=== PATIENT | female | born 1945 | race Caucasian/White ===

== ENCOUNTER 2022-12-27 17:30 | Inpatient (IN) ==
--- NOTE | 2022-12-27 17:48 | ED Triage Note ---
Date of Service December 27, 2022 History of Present Illness This patient was briefly evaluated while in triage. An abbreviated physical exam was performed. This patient is a 77-year-old Female who presents to the ED for evaluation of possible atrial fibrillation. She was at her PCP's office for a routine visit and the EKG showed an undetermined rhythm, possibly atrial fibrillation. She has not been feeling well generally and has had some unexplained weight loss. She denies chest pain or shortness of breath. Physical Exam VITALS: Vitals are noted on the nurse's note and reviewed by myself. GENERAL: This is a 77-year-old female, in no acute distress, nondiaphoretic, well-developed well-nourished. SKIN: The skin was without rashes. EYES: Pupils equal round and reactive to light and accommodation. HEART: Irregularly irregular rhythm. No murmurs gallops or rubs. LUNGS: Clear to auscultation bilaterally without wheezes, rales or rhonchi. NEURO: Patient was alert and oriented to person place and time. Initial orders for labs and / or imaging were placed and patient was placed in the waiting area until a bed is available. Please see further documentation for the full ED course.
[2022-12-27 18:22] LABS: Basophils % (auto) 0.7 %; Eosinophils # (auto) 0.07 K/uL (0-0.50); Eosinophils % (auto) 0.5 %; Hematocrit (blood only) 41.2 % (37.0-47.0); Hemoglobin 13.1 g/dl (12.0-16.0); Immature Granulocytes # (auto) 0.06 K/uL (0.01-0.20); Immature Granulocytes % (auto) 0.4 %; Lymphocytes # (auto) 1.07 K/uL (1.2-3.4); Lymphocytes % (auto) 7.9 %; Mean Corpuscular Hemoglobin 29.6 pg (25.0-34.0); Mean Corpuscular Hgb Conc 31.8 g/dL (32.0-36.0); Mean Corpuscular Volume 93.2 fL (80.0-100.0); Mean Platelet Volume 9.6 fL (9.4-12.4); Monocytes # (auto) 1.33 K/uL (0.11-0.59); Monocytes % (auto) 9.9 %; Neutrophils # (auto) 10.85 K/uL (1.40-6.50); Neutrophils % (auto) 80.6 %; Platelet Count 391 K/uL (130-400); RDW Coefficient of Variation 13.5 % (11.5-14.5); RDW Standard Deviation 46.4 fL (36.4-46.3); Red Blood Count 4.42 M/uL (4.20-5.40); White Blood Count 13.48 K/ul (4.8-10.8)
--- NOTE | 2022-12-27 18:27 | Emergency Department Note ---
History of Present Illness General Chief Complaint: Arrhythmia/Palpitations Stated Complaint: REF BY Harshad KEITA, Time Seen by Provider: 12/27/22 18:05 History of Present Illness Provider Complaint: + palpitations Onset (ago): week(s) (2) Duration: + Intermittent Severity: moderate Context: + occurred during rest Arrhythmia history: no on anti-coagulants Associated symptoms: no chest pain, no shortness of breath, no syncope, no near- syncope, no nausea, no vomiting, no cough or no paresthesias Home Medications Medication Instructions Recorded Confirmed Type aspirin 81 mg tablet,delayed 81 mg PO 3XWK 09/19/18 12/27/22 History release carvedilol phosphate 40 mg 40 mg PO QAM 09/19/18 12/27/22 History capsule,[id number] multiphase cyanocobalamin (vitamin B-12) 1,000 mcg PO QAM 09/19/18 12/27/22 History 1,000 mcg tablet (Vitamin B-12) docusate sodium 50 mg capsule 50 - 100 mg PO QAM PRN constipation 09/19/18 12/27/22 History furosemide 40 mg tablet 40 mg PO QAM 09/19/18 12/27/22 History spironolactone 25 mg tablet 25 mg PO QAM 09/19/18 12/27/22 History cholecalciferol (vitamin D3) 25 25 mcg PO QAM 09/07/21 12/27/22 History mcg (1,000 unit) capsule (Vitamin D3) Allergies Allergy/AdvReac Type Severity Reaction Status Date / Time Tetracyclines Allergy Severe ANAPHYLAXIS Verified 12/27/22 18:44 ciprofloxacin Allergy Intermediate "my heart Verified 12/27/22 18:44 palpates" Penicillins Allergy Mild HIVES Verified 12/27/22 18:44 Sulfa (Sulfonamide Allergy Mild ITCHING Verified 12/27/22 18:44 Antibiotics) Past Med/Surg History Medical History Brain tumor Cardiomyopathy follows with Dr. Torres Chronic kidney disease, stage 3 Deep vein thrombosis left leg after flying--was on warfarin, stopped 2016 Heart palpitations History of colon polyps Hypertension Morbid obesity with BMI of 45.0-49.9, adult Osteoarthritis Skipped heart beats Surgical History History of appendectomy History of cardiac cath 1996, no stents History of colonoscopy last 09/15/21 @ [facility] History of [place]aniotomy 12/26/17 [place] [facility] [place]benign [place] History of dilatation and curettage History of esophagogastroduodenoscopy (EGD) History of tonsillectomy and adenoidectomy History of tooth extraction History of total abdominal hysterectomy and bilateral salpingo-oophorectomy Family History Other No family history of adverse response to anesthesia Social History Smoking Status: Former smoker Second Hand Exposure: No; Hx Alcohol Use: No Hx Substance Use: No Preferred Language: Khmer Communication Ability: Effective 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 Beliefs That Will Affect Care: None Current Living Situation: Spouse and Family Current Living Situation Comment: Lives with /daughter and 2 grandkids Feels Safe at Home: Yes Assistive Devices: None Physical Exam Vital Signs: Vital Signs - 24 hr 12/27/22 17:44 12/27/22 18:20 12/27/22 18:29 Temperature 36.8 C Temperature Source Temporal Artery Sc an Pulse Rate 118 H 111 H Pulse Rate [Left A pical] 106 H Respiratory Rate 20 24 Respiratory Depth Normal Blood Pressure 130/74 Blood Pressure [Le ft Radial Artery] 108/91 Blood Pressure Kaykay n 92 Blood Pressure Kaykay n [Left Radial Art carmen] 96 Blood Pressure Pos ition Sitting Pulse Oximetry 99 95 Oxygen Delivery Me thod Room Air Room Air Sepsis Recent Feve r Within 48 Hours No Sepsis New/Unexpla ined Change in Men venancio Status No Sepsis Action Take n by Nursing No Action Required 12/27/22 18:35 Temperature Temperature Source Pulse Rate 106 H Pulse Rate [Left A pical] Respiratory Rate 17 Respiratory Depth Blood Pressure 125/78 Blood Pressure [Le ft Radial Artery] Blood Pressure Kaykay n 93 Blood Pressure Kaykay n [Left Radial Art carmen] Blood Pressure Pos ition Pulse Oximetry 98 Oxygen Delivery Me thod Room Air Sepsis Recent Feve r Within 48 Hours Sepsis New/Unexpla ined Change in Men venancio Status Sepsis Action Take n by Nursing Physical Exam: Physical Exam GENERAL: oriented to person, place, and time. appears well-developed and well- nourished. HENT: Exam performed. - Head: Normocephalic and atraumatic. EYES: Conjunctivae and EOM are normal. Right eye exhibits no discharge. Left eye exhibits no discharge. No scleral icterus. NECK: Normal range of motion. Neck supple. No JVD present. CV: Tachycardic rate, irregular rhythm, normal heart sounds and intact distal pulses. There is no peripheral edema. Palpable radial pulses bue. PULM/CHEST: Effort normal and breath sounds normal. No respiratory distress. No stridor. no wheezes. no rales. ABD: The abdomen is soft. There is no tenderness. NEURO: Motor and sensation grossly intact. SKIN: Skin is warm and dry. He is not diaphoretic. PSYCH: normal mood and affect. Behavior is normal. Judgment and thought content normal. Course Course 1804: The patient was evaluated in room A4. A complete history and physical exam was performed Cardiac monitoring: An order was placed for continuous cardiac monitoring. The monitor shows a rate of 100 with atrial fibrilation rhythm interpreted by az 2124: Patient lolis in atrial fibrillation with a range heart rate of 100-120. Patient reports no chest pain or difficulty breathing. Patient's labs show mildly elevated troponin of 16.5. TSH 1.204. COVID-negative. Mild leukocytosis of 13.48. D-dimer elevated 2670. CTA of the chest showed a few scattered small linear defects in the right upper and lower lobe pulmonary art eries consistent with pulmonary emboli but the majority of these defects have a weblike appearance and therefore favor chronic pulmonary emboli and there are no definite acute pulmonary emboli per the radiology read. There is moderate cardiomegaly with right-sided heart dysfunction and no evidence of pulmonary edema. Patient has an elevated [id number] score and therefore will be anticoagulated for her new onset atrial fibrillation. Patient started on heparin bolus and drip. [facility]. Administered Medications Discontinued Medications Ioversol (Optiray 320 500ml) 109 ml IV ONCE ONE Stop: 12/27/22 20:15 Last Admin: 12/27/22 20:14 Dose: 109 ml Documented By: DWAYNE Medical Decision Making Laboratory Data Attestation: I reviewed the patient's lab results. 12/27/22 18:07 12/27/22 18:07 Lab Results 12/27/22 12/27/22 12/27/22 Range/Units 18:07 18:07 18:07 WBC 13.48 H (4.8-10.8) K/ul RBC 4.42 (4.20-5.40) M/uL Hgb 13.1 (12.0-16.0) g/dl Hct 41.2 (37.0-47.0) % MCV 93.2 (80.0-100.0) fL MCH 29.6 (25.0-34.0) pg MCHC 31.8 L (32.0-36.0) g/dL RDW Std Deviation 46.4 H (36.4-46.3) fL RDW Coeff of Sg 13.5 (11.5-14.5) % Plt Count 391 (130-400) K/uL MPV 9.6 (9.4-12.4) fL Immature Gran % (Auto) 0.4 % Neut % (Auto) 80.6 % Lymph % (Auto) 7.9 % Harmon % (Auto) 9.9 % Eos % (Auto) 0.5 % Baso % (Auto) 0.7 % Neut # (Auto) 10.85 H (1.40-6.50) K/uL Lymph # (Auto) 1.07 L (1.2-3.4) K/uL Harmon # (Auto) 1.33 H (0.11-0.59) K/uL Eos # (Auto) 0.07 (0-0.50) K/uL Baso # (Auto) 0.10 (0-0.2) K/uL Immature Gran # (Auto) 0.06 (0.01-0.20) K/uL PT 11.8 (9.0-12.0) Seconds INR 1.1 (0.9-1.1) APTT 23.9 (21.0-31.0) Seconds PTT Ratio 0.8 D-Dimer (0-500) ug/L FEU Sodium 141 (136-145) mmol/L Potassium 3.4 L (3.5-5.1) mmol/L Chloride 102 (98-107) mmol/L Carbon Dioxide 31 (21-32) mmol/L Anion Gap 8 (3-11) BUN 21 (6-23) mg/dl Creatinine 1.23 H (0.6-1.2) mg/dl Est Cr Clr Drug Dosing Not Reportable Est GFR ( Amer) 49.7 ml/min Est GFR (Non-Af Amer) 42.9 ml/min BUN/Creatinine Ratio 17.1 (10-20) Glucose 98 (70-99(Fasting)) mg/dl Calcium 9.3 (8.6-10.3) mg/dl Magnesium 1.9 (1.7-2.4) mg/dl Total Bilirubin 0.6 (0.2-1.0) mg/dl AST 10 L (13-39) U/L ALT 5 L (7-52) U/L Alkaline Phosphatase 69 (34-104) U/L Troponin I High Sens 16.5 H (0-14) pg/ml Total Protein 7.4 (6.0-8.3) gm/dl Albumin 3.5 (3.4-5.0) gm/dl Globulin 3.9 (2.5-4.0) gm/dl Albumin/Globulin Ratio 0.9 (0.9-2) TSH (0.300-4.500) uIu/ml SARS-CoV-2, RNA, NAAT (NEGATIVE) 12/27/22 12/27/22 12/27/22 Range/Units 18:07 18:07 18:19 WBC (4.8-10.8) K/ul RBC (4.20-5.40) M/uL Hgb (12.0-16.0) g/dl Hct (37.0-47.0) % MCV (80.0-100.0) fL MCH (25.0-34.0) pg MCHC (32.0-36.0) g/dL RDW Std Deviation (36.4-46.3) fL RDW Coeff of Sg (11.5-14.5) % Plt Count (130-400) K/uL MPV (9.4-12.4) fL Immature Gran % (Auto) % Neut % (Auto) % Lymph % (Auto) % Harmon % (Auto) % Eos % (Auto) % Baso % (Auto) % Neut # (Auto) (1.40-6.50) K/uL Lymph # (Auto) (1.2-3.4) K/uL Harmon # (Auto) (0.11-0.59) K/uL Eos # (Auto) (0-0.50) K/uL Baso # (Auto) (0-0.2) K/uL Immature Gran # (Auto) (0.01-0.20) K/uL PT (9.0-12.0) Seconds INR (0.9-1.1) APTT (21.0-31.0) Seconds PTT Ratio D-Dimer 2670 H* (0-500) ug/L FEU Sodium (136-145) mmol/L Potassium (3.5-5.1) mmol/L Chloride (98-107) mmol/L Carbon Dioxide (21-32) mmol/L Anion Gap (3-11) BUN (6-23) mg/dl Creatinine (0.6-1.2) mg/dl Est Cr Clr Drug Dosing Est GFR ( Amer) ml/min Est GFR (Non-Af Amer) ml/min BUN/Creatinine Ratio (10-20) Glucose (70-99(Fasting)) mg/dl Calcium (8.6-10.3) mg/dl Magnesium (1.7-2.4) mg/dl Total Bilirubin (0.2-1.0) mg/dl AST (13-39) U/L ALT (7-52) U/L Alkaline Phosphatase (34-104) U/L Troponin I High Sens (0-14) pg/ml Total Protein (6.0-8.3) gm/dl Albumin (3.4-5.0) gm/dl Globulin (2.5-4.0) gm/dl Albumin/Globulin Ratio (0.9-2) TSH 1.204 (0.300-4.500) uIu/ml SARS-CoV-2, RNA, NAAT NEGATIVE (NEGATIVE) Imaging Data Attestation: I personally reviewed and interpreted this imaging study as follows: My Impression: Chest x-ray: Mild cardiomegaly no pulmonary edema. Radiologist's Impression: Chest X-Ray 12/27/22 17:52 XR chest 1V portable HISTORY: Dysrhythmia COMPARISON: Chest 04/25/2016. FINDINGS: No pneumothorax. No pleural effusions. The cardiac silhouette is mildly enlarged. This has slightly progressed. No new focal lung consolidations to suggest a pneumonia. No evidence for pulmonary edema. No acute fractures identified. IMPRESSION: Cardiomegaly which has slightly progressed. Otherwise, no acute process within the chest ACT 112: Negative or not required by law. Electronically signed by: Dawood Singh M.D. 12/27/2022 8:12 PM Chest CTA 12/27/22 19:31 CHEST CTA for PULMONARY ARTERIES CT DOSE: 505.28 mGy.cm HISTORY: New onset atrial fibrillation. Assess for a pulmonary embolus. TECHNIQUE: Multiaxial CT images of the chest were performed following the intravenous administration of contrast to evaluate the pulmonary arteries. Maximal intensity projection images were also obtained. A dose lowering technique was utilized adhering to the principles of ALARA. COMPARISON STUDY: None. FINDINGS: Limited views of the upper abdomen demonstrate a normal liver, spleen, and adrenal glands. Retrograde opacification of the hepatic veins consistent with right-sided heart dysfunction. Multinodular thyroid goiter. Dominant nodule measures approximately 3.3 cm. No pleural or pericardial effusions. No mediastinal or hilar lymphadenopathy. Normal esophagus. The heart is moderately enlarged. There is a normal caliber thoracic aorta with no evidence for a dissection. There are few scattered small linear filling defects seen within the right upper and right lower lobe pulmonary arteries consistent with pulmonary emboli. The majority of these filling defects have a weblike appearance and therefore favor chronic pulmonary emboli. No definite acute pulmonary emboli identified. No acute fractures identified within the chest. No pneumothorax. The central airways are patent. A few scattered micronodules noted within the lung apices with the largest within the right upper lobe on image 229 measuring 3 mm. This favors mild chronic inflammatory/infectious change. No focal lung consol idations to suggest a pneumonia. No evidence for pulmonary edema. There is mild central bronchial wall thickening. IMPRESSION: 1. There are few scattered small linear filling defects seen within the right upper and right lower lobe pulmonary arteries consistent with pulmonary emboli. The majority of these filling defects have a weblike appearance and therefore favor chronic pulmonary emboli. No definite acute pulmonary emboli identified. 2. Moderate cardiomegaly with evidence for right-sided heart dysfunction. 3. No evidence for pulmonary edema. 4. A few scattered micronodules within the lung apices measuring up to 3 mm. This favors mild chronic inflammatory/infectious change. Otherwise, no focal lung consolidations to suggest a pneumonia. 5. Multinodular left thyroid gland with the dominant nodule measuring 3.3 cm. Follow-up nonemergent thyroid ultrasound recommended for further evaluation ACT 112: Positive. There are findings on this exam that require communication between the performing entity and the patient following Patient Test Result Information Act ([place] Act 112) guidelines. Electronically signed by: Dawood Singh M.D. 12/27/2022 9:15 PM ECG Data Attestation: I personally reviewed and interpreted this ECG as follows: Indication: palpitations Rate (beats per minute): 116 Rhythm: atrial fibrillation Findings: + LBBB and + PVC; no ST depression, no ST elevation or no prolonged QT MDM Narrative 1805: The patient was evaluated in room A4. A complete history and physical exam was performed Cardiac monitoring: An order was placed for continuous cardiac monitoring. The monitor shows a rate of 100 with atrial fibrilation rhythm interpreted by me 2125: Patient lolis in atrial fibrillation with a range heart rate of 100-120. Patient reports no chest pain or difficulty breathing. Patient's labs show mildly elevated troponin of 16.5. TSH 1.204. COVID-negative. Mild leukocytosis of 13.48. D-dimer elevated 2670. CTA of the chest showed a few scattered small linear defects in the right upper and lower lobe pulmonary arteries consistent with pulmonary emboli but the majority of these defects have a weblike appearance and therefore favor chronic pulmonary emboli and there are no definite acute pulmonary emboli per the radiology read. There is moderate cardiomegaly with right-sided heart dysfunction and no evidence of pulmonary edema. Patient has an elevated [id number] score and therefore will be anticoagulated for her new onset atrial fibrillation. Patient started on heparin bolus and drip. [facility]. Impression & Plan Atrial fibrillation, Pulmonary emboli Critical Care Time Critical Care Time: Yes Total Critical Care Time: 38 I have personally spent greater than 38 minutes of critical care time in the direct management of this patient. This includes bedside care, interpretation of diagnostic studies, and testing, discussion with consultants, patient, and family members, and other required patient management activities. This 38 minutes is in excess of all separately billable procedures. Discharge Plan Visit Data Chief Complaint: Arrhythmia/Palpitations Stated Complaint: REF BY Harshad KEITA, ED Provider: Sebastien Ely Discharge Problem: Atrial fibrillation, Pulmonary emboli Patient Disposition: Admitted As Inpatient Forms Stand Alone Forms: [facility] Prescriptions Prescriptions: No Action furosemide 40 mg Tablet 40 mg PO QAM cyanocobalamin (vitamin B-12) [Vitamin B-12] 1,000 mcg Tablet 1,000 mcg PO QAM docusate sodium 50 mg Capsule 50 - 100 mg PO QAM PRN (Reason: constipation) aspirin 81 mg Tablet,Delayed Release (Dr/Ec) 81 mg PO 3XWK Patient Comments: takes mon/mon/mon in am Rx Instructions: Taken on Monday, Monday and Monday spironolactone 25 mg Tablet 25 mg PO QAM carvedilol phosphate 40 mg Capsule, Er Multiphase 24 Hr 40 mg PO QAM cholecalciferol (vitamin D3) [Vitamin D3] 25 mcg (1,000 unit) Capsule 25 mcg PO QAM Referrals Referrals: Michelle Jimenez DO [Primary Care Provider] -
[2022-12-27 18:44] LABS: Alanine Aminotransferase 5 U/L (7-52); Albumin Globulin Ratio 0.9 (0.9-2); Albumin Level 3.5 gm/dl (3.4-5.0); Alkaline Phosphatase 69 U/L (34-104); Anion Gap 8 (3-11); Aspartate Aminotransferase 10 U/L (13-39); BUN Creatinine Ratio 17.1 (10-20); Bilirubin,Total 0.6 mg/dl (0.2-1.0); Blood Urea Nitrogen 21 mg/dl (6-23); Calcium 9.3 mg/dl (8.6-10.3); Carbon Dioxide 31 mmol/L (21-32); Chloride 102 mmol/L (98-107); Est GFR (African American) 49.7 ml/min; Est GFR (Non-African American) 42.9 ml/min; Globulin 3.9 gm/dl (2.5-4.0); Glucose 98 mg/dl (70-99(Fasting)); Magnesium 1.9 mg/dl (1.7-2.4); Potassium 3.4 mmol/L (3.5-5.1); Sodium 141 mmol/L (136-145); Total Protein 7.4 gm/dl (6.0-8.3)
[2022-12-27 18:48] LABS: Troponin I High Sensitivity 16.5 pg/ml (0-14)
[2022-12-27 18:49] LABS: INR 1.1 (0.9-1.1); Partial Thromboplastin Ratio 0.8; Partial Thromboplastin Time 23.9 Seconds (21.0-31.0); Prothrombin Time 11.8 Seconds (9.0-12.0)
[2022-12-27 19:32] LABS: D Dimer 2670 ug/L FEU (0-500)
--- NOTE | 2022-12-27 20:13 | XRay Report ---
XR chest 1V portable HISTORY: Dysrhythmia COMPARISON: Chest 04/25/2016. FINDINGS: No pneumothorax. No pleural effusions. The cardiac silhouette is mildly enlarged. This has slightly progressed. No new focal lung consolidations to suggest a pneumonia. No evidence for pulmona ry edema. No acute fractures identified. IMPRESSION: Cardiomegaly which has slightly progressed. Otherwise, no acute process within the chest ACT 112: Negative or not required by law. Electronically signed by: Dawood Singh M.D. 12/27/2022 8:12 PM
[2022-12-27] MEDS ORDERED: OPTIRAY 320 500ml IV ONE (20:14)
--- NOTE | 2022-12-27 21:17 | CT Scan Report ---
CHEST CTA for PULMONARY ARTERIES CT DOSE: 505.28 mGy.cm HISTORY: New onset atrial fibrillation. Assess for a pulmonary embolus. TECHNIQUE: Multiaxial CT images of the chest were performed following the intravenous administration of contrast to evaluate the pulmonary arteries. Maximal intensity projection images were also obtaine d. A dose lowering technique was utilized adhering to the principles of ALARA. COMPARISON STUDY: None. FINDINGS: Limited views of the upper abdomen demonstrate a normal liver, spleen, and adrenal glands. Retrograde opacification of the hepatic veins consistent with right-sided heart dysfunction. Multinod ular thyroid goiter. Dominant nodule measures approximately 3.3 cm. No pleural or pericardial effusio ns. No mediastinal or hilar lymphadenopathy. Normal esophagus. The heart is moderately enlarged. Ther e is a normal caliber thoracic aorta with no evidence for a dissection. There are few scattered small linear filling defects seen within the right upper and right lower lobe pulmonary arteries consisten t with pulmonary emboli. The majority of these filling defects have a weblike appearance and therefor e favor chronic pulmonary emboli. No definite acute pulmonary emboli identified. No acute fractures i dentified within the chest. No pneumothorax. The central airways are patent. A few scattered micronod ules noted within the lung apices with the largest within the right upper lobe on image 229 measuring 3 mm. This favors mild chronic inflammatory/infectious change. No focal lung consolidations to sugge st a pneumonia. No evidence for pulmonary edema. There is mild central bronchial wall thickening. IMPRESSION: 1. There are few scattered small linear filling defects seen within the right upper and right lower l obe pulmonary arteries consistent with pulmonary emboli. The majority of these filling defects have a weblike appearance and therefore favor chronic pulmonary emboli. No definite acute pulmonary emboli identified. 2. Moderate cardiomegaly with evidence for right-sided heart dysfunction. 3. No evidence for pulmonary edema. 4. A few scattered micronodules within the lung apices measuring up to 3 mm. This favors mild chronic inflammatory/infectious change. Otherwise, no focal lung consolidations to suggest a pneumonia. 5. Multinodular left thyroid gland with the dominant nodule measuring 3.3 cm. Follow-up nonemergent t hyroid ultrasound recommended for further evaluation ACT 112: Positive. There are findings on this exam that require communication between the performing entity and the patient following Patient Test Result Information Act ([place] Act 112) guidelines. Electronically signed by: Dawood Singh M.D. 12/27/2022 9:15 PM
[2022-12-27] MEDS ORDERED: Heparin IV Adult Wt-Based Standard WITH Bolus Protocol IV STA (21:23)
[2022-12-27] MEDS ORDERED: HEPARIN SOD (PORCINE) 1000 UNIT/ML IV ONE (21:40)
[2022-12-27] MEDS ORDERED: POTASSIUM CHLORIDE PWD 20 MEQ PACK PO STA (22:10)
[2022-12-27] MEDS ORDERED: MAGNESIUM SULFATE / D5W 1 GM/100 ML BAG IV ONE (22:11)
[2022-12-27] MEDS ORDERED: METOPROLOL TARTRATE 25 MG TAB PO STA (22:12)
[2022-12-27] MEDS ORDERED: NSS + 20MEQ KCL 20 MEQ/1,000 ML BAG IV ONE (22:13)
[2022-12-27] MEDS ORDERED: LACTATED RINGER'S 1,000 ML IV ONE (22:14)
[2022-12-27] MEDS: HEPARIN SODIUM/DEXTROSE 25,000 UNITS/500 ML BAG IV SCH (22:53)
--- NOTE | 2022-12-27 23:54 | History & Physical Report ---
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 but patient hesitant due to concerns for potential voice loss complications IBD, stable, intermittent painless LGIB attributed to large hemorrhoids PCU low-dose metoprolol for rate control (in place of patient's Coreg) given border line BP (Patient initially hesitant to try medication but agreeable for now.) Continue IV heparin for thromboembolic prophylaxis LE venous Dopplers LE clot as source of PE Baseline UA, hold home diuretics until creatinine back to baseline UA, monitor creatinine response to IVF TTE, Cardiology consult Re: New onset A-fib Anxiolytic as needed Replace electrolytes DVT prophylaxis. IV heparin Full code Patient requesting updates from providers. Mr. Fidencio Turcios, contact #[phone]. Text document was generated using [employer] voice recognition software. It may contain grammatical or spelling errors. Kindly contact undersigned for clarification of any documentation item in question. History of Present Illness Chief Complaint: Atrial fibrillation Primary Care Provider: Michelle Jimenez DO History obtained from patient, family, and records. Medical history significant for chronic CHF secondary to dilated cardiomyopathy (EF 50-54%, TTE 2022), mild TR, chronic LBBB, pulmonary hypertension, hypertension, anxiety/mood disorder, meningioma status post surgery, subclinical hyperthyroidism, secondary hyperparathyroidism, multiple thyroid nodules, IBD, past history DVT status post Coumadin, Last confinement 2007 for E. coli UTI. Patient has not been well since gabe COVID-19 illness months ago. Transient diarrheal illness 2 weeks ago. Appetite not too good. Trying to be active. Increased fatigue over the last few weeks. Denies unusual depression. Patient denies chest pain or SOB. Denies cough symptoms. Patient compliant with home medications. Patient seen at PCPs office on follow-up visit today. Irregular heartbeat appreciated by PCP. A-fib noted on EKG. Patient directed to ER for evaluation. IV heparin administered at the ER with note of pulm embolism on CT chest. 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 Allergies Allergy/AdvReac Type Severity Reaction Status Date / Time Tetracyclines Allergy Severe ANAPHYLAXIS Verified 12/27/22 18:44 ciprofloxacin Allergy Intermediate "my heart Verified 12/27/22 18:44 palpates" Penicillins Allergy Mild HIVES Verified 12/27/22 18:44 Sulfa (Sulfonamide Allergy Mild ITCHING Verified 12/27/22 18:44 Antibiotics) Home Medications Medication Instructions Recorded Confirmed Type aspirin 81 mg tablet,delayed 81 mg PO 3XWK 09/19/18 12/27/22 History release carvedilol phosphate 40 mg 40 mg PO QAM 09/19/18 12/27/22 History capsule,[id number] multiphase cyanocobalamin (vitamin B-12) 1,000 mcg PO QAM 09/19/18 12/27/22 History 1,000 mcg tablet (Vitamin B-12) docusate sodium 50 mg capsule 50 - 100 mg PO QAM PRN constipation 09/19/18 12/27/22 History furosemide 40 mg tablet 40 mg PO QAM 09/19/18 12/27/22 History spironolactone 25 mg tablet 25 mg PO QAM 09/19/18 12/27/22 History cholecalciferol (vitamin D3) 25 25 mcg PO QAM 09/07/21 12/27/22 History mcg (1,000 unit) capsule (Vitamin D3) Past Med/Surg History Medical History Brain tumor Cardiomyopathy follows with Dr. Torres Chronic kidney disease, stage 3 Deep vein thrombosis left leg after flying--was on warfarin, stopped 2015 Heart palpitations History of colon polyps Hypertension Morbid obesity with BMI of 45.0-49.9, adult Osteoarthritis Skipped heart beats Surgical History History of appendectomy History of cardiac cath 1996, no stents History of colonoscopy last 09/15/21 @ [facility] [place] [facility] [place] History of dilatation and curettage History of esophagogastroduodenoscopy (EGD) History of tonsillectomy and adenoidectomy History of tooth extraction History of total abdominal hysterectomy and bilateral salpingo-oophorectomy Family History Other No family history of adverse response to anesthesia Social History Smoking Status: Never smoker Second Hand Exposure: No; Do You Dip or Chew Tobacco: No; Tobacco Cessation Education Requested by Patient: No Hx Alcohol Use: No Hx Substance Use: No Preferred Language: Pashto Communication Ability: Effective 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 Beliefs That Will Affect Care: None Current Living Situation: Spouse and Family Current Living Situation Comment: Lives with /daughter and 2 grandkids Other Information That Helps Us Care for You: No Feels Safe at Home: Yes Safety Concerns: Feels Safe At This Time Assistive Devices: Cane Assistive Devices Comment: uses a cane when walking long distance Review of Systems Review of Systems: As per HPI, all other systems reviewed and negative Physical Exam Physical Exam: GENERAL: Comfortable, slightly anxious, morbidly obese, no respiratory distress SKIN: Normal color, warm HEENT: [place] palpebral conjunctivae, no ptosis, dry buccal mucosa NECK : Supple, short neck, no tenderness CHEST : CTA, no tenderness HEART : irregular, no obvious murmurs ABDOMEN: Some distention, nontender EXTREMITIES : LE swelling, no LE tenderness, no other conspicuous deformities noted NEUROLOGIC : Coherent, no facial asymmetry, no other gross focality Results & Data Results & Data Vital Signs (Past 12 Hours) Vital Signs Temp Pulse Pulse Resp BP BP Pulse Ox 12/27/22 23:30 110 H 26 H 113/69 93 12/27/22 23:00 108 H 24 128/84 99 12/27/22 22:24 111 H 12/27/22 18:35 106 H 17 125/78 98 12/27/22 18:29 111 H 12/27/22 18:20 106 H 24 108/91 95 12/27/22 17:44 36.8 C 118 H 20 130/74 99 O2 Del Method 12/27/22 23:30 Room Air 12/27/22 23:00 Room Air 12/27/22 22:24 12/27/22 18:35 Room Air 12/27/22 18:29 12/27/22 18:20 Room Air 12/27/22 17:44 Room Air Laboratory Results Laboratory Results WBC 13.48 K/ul (4.8-10.8) H 12/27/22 18:07 RBC 4.42 M/uL (4.20-5.40) 12/27/22 18:07 Hgb 13.1 g/dl (12.0-16.0) 12/27/22 18:07 Hct 41.2 % (37.0-47.0) 12/27/22 18:07 MCV 93.2 fL (80.0-100.0) 12/27/22 18:07 MCH 29.6 pg (25.0-34.0) 12/27/22 18:07 MCHC 31.8 g/dL (32.0-36.0) L 12/27/22 18:07 RDW Std Deviation 46.4 fL (36.4-46.3) H 12/27/22 18:07 RDW Coeff of Sg 13.5 % (11.5-14.5) 12/27/22 18:07 Plt Count 391 K/uL (130-400) 12/27/22 18:07 MPV 9.6 fL (9.4-12.4) 12/27/22 18:07 Immature Gran % (Auto) 0.4 % 12/27/22 18:07 Neut % (Auto) 80.6 % 12/27/22 18:07 Lymph % (Auto) 7.9 % 12/27/22 18:07 [place] % (Auto) 9.9 % 12/27/22 18:07 Eos % (Auto) 0.5 % 12/27/22 18:07 Baso % (Auto) 0.7 % 12/27/22 18:07 Neut # (Auto) 10.85 K/uL (1.40-6.50) H 12/27/22 18:07 Lymph # (Auto) 1.07 K/uL (1.2-3.4) L 12/27/22 18:07 [place] # (Auto) 1.33 K/uL (0.11-0.59) H 12/27/22 18:07 Eos # (Auto) 0.07 K/uL (0-0.50) 12/27/22 18:07 Baso # (Auto) 0.10 K/uL (0-0.2) 12/27/22 18:07 Immature Gran # (Auto) 0.06 K/uL (0.01-0.20) 12/27/22 18:07 PT 11.8 Seconds (9.0-12.0) 12/27/22 18:07 INR 1.1 (0.9-1.1) 12/27/22 18:07 APTT 23.9 Seconds (21.0-31.0) 12/27/22 18:07 PTT Ratio 0.8 12/27/22 18:07 D-Dimer 2670 ug/L FEU (0-500) H* 12/27/22 18:07 Sodium 141 mmol/L (136-145) 12/27/22 18:07 Potassium 3.4 mmol/L (3.5-5.1) L 12/27/22 18:07 Chloride 102 mmol/L (98-107) 12/27/22 18:07 Carbon Dioxide 31 mmol/L (21-32) 12/27/22 18:07 Anion Gap 8 (3-11) 12/27/22 18:07 BUN 21 mg/dl (6-23) 12/27/22 18:07 Creatinine 1.23 mg/dl (0.6-1.2) H 12/27/22 18:07 Est Cr Clr Drug Dosing Not Reportable 12/27/22 18:07 Est GFR ( Amer) 49.7 ml/min 12/27/22 18:07 Est GFR (Non-Af Amer) 42.9 ml/min 12/27/22 18:07 BUN/Creatinine Ratio 17.1 (10-20) 12/27/22 18:07 Glucose 98 mg/dl (70-99(Fasting)) 12/27/22 18:07 Calcium 9.3 mg/dl (8.6-10.3) 12/27/22 18:07 Magnesium 1.9 mg/dl (1.7-2.4) 12/27/22 18:07 Total Bilirubin 0.6 mg/dl (0.2-1.0) 12/27/22 18:07 AST 10 U/L (13-39) L 12/27/22 18:07 ALT 5 U/L (7-52) L 12/27/22 18:07 Alkaline Phosphatase 69 U/L (34-104) 12/27/22 18:07 Troponin I High Sens 16.5 pg/ml (0-14) H 12/27/22 18:07 Total Protein 7.4 gm/dl (6.0-8.3) 12/27/22 18:07 Albumin 3.5 gm/dl (3.4-5.0) 12/27/22 18:07 Globulin 3.9 gm/dl (2.5-4.0) 12/27/22 18:07 Albumin/Globulin Ratio 0.9 (0.9-2) 12/27/22 18:07 Procalcitonin < 0.05 ng/ml (0-0.5) 12/27/22 18:07 TSH 1.204 uIu/ml (0.300-4.500) 12/27/22 18:07 SARS-CoV-2, RNA, NAAT NEGATIVE (NEGATIVE) 12/27/22 18:19 Impressions Chest X-Ray 12/27/22 17:52 XR chest 1V portable HISTORY: Dysrhythmia COMPARISON: Chest 04/25/2016. FINDINGS: No pneumothorax. No pleural effusions. The cardiac silhouette is mildly enlarged. This has slightly progressed. No new focal lung consolidations to suggest a pneumonia. No evidence for pulmonary edema. No acute fractures identified. IMPRESSION: Cardiomegaly which has slightly progressed. Otherwise, no acute process within the chest ACT 112: Negative or not required by law. Electronically signed by: Dawood Singh M.D. 12/27/2022 8:12 PM Chest CTA 12/27/22 19:31 CHEST CTA for PULMONARY ARTERIES CT DOSE: 505.28 mGy.cm HISTORY: New onset atrial fibrillation. Assess for a pulmonary embolus. TECHNIQUE: Multiaxial CT images of the chest were performed following the intravenous administration of contrast to evaluate the pulmonary arteries. Maximal intensity projection images were also obtained. A dose lowering technique was utilized adhering to the principles of ALARA. COMPARISON STUDY: None. FINDINGS: Limited views of the upper abdomen demonstrate a normal liver, spleen, and adrenal glands. Retrograde opacification of the hepatic veins consistent with right-sided heart dysfunction. Multinodular thyroid goiter. Dominant nodule measures approximately 3.3 cm. No pleural or pericardial effusions. No mediastinal or hilar lymphadenopathy. Normal esophagus. The heart is moderately enlarged. There is a normal caliber thoracic aorta with no evidence for a dissection. There are few scattered small linear filling defects seen within the right upper and right lower lobe pulmonary arteries consistent with pulmonary emboli. The majority of these filling defects have a weblike appearance and therefore favor chronic pulmonary emboli. No definite acute pulmonary emboli identified. No acute fractures identified within the chest. No pneumothorax. The central airways are patent. A few scattered micronodules noted within the lung apices with the largest within the right upper lobe on image 229 measuring 3 mm. This favors mild chronic inflammatory/infectious change. No focal lung consolidations to suggest a pneumonia. No evidence for pulmonary edema. There is mild central bronchial wall thickening. IMPRESSION: 1. There are few scattered small linear filling defects seen within the right upper and right lower lobe pulmonary arteries consistent with pulmonary emboli. The majority of these filling defects have a weblike appearance and therefore favor chronic pulmonary emboli. No definite acute pulmonary emboli identified. 2. Moderate cardiomegaly with evidence for right-sided heart dysfunction. 3. No evidence for pulmonary edema. 4. A few scattered micronodules within the lung apices measuring up to 3 mm. This favors mild chronic inflammatory/infectious change. Otherwise, no focal lung consolidations to suggest a pneumonia. 5. Multinodular left thyroid gland with the dominant nodule measuring 3.3 cm. Follow-up nonemergent thyroid ultrasound recommended for further evaluation ACT 112: Positive. There are findings on this exam that require communication between the performing entity and the patient following Patient Test Result Information Act ([place] Act 112) guidelines. Electronically signed by: Dawood Singh M.D. 12/27/2022 9:15 PM Diagnostic Findings EKG as per my interpretation :Rate 115, A-fib, LAD, LAFB, LBBB, PVCs (1) Atrial fibrillation Atrial fibrillation type: unspecified Qualified Code(s): I48.91 - Unspecified atrial fibrillation
[2022-12-28] MEDS ORDERED: PROMETHAZINE HCL 12.5 MG in SODIUM CHLORIDE 0.9% 50 ML IV PRN (00:03)
[2022-12-28] MEDS ORDERED: traMADol HCL 50 MG TABLET PO PRN (00:03)
[2022-12-28] MEDS ORDERED: LORazepam 0.5 MG TAB PO PRN (00:03)
[2022-12-28 00:50] LABS: Lyme Ab IgG w/WB Rflx Negative (Negative); Lyme Ab IgM w/WB Rflx Negative (Negative)
[2022-12-28] MEDS ORDERED: ACETAMINOPHEN 325 MG TAB PO PRN (01:16)
[2022-12-28] MEDS: METOPROLOL TARTRATE 25 MG TAB PO STA ×2 (01:18→03:03)
--- NOTE | 2022-12-28 01:30 | Ultrasound Report ---
Exam(s): US VENOUS BILATERAL LOWER EXTREMITIES EXAM: US Duplex Bilateral Lower Extremities Veins CLINICAL HISTORY: Reason for exam: pe work up. TECHNIQUE: Real-time duplex ultrasound scan of the bilateral lower extremity veins integrating B-mode two-dimensional vascular structure, Doppler spectral analysis, color flow Doppler imaging and compression. COMPARISON: 03/09/2016. FINDINGS: Right deep veins: There is incomplete compressibility of the middle and distal right popliteal vein consistent with deep venous thrombosis. Right superficial veins: Unremarkable. No thrombus in the visualized right great saphenous vein. Left deep veins: Unremarkable. No DVT in the left common femoral, femoral, proximal deep femoral or popliteal veins. The veins demonstrate normal color flow, are normally compressible, with normal phasic flow and/or augmentation response. Left superficial veins: Unremarkable. No thrombus in the visualized left great saphenous vein. Soft tissues: There is an elongated cystic structure adjacent to the midportion of the right popliteal vein measuring 4.9 x 1.2 x 1.5 cm which may be associated with resolving hematoma, seroma or nonspecific fluid collection/cyst. IMPRESSION: 1. Deep venous thrombosis involving the middle and distal right popliteal vein. 2. Nonspecific cystic structure in the right calf measuring 4.9 x 1.2 x 0.5 cm which could indicate hematoma, seroma or nonspecific fluid collection/infectious process or cyst. Clinical correlation recommended. Communications: Call Doctor Other Electronically signed by: Jeanne Holley MD 12/28/22 01:29 AM
[2022-12-28 05:26] LABS: Basophils % (auto) 0.9 %; Eosinophils % (auto) 0.9 %; Hematocrit (blood only) 33.9 % (37.0-47.0); Hemoglobin 10.6 g/dl (12.0-16.0); Immature Granulocytes # (auto) 0.05 K/uL (0.01-0.20); Immature Granulocytes % (auto) 0.5 %; Lymphocytes # (auto) 1.45 K/uL (1.2-3.4); Lymphocytes % (auto) 13.3 %; Mean Corpuscular Hemoglobin 29.3 pg (25.0-34.0); Mean Corpuscular Hgb Conc 31.3 g/dL (32.0-36.0); Mean Corpuscular Volume 93.6 fL (80.0-100.0); Mean Platelet Volume 9.5 fL (9.4-12.4); Monocytes # (auto) 1.13 K/uL (0.11-0.59); Monocytes % (auto) 10.3 %; Neutrophils # (auto) 8.11 K/uL (1.40-6.50); Neutrophils % (auto) 74.1 %; Platelet Count 320 K/uL (130-400); RDW Coefficient of Variation 13.7 % (11.5-14.5); RDW Standard Deviation 46.5 fL (36.4-46.3); Red Blood Count 3.62 M/uL (4.20-5.40); White Blood Count 10.94 K/ul (4.8-10.8)
[2022-12-28 05:28] LABS: BUN Creatinine Ratio 16.7 (10-20); Calcium 8.6 mg/dl (8.6-10.3); Creatinine Clr Calc Pharmacy 49.7 ml/min; Est GFR (African American) 58.2 ml/min; Est GFR (Non-African American) 50.2 ml/min; Potassium 3.2 mmol/L (3.5-5.1)
[2022-12-28 05:35] LABS: Troponin I High Sensitivity 15.9 pg/ml (0-14)
[2022-12-28 05:54] LABS: Partial Thromboplastin Ratio 2.7
[2022-12-28 06:00] LABS: Partial Thromboplastin Time 75.9 Seconds (21.0-31.0)
[2022-12-28] MEDS ORDERED: POTASSIUM CHLORIDE CRTAB 20 MEQ TABCR PO STA (06:08)
[2022-12-28] MEDS ORDERED: NSS + 20MEQ KCL 20 MEQ/1,000 ML BAG IV ONE (06:30)
[2022-12-28] MEDS ORDERED: POTASSIUM CHLORIDE PWD 20 MEQ PACK PO STA (06:46)
[2022-12-28 08:05] LABS: Appearance Urine Cloudy (Clear); Bacteria Urine Automated 4+ (Negative); Bilirubin Urine Negative (Negative); Blood Urine 1+ (Negative); Color Urine Yellow; Epithelial Cell Urine Auto 20-30 /lpf (0-5); Glucose Urine UA Negative (Negative); Ketones Urine Negative (Negative); Leukocyte Esterase Urine 2+ (Negative); Nitrite Urine Positive (Negative); Protein Urine Trace (Negative); Specific Gravity Urine > 1.045 (1.000-1.030); Urobilinogen Urine Negative (Negative); WBC Urine Automated >30 /hpf (0-5)
[2022-12-28] MEDS ORDERED: POTASSIUM CHLORIDE CRTAB 20 MEQ TABCR PO ONE (08:30)
--- NOTE | 2022-12-28 08:56 | Hospitalist Progress Note ---
Date of Service December 28, 2022 Assessment & Plan (1) Atrial fibrillation: (2) Pulmonary emboli: Plan: (1) Atrial fibrillation: Plan: New onset Multifactorial : DVT/PE, history COVID-19 illness, past history DVT attributed to air travel TTE, Cardiology consult Re: New onset A-fib Started Metoprolol instead of coreg, given borderline BP Spironolactone IV heparin Replace electrolytes ARF, mild clinical dehydration Baseline UA, hold home diuretics until creatinine back to baseline UA, monitor creatinine response to IVF Repeat UA Spironolactone started Hypokalemia secondary to diuretic Rx replace and monitor Morbid obesity BMI 41 - reports unintentional weight loss - needs counseling regarding weight loss, also cont. 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 IV heparin Full code Patient -m Mr. Fidencio Turcios, contact #[phone]. Admission and Anticipated Discharge Date Admission Date: December 27, 2022 Subjective Pt seen in follow up of new onset Afib, DVT/PE, currently on IV heparin Pt is laying in bed in NAD Reports some palpitations but no chest pain or shortness of breath Denies any LE edema No fever, chills Reports nausea, vomit., diarrhea. Also reports having similar symptoms in the past and was seen by GI as outpt. Reports weight loss unintentional. Review of Systems Review of Systems: All systems reviewed & are unremarkable except as noted in Subjective Physical Exam Physical Exam: GENERAL: morbidly obese F , in NAD HEENT: NC/AT. EOMI. [place] palpebral conjunctivae NECK : Supple CHEST : CTAB, no tenderness HEART : irregular, no obvious murmurs ABDOMEN: Some distention,soft, nontender, + bowel sounds EXTREMITIES : + minimal LE edema, no LE tenderness, moves extremities SKIN: Normal color, warm NEUROLOGIC : awake, alert, answers appropriately, no facial asymmetry, moves extremities Results & Data Results & Data Vital Signs (Past 12 Hours) Vital Signs Temp Pulse Pulse Resp BP BP Pulse Ox 12/28/22 07:15 106 H 12/28/22 01:28 36.4 C L 110 H 18 107/70 98 12/28/22 00:00 108 H 17 107/62 96 12/28/22 00:00 107/62 12/27/22 23:30 110 H 26 H 113/69 93 12/27/22 23:00 108 H 24 128/84 99 12/27/22 22:24 111 H O2 Del Method 12/28/22 07:15 12/28/22 01:28 Room Air 12/28/22 00:00 Room Air 12/28/22 00:00 12/27/22 23:30 Room Air 12/27/22 23:00 Room Air 12/27/22 22:24 Laboratory Results 12/28/22 12/28/22 12/28/22 Range/Units Unknown 04:57 04:52 WBC (4.8-10.8) K/ul RBC (4.20-5.40) M/uL Hgb (12.0-16.0) g/dl Hct (37.0-47.0) % MCV (80.0-100.0) fL MCH (25.0-34.0) pg MCHC (32.0-36.0) g/dL RDW Std Deviation (36.4-46.3) fL RDW Coeff of Sg (11.5-14.5) % Plt Count (130-400) K/uL MPV (9.4-12.4) fL Immature Gran % (Auto) % Neut % (Auto) % Lymph % (Auto) % [place] % (Auto) % Eos % (Auto) % Baso % (Auto) % Neut # (Auto) (1.40-6.50) K/uL Lymph # (Auto) (1.2-3.4) K/uL D[place]on # (Auto) (0.11-0.59) K/uL Eos # (Auto) (0-0.50) K/uL Baso # (Auto) (0-0.2) K/uL Immature Gran # (Auto) (0.01-0.20) K/uL PT (9.0-12.0) Seconds INR (0.9-1.1) APTT 75.9 H* (21.0-31.0) Seconds PTT Ratio 2.7 D-Dimer (0-500) ug/L FEU Sodium 139 (136-145) mmol/L Potassium 3.2 L (3.5-5.1) mmol/L Chloride 106 (98-107) mmol/L Carbon Dioxide 31 (21-32) mmol/L Anion Gap 2 L (3-11) BUN 18 (6-23) mg/dl Creatinine 1.08 (0.6-1.2) mg/dl Est Cr Clr Drug Dosing 49.7 Est GFR ( Amer) 58.2 ml/min Est GFR (Non-Af Amer) 50.2 ml/min BUN/Creatinine Ratio 16.7 (10-20) Glucose 129 H (70-99(Fasting)) mg/dl Calcium 8.6 (8.6-10.3) mg/dl Magnesium (1.7-2.4) mg/dl Total Bilirubin (0.2-1.0) mg/dl AST (13-39) U/L ALT (7-52) U/L Alkaline Phosphatase (34-104) U/L Troponin I High Sens 15.9 H (0-14) pg/ml Total Protein (6.0-8.3) gm/dl Albumin (3.4-5.0) gm/dl Globulin (2.5-4.0) gm/dl Albumin/Globulin Ratio (0.9-2) Procalcitonin (0-0.5) ng/ml TSH (0.300-4.500) uIu/ml Urine Color Yellow Urine Appearance Cloudy A (Clear) Urine pH 5.0 (4.5-7.5) Ur Specific [place] > 1.045 H (1.000-1.030) Urine Protein Trace H (Negative) Urine Glucose (UA) Negative (Negative) Urine Ketones Negative (Negative) Urine Blood 1+ H (Negative) Urine Nitrite Positive A (Negative) Urine Bilirubin Negative (Negative) Urine Urobilinogen Negative (Negative) Ur Leukocyte Esterase 2+ H (Negative) Urine WBC (Auto) >30 H (0-5) /hpf Urine RBC (Auto) 10-30 H (0-4) /hpf U Hyaline Cast (Auto) 1-5 (0-5) /lpf U Epithel Cells (Auto) 20-30 H (0-5) /lpf Urine Bacteria (Auto) 4+ H (Negative) Lyme Disease IgG Ab (Negative) Lyme Disease IgM Ab (Negative) SARS-CoV-2, RNA, NAAT (NEGATIVE) 12/28/22 12/27/22 12/27/22 Range/Units 04:52 18:19 18:07 WBC 10.94 H (4.8-10.8) K/ul RBC 3.62 L (4.20-5.40) M/uL Hgb 10.6 L (12.0-16.0) g/dl Hct 33.9 L (37.0-47.0) % MCV 93.6 (80.0-100.0) fL MCH 29.3 (25.0-34.0) pg MCHC 31.3 L (32.0-36.0) g/dL RDW Std Deviation 46.5 H (36.4-46.3) fL RDW Coeff of Sg 13.7 (11.5-14.5) % Plt Count 320 (130-400) K/uL MPV 9.5 (9.4-12.4) fL Immature Gran % (Auto) 0.5 % Neut % (Auto) 74.1 % Lymph % (Auto) 13.3 % Dickson % (Auto) 10.3 % Eos % (Auto) 0.9 % Baso % (Auto) 0.9 % Neut # (Auto) 8.11 H (1.40-6.50) K/uL Lymph # (Auto) 1.45 (1.2-3.4) K/uL [place] # (Auto) 1.13 H (0.11-0.59) K/uL Eos # (Auto) 0.10 (0-0.50) K/uL Baso # (Auto) 0.10 (0-0.2) K/uL Immature Gran # (Auto) 0.05 (0.01-0.20) K/uL PT (9.0-12.0) Seconds INR (0.9-1.1) APTT (21.0-31.0) Seconds PTT Ratio D-Dimer (0-500) ug/L FEU Sodium (136-145) mmol/L Potassium (3.5-5.1) mmol/L Chloride (98-107) mmol/L Carbon Dioxide (21-32) mmol/L Anion Gap (3-11) BUN (6-23) mg/dl Creatinine (0.6-1.2) mg/dl Est Cr Clr Drug Dosing Est GFR ( Amer) ml/min Est GFR (Non-Af Amer) ml/min BUN/Creatinine Ratio (10-20) Glucose (70-99(Fasting)) mg/dl Calcium (8.6-10.3) mg/dl Magnesium (1.7-2.4) mg/dl Total Bilirubin (0.2-1.0) mg/dl AST (13-39) U/L ALT (7-52) U/L Alkaline Phosphatase (34-104) U/L Troponin I High Sens (0-14) pg/ml Total Protein (6.0-8.3) gm/dl Albumin (3.4-5.0) gm/dl Globulin (2.5-4.0) gm/dl Albumin/Globulin Ratio (0.9-2) Procalcitonin (0-0.5) ng/ml TSH (0.300-4.500) uIu/ml Urine Color Urine Appearance (Clear) Urine pH (4.5-7.5) Ur Specific [place] (1.000-1.030) Urine Protein (Negative) Urine Glucose (UA) (Negative) Urine Ketones (Negative) Urine Blood (Negative) Urine Nitrite (Negative) Urine Bilirubin (Negative) Urine Urobilinogen (Negative) Ur Leukocyte Esterase (Negative) Urine WBC (Auto) (0-5) /hpf Urine RBC (Auto) (0-4) /hpf U Hyaline Cast (Auto) (0-5) /lpf U Epithel Cells (Auto) (0-5) /lpf Urine Bacteria (Auto) (Negative) Lyme Disease IgG Ab Negative (Negative) Lyme Disease IgM Ab Negative (Negative) SARS-CoV-2, RNA, NAAT NEGATIVE (NEGATIVE) 12/27/22 12/27/22 12/27/22 Range/Units 18:07 18:07 18:07 WBC (4.8-10.8) K/ul RBC (4.20-5.40) M/uL Hgb (12.0-16.0) g/dl Hct (37.0-47.0) % MCV (80.0-100.0) fL MCH (25.0-34.0) pg MCHC (32.0-36.0) g/dL RDW Std Deviation (36.4-46.3) fL RDW Coeff of Sg (11.5-14.5) % Plt Count (130-400) K/uL MPV (9.4-12.4) fL Immature Gran % (Auto) % Neut % (Auto) % Lymph % (Auto) % [place] % (Auto) % Eos % (Auto) % Baso % (Auto) % Neut # (Auto) (1.40-6.50) K/uL Lymph # (Auto) (1.2-3.4) K/uL [place] # (Auto) (0.11-0.59) K/uL Eos # (Auto) (0-0.50) K/uL Baso # (Auto) (0-0.2) K/uL Immature Gran # (Auto) (0.01-0.20) K/uL PT (9.0-12.0) Seconds INR (0.9-1.1) APTT (21.0-31.0) Seconds PTT Ratio D-Dimer 2670 H* (0-500) ug/L FEU Sodium (136-145) mmol/L Potassium (3.5-5.1) mmol/L Chloride (98-107) mmol/L Carbon Dioxide (21-32) mmol/L Anion Gap (3-11) BUN (6-23) mg/dl Creatinine (0.6-1.2) mg/dl Est Cr Clr Drug Dosing Est GFR ( Amer) ml/min Est GFR (Non-Af Amer) ml/min BUN/Creatinine Ratio (10-20) Glucose (70-99(Fasting)) mg/dl Calcium (8.6-10.3) mg/dl Magnesium (1.7-2.4) mg/dl Total Bilirubin (0.2-1.0) mg/dl AST (13-39) U/L ALT (7-52) U/L Alkaline Phosphatase (34-104) U/L Troponin I High Sens (0-14) pg/ml Total Protein (6.0-8.3) gm/dl Albumin (3.4-5.0) gm/dl Globulin (2.5-4.0) gm/dl Albumin/Globulin Ratio (0.9-2) Procalcitonin < 0.05 (0-0.5) ng/ml TSH 1.204 (0.300-4.500) uIu/ml Urine Color Urine Appearance (Clear) Urine pH (4.5-7.5) Ur Specific [place] (1.000-1.030) Urine Protein (Negative) Urine Glucose (UA) (Negative) Urine Ketones (Negative) Urine Blood (Negative) Urine Nitrite (Negative) Urine Bilirubin (Negative) Urine Urobilinogen (Negative) Ur Leukocyte Esterase (Negative) Urine WBC (Auto) (0-5) /hpf Urine RBC (Auto) (0-4) /hpf U Hyaline Cast (Auto) (0-5) /lpf U Epithel Cells (Auto) (0-5) /lpf Urine Bacteria (Auto) (Negative) Lyme Disease IgG Ab (Negative) Lyme Disease IgM Ab (Negative) SARS-CoV-2, RNA, NAAT (NEGATIVE) 12/27/22 12/27/22 12/27/22 Range/Units 18:07 18:07 18:07 WBC 13.48 H (4.8-10.8) K/ul RBC 4.42 (4.20-5.40) M/uL Hgb 13.1 (12.0-16.0) g/dl Hct 41.2 (37.0-47.0) % MCV 93.2 (80.0-100.0) fL MCH 29.6 (25.0-34.0) pg MCHC 31.8 L (32.0-36.0) g/dL RDW Std Deviation 46.4 H (36.4-46.3) fL RDW Coeff of Sg 13.5 (11.5-14.5) % Plt Count 391 (130-400) K/uL MPV 9.6 (9.4-12.4) fL Immature Gran % (Auto) 0.4 % Neut % (Auto) 80.6 % Lymph % (Auto) 7.9 % Dickson % (Auto) 9.9 % Eos % (Auto) 0.5 % Baso % (Auto) 0.7 % Neut # (Auto) 10.85 H (1.40-6.50) K/uL Lymph # (Auto) 1.07 L (1.2-3.4) K/uL [place] # (Auto) 1.33 H (0.11-0.59) K/uL Eos # (Auto) 0.07 (0-0.50) K/uL Baso # (Auto) 0.10 (0-0.2) K/uL Immature Gran # (Auto) 0.06 (0.01-0.20) K/uL PT 11.8 (9.0-12.0) Seconds INR 1.1 (0.9-1.1) APTT 23.9 (21.0-31.0) Seconds PTT Ratio 0.8 D-Dimer (0-500) ug/L FEU Sodium 141 (136-145) mmol/L Potassium 3.4 L (3.5-5.1) mmol/L Chloride 102 (98-107) mmol/L Carbon Dioxide 31 (21-32) mmol/L Anion Gap 8 (3-11) BUN 21 (6-23) mg/dl Creatinine 1.23 H (0.6-1.2) mg/dl Est Cr Clr Drug Dosing Not Reportable Est GFR ( Amer) 49.7 ml/min Est GFR (Non-Af Amer) 42.9 ml/min BUN/Creatinine Ratio 17.1 (10-20) Glucose 98 (70-99(Fasting)) mg/dl Calcium 9.3 (8.6-10.3) mg/dl Magnesium 1.9 (1.7-2.4) mg/dl Total Bilirubin 0.6 (0.2-1.0) mg/dl AST 10 L (13-39) U/L ALT 5 L (7-52) U/L Alkaline Phosphatase 69 (34-104) U/L Troponin I High Sens 16.5 H (0-14) pg/ml Total Protein 7.4 (6.0-8.3) gm/dl Albumin 3.5 (3.4-5.0) gm/dl Globulin 3.9 (2.5-4.0) gm/dl Albumin/Globulin Ratio 0.9 (0.9-2) Procalcitonin (0-0.5) ng/ml TSH (0.300-4.500) uIu/ml Urine Color Urine Appearance (Clear) Urine pH (4.5-7.5) Ur Specific [place] (1.000-1.030) Urine Protein (Negative) Urine Glucose (UA) (Negative) Urine Ketones (Negative) Urine Blood (Negative) Urine Nitrite (Negative) Urine Bilirubin (Negative) Urine Urobilinogen (Negative) Ur Leukocyte Esterase (Negative) Urine WBC (Auto) (0-5) /hpf Urine RBC (Auto) (0-4) /hpf U Hyaline Cast (Auto) (0-5) /lpf U Epithel Cells (Auto) (0-5) /lpf Urine Bacteria (Auto) (Negative) Lyme Disease IgG Ab (Negative) Lyme Disease IgM Ab (Negative) SARS-CoV-2, RNA, NAAT (NEGATIVE) Medications Administered Current Inpatient Medications Acetaminophen (Acetaminophen 325 Mg Tab) 650 mg PO Q4H PRN PRN Reason: Pain or Fever Stop: 01/27/23 01:15 Heparin Sodium/Dextrose (Heparin Sodium/Dextrose) 25,000 units in 500 mls @ 25 mls/hr IV .Q20H SHAKEEL; Protocol Stop: 01/26/23 21:44 Last Titration: 12/28/22 06:01 Dose: 1,250 units/hr, 25 mls/hr Promethazine HCl 12.5 mg/ (Sodium Chloride) 50.5 mls @ 202 mls/hr IV Q6H PRN PRN Reason: Nausea And Vomiting Stop: 01/27/23 00:02 Potassium Chloride/Sodium Chloride (Normal Saline W/20 Meq Kcl) 20 meq in 1,000 mls @ 80 mls/hr IV .[id number] ONE; Protocol Stop: 12/28/22 18:59 Last Admin: 12/28/22 06:28 Dose: 80 mls/hr Lorazepam (Lorazepam 0.5 Mg Tab) 0.25 mg PO TID PRN PRN Reason: Anxiety Stop: 01/27/23 00:02 Metoprolol Tartrate (Metoprolol Tartrate 25 Mg Tab) 12.5 mg PO BID SHAKEEL Stop: 01/27/23 08:59 Potassium Chloride (Potassium Chloride Pwd 20 Meq Pack) 40 meq PO 0900 ONE Stop: 12/28/22 09:01 Tramadol HCl (Tramadol Hcl 50 Mg Tablet) 25 - 50 mg PO Q4H PRN PRN Reason: Pain Stop: 01/27/23 00:02 (1) Atrial fibrillation Atrial fibrillation type: unspecified Qualified Code(s): I48.91 - Unspecified atrial fibrillation (2) Pulmonary emboli Acute cor pulmonale presence: unspecified Chronicity: unspecified Pulmonary embolism type: unspecified Qualified Code(s): I26.99 - Other pulmonary embolism without acute cor pulmonale
[2022-12-28] MEDS ORDERED: METOPROLOL TARTRATE 25 MG TAB PO SCH (09:00)
[2022-12-28] MEDS ORDERED: POTASSIUM CHLORIDE PWD 20 MEQ PACK PO ONE ×2 (09:00)
[2022-12-28 13:21] LABS: Partial Thromboplastin Ratio 1.7
[2022-12-28 13:27] LABS: Partial Thromboplastin Time 49.3 Seconds (21.0-31.0)
--- NOTE | 2022-12-28 14:11 | Cardiology Consultation ---
Date of Consultation December 28, 2022 Assessment & Plan (1) Atrial fibrillation with rapid ventricular response: (2) Pulmonary emboli: (3) Dilated idiopathic cardiomyopathy: (4) LBBB (left bundle branch block): (5) CKD (chronic kidney disease), stage III: Plan Patient is a 77-year-old female with longstanding history of idiopathic cardiomyopathy with improvement overall systolic function and compensated class II 3 congestive heart failure. She presents now having been found to be in atrial fibrillation on routine clinical examination. Has been feeling weak and less vigorous over the past 2 months following acute COVID infection. Imaging studies also reflect possible chronic pulmonary emboli and DVT Current exam reflects atrial fibrillation with elevated ventricular response rate but no acute congestive heart failure. Echo does demonstrate decline in overall function in comparison to prior study of September 2022 Recommendations 1. Atrial fibrillation with elevated ventricular sponsor rate: Patient on Coreg at home we will discontinue given relatively low blood pressures and begin metoprolol succinate 25 mg twice per day for rate control. Anticoagulation already initiated with IV heparin for atrial fibrillation as well as thrombotic concerns. Given pulmonary emboli, DVT as well as uncertain duration of atrial fibrillation will not aggressively attempt to return to sinus rhythm at this time ultimate goal rate control and anticoagulation possible reconsider with cardioversion in 3 to 4 weeks. Suspect will switch to Eliquis on discharge.Patient previously anticoagulated with warfarin due to DVT with difficulties with intermittent rectal bleeding 2. Cardiomyopathy with reduced LV systolic function. No signs or symptoms of congestive heart failure suspect elevated ventricular sponsor rates aggravating primary chronic condition. Given recent carpal tunnel surgeries serum protein electrophoresis ordered. Plans as above We will resume spironolactone 25 mg daily today restart furosemide depending on clinical course. Consider DEMI ARB or Entresto depending on blood pressure 3. DVT/PE: Second event unprovoked in addition to atrial fibrillation warrants long-term anticoagulation History of Present Illness Reason for Consultation: Atrial fibrillation with rapid response, cardiomyopathy Requesting Physician: Dr. Orta Attending Physician: Jose Armando Orta MD History of Present Illness Patient is a 77-year-old female whose underlying issues include 1.Idiopathic dilated cardiomyopathy diagnosed in 1996 with near complete return to normal LV systolic function, EF 50%. 2.Chronic left bundle branch block. 3.Hypertension. 4.Chronic renal insufficiency. 5.History of past left DVT in March 2016. 6.Obesity. 7.Status post meningioma resection December 2017 8. Ulcerative colitis with intermittent rectal bleeding Patient presents now noting having felt poorly for 1 to 2 months following COVID infection in September. She presented for routine outpatient evaluation at primary care physician yesterday found to have atrial fibrillation with elevated ventricular response She has not noted signs or symptoms of edema with weight actually trending downward. No chest pains, tachypalpitations she was aware of. No syncope or near syncope. No neurologic complaints. As noted COVID infection early winter no recent fevers chills or infections. Has had bleeding issues in the past currently quiescent Imaging studies in the ER did demonstrate pulmonary emboli chronic versus acute as well as deep venous thrombosis with history of past DVT Patient appropriately anticoagulated this morning without acute complaints though elevated heart rate still present oxygenating well currently on room air Allergies Allergy/AdvReac Type Severity Reaction Status Date / Time Tetracyclines Allergy Severe ANAPHYLAXIS Verified 12/27/22 18:44 ciprofloxacin Allergy Intermediate "my heart Verified 12/27/22 18:44 palpates" Penicillins Allergy Mild HIVES Verified 12/27/22 18:44 Sulfa (Sulfonamide Allergy Mild ITCHING Verified 12/27/22 18:44 Antibiotics) Home Medications Medication Instructions Recorded Confirmed Type aspirin 81 mg tablet,delayed 81 mg PO 3XWK 09/19/18 12/27/22 History release carvedilol phosphate 40 mg 40 mg PO QAM 09/19/18 12/27/22 History capsule,[id number] multiphase cyanocobalamin (vitamin B-12) 1,000 mcg PO QAM 09/19/18 12/27/22 History 1,000 mcg tablet (Vitamin B-12) docusate sodium 50 mg capsule 50 - 100 mg PO QAM PRN constipation 09/19/18 12/27/22 History furosemide 40 mg tablet 40 mg PO QAM 09/19/18 12/27/22 History spironolactone 25 mg tablet 25 mg PO QAM 09/19/18 12/27/22 History cholecalciferol (vitamin D3) 25 25 mcg PO QAM 09/07/21 12/27/22 History mcg (1,000 unit) capsule (Vitamin D3) Patient History Medical History Brain tumor Cardiomyopathy follows with Dr. Torres Chronic kidney disease, stage 3 Deep vein thrombosis left leg after flying--was on warfarin, stopped 2016 Heart palpitations History of colon polyps Hypertension Morbid obesity with BMI of 45.0-49.9, adult Osteoarthritis Skipped heart beats Surgical History History of appendectomy History of cardiac cath 1996, no stents History of colonoscopy last 09/15/21 @ [facility] History of [place] [facility] [place]ign [place] History of dilatation and curettage History of esophagogastroduodenoscopy (EGD) History of tonsillectomy and adenoidectomy History of tooth extraction History of total abdominal hysterectomy and bilateral salpingo-oophorectomy Family History Other No family history of adverse response to anesthesia Social History Smoking Status: Never smoker Second Hand Exposure: No; Do You Dip or Chew Tobacco: No; Tobacco Cessation Education Requested by Patient: No Hx Alcohol Use: No Hx Substance Use: No Preferred Language: Pakistani Communication Ability: Effective Cq Developer Required: No Beliefs That Will Affect Care: None Current Living Situation: Spouse and Family Current Living Situation Comment: Lives with /daughter and 2 grandkids Other Information That Helps Us Care for You: No Feels Safe at Home: Yes Safety Concerns: Feels Safe At This Time Assistive Devices: Cane and Walker Assistive Devices Comment: uses a cane when walking long distance Physical Exam Constitutional: + obese; no acute distress Eyes: PERRL, conjunctivae normal, anicteric sclerae ENMT: external ear and nose normal, oropharynx normal Neck: trachea midline, no thyromegaly Respiratory: normal respiratory effort, lungs clear to auscultation Cardiovascular: Rate/Rhythm: + tachycardic and + irregularly irregular Heart Sounds: normal S1 and normal S2; no murmur Vessels: no JVD Extremities: no edema Gastrointestinal (Abdomen): normal bowel sounds, soft, nontender, no hepatosplenomegaly Musculoskeletal: no cyanosis or clubbing, extremities motor strength 5/5 Results & Data Vital Signs (Past 12 Hours) Vital Signs Temp Pulse 12/28/22 08:57 36.5 C 12/28/22 07:15 106 H Laboratory Results Laboratory Results - last 24 hr 12/27/22 12/27/22 12/27/22 18:07 18:07 18:07 WBC 13.48 H RBC 4.42 Hgb 13.1 Hct 41.2 MCV 93.2 MCH 29.6 MCHC 31.8 L RDW Std Deviation 46.4 H RDW Coeff of Sg 13.5 Plt Count 391 MPV 9.6 Immature Gran % (Auto) 0.4 Neut % (Auto) 80.6 Lymph % (Auto) 7.9 Mccreary % (Auto) 9.9 Eos % (Auto) 0.5 Baso % (Auto) 0.7 Neut # (Auto) 10.85 H Lymph # (Auto) 1.07 L Mccreary # (Auto) 1.33 H Eos # (Auto) 0.07 Baso # (Auto) 0.10 Immature Gran # (Auto) 0.06 PT 11.8 INR 1.1 APTT 23.9 PTT Ratio 0.8 D-Dimer Sodium 141 Potassium 3.4 L Chloride 102 Carbon Dioxide 31 Anion Gap 8 BUN 21 Creatinine 1.23 H Est Cr Clr Drug Dosing Not Reportable Est GFR ( Amer) 49.7 Est GFR (Non-Af Amer) 42.9 BUN/Creatinine Ratio 17.1 Glucose 98 Calcium 9.3 Magnesium 1.9 Total Bilirubin 0.6 AST 10 L ALT 5 L Alkaline Phosphatase 69 Troponin I High Sens 16.5 H Total Protein 7.4 Albumin 3.5 Globulin 3.9 Albumin/Globulin Ratio 0.9 Procalcitonin TSH Urine Color Urine Appearance Urine pH Ur Specific [place] Urine Protein Urine Glucose (UA) Urine Ketones Urine Blood Urine Nitrite Urine Bilirubin Urine Urobilinogen Ur Leukocyte Esterase Urine WBC (Auto) Urine RBC (Auto) U Hyaline Cast (Auto) U Epithel Cells (Auto) Urine Bacteria (Auto) Lyme Disease IgG Ab Lyme Disease IgM Ab SARS-CoV-2, RNA, NAAT 12/27/22 12/27/22 12/27/22 18:07 18:07 18:07 WBC RBC Hgb Hct MCV MCH MCHC RDW Std Deviation RDW Coeff of Sg Plt Count MPV Immature Gran % (Auto) Neut % (Auto) Lymph % (Auto) Mccreary % (Auto) Eos % (Auto) Baso % (Auto) Neut # (Auto) Lymph # (Auto) Mccreary # (Auto) Eos # (Auto) Baso # (Auto) Immature Gran # (Auto) PT INR APTT PTT Ratio D-Dimer 2670 H* Sodium Potassium Chloride Carbon Dioxide Anion Gap BUN Creatinine Est Cr Clr Drug Dosing Est GFR ( Amer) Est GFR (Non-Af Amer) BUN/Creatinine Ratio Glucose Calcium Magnesium Total Bilirubin AST ALT Alkaline Phosphatase Troponin I High Sens Total Protein Albumin Globulin Albumin/Globulin Ratio Procalcitonin < 0.05 TSH 1.204 Urine Color Urine Appearance Urine pH Ur Specific [place] Urine Protein Urine Glucose (UA) Urine Ketones Urine Blood Urine Nitrite Urine Bilirubin Urine Urobilinogen Ur Leukocyte Esterase Urine WBC (Auto) Urine RBC (Auto) U Hyaline Cast (Auto) U Epithel Cells (Auto) Urine Bacteria (Auto) Lyme Disease IgG Ab Lyme Disease IgM Ab SARS-CoV-2, RNA, NAAT 12/27/22 12/27/22 12/28/22 18:07 18:19 04:52 WBC 10.94 H RBC 3.62 L Hgb 10.6 L Hct 33.9 L MCV 93.6 MCH 29.3 MCHC 31.3 L RDW Std Deviation 46.5 H RDW Coeff of Sg 13.7 Plt Count 320 MPV 9.5 Immature Gran % (Auto) 0.5 Neut % (Auto) 74.1 Lymph % (Auto) 13.3 Mccreary % (Auto) 10.3 Eos % (Auto) 0.9 Baso % (Auto) 0.9 Neut # (Auto) 8.11 H Lymph # (Auto) 1.45 Mccreary # (Auto) 1.13 H Eos # (Auto) 0.10 Baso # (Auto) 0.10 Immature Gran # (Auto) 0.05 PT INR APTT PTT Ratio D-Dimer Sodium Potassium Chloride Carbon Dioxide Anion Gap BUN Creatinine Est Cr Clr Drug Dosing Est GFR ( Amer) Est GFR (Non-Af Amer) BUN/Creatinine Ratio Glucose Calcium Magnesium Total Bilirubin AST ALT Alkaline Phosphatase Troponin I High Sens Total Protein Albumin Globulin Albumin/Globulin Ratio Procalcitonin TSH Urine Color Urine Appearance Urine pH Ur Specific [place] Urine Protein Urine Glucose (UA) Urine Ketones Urine Blood Urine Nitrite Urine Bilirubin Urine Urobilinogen Ur Leukocyte Esterase Urine WBC (Auto) Urine RBC (Auto) U Hyaline Cast (Auto) U Epithel Cells (Auto) Urine Bacteria (Auto) Lyme Disease IgG Ab Negative Lyme Disease IgM Ab Negative SARS-CoV-2, RNA, NAAT NEGATIVE 12/28/22 12/28/22 12/28/22 04:52 04:57 12:06 WBC RBC Hgb Hct MCV MCH MCHC RDW Std Deviation RDW Coeff of Sg Plt Count MPV Immature Gran % (Auto) Neut % (Auto) Lymph % (Auto) Mccreary % (Auto) Eos % (Auto) Baso % (Auto) Neut # (Auto) Lymph # (Auto) Mccreary # (Auto) Eos # (Auto) Baso # (Auto) Immature Gran # (Auto) PT INR APTT 75.9 H* 49.3 H* PTT Ratio 2.7 1.7 D-Dimer Sodium 139 Potassium 3.2 L Chloride 106 Carbon Dioxide 31 Anion Gap 2 L BUN 18 Creatinine 1.08 Est Cr Clr Drug Dosing 49.7 Est GFR ( Amer) 58.2 Est GFR (Non-Af Amer) 50.2 BUN/Creatinine Ratio 16.7 Glucose 129 H Calcium 8.6 Magnesium Total Bilirubin AST ALT Alkaline Phosphatase Troponin I High Sens 15.9 H Total Protein Albumin Globulin Albumin/Globulin Ratio Procalcitonin TSH Urine Color Urine Appearance Urine pH Ur Specific [place] Urine Protein Urine Glucose (UA) Urine Ketones Urine Blood Urine Nitrite Urine Bilirubin Urine Urobilinogen Ur Leukocyte Esterase Urine WBC (Auto) Urine RBC (Auto) U Hyaline Cast (Auto) U Epithel Cells (Auto) Urine Bacteria (Auto) Lyme Disease IgG Ab Lyme Disease IgM Ab SARS-CoV-2, RNA, NAAT 12/28/22 Unknown WBC RBC Hgb Hct MCV MCH MCHC RDW Std Deviation RDW Coeff of Sg Plt Count MPV Immature Gran % (Auto) Neut % (Auto) Lymph % (Auto) Mccreary % (Auto) Eos % (Auto) Baso % (Auto) Neut # (Auto) Lymph # (Auto) Mccreary # (Auto) Eos # (Auto) Baso # (Auto) Immature Gran # (Auto) PT INR APTT PTT Ratio D-Dimer Sodium Potassium Chloride Carbon Dioxide Anion Gap BUN Creatinine Est Cr Clr Drug Dosing Est GFR ( Amer) Est GFR (Non-Af Amer) BUN/Creatinine Ratio Glucose Calcium Magnesium Total Bilirubin AST ALT Alkaline Phosphatase Troponin I High Sens Total Protein Albumin Globulin Albumin/Globulin Ratio Procalcitonin TSH Urine Color Yellow Urine Appearance Cloudy A Urine pH 5.0 Ur Specific [place] > 1.045 H Urine Protein Trace H Urine Glucose (UA) Negative Urine Ketones Negative Urine Blood 1+ H Urine Nitrite Positive A Urine Bilirubin Negative Urine Urobilinogen Negative Ur Leukocyte Esterase 2+ H Urine WBC (Auto) >30 H Urine RBC (Auto) 10-30 H U Hyaline Cast (Auto) 1-5 U Epithel Cells (Auto) 20-30 H Urine Bacteria (Auto) 4+ H Lyme Disease IgG Ab Lyme Disease IgM Ab SARS-CoV-2, RNA, NAAT Medications Administered Current Medications Acetaminophen (Acetaminophen 325 Mg Tab) 650 mg PO Q4H PRN PRN Reason: Pain or Fever Stop: 01/27/23 01:15 Heparin Sodium/Dextrose (Heparin Sodium/Dextrose) 25,000 units in 500 mls @ 25 mls/hr IV .Q20H [facility]; Protocol Stop: 01/26/23 21:44 Last Titration: 12/28/22 13:39 Dose: 1,250 units/hr, 25 mls/hr Promethazine HCl 12.5 mg/ (Sodium Chloride) 50.5 mls @ 202 mls/hr IV Q6H PRN PRN Reason: Nausea And Vomiting Stop: 01/27/23 00:02 Potassium Chloride/Sodium Chloride (Normal Saline W/20 Meq Kcl) 20 meq in 1,000 mls @ 80 mls/hr IV .[id number] ONE; Protocol Stop: 12/28/22 18:59 Last Admin: 12/28/22 06:28 Dose: 80 mls/hr Lorazepam (Lorazepam 0.5 Mg Tab) 0.25 mg PO TID PRN PRN Reason: Anxiety Stop: 01/27/23 00:02 Metoprolol Succinate (Metoprolol Succ 25mg Ext Rel Tab) 25 mg PO BID SHAKEEL Stop: 01/27/23 20:59 Tramadol HCl (Tramadol Hcl 50 Mg Tablet) 25 - 50 mg PO Q4H PRN PRN Reason: Pain Stop: 01/27/23 00:02 (2) Pulmonary emboli Acute cor pulmonale presence: unspecified Chronicity: unspecified Pulmonary embolism type: unspecified Qualified Code(s): I26.99 - Other pulmonary embolism without acute cor pulmonale
--- NOTE | 2022-12-28 16:42 | Electrocardiogram Report ---
Test Reason : Blood Pressure : / mmHG Vent. Rate : 116 BPM Atrial Rate : 416 BPM P-R Int : 000 ms QRS Dur : 134 ms QT Int : 378 ms P-R-T Axes : 000 -59 093 degrees QTc Int : 525 ms Poor data quality, interpretation may be adversely affected Atrial fibrillation with rapid ventricular response with premature ventricular or aberrantly conducte d complexes Left axis deviation Left bundle branch block Abnormal ECG When compared with ECG of 25-APR-2016 11:36, Atrial fibrillation has replaced Sinus rhythm Vent. rate has increased BY 46 BPM Confirmed by Magen Laguna ([id number]) on 12/28/2022 4:42:36 PM Referred By: Michelle Jimenez Confirmed By:Magen Laguna
[2022-12-28] MEDS: SPIRONOLACTONE 25 MG TAB PO SCH (17:58)
[2022-12-28] MEDS: HEPARIN SODIUM/DEXTROSE 25,000 UNITS/500 ML BAG IV SCH (19:23)
[2022-12-28] MEDS: METOPROLOL SUCC 25MG EXT REL TAB PO SCH (20:55)
[2022-12-29 07:29] LABS: Hematocrit (blood only) 33.9 % (37.0-47.0); Hemoglobin 10.6 g/dl (12.0-16.0); Mean Corpuscular Hemoglobin 29.1 pg (25.0-34.0); Mean Corpuscular Hgb Conc 31.3 g/dL (32.0-36.0); Mean Corpuscular Volume 93.1 fL (80.0-100.0); Mean Platelet Volume 10.2 fL (9.4-12.4); Platelet Count 311 K/uL (130-400); RDW Coefficient of Variation 14.2 % (11.5-14.5); RDW Standard Deviation 48.2 fL (36.4-46.3); Red Blood Count 3.64 M/uL (4.20-5.40)
[2022-12-29 07:34] LABS: Calcium 8.7 mg/dl (8.6-10.3); Creatinine Clr Calc Pharmacy 48.1 ml/min; Est GFR (African American) 54.5 ml/min; Phosphorus 2.4 mg/dl (2.5-4.9); Potassium 4.5 mmol/L (3.5-5.1)
[2022-12-29 07:50] LABS: Partial Thromboplastin Ratio 1.9
[2022-12-29 07:51] LABS: Partial Thromboplastin Time 54.8 Seconds (21.0-31.0)
--- NOTE | 2022-12-29 08:32 | Cardiology Progress Note ---
Date of Service December 29, 2022 Assessment & Plan (1) Atrial fibrillation with rapid ventricular response: (2) Pulmonary emboli: (3) Dilated idiopathic cardiomyopathy: (4) LBBB (left bundle branch block): (5) CKD (chronic kidney disease), stage III: Plan IMPRESSION: Patient is a 77-year-old female with longstanding history of idiopathic cardiomyopathy with improvement overall systolic function and compensated class II 3 congestive heart failure. She presents now having been found to be in atrial fibrillation on routine clinical examination. Has been feeling weak and less vigorous over the past 2 months following acute COVID infection. Imaging studies also reflect possible chronic pulmonary emboli and DVT Current exam reflects atrial fibrillation with elevated ventricular response rate but no acute congestive heart failure. Echo does demonstrate decline in overall function in comparison to prior study of September 2022 PLAN: 1. Atrial fibrillation with elevated ventricular sponsor rate: -Will continue to titrate beta holland therapy to improve rates. Increase metoprolol succinate to 12.5 mg twice daily. -Anticoagulation already initiated with IV heparin for atrial fibrillation as well as thrombotic concerns. Given pulmonary emboli, DVT as well as uncertain duration of atrial fibrillation will not aggressively attempt to return to sinus rhythm at this time ultimate goal rate control and anticoagulation possible reconsider with cardioversion in 3 to 4 weeks. -Suspect will switch to Eliquis on discharge. Patient previously anticoagulated with warfarin due to DVT with difficulties with intermittent rectal bleeding- currently tolerating without evidence of GI changes/bleed. 2. Cardiomyopathy with reduced LV systolic function: -No signs or symptoms of congestive heart failure suspect elevated ventricular sponsor rates aggravating primary chronic condition. -Given recent carpal tunnel surgeries serum protein electrophoresis ordered- results pending. -Continue spironolactone 25 mg daily today. Consider restart of furosemide depending on clinical course. -Consider DEMI ARB or Entresto depending on blood pressure, metoprolol increased this am. 3. DVT/PE: -Second event unprovoked in addition to atrial fibrillation warrants long- term anticoagulation Case discussed with Dr. Torres. Will follow. Admission and Anticipated Discharge Date Admission Date: December 27, 2022 Supervising Physician Co-Signing Physician Notes Patient seen and examined, personally. Assessment and plan as outlined above. Exam without volume overload or congestive heart failure. Atrial fibrillation turning towards better control of heart rate but still elevated Will increase metoprolol succinate as above to 37.5 mg twice per day, continue spironolactone. Anticoagulation as recommended above May consider attempt to return to sinus rhythm after full anticoagulation 3 to 4 weeks however hopeful goal of rate control and anticoagulation appropriate with echocardiogram suggesting reduced likelihood of long-term rhythm maintenance Subjective Medically complex 77-year-old female who initially presented to her primary care physician yesterday and was found to be in atrial fibrillation with RVR. Imaging studies in the emergency department demonstrated pulmonary emboli chronic versus acute as well as DVT with history of past DVT. Echocardiogram demonstrated declinein her overall function (LVEF 25-30%) compared to prior study 09/2022 (LVEF 50-54%). 12/28: Coreg discontinued in favor of metoprolol succinate 25 mg twice daily for rate control. IV heparin initiated. Spironolactone restarted. 12/29: Tele: AFIB low 100s Upon entrance into the room patient ambulating independently. Denies any acute concerns. No chest pain or shortness of breath. Asymptomatic with AFIB. Has chronic lower extreity edema- at baseline. No lightheadedness or dizziness. No weakness or fatigue. Review of Systems Review of Systems: All systems reviewed & are unremarkable except as noted in HPI & below Physical Exam Constitutional: WD/WN, vitals as above no acute distress Eyes: PERRL, conjunctivae normal, anicteric sclerae Neck: normal visual inspection and trachea midline Respiratory: normal respiratory effort, lungs clear to auscultation Auscultation: no rales, no rhonchi and no wheezes Cardiovascular: Rate/Rhythm: + tachycardic and + irregularly irregular Heart Sounds: no murmur Vessels: no JVD Extremities: + edema (Chronic BL nonpitting lower extremity lymphedema) Gastrointestinal (Abdomen): normal bowel sounds, soft, nontender, no hepatosplenomegaly Skin: no rashes, warm and dry Psychiatric: A+Ox3, euthymic affect Results & Data Vital Signs (Past 12 Hours) Vital Signs Temp Pulse Pulse Resp BP Pulse Ox O2 Del Method 12/29/22 04:24 37 C 104 H 18 123/78 97 Room Air 12/29/22 00:00 115 H 12/28/22 23:20 37.1 C 90 18 103/66 98 Room Air Laboratory Results Coagulation 12/28/22 12/29/22 Range/Units 12:06 06:27 APTT 49.3 H* 54.8 H* (21.0-31.0) Seconds CBC 12/29/22 Range/Units 06:27 WBC 10.50 (4.8-10.8) K/ul RBC 3.64 L (4.20-5.40) M/uL Hgb 10.6 L (12.0-16.0) g/dl Hct 33.9 L (37.0-47.0) % Plt Count 311 (130-400) K/uL Comprehensive Metabolic Panel 12/29/22 Range/Units 06:27 Sodium 138 (136-145) mmol/L Potassium 4.5 D (3.5-5.1) mmol/L Chloride 105 (98-107) mmol/L Carbon Dioxide 29 (21-32) mmol/L BUN 16 (6-23) mg/dl Creatinine 1.14 (0.6-1.2) mg/dl Glucose 104 H (70-99(Fasting)) mg/dl Calcium 8.7 (8.6-10.3) mg/dl Intake and Output 12/28/22 12/29/22 12/29/22 22:59 06:59 14:59 Intake Total 1123.7 / 3064.533 300 / 3064.533 292.083 / 292.083 Output Total Balance 1122.7 / 3058.533 299 / 3058.533 292.083 / 292.083 Intake: IV 1123.7 / 2314.533 292.083 / 292.083 Heparin Sodium/Dextrose 25,000 123.7 / 314.533 292.083 / 292.083 units In 500 ml @ 1,250 UNITS/ HR 25 mls/hr IV .Q20H SHAKEEL Rx#: [id number] Nss + 20Meq KCl 20 meq In 1,000 1000 / 1000 ml @ 80 mls/hr IV .[id number] ONE Rx#:[id number] Oral 300 / 750 Output: # Bowel Movements Other: # Unmeasured Voids 1 Weight 105.2 kg Weight Measurement Method Built in [facility] (2) Pulmonary emboli Acute cor pulmonale presence: unspecified Chronicity: unspecified Pulmonary embolism type: unspecified Qualified Code(s): I26.99 - Other pulmonary embolism without acute cor pulmonale
[2022-12-29 08:38] LABS: Appearance Urine Cloudy (Clear); Bacteria Urine Automated 4+ (Negative); Bilirubin Urine Negative (Negative); Blood Urine Trace (Negative); Color Urine Dark Yellow; Epithelial Cell Urine Auto >30 /lpf (0-5); Glucose Urine UA Negative (Negative); Ketones Urine Trace (Negative); Leukocyte Esterase Urine 1+ (Negative); Nitrite Urine Positive (Negative); Protein Urine Trace (Negative); RBC Urine Automated 0-4 /hpf (0-4); Specific Gravity Urine 1.032 (1.000-1.030); Urobilinogen Urine Negative (Negative); pH Urine 5.5 (4.5-7.5)
[2022-12-29] MEDS: METOPROLOL SUCC 25MG EXT REL TAB PO SCH ×2 (08:39→20:35)
[2022-12-29] MEDS: SPIRONOLACTONE 25 MG TAB PO SCH (08:40)
--- NOTE | 2022-12-29 08:49 | Hospitalist Progress Note ---
Date of Service December 29, 2022 Assessment & Plan (1) Atrial fibrillation: (2) Pulmonary emboli: Plan: (1) Atrial fibrillation: Plan: New onset Multifactorial : DVT/PE, history COVID-19 illness, past history DVT attributed to air travel TTE, Cardiology consult Re: New onset A-fib Started Metoprolol instead of coreg, given borderline BP, metoprolol dose increased now to control HR Spironolactone IV heparin Replace electrolytes ARF, mild clinical dehydration Cr back to baseline Baseline UA, hold home diuretics until creatinine back to baseline UA, monitor creatinine response to IVF Spironolactone started Ucultx c/w UTI, started ceftriaxone Hypokalemia secondary to diuretic Rx replace and monitor Morbid obesity BMI 41 - reports unintentional weight loss - needs counseling regarding weight loss, also cont. 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 IV heparin Full code Patient - Mr. Fidencio Turcios, contact #[phone]. Admission and Anticipated Discharge Date Admission Date: December 27, 2022 Subjective Pt seen in follow up of new onset Afib, DVT/PE, currently on IV heparin Pt is laying in bed in NAD Feeling better overall Denies any LE edema No fever, chills , chest pain, shortness of breath, abd. pain Review of Systems Review of Systems: All systems reviewed & are unremarkable except as noted in Subjective Physical Exam Physical Exam: GENERAL: morbidly obese F , in NAD HEENT: NC/AT. EOMI. [place] palpebral conjunctivae NECK : Supple CHEST : CTAB, no tenderness HEART : irregular, no obvious murmurs ABDOMEN: Some distention,soft, nontender, + bowel sounds EXTREMITIES : + minimal LE edema, no LE tenderness, moves extremities SKIN: Normal color, warm NEUROLOGIC : awake, alert, answers appropriately, no facial asymmetry, moves extremities Results & Data Results & Data Vital Signs (Past 12 Hours) Vital Signs Temp Pulse Pulse Resp BP Pulse Ox O2 Del Method 12/29/22 08:37 36.8 C 102 H 18 123/76 94 Room Air 12/29/22 04:24 37 C 104 H 18 123/78 97 Room Air 12/29/22 00:00 115 H 12/28/22 23:20 37.1 C 90 18 103/66 98 Room Air Laboratory Results 12/29/22 12/29/22 12/29/22 Range/Units 07:30 06:27 06:27 WBC 10.50 (4.8-10.8) K/ul RBC 3.64 L (4.20-5.40) M/uL Hgb 10.6 L (12.0-16.0) g/dl Hct 33.9 L (37.0-47.0) % MCV 93.1 (80.0-100.0) fL MCH 29.1 (25.0-34.0) pg MCHC 31.3 L (32.0-36.0) g/dL RDW Std Deviation 48.2 H (36.4-46.3) fL RDW Coeff of Sg 14.2 (11.5-14.5) % Plt Count 311 (130-400) K/uL MPV 10.2 (9.4-12.4) fL APTT (21.0-31.0) Seconds PTT Ratio Sodium 138 (136-145) mmol/L Potassium 4.5 D (3.5-5.1) mmol/L Chloride 105 (98-107) mmol/L Carbon Dioxide 29 (21-32) mmol/L Anion Gap 4 (3-11) BUN 16 (6-23) mg/dl Creatinine 1.14 (0.6-1.2) mg/dl Est Cr Clr Drug Dosing 48.1 ml/min Est GFR ( Amer) 54.5 ml/min Est GFR (Non-Af Amer) 47.0 ml/min BUN/Creatinine Ratio 14.0 (10-20) Glucose 104 H (70-99(Fasting)) mg/dl Calcium 8.7 (8.6-10.3) mg/dl Phosphorus 2.4 L (2.5-4.9) mg/dl Magnesium 2.0 (1.7-2.4) mg/dl Total Protein (PEP) Albumin (PEP) Jrpeq-2-Ipidyobnw Fbuuc-7-Mzcjxwcwa Zpim-7-Yutxvunb Ahoz-7-Eqfzauzh Gamma Globulins Monoclonal Peak 3 Ser Monoclonl Protein Ser Monoclonal Prot 2 PEP Interpretation Urine Color Dark Yellow Urine Appearance Cloudy A (Clear) Urine pH 5.5 (4.5-7.5) Ur Specific [place] 1.032 H (1.000-1.030) Urine Protein Trace H (Negative) Urine Glucose (UA) Negative (Negative) Urine Ketones Trace H (Negative) Urine Blood Trace H (Negative) Urine Nitrite Positive A (Negative) Urine Bilirubin Negative (Negative) Urine Urobilinogen Negative (Negative) Ur Leukocyte Esterase 1+ H (Negative) Urine WBC (Auto) 5-10 H (0-5) /hpf Urine RBC (Auto) 0-4 (0-4) /hpf U Hyaline Cast (Auto) 1-5 (0-5) /lpf U Epithel Cells (Auto) >30 H (0-5) /lpf Urine Bacteria (Auto) 4+ H (Negative) 12/29/22 12/29/22 12/28/22 Range/Units 06:27 06:27 12:06 WBC (4.8-10.8) K/ul RBC (4.20-5.40) M/uL Hgb (12.0-16.0) g/dl Hct (37.0-47.0) % MCV (80.0-100.0) fL MCH (25.0-34.0) pg MCHC (32.0-36.0) g/dL RDW Std Deviation (36.4-46.3) fL RDW Coeff of Sg (11.5-14.5) % Plt Count (130-400) K/uL MPV (9.4-12.4) fL APTT 54.8 H* 49.3 H* (21.0-31.0) Seconds PTT Ratio 1.9 1.7 Sodium (136-145) mmol/L Potassium (3.5-5.1) mmol/L Chloride (98-107) mmol/L Carbon Dioxide (21-32) mmol/L Anion Gap (3-11) BUN (6-23) mg/dl Creatinine (0.6-1.2) mg/dl Est Cr Clr Drug Dosing ml/min Est GFR ( Amer) ml/min Est GFR (Non-Af Amer) ml/min BUN/Creatinine Ratio (10-20) Glucose (70-99(Fasting)) mg/dl Calcium (8.6-10.3) mg/dl Phosphorus (2.5-4.9) mg/dl Magnesium (1.7-2.4) mg/dl Total Protein (PEP) Pending Albumin (PEP) Pending Xobdc-6-Nyceeyywp Pending Bzggp-9-Vadjzhnjr Pending Btgf-5-Zqreegef Pending Dsou-4-Kzojssvg Pending Gamma Globulins Pending Monoclonal Peak 3 Pending Ser Monoclonl Protein Pending Ser Monoclonal Prot 2 Pending PEP Interpretation Pending Urine Color Urine Appearance (Clear) Urine pH (4.5-7.5) Ur Specific [place] (1.000-1.030) Urine Protein (Negative) Urine Glucose (UA) (Negative) Urine Ketones (Negative) Urine Blood (Negative) Urine Nitrite (Negative) Urine Bilirubin (Negative) Urine Urobilinogen (Negative) Ur Leukocyte Esterase (Negative) Urine WBC (Auto) (0-5) /hpf Urine RBC (Auto) (0-4) /hpf U Hyaline Cast (Auto) (0-5) /lpf U Epithel Cells (Auto) (0-5) /lpf Urine Bacteria (Auto) (Negative) Medications Administered Current Inpatient Medications Acetaminophen (Acetaminophen 325 Mg Tab) 650 mg PO Q4H PRN PRN Reason: Pain or Fever Stop: 01/27/23 01:15 Heparin Sodium/Dextrose (Heparin Sodium/Dextrose) 25,000 units in 500 mls @ 25 mls/hr IV .Q20H [facility]; Protocol Stop: 01/26/23 21:44 Last Titration: 12/29/22 07:04 Dose: 1,250 units/hr, 25 mls/hr Promethazine HCl 12.5 mg/ (Sodium Chloride) 50.5 mls @ 202 mls/hr IV Q6H PRN PRN Reason: Nausea And Vomiting Stop: 01/27/23 00:02 Lactobacillus Acidophilus (Advanced Probiotic 1250 Mg Capsule) 2 cap PO DAILY [facility] Stop: 01/28/23 08:59 Lorazepam (Lorazepam 0.5 Mg Tab) 0.25 mg PO TID PRN PRN Reason: Anxiety Stop: 01/27/23 00:02 Metoprolol Succinate (Metoprolol Succ 25mg Ext Rel Tab) 25 mg PO BID [facility] Stop: 01/27/23 20:59 Last Admin: 12/29/22 08:39 Dose: 25 mg Spironolactone (Spironolactone 25 Mg Tab) 25 mg PO QAM [facility] Stop: 01/27/23 14:44 Last Admin: 12/29/22 08:40 Dose: 25 mg Tramadol HCl (Tramadol Hcl 50 Mg Tablet) 25 - 50 mg PO Q4H PRN PRN Reason: Pain Stop: 01/27/23 00:02 (1) Atrial fibrillation Atrial fibrillation type: unspecified Qualified Code(s): I48.91 - Unspecified atrial fibrillation (2) Pulmonary emboli Acute cor pulmonale presence: unspecified Chronicity: unspecified Pulmonary embolism type: unspecified Qualified Code(s): I26.99 - Other pulmonary embolism without acute cor pulmonale
[2022-12-29] MEDS ORDERED: METOPROLOL SUCC 25MG EXT REL TAB PO ONE (09:36)
[2022-12-29] MEDS: ADVANCED PROBIOTIC 1250 MG CAPSULE PO SCH (09:50)
[2022-12-29] MEDS: cefTRIAXone SODIUM 2,000 MG in DEXTROSE 5% 50 ML IV SCH (11:14)
[2022-12-29] MEDS: diphenhydrAMINE Capsule 25 MG CAP PO PRN (11:16)
[2022-12-29] MEDS: HEPARIN SODIUM/DEXTROSE 25,000 UNITS/500 ML BAG IV SCH (15:32)
[2022-12-30 06:24] LABS: Hematocrit (blood only) 33.5 % (37.0-47.0); Hemoglobin 10.5 g/dl (12.0-16.0); Mean Corpuscular Hemoglobin 29.5 pg (25.0-34.0); Mean Corpuscular Hgb Conc 31.3 g/dL (32.0-36.0); Mean Corpuscular Volume 94.1 fL (80.0-100.0); Mean Platelet Volume 9.8 fL (9.4-12.4); Platelet Count 277 K/uL (130-400); RDW Coefficient of Variation 13.8 % (11.5-14.5); RDW Standard Deviation 47.6 fL (36.4-46.3); Red Blood Count 3.56 M/uL (4.20-5.40); White Blood Count 9.29 K/ul (4.8-10.8)
[2022-12-30 06:49] LABS: BUN Creatinine Ratio 14.3 (10-20); Calcium 8.7 mg/dl (8.6-10.3); Creatinine Clr Calc Pharmacy 46.1 ml/min; Est GFR (African American) 51.7 ml/min; Est GFR (Non-African American) 44.6 ml/min; Magnesium 1.9 mg/dl (1.7-2.4); Phosphorus 2.8 mg/dl (2.5-4.9); Potassium 4.2 mmol/L (3.5-5.1)
[2022-12-30 08:34] LABS: Partial Thromboplastin Ratio 1.9
[2022-12-30] MEDS: METOPROLOL SUCC 25MG EXT REL TAB PO SCH (08:35)
[2022-12-30] MEDS: SPIRONOLACTONE 25 MG TAB PO SCH (08:36)
[2022-12-30] MEDS: ADVANCED PROBIOTIC 1250 MG CAPSULE PO SCH (08:40)
[2022-12-30 09:09] LABS: Partial Thromboplastin Time 54.1 Seconds (21.0-31.0)
[2022-12-30] MEDS ORDERED: METOPROLOL SUCC 25MG EXT REL TAB PO ONE (10:41)
[2022-12-30] MEDS: HEPARIN SODIUM/DEXTROSE 25,000 UNITS/500 ML BAG IV SCH (10:59)
[2022-12-30] MEDS: cefTRIAXone SODIUM 2,000 MG in DEXTROSE 5% 50 ML IV SCH (10:59)
[2022-12-30] MEDS: diphenhydrAMINE Capsule 25 MG CAP PO PRN (11:12)
[2022-12-30] MEDS ORDERED: FUROSEMIDE 40 MG TAB PO ONE (13:12)
--- NOTE | 2022-12-30 13:12 | Cardiology Progress Note ---
Date of Service December 30, 2022 Assessment & Plan (1) Atrial fibrillation with rapid ventricular response: (2) Pulmonary emboli: (3) Dilated idiopathic cardiomyopathy: (4) LBBB (left bundle branch block): (5) CKD (chronic kidney disease), stage III: Plan IMPRESSION: Patient is a 77-year-old female with longstanding history of idiopathic cardiomyopathy with improvement overall systolic function and compensated class II 3 congestive heart failure. She presents now having been found to be in atrial fibrillation on routine clinical examination. Has been feeling weak and less vigorous over the past 2 months following acute COVID infection. Imaging studies also reflect possible chronic pulmonary emboli and DVT Current exam reflects atrial fibrillation with elevated ventricular response rate but no acute congestive heart failure. Echo does demonstrate decline in overall function in comparison to prior study of September 2022 PLAN: 1. Atrial fibrillation with elevated ventricular sponsor rate: -Anticoagulation already initiated with IV heparin for atrial fibrillation as well as thrombotic concerns. Given pulmonary emboli, DVT as well as uncertain duration of atrial fibrillation will not aggressively attempt to return to sinus rhythm at this time ultimate goal rate control and anticoagulation possible reconsider with cardioversion in 3 to 4 weeks. -Suspect will switch to Eliquis on discharge. Patient previously anticoagulated with warfarin due to DVT with difficulties with intermittent rectal bleeding- currently tolerating without evidence of GI changes/bleed. 2. Cardiomyopathy with reduced LV systolic function: -Given recent carpal tunnel surgeries serum protein electrophoresis ordered- results pending. -Continue spironolactone 25 mg daily today. 3. DVT/PE: -Second event unprovoked in addition to atrial fibrillation warrants long-ter m anticoagulation 12/30/2022 Heart rate slowly improving on exam today. We will upward titrate metoprolol succinate to 50 mg twice per day Exam reveals mild pedal edema with few rales at bases we will resume oral furosemide with 40 mg single dose p.o. but likely will resume daily dosing as blood pressure allows As in past blood pressures are marginal and limits DEMI ARB/Entresto May transition heparin to Eliquis Admission and Anticipated Discharge Date Admission Date: December 27, 2022 Subjective Patient seen and examined, chart, medications, telemetry reviewed. Heart rate trend slowly reducing. Now 90 bpm at rest though elevates with activity. Remains asymptomatic but does feel "more wheezy" today mild pedal edema. No chest pains or discomfort Review of Systems Review of Systems: All systems reviewed & are unremarkable except as noted in Subjective Physical Exam Constitutional: + obese; no acute distress Eyes: PERRL, conjunctivae normal, anicteric sclerae ENMT: external ear and nose normal, oropharynx normal Neck: trachea midline, no thyromegaly Respiratory: Auscultation: + rales; no wheezes Cardiovascular: Rate/Rhythm: + irregularly irregular Heart Sounds: normal S1 and normal S2; no murmur Vessels: no JVD Extremities: + edema (1-2+ with chronic lymphedematous changes) Gastrointestinal (Abdomen): normal bowel sounds, soft, nontender, no hepatosplenomegaly Musculoskeletal: no cyanosis or clubbing, extremities motor strength 5/5 Results & Data Vital Signs (Past 12 Hours) Vital Signs Temp Pulse Pulse Resp BP Pulse Ox O2 Del Method 12/30/22 12:44 37.1 C 95 H 18 97/62 L 10 L Room Air 12/30/22 11:05 36.6 C 103 H 18 102/58 L 94 Room Air 12/30/22 07:42 37.0 C 98 H 16 104/49 L 97 Room Air 12/30/22 07:38 Room Air 12/30/22 07:29 98 H 12/30/22 04:24 36.8 C 101 H 95/60 L 95 Room Air Laboratory Results Laboratory Results - last 24 hr 12/30/22 12/30/22 12/30/22 05:58 05:58 07:18 WBC 9.29 RBC 3.56 L Hgb 10.5 L Hct 33.5 L MCV 94.1 MCH 29.5 MCHC 31.3 L RDW Std Deviation 47.6 H RDW Coeff of Gs 13.8 Plt Count 277 MPV 9.8 APTT 54.1 H* PTT Ratio 1.9 Sodium 137 Potassium 4.2 Chloride 104 Carbon Dioxide 26 Anion Gap 7 BUN 17 Creatinine 1.19 Est Cr Clr Drug Dosing 46.1 Est GFR ( Amer) 51.7 Est GFR (Non-Af Amer) 44.6 BUN/Creatinine Ratio 14.3 Glucose 91 Calcium 8.7 Phosphorus 2.8 Magnesium 1.9 (2) Pulmonary emboli Acute cor pulmonale presence: unspecified Chronicity: unspecified Pulmonary embolism type: unspecified Qualified Code(s): I26.99 - Other pulmonary embolism without acute cor pulmonale
--- NOTE | 2022-12-30 13:36 | Hospitalist Progress Note ---
Date of Service December 30, 2022 Assessment & Plan (1) Atrial fibrillation: (2) Pulmonary emboli: Plan: (1) Atrial fibrillation: Plan: New onset Multifactorial : DVT/PE, history COVID-19 illness, past history DVT attributed to air travel TTE, Cardiology consult Re: New onset A-fib Started Metoprolol instead of coreg, given borderline BP, metoprolol dose increased now to control HR, 50 mg bid Spironolactone , add lasix today and monitor UOP, renal function IV heparin Replace electrolytes ARF, mild clinical dehydration Cr back to baseline Baseline UA, hold home diuretics until creatinine back to baseline UA, monitor creatinine response to IVF Spironolactone started lasix given today as + LE edema Ucultx + E.coli c/w UTI, started ceftriaxone, cont. Monitor renal function, BMP AM ordered Diarrhea - on and off, seem somewhat chronic issue - seen by GI in the past, says it resolved then so she did not follow up -will obtain stool studies, recommend further outpt follow up as well Hypokalemia secondary to diuretic Rx replace and monitor Morbid obesity BMI 41 - reports unintentional weight loss - needs counseling regarding weight loss, also cont. 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 IV heparin Full code Patient - Mr. Fidencio Turcios, contact #[phone]. Admission and Anticipated Discharge Date Admission Date: December 27, 2022 Subjective Pt seen in follow up of new onset Afib, DVT/PE, currently on IV heparin Pt is sitting up in bed in NAD +LE edema No fever, chills , chest pain, shortness of breath, abd. pain + diarrhea, no blood in the stool Pt's present at the bedside and updated. Review of Systems Review of Systems: All systems reviewed & are unremarkable except as noted in Subjective Physical Exam Physical Exam: GENERAL: morbidly obese F , in NAD HEENT: NC/AT. EOMI. [place] palpebral conjunctivae NECK : Supple CHEST : CTAB, no tenderness HEART : irregular, no obvious murmurs ABDOMEN: Some distention,soft, nontender, + bowel sounds, obese EXTREMITIES : + LE edema, no LE tenderness, moves extremities SKIN: Normal color, warm NEUROLOGIC : awake, alert, answers appropriately, no facial asymmetry, moves extremities Results & Data Results & Data Vital Signs (Past 12 Hours) Vital Signs Temp Pulse Pulse Resp BP Pulse Ox O2 Del Method 12/30/22 12:44 37.1 C 95 H 18 97/62 L 10 L Room Air 12/30/22 11:05 36.6 C 103 H 18 102/58 L 94 Room Air 12/30/22 07:42 37.0 C 98 H 16 104/49 L 97 Room Air 12/30/22 07:38 Room Air 12/30/22 07:29 98 H 12/30/22 04:24 36.8 C 101 H 95/60 L 95 Room Air Laboratory Results 12/30/22 12/30/22 12/30/22 Range/Units 07:18 05:58 05:58 WBC 9.29 (4.8-10.8) K/ul RBC 3.56 L (4.20-5.40) M/uL Hgb 10.5 L (12.0-16.0) g/dl Hct 33.5 L (37.0-47.0) % MCV 94.1 (80.0-100.0) fL MCH 29.5 (25.0-34.0) pg MCHC 31.3 L (32.0-36.0) g/dL RDW Std Deviation 47.6 H (36.4-46.3) fL RDW Coeff of Sg 13.8 (11.5-14.5) % Plt Count 277 (130-400) K/uL MPV 9.8 (9.4-12.4) fL APTT 54.1 H* (21.0-31.0) Seconds PTT Ratio 1.9 Sodium 137 (136-145) mmol/L Potassium 4.2 (3.5-5.1) mmol/L Chloride 104 (98-107) mmol/L Carbon Dioxide 26 (21-32) mmol/L Anion Gap 7 (3-11) BUN 17 (6-23) mg/dl Creatinine 1.19 (0.6-1.2) mg/dl Est Cr Clr Drug Dosing 46.1 ml/min Est GFR ( Amer) 51.7 ml/min Est GFR (Non-Af Amer) 44.6 ml/min BUN/Creatinine Ratio 14.3 (10-20) Glucose 91 (70-99(Fasting)) mg/dl Calcium 8.7 (8.6-10.3) mg/dl Phosphorus 2.8 (2.5-4.9) mg/dl Magnesium 1.9 (1.7-2.4) mg/dl Medications Administered Current Inpatient Medications Acetaminophen (Acetaminophen 325 Mg Tab) 650 mg PO Q4H PRN PRN Reason: Pain or Fever Stop: 01/27/23 01:15 Diphenhydramine HCl (Diphenhydramine Capsule 25 Mg Cap) 25 mg PO DAILY PRN PRN Reason: prior to giving antibiotics Stop: 01/28/23 10:09 Last Admin: 12/30/22 11:12 Dose: 25 mg Heparin Sodium/Dextrose (Heparin Sodium/Dextrose) 25,000 units in 500 mls @ 25 mls/hr IV .Q20H [facility]; Protocol Stop: 01/26/23 21:44 Last Admin: 12/30/22 10:59 Dose: 1,250 units/hr, 25 mls/hr Promethazine HCl 12.5 mg/ (Sodium Chloride) 50.5 mls @ 202 mls/hr IV Q6H PRN PRN Reason: Nausea And Vomiting Stop: 01/27/23 00:02 Ceftriaxone Sodium 2,000 mg/ (Dextrose) 70 mls @ 100 mls/hr IV Q24H [facility]; Protocol Stop: 01/03/23 10:59 Last Infusion: 12/30/22 11:41 Dose: Infused Lactobacillus Acidophilus (Advanced Probiotic 1250 Mg Capsule) 2 cap PO DAILY [facility] Stop: 01/28/23 08:59 Last Admin: 12/30/22 08:40 Dose: 2 cap Lorazepam (Lorazepam 0.5 Mg Tab) 0.25 mg PO TID PRN PRN Reason: Anxiety Stop: 01/27/23 00:02 Metoprolol Succinate (Metoprolol Succ 50mg Ext Rel Tab) 50 mg PO BID [facility] Stop: 01/29/23 20:59 Spironolactone (Spironolactone 25 Mg Tab) 25 mg PO QAM [facility] Stop: 01/27/23 14:44 Last Admin: 12/30/22 08:36 Dose: 25 mg Tramadol HCl (Tramadol Hcl 50 Mg Tablet) 25 - 50 mg PO Q4H PRN PRN Reason: Pain Stop: 01/27/23 00:02 (1) Atrial fibrillation Atrial fibrillation type: unspecified Qualified Code(s): I48.91 - Unspecified atrial fibrillation (2) Pulmonary emboli Acute cor pulmonale presence: unspecified Chronicity: unspecified Pulmonary embolism type: unspecified Qualified Code(s): I26.99 - Other pulmonary embolism without acute cor pulmonale
[2022-12-30] MEDS: METOPROLOL SUCC 50MG EXT REL TAB PO SCH (21:02)
[2022-12-31] MEDS: HEPARIN SODIUM/DEXTROSE 25,000 UNITS/500 ML BAG IV SCH (06:16)
[2022-12-31 06:26] LABS: Hematocrit (blood only) 33.3 % (37.0-47.0); Hemoglobin 10.6 g/dl (12.0-16.0); Mean Corpuscular Hemoglobin 29.8 pg (25.0-34.0); Mean Corpuscular Hgb Conc 31.8 g/dL (32.0-36.0); Mean Corpuscular Volume 93.5 fL (80.0-100.0); Mean Platelet Volume 10.6 fL (9.4-12.4); Platelet Count 256 K/uL (130-400); RDW Coefficient of Variation 13.6 % (11.5-14.5); RDW Standard Deviation 46.3 fL (36.4-46.3); Red Blood Count 3.56 M/uL (4.20-5.40); White Blood Count 9.66 K/ul (4.8-10.8)
[2022-12-31 06:42] LABS: BUN Creatinine Ratio 12.8 (10-20); Calcium 8.8 mg/dl (8.6-10.3); Creatinine Clr Calc Pharmacy 41.4 ml/min; Est GFR (African American) 45.2 ml/min; Magnesium 1.8 mg/dl (1.7-2.4); Phosphorus 3.1 mg/dl (2.5-4.9); Potassium 3.8 mmol/L (3.5-5.1)
[2022-12-31 07:07] LABS: Partial Thromboplastin Ratio 1.7
[2022-12-31 07:13] LABS: Partial Thromboplastin Time 46.7 Seconds (21.0-31.0)
[2022-12-31] MEDS: METOPROLOL SUCC 50MG EXT REL TAB PO SCH ×2 (08:38→20:58)
[2022-12-31] MEDS: SPIRONOLACTONE 25 MG TAB PO SCH (08:38)
[2022-12-31] MEDS: ADVANCED PROBIOTIC 1250 MG CAPSULE PO SCH (08:38)
[2022-12-31] MEDS: cefTRIAXone SODIUM 2,000 MG in DEXTROSE 5% 50 ML IV SCH (10:30)
--- NOTE | 2022-12-31 11:56 | Hospitalist Progress Note ---
Date of Service December 31, 2022 Assessment & Plan (1) Atrial fibrillation: (2) Pulmonary emboli: Plan: (1) Atrial fibrillation: Plan: New onset Multifactorial : DVT/PE, history COVID-19 illness, past history DVT attributed to air travel TTE, Cardiology consult Re: New onset A-fib Started Metoprolol instead of coreg, given borderline BP, metoprolol dose increased to control HR, 50 mg bid Spironolactone , lasix - monitor UOP, renal function IV heparin Replace electrolytes ARF, mild clinical dehydration Cr back to baseline Baseline UA, hold home diuretics until creatinine back to baseline UA, monitor creatinine response to IVF Spironolactone started lasix given today Ucultx + E.coli c/w UTI, started ceftriaxone - finished Abx course Monitor renal function, BMP AM ordered Diarrhea - on and off, seem somewhat chronic issue - seen by GI in the past, says it resolved then so she did not follow up -stool studies ordered, no c. diff gene, recommend further outpt follow up as well Hypokalemia secondary to diuretic Rx replace and monitor Morbid obesity BMI 41 - reports unintentional weight loss - needs counseling regarding weight loss, also cont. 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 IV heparin Full code Patient - Mr. Fidencio Turcios, contact #[phone]. Admission and Anticipated Discharge Date Admission Date: December 27, 2022 Subjective Pt seen in follow up of new onset Afib, DVT/PE, currently on IV heparin Pt is sitting up in bed in NAD +LE edema No fever, chills , chest pain, shortness of breath, abd. pain + diarrhea, no blood in the stool Review of Systems Review of Systems: All systems reviewed & are unremarkable except as noted in Subjective Physical Exam Physical Exam: GENERAL: morbidly obese F , in NAD HEENT: NC/AT. EOMI. [place] palpebral conjunctivae NECK : Supple CHEST : CTAB, no tenderness HEART : irregular, no obvious murmurs ABDOMEN: Some distention,soft, nontender, + bowel sounds, obese EXTREMITIES : + LE edema, no LE tenderness, moves extremities SKIN: Normal color, warm NEUROLOGIC : awake, alert, answers appropriately, no facial asymmetry, moves extremities Results & Data Results & Data Vital Signs (Past 12 Hours) Vital Signs Temp Pulse Pulse Resp BP Pulse Ox O2 Del Method 12/31/22 11:52 36.5 C 67 18 102/60 97 Room Air 12/31/22 08:00 98 H 12/31/22 07:53 36.4 C L 98 H 18 109/60 96 Room Air 12/31/22 00:00 99 H 12/31/22 04:00 36.7 C 97 H 19 96/64 L 95 Room Air Laboratory Results 12/31/22 12/31/22 12/31/22 Range/Units 05:27 05:27 05:27 WBC 9.66 (4.8-10.8) K/ul RBC 3.56 L (4.20-5.40) M/uL Hgb 10.6 L (12.0-16.0) g/dl Hct 33.3 L (37.0-47.0) % MCV 93.5 (80.0-100.0) fL MCH 29.8 (25.0-34.0) pg MCHC 31.8 L (32.0-36.0) g/dL RDW Std Deviation 46.3 (36.4-46.3) fL RDW Coeff of Sg 13.6 (11.5-14.5) % Plt Count 256 (130-400) K/uL MPV 10.6 (9.4-12.4) fL APTT 46.7 H* (21.0-31.0) Seconds PTT Ratio 1.7 Sodium 135 L (136-145) mmol/L Potassium 3.8 (3.5-5.1) mmol/L Chloride 101 (98-107) mmol/L Carbon Dioxide 27 (21-32) mmol/L Anion Gap 7 (3-11) BUN 17 (6-23) mg/dl Creatinine 1.33 H (0.6-1.2) mg/dl Est Cr Clr Drug Dosing 41.4 ml/min Est GFR ( Amer) 45.2 ml/min Est GFR (Non-Af Amer) 39.0 ml/min BUN/Creatinine Ratio 12.8 (10-20) Glucose 87 (70-99(Fasting)) mg/dl Calcium 8.8 (8.6-10.3) mg/dl Phosphorus 3.1 (2.5-4.9) mg/dl Magnesium 1.8 (1.7-2.4) mg/dl Stl C. diff Tox B Gene (Neg) 12/30/22 Range/Units 21:10 WBC (4.8-10.8) K/ul RBC (4.20-5.40) M/uL Hgb (12.0-16.0) g/dl Hct (37.0-47.0) % MCV (80.0-100.0) fL MCH (25.0-34.0) pg MCHC (32.0-36.0) g/dL RDW Std Deviation (36.4-46.3) fL RDW Coeff of Sg (11.5-14.5) % Plt Count (130-400) K/uL MPV (9.4-12.4) fL APTT (21.0-31.0) Seconds PTT Ratio Sodium (136-145) mmol/L Potassium (3.5-5.1) mmol/L Chloride (98-107) mmol/L Carbon Dioxide (21-32) mmol/L Anion Gap (3-11) BUN (6-23) mg/dl Creatinine (0.6-1.2) mg/dl Est Cr Clr Drug Dosing ml/min Est GFR ( Amer) ml/min Est GFR (Non-Af Amer) ml/min BUN/Creatinine Ratio (10-20) Glucose (70-99(Fasting)) mg/dl Calcium (8.6-10.3) mg/dl Phosphorus (2.5-4.9) mg/dl Magnesium (1.7-2.4) mg/dl Stl C. diff Tox B Gene Negative Cdiff Gene (Neg) Medications Administered Current Inpatient Medications Acetaminophen (Acetaminophen 325 Mg Tab) 650 mg PO Q4H PRN PRN Reason: Pain or Fever Stop: 01/27/23 01:15 Diphenhydramine HCl (Diphenhydramine Capsule 25 Mg Cap) 25 mg PO DAILY PRN PRN Reason: prior to giving antibiotics Stop: 01/28/23 10:09 Last Admin: 12/30/22 11:12 Dose: 25 mg Heparin Sodium/Dextrose (Heparin Sodium/Dextrose) 25,000 units in 500 mls @ 25 mls/hr IV .Q20H [facility]; Protocol Stop: 01/26/23 21:44 Last Titration: 12/31/22 07:23 Dose: 1,250 units/hr, 25 mls/hr Promethazine HCl 12.5 mg/ (Sodium Chloride) 50.5 mls @ 202 mls/hr IV Q6H PRN PRN Reason: Nausea And Vomiting Stop: 01/27/23 00:02 Ceftriaxone Sodium 2,000 mg/ (Dextrose) 70 mls @ 100 mls/hr IV Q24H [facility]; Protocol Stop: 01/03/23 10:59 Last Infusion: 12/31/22 11:20 Dose: Infused Lactobacillus Acidophilus (Advanced Probiotic 1250 Mg Capsule) 2 cap PO DAILY [facility] Stop: 01/28/23 08:59 Last Admin: 12/31/22 08:38 Dose: 2 cap Lorazepam (Lorazepam 0.5 Mg Tab) 0.25 mg PO TID PRN PRN Reason: Anxiety Stop: 01/27/23 00:02 Metoprolol Succinate (Metoprolol Succ 50mg Ext Rel Tab) 50 mg PO BID [facility] Stop: 01/29/23 20:59 Last Admin: 12/31/22 08:38 Dose: 50 mg Spironolactone (Spironolactone 25 Mg Tab) 25 mg PO QAM [facility] Stop: 01/27/23 14:44 Last Admin: 12/31/22 08:38 Dose: 25 mg Tramadol HCl (Tramadol Hcl 50 Mg Tablet) 25 - 50 mg PO Q4H PRN PRN Reason: Pain Stop: 01/27/23 00:02 (1) Atrial fibrillation Atrial fibrillation type: unspecified Qualified Code(s): I48.91 - Unspecified atrial fibrillation (2) Pulmonary emboli Acute cor pulmonale presence: unspecified Chronicity: unspecified Pulmonary embolism type: unspecified Qualified Code(s): I26.99 - Other pulmonary embolism without acute cor pulmonale
[2022-12-31] MEDS ORDERED: FUROSEMIDE INJ 20 MG/2 ML VIAL IV ONE (13:33)
--- NOTE | 2022-12-31 13:41 | Cardiology Progress Note ---
Date of Service December 31, 2022 Assessment & Plan (1) Atrial fibrillation with rapid ventricular response: (2) Pulmonary emboli: (3) Dilated idiopathic cardiomyopathy: (4) LBBB (left bundle branch block): (5) CKD (chronic kidney disease), stage III: Plan IMPRESSION: Patient is a 77-year-old female with longstanding history of idiopathic cardiomyopathy with improvement overall systolic function and compensated class II 3 congestive heart failure. She presents now having been found to be in atrial fibrillation on routine clinical examination. Has been feeling weak and less vigorous over the past 2 months following acute COVID infection. Imaging studies also reflect possible chronic pulmonary emboli and DVT Current exam reflects atrial fibrillation with elevated ventricular response rate but no acute congestive heart failure. Echo does demonstrate decline in overall function in comparison to prior study of September 2022 PLAN: 1. Atrial fibrillation with elevated ventricular sponsor rate: -Continue metoprolol succinate 50 mg twice daily with caution given harriett gstanding history of left bundle branch block. Anticoagulation already initiated with IV heparin for atrial fibrillation as well as thrombotic concerns. -Creatinine trended up to 1.33 today, will continue unfractioned heparin, and if renal function stable, will transition to DVT/PE dose of Eliquis on 01/01/2023. -If patient does not spontaneously convert to sinus rhythm over the next few weeks, will consider outpatient cardioversion after she has been on uninterrupted anticoagulation for 3 to 4 weeks 2. Cardiomyopathy with reduced LV systolic function: -Given recent carpal tunnel surgeries serum protein electrophoresis ordered- results pending. -Continue spironolactone 25 mg daily today. -Furosemide 20 mg x 1 today 12/31/2022 3. DVT/PE: -Second event unprovoked in addition to atrial fibrillation warrants long- term anticoagulation As in past blood pressures are marginal and limits DEMI ARB/Entresto Case reviewed with Dr Orta for purpose of coordination of care. Admission and Anticipated Discharge Date Admission Date: December 27, 2022 Subjective Patient seen in cardiology follow-up. Feeling well. Denies chest discomfort or shortness of breath. She does note mild pedal edema worse than her usual baseline. She did not receive her home dose of oral furosemide 40 mg this morning. Physical Exam Constitutional: + obese; no acute distress Cardiovascular: Rate/Rhythm: + irregularly irregular Heart Sounds: no murmur Extremities: + edema (1+ pedal edema, lymphedema pattern noted) Gastrointestinal (Abdomen): normal bowel sounds, soft, nontender, no hepatosplenomegaly Neurologic: PERRL, EOMI, accommodation nl, no face palsy, no dysarthria Results & Data Vital Signs (Past 12 Hours) Vital Signs Temp Pulse Pulse Resp BP Pulse Ox O2 Del Method 12/31/22 11:52 36.5 C 67 18 102/60 97 Room Air 12/31/22 08:00 98 H 12/31/22 07:53 36.4 C L 98 H 18 109/60 96 Room Air 12/31/22 04:00 36.7 C 97 H 19 96/64 L 95 Room Air Laboratory Results Coagulation 12/31/22 Range/Units 05:27 APTT 46.7 H* (21.0-31.0) Seconds CBC 12/31/22 Range/Units 05:27 WBC 9.66 (4.8-10.8) K/ul RBC 3.56 L (4.20-5.40) M/uL Hgb 10.6 L (12.0-16.0) g/dl Hct 33.3 L (37.0-47.0) % Plt Count 256 (130-400) K/uL Comprehensive Metabolic Panel 12/31/22 Range/Units 05:27 Sodium 135 L (136-145) mmol/L Potassium 3.8 (3.5-5.1) mmol/L Chloride 101 (98-107) mmol/L Carbon Dioxide 27 (21-32) mmol/L BUN 17 (6-23) mg/dl Creatinine 1.33 H (0.6-1.2) mg/dl Glucose 87 (70-99(Fasting)) mg/dl Calcium 8.8 (8.6-10.3) mg/dl Intake and Output 12/30/22 12/31/22 12/31/22 22:59 06:59 14:59 Intake Total 577.5 / 1999.833 579.583 / 1999.833 97.917 / 97.917 Output Total 120 / 120 Balance 457.5 / 1880.833 579.583 / 1880.833 97.917 / 97.917 Intake: IV 202.5 / 950.833 279.583 / 950.833 97.917 / 97.917 Heparin Sodium/Dextrose 25,000 202.5 / 880.833 279.583 / 880.833 27.917 / 27.917 units In 500 ml @ 1,250 UNITS/ HR 25 mls/hr IV .Q20H [facility] Rx#: [id number] cefTRIAXone SODIUM 2,000 mg In 70 / 70 Dextrose 5% 50 ml @ 100 mls/hr IV Q24H [facility] Rx#:[id number] Oral 375 / 1050 300 / 1050 Output: Urine 100 / 100 Stool 20 / 20 Other: Weight 105.9 kg Weight Measurement Method Standing Scale (2) Pulmonary emboli Acute cor pulmonale presence: unspecified Chronicity: unspecified Pulmonary embolism type: unspecified Qualified Code(s): I26.99 - Other pulmonary embolism without acute cor pulmonale
[2022-12-31 18:54] LABS: Adenovirus F 40/41 PCR Not Detected (NotDetected); Astrovirus PCR Not Detected (NotDetected); Campylobacter PCR Not Detected (NotDetected); Cryptosporidium PCR Not Detected (NotDetected); Cyclospora cayetanensis PCR Not Detected (NotDetected); Entamoeba histolytica PCR Not Detected (NotDetected); Enteroaggregative E.coli(EAEC) Not Detected (NotDetected); Enteropathogenic E.coli (EPEC) Not Detected (NotDetected); Enterotoxigenic E.coli (ETEC) Not Detected (NotDetected); Giardia lamblia PCR Not Detected (NotDetected); Norovirus GI/GII PCR Not Detected (NotDetected); Plesiomonas shigelloides PCR Not Detected (NotDetected); Rotavirus A PCR Not Detected (NotDetected); Salmonella PCR Not Detected (NotDetected); Sapovirus PCR Not Detected (NotDetected); Shiga-like Toxin E.coli (STEC) Not Detected (NotDetected); Shigella/Enteroinvasive E.coli Not Detected (NotDetected); Vibrio cholerae PCR Not Detected (NotDetected); Vibrio species PCR Not Detected (NotDetected); Yersinia enterocolitica PCR Not Detected (NotDetected)
[2023-01-01] MEDS: HEPARIN SODIUM/DEXTROSE 25,000 UNITS/500 ML BAG IV SCH (01:48)
[2023-01-01 06:45] LABS: BUN Creatinine Ratio 13.7 (10-20); Calcium 8.5 mg/dl (8.6-10.3); Est GFR (Non-African American) 39.7 ml/min; Magnesium 1.9 mg/dl (1.7-2.4); Phosphorus 3.3 mg/dl (2.5-4.9); Potassium 3.9 mmol/L (3.5-5.1)
[2023-01-01 07:23] LABS: Partial Thromboplastin Ratio 1.5
--- NOTE | 2023-01-01 08:41 | Communication Note ---
Date of Service: January 01, 2023 Renal function stable.Stop UF heparin infusion at 9 am and start Eliquis 10 mg BID x 7 days then 5 mg BID thereafter.
[2023-01-01] MEDS: SPIRONOLACTONE 25 MG TAB PO SCH (08:51)
[2023-01-01] MEDS: METOPROLOL SUCC 50MG EXT REL TAB PO SCH (08:51)
[2023-01-01] MEDS: ADVANCED PROBIOTIC 1250 MG CAPSULE PO SCH (08:51)
[2023-01-01] MEDS ORDERED: APIXABAN 5 MG TABLET PO SCH (09:00)
--- NOTE | 2023-01-01 12:37 | Cardiology Progress Note ---
Date of Service January 01, 2023 Assessment & Plan (1) Atrial fibrillation with rapid ventricular response: (2) Pulmonary emboli: (3) Dilated idiopathic cardiomyopathy: (4) LBBB (left bundle branch block): (5) CKD (chronic kidney disease), stage III: Plan IMPRESSION: Patient is a 77-year-old female with longstanding history of idiopathic cardiomyopathy with improvement overall systolic function and compensated class II 3 congestive heart failure. She presents now having been found to be in atrial fibrillation on routine clinical examination. Has been feeling weak and less vigorous over the past 2 months following acute COVID infection. Imaging studies also reflect possible chronic pulmonary emboli and DVT Echo does demonstrate decline in overall function in comparison to prior study of September 2022 01/01/2023: Rates improved. PLAN: 1. Atrial fibrillation with elevated ventricular sponsor rate: -Continue metoprolol succinate 50 mg twice daily with caution given longstanding history of left bundle branch block. -Transitioned from heparin UF heparin infusion to Eliquis, DVT /PE dosing of 10 mg BID x 7 days and 5 mg BID thereafter -If patient does not spontaneously convert to sinus rhythm over the next few weeks, will consider outpatient cardioversion after she has been on uninterrupted anticoagulation for 3 to 4 weeks 2. Cardiomyopathy with reduced LV systolic function: -Given recent carpal tunnel surgeries serum protein electrophoresis ordered- results pending. -Continue spironolactone 25 mg daily today. -Resume [employer] dosing of furosemide 40 mg daily. 3. DVT/PE: -Second event unprovoked in addition to atrial fibrillation warrants long- term anticoagulation As in past, blood pressures are marginal and limits DEMI ARB/Entresto Case reviewed with Dr Orta for purpose of coordination of care. Follow up in cardiology clinic in 2-3 weeks. Message sent to cardiology scheduling. Admission and Anticipated Discharge Date Admission Date: December 27, 2022 Subjective Patient seen in cardiology follow-up. at bedside as he was yesterday. She notes feeling well overall. She remains in atrial fibrillation on telemetry with frequent PVCs. Her ventricular rates have trended toward improvement and have been in the 80s to 90s thus far today. Physical Exam Constitutional: + obese; no acute distress Cardiovascular: Rate/Rhythm: + irregularly irregular Heart Sounds: no murmur Extremities: + edema (1+ pedal edema, lymphedema pattern noted) Gastrointestinal (Abdomen): normal bowel sounds, soft, nontender, no hepatosplenomegaly Neurologic: PERRL, EOMI, accommodation nl, no face palsy, no dysarthria Results & Data Vital Signs (Past 12 Hours) Vital Signs Temp Pulse Resp BP Pulse Ox O2 Del Method 01/01/23 08:30 36.6 C 93 H 20 117/71 94 Room Air 01/01/23 04:12 36.8 C 93 H 20 104/58 L 97 Room Air (2) Pulmonary emboli Acute cor pulmonale presence: unspecified Chronicity: unspecified Pulmonary embolism type: unspecified Qualified Code(s): I26.99 - Other pulmonary embolism without acute cor pulmonale
[2023-01-01] MEDS ORDERED: FUROSEMIDE 40 MG TAB PO SCH (12:45)
--- NOTE | 2023-01-01 13:31 | Discharge Summary ---
Date of Service January 01, 2023 Admission HPI Per Admitting Provider History obtained from patient, family, and records. Medical history significant for chronic CHF secondary to dilated cardiomyopathy (EF 50-54%, TTE 2022), mild TR, chronic LBBB, pulmonary hypertension, hypertension, anxiety/mood disorder, meningioma status post surgery, subclinical hyperthyroidism, secondary hyperparathyroidism, multiple thyroid nodules, IBD, past history DVT status post Coumadin, Last confinement 2007 for E. coli UTI. Patient has not been well since gabe COVID-19 illness months ago. Transient diarrheal illness 2 weeks ago. Appetite not too good. Trying to be active. Increased fatigue over the last few weeks. Denies unusual depression. Patient denies chest pain or SOB. Denies cough symptoms. Patient compliant with home medications. Patient seen at PCPs office on follow-up visit today. Irregular heartbeat appreciated by PCP. A-fib noted on EKG. Patient directed to ER for evaluation. IV heparin administered at the ER with note of pulm embolism on CT chest. 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 Admission Exam Per Admitting Provider GENERAL: Comfortable, slightly anxious, morbidly obese, no respiratory distress SKIN: Normal color, warm HEENT: [place] palpebral conjunctivae, no ptosis, dry buccal mucosa NECK : Supple, short neck, no tenderness CHEST : CTA, no tenderness HEART : irregular, no obvious murmurs ABDOMEN: Some distention, nontender EXTREMITIES : LE swelling, no LE tenderness, no other conspicuous deformities noted NEUROLOGIC : Coherent, no facial asymmetry, no other gross focality Principal Diagnosis New onset Afib DVT/PE Discharge Exam GENERAL: morbidly obese F , in NAD HEENT: NC/AT. EOMI. [place] palpebral conjunctivae NECK : Supple CHEST : CTAB, no tenderness HEART : irregular, no obvious murmurs ABDOMEN: Some distention,soft, nontender, + bowel sounds, obese EXTREMITIES : + LE edema, no LE tenderness, moves extremities SKIN: Normal color, warm NEUROLOGIC : awake, alert, answers appropriately, no facial asymmetry, moves extremities Discharge Data Allergies Allergy/AdvReac Type Severity Reaction Status Date / Time Tetracyclines Allergy Severe ANAPHYLAXIS Verified 12/27/22 18:44 ciprofloxacin Allergy Intermediate "my heart Verified 12/27/22 18:44 palpates" Penicillins Allergy Mild HIVES Verified 12/27/22 18:44 Sulfa (Sulfonamide Allergy Mild ITCHING Verified 12/27/22 18:44 Antibiotics) Consultations 12/27/22 21:23 ED Decision to Admit Stat 12/28/22 01:16 Consult Cardiology Routine Ordered Studies 12/27/22 19:31 CT angio chest PE protocol Stat FINDINGS: Limited views of the upper abdomen demonstrate a normal liver, spleen, and adrenal glands. Retrograde opacification of the hepatic veins consistent with right-sided heart dysfunction. Multinodular thyroid goiter. Dominant nodule measures approximately 3.3 cm. No pleural or pericardial effusions. No mediastinal or hilar lymphadenopathy. Normal esophagus. The heart is moderately enlarged. There is a normal caliber thoracic aorta with no evidence for a dissection. There are few scattered small linear filling defects seen within the right upper and right lower lobe pulmonary arteries consistent with pulmonary emboli. The majority of these filling defects have a weblike appearance and therefore favor chronic pulmonary emboli. No definite acute pulmonary emboli identified. No acute fractures identified within the chest. No pneumothorax. The central airways are patent. A few scattered micronodules noted within the lung apices with the largest within the right upper lobe on image 229 measuring 3 mm. This favors mild chronic inflammatory/infectious change. No focal lung consolidations to suggest a pneumonia. No evidence for pulmonary edema. There is mild central bronchial wall thickening. IMPRESSION: 1. There are few scattered small linear filling defects seen within the right upper and right lower lobe pulmonary arteries consistent with pulmonary emboli. The majority of these filling defects have a weblike appearance and therefore favor chronic pulmonary emboli. No definite acute pulmonary emboli identified. 2. Moderate cardiomegaly with evidence for right-sided heart dysfunction. 3. No evidence for pulmonary edema. 4. A few scattered micronodules within the lung apices measuring up to 3 mm. This favors mild chronic inflammatory/infectious change. Otherwise, no focal lung consolidations to suggest a pneumonia. 5. Multinodular left thyroid gland with the dominant nodule measuring 3.3 cm. Follow-up nonemergent thyroid ultrasound recommended for further evaluation ACT 112: Positive. There are findings on this exam that require communication between the performing entity and the patient following Patient Test Result Information Act ([place] Act 112) guidelines. 12/28/22 00:03 US venous doppler LE BI Routine ADDENDUM ADDENDUM: 12/28/22 01:46 Call Doctor Regarding Other, called Dr. Salazar on 12/28 01:46 (-04:00) Electronically signed by: Jeanne Holley MD Electronically signed by: Jeanne Holley MD 12/28/22 01:29 AM ADDENDUM END Exam(s): US VENOUS BILATERAL LOWER EXTREMITIES EXAM: US Duplex Bilateral Lower Extremities Veins CLINICAL HISTORY: Reason for exam: pe work up. TECHNIQUE: Real-time duplex ultrasound scan of the bilateral lower extremity veins integrating B-mode two-dimensional vascular structure, Doppler spectral analysis, color flow Doppler imaging and compression. COMPARISON: 03/09/2016. FINDINGS: Right deep veins: There is incomplete compressibility of the middle and distal right popliteal vein consistent with deep venous thrombosis. Right superficial veins: Unremarkable. No thrombus in the visualized right great saphenous vein. Left deep veins: Unremarkable. No DVT in the left common femoral, femoral, proximal deep femoral or popliteal veins. The veins demonstrate normal color flow, are normally compressible, with normal phasic flow and/or augmentation response. Left superficial veins: Unremarkable. No thrombus in the visualized left great saphenous vein. Soft tissues: There is an elongated cystic structure adjacent to the midportion of the right popliteal vein measuring 4.9 x 1.2 x 1.5 cm which may be associated with resolving hematoma, seroma or nonspecific fluid collection/cyst. IMPRESSION: 1. Deep venous thrombosis involving the middle and distal right popliteal vein. 2. Nonspecific cystic structure in the right calf measuring 4.9 x 1.2 x 0.5 cm which could indicate hematoma, seroma or nonspecific fluid collection/infectious process or cyst. Clinical correlation recommended. Hospital Course (1) Atrial fibrillation: (2) Pulmonary emboli: (1) Atrial fibrillation: Plan: New onset Multifactorial : DVT/PE, history COVID-19 illness, past history DVT attributed to air travel TTE, Cardiology consult Re: New onset A-fib Started Metoprolol instead of coreg, given borderline BP, metoprolol dose increased to control HR, 50 mg bid Spironolactone , lasix - monitor UOP, renal function IV heparin -> switch to Eliquis Replace electrolytes Pt discharged on metoprolol succinate 50 mg bid and eliquis. Coreg was stopped. ARF, mild clinical dehydration UTI Cr back to baseline Ucultx + E.coli c/w UTI, finished treatment w/ ceftriaxone Diarrhea, IBD - on and off, seem somewhat chronic issue - seen by GI in the past, says it resolved then so she did not follow up -stool studies obtained - negative no c. diff gene, recommend further outpt follow up as well Hypokalemia secondary to diuretic Rx replace and monitor Morbid obesity BMI 41 - reports unintentional weight loss - needs counseling regarding weight loss, also cont. 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 but patient hesitant due to concerns for potential voice loss complications Total Time Total Time Spent Total Time Spent (In Minutes): 40 Discharge Plan Discharge Items Patient Disposition: Home - Self-Care Reason For Visit: AF Discharge Diagnosis: New onset Afib DVT/PE Activity: Per Instructions section Non-emergency contact: Primary Care Provider and Lab Technician Call non-emergency contact if: you have any medication questions and your symptoms worsen Follow-up/Referrals: Michelle Jimenez DO [Primary Care Provider] - (Date & Time 01/04/2023 1:40 PM Provider Michelle Jimenez DO Department Family [facility] ) Diet: Heart Healthy Addtl Attending Provider Instructions: Follow-up with your primary care physician, the appointment was scheduled for you for January 04, 2023. You will also need to follow-up with web site project manager, you will be contacted about the appointment with them. Stop taking carvedilol/Coreg, instead take metoprolol as prescribed, 50 mg twice a day. You were started on a blood thinner, Eliquis, take it as prescribed 10 mg twice a day for 7 days, then 5 mg twice a day. Pending Studies at Discharge: No Stand-Alone Forms: My [facility], Smoking Cessation Medications and DC Order Prescriptions: New Eliquis 5 mg (74 tabs) tablets,dose pack 5 mg PO BID Qty: 74 0RF metoprolol succinate 50 mg Tablet Extended Release 24 Hr 50 mg PO BID Qty: 60 0RF Advanced Probiotic 625 mg (10 billion cell) Capsule 2 cap PO DAILY Qty: 20 0RF Continued furosemide 40 mg Tablet 40 mg PO QAM cyanocobalamin (vitamin B-12) [Vitamin B-12] 1,000 mcg Tablet 1,000 mcg PO QAM docusate sodium 50 mg Capsule 50 - 100 mg PO QAM PRN (Reason: constipation) aspirin 81 mg Tablet,Delayed Release (Dr/Ec) 81 mg PO [id number] Patient Comments: takes mon/mon/mon in am Rx Instructions: Taken on Monday, Monday and Monday spironolactone 25 mg Tablet 25 mg PO QAM cholecalciferol (vitamin D3) [Vitamin D3] 25 mcg (1,000 unit) Capsule 25 mcg PO QAM Discontinued carvedilol phosphate 40 mg Capsule, Er Multiphase 24 Hr 40 mg PO QAM Discharge Orders: Discharge Order (Routine); Ordered 01/01/23 Ordered By: Jose Armando Orta Admission Data Admit Date/Time: 12/27/22 23:55 Attending Provider: Jose Armando Orta Admit Provider: Brannon Ricks Primary Care Provider: Michelle Jimenez Other Providers: Brannon Ricks ; Nicole Haider ; Finn Ramirez ; Latrell Torres ; Burak Blackman ; MeganShakir tripp ; Jose Drake Rebecca K ; Coral Best ; Nicole Barbosa ; Naun Hughes ; Jimi Hines
--- NOTE | 2023-01-02 08:46 | Electrocardiogram Report ---
Test Reason : Blood Pressure : / mmHG Vent. Rate : 097 BPM Atrial Rate : 083 BPM P-R Int : 000 ms QRS Dur : 144 ms QT Int : 392 ms P-R-T Axes : 000 -68 093 degrees QTc Int : 497 ms Atrial fibrillation with PVCs Left axis deviation Left bundle branch block Abnormal ECG When compared with ECG of 27-DEC-2022 18:02, No significant change was found Confirmed by Jonnie Duque ([id number]) on 01/02/2023 8:46:14 AM Referred By: Michelle Jimenez Confirmed By:Jonnie Duque
[2023-01-02 11:27] LABS: Albumin 2.4 g/dL (3.8-4.8); Alpha 1 Globulin 0.4 g/dL (0.2-0.3); Alpha 2 Globulin 0.8 g/dL (0.5-0.9); Beta-1-Globulin 0.3 g/dL (0.4-0.6); Beta-2-Globulin 0.4 g/dL (0.2-0.5); Gamma Globulin 1.1 g/dL (0.8-1.7); Monoclonal Protein Band 1 DNR g/dL (NONE DETECTED); Monoclonal Protein Band 2 DNR g/dL (NONE DETECTED); Monoclonal Protein Band 3 DNR g/dL (NONE DETECTED); Total Protein 5.3 g/dL (6.1-8.1)
--- NOTE | 2023-01-03 12:58 | Coding Query ---
CODING QUERY To promote full compliance with coding requirements relating to patient care, provider participation is requested in all cases of nanotechnologist uncertainty. Please assist us with the question(s) below: Coding Question(s): There is documentation, as on the Discharge Summary, of, " Atrial fibrillation: Plan: New onset Multifactorial : DVT/PE, history COVID-19 illness, past history DVT attributed to air travel", Please clarify below, in your clinical opinion, regarding the multifactorial Atrial Fibrillation and the history of Covid-19 illness: ( x ) Atrial Fibrillation is possibly in part due to [id number] condition ( ) Atrial Fibrillation is Not a [id number] condition ( ) Other: Please Specify Physician's Response(s): Thank you Alfreda Bond Principal Diagnosis: "that condition established after study, to be chiefly responsible for occasioning the admission of the patient to the hospital for care." Co-Existing Principal Diagnosis: "when two or more diagnoses equally meet the criteria for principal diagnosis as determined by the circumstances of admission, diagnostic work up, and/or therapy provided, and the Alphabetic Index, Tabular List, or another coding guideline does not provide sequencing direction, any one of the diagnoses may be sequenced first." "When the physician has documented what appears to be a current diagnosis in the body of the record, but has not included the diagnosis in the final diagnostic statement, the physician should be asked whether the diagnosis should be added." (Source [facility] 2 QTR90. p3-4) KARLIE
--- NOTE | 2023-01-03 13:06 | Coding Query ---
CODING QUERY To promote full compliance with coding requirements relating to patient care, provider participation is requested in all cases of sinker winder uncertainty. Please assist us with the question(s) below: Coding Question(s): Pulmonary Emboli and DVT are documented in the record and on Discharge Summary, with documentation as on the 12/28 Cardiology Consultation of, "Imaging studies also reflect possible chronic pulmonary emboli and DVT", but it also documents down lower under History of Present Illness, "Imaging studies in the ER did demonstrate pulmonary emboli chronic versus acute as well as deep venous thrombosis with history of past DVT". Please clarify, in your clinical opinion, regarding the Pulmonary Emboli and DVT: ( ) Possible Chronic and/or Acute Pulmonary Emboli and DVT (x ) Possible Chronic Pulmonary Emboli and DVT ( ) Possible Acute Pulmonary Emboli and DVT ( ) Other: Please Specify Physician's Response(s): Thank you Alfreda Bond Principal Diagnosis: "that condition established after study, to be chiefly responsible for occasioning the admission of the patient to the hospital for care." Co-Existing Principal Diagnosis: "when two or more diagnoses equally meet the criteria for principal diagnosis as determined by the circumstances of admission, diagnostic work up, and/or therapy provided, and the Alphabetic Index, Tabular List, or another coding guideline does not provide sequencing direction, any one of the diagnoses may be sequenced first." "When the physician has documented what appears to be a current diagnosis in the body of the record, but has not included the diagnosis in the final diagnostic statement, the physician should be asked whether the diagnosis should be added." (Source Coding [facility] 2 QTR90. p3-4) KARLIE
== END 2023-01-01 15:13 | disposition home or self-care (01) | DRG 309 ==
LOC: ED 17:30 → 1E 23:55 → 4W 12-28 17:44

== ENCOUNTER 2023-02-09 10:33 | Inpatient (IN) ==
--- NOTE | 2023-02-09 11:14 | Emergency Department Note ---
ED Provider Note History of Present Illness Chief Complaint: Rectal Bleed Stated Complaint: DR ZUÑIGA REFERRED, RECTAL BLEEDING Time Seen by Provider: 02/09/23 11:13 This is a 77-year-old female with a history of recently diagnosed atrial fibrillation 1.5 months ago, CHF, pulmonary hypertension, chronic left bundle branch block, hypertension, accompanied by her who presents to the emergency department with several episodes of rectal bleeding with some rectal discomfort that has been present over the past 2 days. She also describes feeling relatively terribly since being discharged from the hospital back in December with new onset atrial fibrillation and chronic PEs. Regarding her rectal bleeding, she has had 2 episodes since 2 days ago. She notes bright red blood and blood clots that come out of her rectum often when she states up or changes position. This is accompanied by some rectal discomfort. Does not occur when she is trying to have a bowel movement. Yesterday she actually had a normal bowel movement with no blood in it. She had another episode of rectal bleeding today similar to the initial one and was referred to the emergency department by her primary care provider. Patient states that she has seen GI within the past year and they performed a colonoscopy and there was some consideration that she may have Crohn's or ulcerative colitis. She takes a fiber supplement for this but does not take any other daily medications regarding this. She does not have any abdominal pain, nausea, or vomiting. No diarrhea. Does endorse a history of hemorrhoids. Has had rectal discharge over the past year. Patient also states that she has been more dyspneic with exertion since being discharged from the hospital at the end of December. She endorses lower extremity edema that seems to be worse at the end of the day and improves overnight. She does not have any chest pain with or without exertion. Has been more lightheaded, dizzy, and nauseous since being started on metoprolol and Eliquis. Has an appointment with cardiology in several days, has not seen cardiology since being discharged. Home Medications Medication Instructions Recorded Confirmed Type aspirin 81 mg tablet,delayed 81 mg PO 3XWK 09/19/18 02/09/23 History release cyanocobalamin (vitamin B-12) 1,000 mcg PO QAM 09/19/18 02/09/23 History 1,000 mcg tablet (Vitamin B-12) furosemide 40 mg tablet 40 mg PO QAM 09/19/18 02/09/23 History spironolactone 25 mg tablet 25 mg PO QAM 09/19/18 02/09/23 History cholecalciferol (vitamin D3) 25 25 mcg PO QAM 09/07/21 02/09/23 History mcg (1,000 unit) capsule (Vitamin D3) apixaban 5 mg (74 tabs) tablets in 5 mg PO BID #74 ea 12/28/22 02/09/23 Rx a dose pack (Eliquis) metoprolol succinate 50 mg 50 mg PO BID #60 tabs 01/01/23 02/09/23 Rx tablet,extended release 24 hr fiber 1 tab PO BID 02/09/23 02/09/23 History Allergies Allergy/AdvReac Type Severity Reaction Status Date / Time Tetracyclines Allergy Severe ANAPHYLAXIS Verified 12/27/22 18:44 ciprofloxacin Allergy Intermediate "my heart Verified 12/27/22 18:44 palpates" Penicillins Allergy Mild HIVES Verified 12/27/22 18:44 Sulfa (Sulfonamide Allergy Mild ITCHING Verified 12/27/22 18:44 Antibiotics) Past Med/Surg History Medical History Brain tumor Cardiomyopathy follows with Dr. Torres Chronic kidney disease, stage 3 Deep vein thrombosis left leg after flying--was on warfarin, stopped 2015 Heart palpitations History of colon polyps Hypertension Morbid obesity with BMI of 45.0-49.9, adult Osteoarthritis Skipped heart beats Surgical History History of appendectomy History of cardiac cath 1996, no stents History of colonoscopy last 09/15/21 @ [facility] [place] [facility] [place] History of dilatation and curettage History of esophagogastroduodenoscopy (EGD) History of tonsillectomy and adenoidectomy History of tooth extraction History of total abdominal hysterectomy and bilateral salpingo-oophorectomy Family History Other No family history of adverse response to anesthesia Social History Smoking Status: Never smoker Second Hand Exposure: No; Do You Dip or Chew Tobacco: No; Hx Alcohol Use: No Hx Substance Use: No Preferred Language: Faroese Communication Ability: Effective Cvt Rn Required: No Beliefs That Will Affect Care: None Current Living Situation: Spouse and Family Current Living Situation Comment: Lives with /daughter and 2 grandkids Feels Safe at Home: Yes Assistive Devices: Cane and Walker Physical Exam Vital Signs Vital Signs - 24 hr 02/09/23 10:38 02/09/23 11:04 02/09/23 14:27 Temperature 98.1 F Temperature Source Temporal Artery Scan Pulse Rate 92 H 92 H Pulse Rate [Apical] 81 Pulse Rhythm Regular Pulse Rhythm [Apical] Pulse Strength Normal Pulse Strength [Apical] Respiratory Rate 18 18 Respiratory Effort / Characteristics Non-Labored Non-Labored Respiratory Depth Normal Normal Respiratory Pattern Regular Regular Blood Pressure 121/72 Blood Pressure [Right Arm] 112/74 Blood Pressure Mean 88 Blood Pressure Mean [Right Arm] 86 Blood Pressure Position Sitting Blood Pressure Position [Right Arm] Pulse Oximetry 98 96 Oxygen Delivery Method Room Air Room Air Sepsis Recent Fever Within 48 Hours No Sepsis New/Unexplained Change in Mental Status No Sepsis Action Taken by Nursing No Action Required 02/09/23 12:01 02/09/23 16:31 Temperature Temperature Source Pulse Rate Pulse Rate [Apical] 84 83 Pulse Rhythm Pulse Rhythm [Apical] Regular Regular Pulse Strength Pulse Strength [Apical] Normal Normal Respiratory Rate 20 19 Respiratory Effort / Characteristics Non-Labored Spontaneous Non-Labored Spontaneous Respiratory Depth Normal Normal Respiratory Pattern Regular Regular Blood Pressure Blood Pressure [Right Arm] 108/86 124/77 Blood Pressure Mean Blood Pressure Mean [Right Arm] 93 92 Blood Pressure Position Blood Pressure Position [Right Arm] Sitting Pulse Oximetry 98 99 Oxygen Delivery Method Room Air Room Air Sepsis Recent Fever Within 48 Hours Sepsis New/Unexplained Change in Mental Status Sepsis Action Taken by Nursing CONSTITUTIONAL: Well developed, well nourished, in no acute distress. EYES: conjunctivae normal, extraocular muscles intact. ENMT: External ears normal. Nose with normal external appearance, no congestion. Oral mucous membranes moist. Oropharynx normal. NECK: Full active range of motion. Questionable hepatojugular reflux. No JVD at rest. RESPIRATORY: Breathing unlabored and symmetric. Lungs clear to auscultation bilaterally. No wheeze, rales, or rhonchi. CARDIOVASCULAR: Regular rate, irregularly irregular rhythm. No murmurs, rubs, or gallops. ABDOMEN: Normal bowel sounds. Soft, nontender, no peritonitis. No masses. No CVA tenderness bilaterally. RECTAL: Continuous Pickling Line Pickler Helper present. There is foul-smelling rectal discharge. There are external rectal masses/hemorrhoids that are friable and tender, bleed during rectal examination which is tender. MUSCULOSKELETAL: Moves all extremities at all joints without pain or difficulty. 1+ pitting edema in bilateral lower extremities. No skin color changes in bilateral lower extremities. SKIN: [place], warm, dry. Nonspecific ecchymosis and multiple areas. NEUROLOGIC: Awake, alert, oriented. Gaze is conjugate. Face symmetric, speech normal. Moves head and all four extremities spontaneously. Sensation and strength grossly intact PSYCHIATRIC: Appropriate. Normal affect Course Administered Medications Potassium Chloride (K Art / Wtr) 10 meq in 100 mls @ 100 mls/hr IV ONE ONE Stop: 02/09/23 17:52 Last Admin: 02/09/23 17:05 Dose: 100 mls/hr Documented By: LITTLE Discontinued Medications Diphenhydramine HCl (Diphenhydramine Capsule 25 Mg Cap) 25 mg PO NOW ONE Stop: 02/09/23 17:37 Last Admin: 02/09/23 17:45 Dose: 25 mg Documented By: LITTLE Ioversol (Optiray 320 100ml) 95 ml IV ONCE ONE Stop: 02/09/23 14:41 Last Admin: 02/09/23 14:40 Dose: 95 ml Documented By: JEREMY Potassium Chloride (Potassium Chloride Crtab 20 Meq Tabcr) 40 meq PO NOW STA Stop: 02/09/23 15:04 Last Admin: 02/09/23 16:29 Dose: Not Given Documented By: LITTLE Medical Decision Making Differential Diagnosis A hemorrhoids, bleeding dyscrasia, ulcerative colitis, Crohn's, irritable bowel disease, diverticulitis, GI bleed, mass, perianal abscess, perirectal abscess, CHF exacerbation, pneumonia, among other pathology Medical Records Attestation: I reviewed the patient's medical records. Laboratory Data 02/09/23 11:00 02/09/23 11:00 Lab Results 02/09/23 02/09/23 02/09/23 Range/Units 11:00 11:00 11:00 WBC 8.37 (4.8-10.8) K/ul RBC 3.94 L (4.20-5.40) M/uL Hgb 11.8 L (12.0-16.0) g/dl POC Hgb (12.0-16.0) g/dl Hct 36.6 L (37.0-47.0) % POC Hct (37-47) % MCV 92.9 (80.0-100.0) fL MCH 29.9 (25.0-34.0) pg MCHC 32.2 (32.0-36.0) g/dL RDW Std Deviation 52.3 H (36.4-46.3) fL RDW Coeff of Sg 15.2 H (11.5-14.5) % Plt Count 370 (130-400) K/uL MPV 9.5 (9.4-12.4) fL Immature Gran % (Auto) 0.2 % Neut % (Auto) 77.3 % Lymph % (Auto) 10.2 % [place] % (Auto) 10.5 % Eos % (Auto) 0.8 % Baso % (Auto) 1.0 % Neut # (Auto) 6.47 (1.40-6.50) K/uL Lymph # (Auto) 0.85 L (1.2-3.4) K/uL [place] # (Auto) 0.88 H (0.11-0.59) K/uL Eos # (Auto) 0.07 (0-0.50) K/uL Baso # (Auto) 0.08 (0-0.2) K/uL Immature Gran # (Auto) 0.02 (0.01-0.20) K/uL PT 12.5 H (9.0-12.0) Seconds INR 1.2 H (0.9-1.1) APTT 30.2 (21.0-31.0) Seconds PTT Ratio 1.1 POC Sodium (135-144) mmol/L Sodium 137 (136-145) mmol/L POC Potassium (3.3-5.0) mmol/L Potassium 3.2 L (3.5-5.1) mmol/L POC Chloride (101-112) mmol/L Chloride 99 (98-107) mmol/L Carbon Dioxide 28 (21-32) mmol/L POC Total CO2 (24-31) mmol/L Anion Gap 10 (3-11) POC Anion Gap (16-25) mmol/L POC BUN (7-18) mg/dl BUN 19 (6-23) mg/dl Creatinine 1.27 H (0.6-1.2) mg/dl POC Creatinine (0.6-1.3) mg/dl Est Cr Clr Drug Dosing Not Reportable Est GFR ( Amer) 47.8 ml/min Est GFR (Non-Af Amer) 41.2 ml/min BUN/Creatinine Ratio 15.0 (10-20) Glucose 90 (70-99(Fasting)) mg/dl POC Glucose (other) (70-99) mg/dl Calcium 8.9 (8.6-10.3) mg/dl POC Ioniz Calcium Ole (1.12-1.32) mmol/l Total Bilirubin 0.7 (0.2-1.0) mg/dl AST 14 (13-39) U/L ALT 7 (7-52) U/L Alkaline Phosphatase 82 (34-104) U/L Troponin I High Sens 7.6 (0-14) pg/ml B-Natriuretic Peptide (0-100) pg/ml Total Protein 6.3 (6.0-8.3) gm/dl Albumin 2.8 L (3.4-5.0) gm/dl Globulin 3.5 (2.5-4.0) gm/dl Albumin/Globulin Ratio 0.8 L (0.9-2) SARS-CoV-2, RNA, NAAT (NEGATIVE) Blood Type Antibody Screen 02/09/23 02/09/23 02/09/23 Range/Units 11:00 14:06 16:24 WBC (4.8-10.8) K/ul RBC (4.20-5.40) M/uL Hgb (12.0-16.0) g/dl POC Hgb 12.9 (12.0-16.0) g/dl Hct (37.0-47.0) % POC Hct 38 (37-47) % MCV (80.0-100.0) fL MCH (25.0-34.0) pg MCHC (32.0-36.0) g/dL RDW Std Deviation (36.4-46.3) fL RDW Coeff of Sg (11.5-14.5) % Plt Count (130-400) K/uL MPV (9.4-12.4) fL Immature Gran % (Auto) % Neut % (Auto) % Lymph % (Auto) % [place] % (Auto) % Eos % (Auto) % Baso % (Auto) % Neut # (Auto) (1.40-6.50) K/uL Lymph # (Auto) (1.2-3.4) K/uL [place] # (Auto) (0.11-0.59) K/uL Eos # (Auto) (0-0.50) K/uL Baso # (Auto) (0-0.2) K/uL Immature Gran # (Auto) (0.01-0.20) K/uL PT (9.0-12.0) Seconds INR (0.9-1.1) APTT (21.0-31.0) Seconds PTT Ratio POC Sodium 137 (135-144) mmol/L Sodium (136-145) mmol/L POC Potassium 3.2 L (3.3-5.0) mmol/L Potassium (3.5-5.1) mmol/L POC Chloride 96 L (101-112) mmol/L Chloride (98-107) mmol/L Carbon Dioxide (21-32) mmol/L POC Total CO2 30 (24-31) mmol/L Anion Gap (3-11) POC Anion Gap 15.0 L (16-25) mmol/L POC BUN 19 H (7-18) mg/dl BUN (6-23) mg/dl Creatinine (0.6-1.2) mg/dl POC Creatinine 1.4 H (0.6-1.3) mg/dl Est Cr Clr Drug Dosing Est GFR ( Amer) ml/min Est GFR (Non-Af Amer) ml/min BUN/Creatinine Ratio (10-20) Glucose (70-99(Fasting)) mg/dl POC Glucose (other) 96 (70-99) mg/dl Calcium (8.6-10.3) mg/dl POC Ioniz Calcium Ole 1.12 (1.12-1.32) mmol/l Total Bilirubin (0.2-1.0) mg/dl AST (13-39) U/L ALT (7-52) U/L Alkaline Phosphatase (34-104) U/L Troponin I High Sens (0-14) pg/ml B-Natriuretic Peptide 480 H (0-100) pg/ml Total Protein (6.0-8.3) gm/dl Albumin (3.4-5.0) gm/dl Globulin (2.5-4.0) gm/dl Albumin/Globulin Ratio (0.9-2) SARS-CoV-2, RNA, NAAT (NEGATIVE) Blood Type O Positive Antibody Screen NEGATIVE 02/09/23 Range/Units Unknown WBC (4.8-10.8) K/ul RBC (4.20-5.40) M/uL Hgb (12.0-16.0) g/dl POC Hgb (12.0-16.0) g/dl Hct (37.0-47.0) % POC Hct (37-47) % MCV (80.0-100.0) fL MCH (25.0-34.0) pg MCHC (32.0-36.0) g/dL RDW Std Deviation (36.4-46.3) fL RDW Coeff of Sg (11.5-14.5) % Plt Count (130-400) K/uL MPV (9.4-12.4) fL Immature Gran % (Auto) % Neut % (Auto) % Lymph % (Auto) % [place] % (Auto) % Eos % (Auto) % Baso % (Auto) % Neut # (Auto) (1.40-6.50) K/uL Lymph # (Auto) (1.2-3.4) K/uL [place] # (Auto) (0.11-0.59) K/uL Eos # (Auto) (0-0.50) K/uL Baso # (Auto) (0-0.2) K/uL Immature Gran # (Auto) (0.01-0.20) K/uL PT (9.0-12.0) Seconds INR (0.9-1.1) APTT (21.0-31.0) Seconds PTT Ratio POC Sodium (135-144) mmol/L Sodium (136-145) mmol/L POC Potassium (3.3-5.0) mmol/L Potassium (3.5-5.1) mmol/L POC Chloride (101-112) mmol/L Chloride (98-107) mmol/L Carbon Dioxide (21-32) mmol/L POC Total CO2 (24-31) mmol/L Anion Gap (3-11) POC Anion Gap (16-25) mmol/L POC BUN (7-18) mg/dl BUN (6-23) mg/dl Creatinine (0.6-1.2) mg/dl POC Creatinine (0.6-1.3) mg/dl Est Cr Clr Drug Dosing Est GFR ( Amer) ml/min Est GFR (Non-Af Amer) ml/min BUN/Creatinine Ratio (10-20) Glucose (70-99(Fasting)) mg/dl POC Glucose (other) (70-99) mg/dl Calcium (8.6-10.3) mg/dl POC Ioniz Calcium Ole (1.12-1.32) mmol/l Total Bilirubin (0.2-1.0) mg/dl AST (13-39) U/L ALT (7-52) U/L Alkaline Phosphatase (34-104) U/L Troponin I High Sens (0-14) pg/ml B-Natriuretic Peptide (0-100) pg/ml Total Protein (6.0-8.3) gm/dl Albumin (3.4-5.0) gm/dl Globulin (2.5-4.0) gm/dl Albumin/Globulin Ratio (0.9-2) SARS-CoV-2, RNA, NAAT NEGATIVE (NEGATIVE) Blood Type Antibody Screen Imaging Data Radiologist's Impression: Abdomen/Pelvis CT 02/09/23 11:[address] WITH IV CONTRAST CT DOSE: 1195.16 mGy.cm HISTORY: Acute as abdominal pain with rectal bleeding rectal bleed, ?crohns/UC, hemorrhoids, rectal d/c TECHNIQUE: Multiaxial CT images of the abdomen and pelvis were performed following the IV administration of 95 cc of Optiray, A dose lowering technique was utilized adhering to the principles of ALARA. COMPARISON STUDY: 04/25/2016 FINDINGS: Cardiomegaly. Clear lung bases. No pneumatosis or pneumoperitoneum. Unremarkable spleen, pancreas and adrenal glands. The gallbladder and liver are unremarkable. Cortical thinning of the kidneys. Indeterminate 7 mm hypodense lesion of the interpolar left kidney is too small to characterize. Partial distention of the urinary bladder. Hysterectomy. Atherosclerosis of the aorta without aneurysm. No lymphadenopathy. No bowel obstruction. There is wall thickening of the mid sigmoid colon with pericolonic inflammation and trace free pelvic fluid. Colonic diverticulosis. No drainable fluid collections. Mild fecal retention. Appendix is not definitively seen. Unremarkable soft tissues. No acute fracture. Mild lumbar levoscoliosis. IMPRESSION: 1. Colonic diverticulosis. Sigmoid colon wall thickening with adjacent i nflammatory stranding and trace free pelvic fluid is suggestive of acute diverticulitis versus colitis. Correlation could be made with follow-up colonoscopy. 2. No bowel obstruction, pneumoperitoneum or fluid collection to suggest abscess. 3. Additional findings as above. ACT 112: Negative or not required by law. The above report was generated using voice recognition software. It may contain grammatical, syntax or spelling errors. Electronically signed by: Oleg Irizarry M.D. 02/09/2023 3:18 PM Chest X-Ray 02/09/23 11:39 XR chest 1V portable CLINICAL HISTORY: dyspnea since afib dx 1 month ago COMPARISON STUDY: Chest CT December 25, 2022. FINDINGS: Lung volumes are normal. Lungs are clear. There is no pneumothorax or pleural effusion. Moderate cardiomegaly is again noted. Mediastinal contours are normal. There is no evidence for pulmonary edema. IMPRESSION: No acute cardiopulmonary findings. Cardiomegaly. ACT 112: Negative or not required by law. Electronically signed by: Marco A Noel M.D. 02/09/2023 12:12 PM ECG Data Attestation: I personally reviewed and interpreted this ECG as follows: (Atrial fibrillation with a rate of 86. Left bundle branch block. Negative Sgarbossa criteria. No significant changes from prior ECG from 12/31/2022) MDM Narrative This is a 77-year-old female presents the emergency department with several episodes of bright red bleeding with clots from her rectum when changing positions. She was recently started on Eliquis and metoprolol 1.5 months ago for new onset atrial fibrillation and has had dyspnea with exertion and lower extremity edema since being discharged, feels terrible on these medications with lightheadedness and nausea. Possible diagnosis of Crohn's/ulcerative colitis per GI from 1 year ago after colonoscopy. On exam she is well-appearing in no acute distress. Vital signs are reassuring. Her rectal exam demonstrates some foul-smelling discharge and mass/perirectal hemorrhoids which are tender and friable during examination, these bleed during examination. Her abdominal exam is unremarkable. She has questionable hepatojugular reflex and 1+ pitting edema bilateral lower extremities. Lungs are clear to auscultation. Differential diagnoses considered as above. Case was reviewed with ED attending Dr. Troy. An IV was established and labs were obtained. Chest x-ray shows cardiomegaly with no evidence of fluid overload. EKG demonstrates atrial fibrillation with a left bundle branch block. Rate of 86. No significant changes from prior ECG. Labs: Stable anemia with a hemoglobin 11.8. No significant changes. Coags are appropriate. Hypokalemia at 3.2 likely secondary to Lasix. Patient could not tolerate p.o. potassium so IV was ordered. Creatinine 1.27, likely her baseline. BNP 480, unclear if baseline. Her CT is concerning for acute diverticulitis versus colitis. At this point it was unclear if the patient was having bleeding from the colon versus externally, and given her already being slightly anemic with ongoing GI bleeding and being on blood thinners, did not feel comfortable discharging the patient home. May require medication adjustments related to Eliquis metoprolol given her symptoms. Patient will require GI and cardiology consultation. I discussed all of this with her and she was comfortable with this plan. Case was discussed with [facility] hospitalist group who will admit the patient for ongoing management Impression Acute GI bleeding, Hypokalemia, Bleeding hemorrhoids Discharge Plan Visit Data Chief Complaint: Rectal Bleed Stated Complaint: DR ZUÑIGA REFERRED, RECTAL BLEEDING ED Provider: Laurie Troy ED Midlevel Provider: Bishop Thompson Discharge Problem: Acute GI bleeding, Hypokalemia, Bleeding hemorrhoids Patient Disposition: Admitted As Inpatient Condition: Good Prescriptions Prescriptions: No Action furosemide 40 mg Tablet 40 mg PO QAM cyanocobalamin (vitamin B-12) [Vitamin B-12] 1,000 mcg Tablet 1,000 mcg PO QAM aspirin 81 mg Tablet,Delayed Release (Dr/Ec) 81 mg PO 3XWK Patient Comments: takes mon/mon/mon in am Rx Instructions: Taken on Monday, Monday and Monday spironolactone 25 mg Tablet 25 mg PO QAM Eliquis 5 mg (74 tabs) tablets,dose pack 5 mg PO BID Qty: 74 0RF metoprolol succinate 50 mg Tablet Extended Release 24 Hr 50 mg PO BID Qty: 60 0RF fiber Tablet 1 tab PO BID cholecalciferol (vitamin D3) [Vitamin D3] 25 mcg (1,000 unit) Capsule 25 mcg PO QAM Referrals Referrals: Michelle Zuñiga DO [Primary Care Provider] -
[2023-02-09 12:07] LABS: Basophils # (auto) 0.08 K/uL (0-0.2); Eosinophils # (auto) 0.07 K/uL (0-0.50); Eosinophils % (auto) 0.8 %; Hematocrit (blood only) 36.6 % (37.0-47.0); Hemoglobin 11.8 g/dl (12.0-16.0); Immature Granulocytes # (auto) 0.02 K/uL (0.01-0.20); Immature Granulocytes % (auto) 0.2 %; Lymphocytes # (auto) 0.85 K/uL (1.2-3.4); Lymphocytes % (auto) 10.2 %; Mean Corpuscular Hemoglobin 29.9 pg (25.0-34.0); Mean Corpuscular Hgb Conc 32.2 g/dL (32.0-36.0); Mean Corpuscular Volume 92.9 fL (80.0-100.0); Mean Platelet Volume 9.5 fL (9.4-12.4); Monocytes # (auto) 0.88 K/uL (0.11-0.59); Monocytes % (auto) 10.5 %; Neutrophils # (auto) 6.47 K/uL (1.40-6.50); Neutrophils % (auto) 77.3 %; Platelet Count 370 K/uL (130-400); RDW Coefficient of Variation 15.2 % (11.5-14.5); RDW Standard Deviation 52.3 fL (36.4-46.3); Red Blood Count 3.94 M/uL (4.20-5.40); White Blood Count 8.37 K/ul (4.8-10.8)
--- NOTE | 2023-02-09 12:13 | XRay Report ---
XR chest 1V portable CLINICAL HISTORY: dyspnea since afib dx 1 month ago COMPARISON STUDY: Chest CT December 25, 2022. FINDINGS: Lung volumes are normal. Lungs are clear. There is no pneumothorax or pleural effusion. Mod erate cardiomegaly is again noted. Mediastinal contours are normal. There is no evidence for pulmonar y edema. IMPRESSION: No acute cardiopulmonary findings. Cardiomegaly. ACT 112: Negative or not required by law. Electronically signed by: Marco A Noel M.D. 02/09/2023 12:12 PM
[2023-02-09 12:18] LABS: INR 1.2 (0.9-1.1); Partial Thromboplastin Ratio 1.1; Partial Thromboplastin Time 30.2 Seconds (21.0-31.0); Prothrombin Time 12.5 Seconds (9.0-12.0)
[2023-02-09 14:22] LABS: iSTAT Creatinine 1.4 mg/dl (0.6-1.3); iSTAT Hemoglobin 12.9 g/dl (12.0-16.0); iSTAT Ionized Calcium 1.12 mmol/l (1.12-1.32); iSTAT Potassium 3.2 mmol/L (3.3-5.0)
[2023-02-09 14:27] LABS: Troponin I High Sensitivity 7.6 pg/ml (0-14)
[2023-02-09] MEDS ORDERED: OPTIRAY 320 100ml IV ONE (14:40)
[2023-02-09 14:48] LABS: Albumin Level 2.8 gm/dl (3.4-5.0); Anion Gap 10 (3-11); Bilirubin,Total 0.7 mg/dl (0.2-1.0); Calcium 8.9 mg/dl (8.6-10.3); Carbon Dioxide 28 mmol/L (21-32); Chloride 99 mmol/L (98-107); Potassium 3.2 mmol/L (3.5-5.1); Sodium 137 mmol/L (136-145)
[2023-02-09 14:53] LABS: Alanine Aminotransferase 7 U/L (7-52); Albumin Globulin Ratio 0.8 (0.9-2); Alkaline Phosphatase 82 U/L (34-104); Aspartate Aminotransferase 14 U/L (13-39); Blood Urea Nitrogen 19 mg/dl (6-23); Est GFR (African American) 47.8 ml/min; Est GFR (Non-African American) 41.2 ml/min; Globulin 3.5 gm/dl (2.5-4.0); Glucose 90 mg/dl (70-99(Fasting)); Total Protein 6.3 gm/dl (6.0-8.3)
[2023-02-09] MEDS ORDERED: POTASSIUM CHLORIDE CRTAB 20 MEQ TABCR PO STA (15:03)
--- NOTE | 2023-02-09 15:19 | CT Scan Report ---
ABDOMEN AND PELVIS CT WITH IV CONTRAST CT DOSE: 1195.16 mGy.cm HISTORY: Acute as abdominal pain with rectal bleeding rectal bleed, ?crohns/UC, hemorrhoids, rectal d/c TECHNIQUE: Multiaxial CT images of the abdomen and pelvis were performed following the IV administrat ion of 95 cc of Optiray, A dose lowering technique was utilized adhering to the principles of ALARA. COMPARISON STUDY: 04/25/2016 FINDINGS: Cardiomegaly. Clear lung bases. No pneumatosis or pneumoperitoneum. Unremarkable spleen, pa ncreas and adrenal glands. The gallbladder and liver are unremarkable. Cortical thinning of the kidne ys. Indeterminate 7 mm hypodense lesion of the interpolar left kidney is too small to characterize. P artial distention of the urinary bladder. Hysterectomy. Atherosclerosis of the aorta without aneurysm . No lymphadenopathy. No bowel obstruction. There is wall thickening of the mid sigmoid colon with pericolonic inflammation and trace free pelvic fluid. Colonic diverticulosis. No drainable fluid collections. Mild fecal rete ntion. Appendix is not definitively seen. Unremarkable soft tissues. No acute fracture. Mild lumbar l evoscoliosis. IMPRESSION: 1. Colonic diverticulosis. Sigmoid colon wall thickening with adjacent inflammatory stranding and tra ce free pelvic fluid is suggestive of acute diverticulitis versus colitis. Correlation could be made with follow-up colonoscopy. 2. No bowel obstruction, pneumoperitoneum or fluid collection to suggest abscess. 3. Additional findings as above. ACT 112: Negative or not required by law. The above report was generated using voice recognition software. It may contain grammatical, syntax o r spelling errors. Electronically signed by: Oleg Irizarry M.D. 02/09/2023 3:18 PM
--- NOTE | 2023-02-09 16:28 | History & Physical Report ---
Date of Service February 09, 2023 Assessment & Plan (1) Acute GI bleeding: (2) Bleeding hemorrhoids: Plan: - Admit to tele - CT abd pelvis reviewed personally showing colitis vs diverticulitis - Consult GI for possible scope - last colonoscopy was from March 2022 showing mild patchy colitis involving rectosigmoid. Recently followed up with Madhav Sumner on 01/16/2023 where C. difficile was checked and was negative, recommendations were to add FiberCon 1 tablet twice daily, augmentation of water intake, consideration of adding MiraLAX pendings symptoms - NPO for now - GI to determine if needs c-scope and/or EGD - cont NSS at 80 ml/hr, hold lasix - Hgb is stable currently at 11.8, recheck tonight at 2200, blood consent signed by myself personally at bedside - WBC us 8.37, afebrile - Will start IV zosyn and give a benadryl 25 mg PO due to hx of mild itching w ith penicillins - Follow stool studies, cultures, blood cultures x 2 and lactic acid (3) Hypokalemia: Plan: -Potassium is 3.2 on admission, replaced with IV, patient did not tolerate p.o. supplementation due to nausea (4) HTN (hypertension): Plan: - Continue metoprolol for rate control with afib for now pending pt does not become hypotensive. Holding parameters. (5) Atrial fibrillation: Plan: -May continue metoprolol -Must hold Eliquis in the setting of acute GI bleed-history of chronic DVT/PE -Hold Lasix and spironolactone, monitor volume status closely - Cardiology consulted for co management while holding Eliquis with acute GI bleeding (6) Asthma: Plan: -Stable, does not use inhalers or require supplemental O2 (7) CKD (chronic kidney disease), stage III: Plan: -BUN 19, creatinine 1.27, trend DVT PPx: - teds, scds, hold chemical anticoagulation in the setting of acute GI bleed CODE: Full code Dispo: From home, likely to remain in the hospital x 1-2 days A total of 85 minutes were spent with greater than 50% of that time face to face with the patient, personally reviewing all current laboratories, imaging studies, past medication reconciliation, outpatient chart review, and discussion with specialists to collaborate care for the patient with attending. Please see attending documentation for corrections and/or additions. History of Present Illness Chief Complaint: Abdominal pain with GI bleeding Primary Care Provider: Michelle Jimenez, This is a 77-year-old female with PMHx of paroxysmal A-fib, HTN, chronic DVT and PE recently started on Eliquis and metoprolol in December 2022 during recent hospitalization. Other PMHx includes, CKD stage III, pernicious anemia, GERD and asthma. Patient reports that she has not really felt herself since initiation of these medications from her last hospital stay. Approximately 2 days ago she noticed worsening dyspnea on exertion, and started having bright red blood per rectum whenever she goes from a sitting to standing position whenever she is laying down on her side. She also notes struggling with intermittent diarrhea over the past 1 year. She does follow with GI as an outpatient recently saw provider for chronic diarrhea within the past month. At that time C. difficile was checked and was negative, patient was instructed to augment her water intake, possible need to add MiraLAX to her daily regimen, and possible future colonoscopy/EGD. Pt reports one week ago she had BRBPR with having a bowel movement and was mostly on toilet paper and tinged the bowl pink. Then Monday night she felt worsening lower abdominal cramping and had to use the restroom and states it was pouring out of her. She feels sensation of having a bowel movement nearly constantly, as well as intermittent nausea. Reports yesterday everything was normal, no blood, and then this morning she got up and had similar episode where she had soaked a towel she kept between her legs with blood. Pt also states she chronically has a hoarse voice, and sometimes feels like food gets stuck in her esophagus. She is nauseated daily, and has had poor po intake since last hospital stay. Patient last took her medications yesterday including her Eliquis and metoprolol. Patient notes that she has felt worse since being started on these medications, specifically has complaints of lightheadedness and dizziness after she takes her metoprolol. She is questioning if her dose can be reduced at all. Patient is incredibly frustrated and is tearful intermittently throughout my visit with her. She is tired of feeling like past, and feels that she has not had the help she needs. Her daughter and are present at bedside and are supportive. Allergies Allergy/AdvReac Type Severity Reaction Status Date / Time Tetracyclines Allergy Severe ANAPHYLAXIS Verified 12/27/22 18:44 ciprofloxacin Allergy Intermediate "my heart Verified 12/27/22 18:44 palpates" Penicillins Allergy Mild HIVES Verified 12/27/22 18:44 Sulfa (Sulfonamide Allergy Mild ITCHING Verified 12/27/22 18:44 Antibiotics) Home Medications Medication Instructions Recorded Confirmed Type aspirin 81 mg tablet,delayed 81 mg PO 3XWK 09/19/18 02/09/23 History release cyanocobalamin (vitamin B-12) 1,000 mcg PO QAM 09/19/18 02/09/23 History 1,000 mcg tablet (Vitamin B-12) furosemide 40 mg tablet 40 mg PO QAM 09/19/18 02/09/23 History spironolactone 25 mg tablet 25 mg PO QAM 09/19/18 02/09/23 History cholecalciferol (vitamin D3) 25 25 mcg PO QAM 09/07/21 02/09/23 History mcg (1,000 unit) capsule (Vitamin D3) apixaban 5 mg (74 tabs) tablets in 5 mg PO BID #74 ea 12/28/22 02/09/23 Rx a dose pack (Eliquis) metoprolol succinate 50 mg 50 mg PO BID #60 tabs 01/01/23 02/09/23 Rx tablet,extended release 24 hr fiber 1 tab PO BID 02/09/23 02/09/23 History Past Med/Surg History Medical History Brain tumor Cardiomyopathy follows with Dr. Torres Chronic kidney disease, stage 3 Deep vein thrombosis left leg after flying--was on warfarin, stopped 2015 Heart palpitations History of colon polyps Hypertension Morbid obesity with BMI of 45.0-49.9, adult Osteoarthritis Skipped heart beats Surgical History History of appendectomy History of cardiac cath 1996, no stents History of colonoscopy last 09/15/21 @ [facility] History of craniotomy 12/26/17 @ [facility] [place]--benign meniangioma History of dilatation and curettage History of esophagogastroduodenoscopy (EGD) History of tonsillectomy and adenoidectomy History of tooth extraction History of total abdominal hysterectomy and bilateral salpingo-oophorectomy Family History Other No family history of adverse response to anesthesia Social History Smoking Status: Never smoker Second Hand Exposure: No; Do You Dip or Chew Tobacco: No; Hx Alcohol Use: No Hx Substance Use: No Preferred Language: Greek Communication Ability: Effective Sales Associate Required: No Beliefs That Will Affect Care: None Current Living Situation: Spouse and Family Current Living Situation Comment: Lives with /daughter and 2 grandkids Feels Safe at Home: Yes Assistive Devices: Cane and Walker Review of Systems Review of Systems: Constitutional: No fever, sweats or chills Eyes: No diplopia, no worsening or blurred vision ENT: normal hearing, no trouble swallowing Respiratory: No cough, sputum, dyspnea at rest or on exertion Cardiovascular: No chest pain, tightness or palpitations Abdomen: As per Hpi Musculoskeletal: No joint pain, calf pain, + swelling ble Neurologic: mild lower extremity weakness bilaterally since last dc, no numbness/tingling, uses cane sometimes, denies balance problems Psychiatric:no anxiety or depression Skin: No rash or itch Physical Exam Physical Exam: General: awake, alert, no apparent distress, obese Head: Normocephalic, atraumatic ENT: PERRL, EOMI, no pharyngeal exudate, mucous membranes moist Chest: Clear throughout except for few inspiratory wheezes on room air, no rales or rhonchi Cardiac:irregularly irregular, rate controlled, no murmur, no JVD, normal peripheral pulses, good capillary refill Abdominal: NABS x 4 quadrants, soft, nondistended, nontender to palpation, no rebound or guarding Extremities: Normal inspection upper extremities, + lymphedema of BLE, + ecchymotic lesions over the left lower leg (reports from bumping into things at home),2+ peripheral edema, no erythema, calfs nontender to palpation Psych: Depressed and anxious mood and affect, tearful at times Neuro: AAO x 3, strength intact bilaterally and rated 5/5, no motor deficits, speech is clear, no peripheral sensory deficits Results & Data Results & Data Vital Signs (Past 12 Hours) Vital Signs Temp Pulse Pulse Resp BP BP Pulse Ox 02/09/23 12:01 84 20 108/86 98 02/09/23 14:27 81 18 112/74 96 02/09/23 11:04 92 H 02/09/23 10:38 36.7 C 92 H 18 121/72 98 O2 Del Method 02/09/23 12:01 Room Air 02/09/23 14:27 Room Air 02/09/23 11:04 02/09/23 10:38 Room Air Laboratory Results 02/09/23 02/09/23 02/09/23 Unknown 16:24 14:06 WBC RBC Hgb POC Hgb 12.9 Hct POC Hct 38 MCV MCH MCHC RDW Std Deviation RDW Coeff of Sg Plt Count MPV Immature Gran % (Auto) Neut % (Auto) Lymph % (Auto) [place] % (Auto) Eos % (Auto) Baso % (Auto) Neut # (Auto) Lymph # (Auto) [place] # (Auto) Eos # (Auto) Baso # (Auto) Immature Gran # (Auto) PT INR APTT PTT Ratio POC Sodium 137 Sodium POC Potassium 3.2 L Potassium POC Chloride 96 L Chloride Carbon Dioxide POC Total CO2 30 Anion Gap POC Anion Gap 15.0 L POC BUN 19 H BUN Creatinine POC Creatinine 1.4 H Est Cr Clr Drug Dosing Est GFR ( Amer) Est GFR (Non-Af Amer) BUN/Creatinine Ratio Glucose POC Glucose (other) 96 Calcium POC Ioniz Calcium Ole 1.12 Total Bilirubin AST ALT Alkaline Phosphatase Troponin I High Sens B-Natriuretic Peptide Total Protein Albumin Globulin Albumin/Globulin Ratio SARS-CoV-2, RNA, NAAT NEGATIVE Blood Type O Positive Antibody Screen NEGATIVE 02/09/23 02/09/23 02/09/23 11:00 11:00 11:00 WBC RBC Hgb POC Hgb Hct POC Hct MCV MCH MCHC RDW Std Deviation RDW Coeff of Sg Plt Count MPV Immature Gran % (Auto) Neut % (Auto) Lymph % (Auto) [place] % (Auto) Eos % (Auto) Baso % (Auto) Neut # (Auto) Lymph # (Auto) [place] # (Auto) Eos # (Auto) Baso # (Auto) Immature Gran # (Auto) PT 12.5 H INR 1.2 H APTT 30.2 PTT Ratio 1.1 POC Sodium Sodium 137 POC Potassium Potassium 3.2 L POC Chloride Chloride 99 Carbon Dioxide 28 POC Total CO2 Anion Gap 10 POC Anion Gap POC BUN BUN 19 Creatinine 1.27 H POC Creatinine Est Cr Clr Drug Dosing Not Reportable Est GFR ( Amer) 47.8 Est GFR (Non-Af Amer) 41.2 BUN/Creatinine Ratio 15.0 Glucose 90 POC Glucose (other) Calcium 8.9 POC Ioniz Calcium Ole Total Bilirubin 0.7 AST 14 ALT 7 Alkaline Phosphatase 82 Troponin I High Sens 7.6 B-Natriuretic Peptide 480 H Total Protein 6.3 Albumin 2.8 L Globulin 3.5 Albumin/Globulin Ratio 0.8 L SARS-CoV-2, RNA, NAAT Blood Type Antibody Screen 02/09/23 11:00 WBC 8.37 RBC 3.94 L Hgb 11.8 L POC Hgb Hct 36.6 L POC Hct MCV 92.9 MCH 29.9 MCHC 32.2 RDW Std Deviation 52.3 H RDW Coeff of Sg 15.2 H Plt Count 370 MPV 9.5 Immature Gran % (Auto) 0.2 Neut % (Auto) 77.3 Lymph % (Auto) 10.2 [place] % (Auto) 10.5 Eos % (Auto) 0.8 Baso % (Auto) 1.0 Neut # (Auto) 6.47 Lymph # (Auto) 0.85 L [place] # (Auto) 0.88 H Eos # (Auto) 0.07 Baso # (Auto) 0.08 Immature Gran # (Auto) 0.02 PT INR APTT PTT Ratio POC Sodium Sodium POC Potassium Potassium POC Chloride Chloride Carbon Dioxide POC Total CO2 Anion Gap POC Anion Gap POC BUN BUN Creatinine POC Creatinine Est Cr Clr Drug Dosing Est GFR ( Amer) Est GFR (Non-Af Amer) BUN/Creatinine Ratio Glucose POC Glucose (other) Calcium POC Ioniz Calcium Ole Total Bilirubin AST ALT Alkaline Phosphatase Troponin I High Sens B-Natriuretic Peptide Total Protein Albumin Globulin Albumin/Globulin Ratio SARS-CoV-2, RNA, NAAT Blood Type Antibody Screen Diagnostic Findings Abdomen/Pelvis CT 02/09/23 11:[address] WITH IV CONTRAST CT DOSE: 1195.16 mGy.cm HISTORY: Acute as abdominal pain with rectal bleeding rectal bleed, ?crohns/UC, hemorrhoids, rectal d/c TECHNIQUE: Multiaxial CT images of the abdomen and pelvis were performed following the IV administration of 95 cc of Optiray, A dose lowering technique was utilized adhering to the principles of ALARA. COMPARISON STUDY: 04/25/2016 FINDINGS: Cardiomegaly. Clear lung bases. No pneumatosis or pneumoperitoneum. Unremarkable spleen, pancreas and adrenal glands. The gallbladder and liver are unremarkable. Cortical thinning of the kidneys. Indeterminate 7 mm hypodense lesion of the interpolar left kidney is too small to characterize. Partial distention of the urinary bladder. Hysterectomy. Atherosclerosis of the aorta without aneurysm. No lymphadenopathy. No bowel obstruction. There is wall thickening of the mid sigmoid colon with pericolonic inflammation and trace free pelvic fluid. Colonic diverticulosis. No drainable fluid collections. Mild fecal retention. Appendix is not definitively seen. Unremarkable soft tissues. No acute fracture. Mild lumbar levoscoliosis. IMPRESSION: 1. Colonic diverticulosis. Sigmoid colon wall thickening with adjacent inflammatory stranding and trace free pelvic fluid is suggestive of acute diverticulitis versus colitis. Correlation could be made with follow-up colonoscopy. 2. No bowel obstruction, pneumoperitoneum or fluid collection to suggest abscess. 3. Additional findings as above. ACT 112: Negative or not required by law. The above report was generated using voice recognition software. It may contain grammatical, syntax or spelling errors. Electronically signed by: Oleg Irizarry M.D. 02/09/2023 3:18 PM Chest X-Ray 02/09/23 11:39 XR chest 1V portable CLINICAL HISTORY: dyspnea since afib dx 1 month ago COMPARISON STUDY: Chest CT December 25, 2022. FINDINGS: Lung volumes are normal. Lungs are clear. There is no pneumothorax or pleural effusion. Moderate cardiomegaly is again noted. Mediastinal contours are normal. There is no evidence for pulmonary edema. IMPRESSION: No acute cardiopulmonary findings. Cardiomegaly. ACT 112: Negative or not required by law. Electronically signed by: Marco A Noel M.D. 02/09/2023 12:12 PM Code Status & VTE Plan Code Status Full code - discussed with pt at bedside Supervising Physician Co-Signing Physician Notes 77-year-old female with PMHx of paroxysmal A-fib, HTN, chronic DVT and PE recently started on Eliquis and metoprolol in December 2022 during recent hospitalization. Other PMHx includes, CKD stage III, pernicious anemia, GERD and asthma. Patient reports that she has not really felt herself since initiation of these medications from her last hospital stay. Approximately 2 days ago she noticed worsening dyspnea on exertion, and started having bright red blood per rectum whenever she goes from a sitting to standing position whenever she is laying down on her side. Ct abdomen results noted started on zosyn gi consult requested (5) Atrial fibrillation Atrial fibrillation type: unspecified Qualified Code(s): I48.91 - Unspecified atrial fibrillation
[2023-02-09] MEDS ORDERED: POTASSIUM CHLORIDE / WTR 10 MEQ/100 ML PLCT IV ONE (16:53)
[2023-02-09] MEDS ORDERED: diphenhydrAMINE Capsule 25 MG CAP PO ONE (17:36)
[2023-02-09] MEDS: POTASSIUM CHLORIDE / WTR 10 MEQ/100 ML PLCT IV SCH ×2 (18:36→20:28)
[2023-02-09] MEDS ORDERED: PIPERACILLIN/TAZOBACTAM 4.5 GM (over 30 mins) IV ONE (19:15)
[2023-02-09] MEDS ORDERED: Patient's HEIGHT &/or WEIGHT Needed SCH (20:00)
[2023-02-09] MEDS ORDERED: ONDANSETRON INJ 2 MG/ML 2 ML VIAL IV PRN (20:02)
[2023-02-09] MEDS ORDERED: ACETAMINOPHEN 325 MG TAB PO PRN (20:02)
[2023-02-09] MEDS ORDERED: PANTOprazole 40 MG in SYRINGE 0 ML IV SCH (20:15)
[2023-02-09] MEDS: METOPROLOL SUCC 50MG EXT REL TAB PO SCH (20:44)
[2023-02-09 21:59] LABS: Hematocrit (blood only) 36.6 % (37.0-47.0); Hemoglobin 11.8 g/dl (12.0-16.0)
[2023-02-10] MEDS: PANTOprazole 40 MG in DEXTROSE 5% 100 ML IV SCH ×4 (00:03→14:44)
[2023-02-10 00:05] LABS: Hematocrit (blood only) 37.9 % (37.0-47.0); Hemoglobin 11.9 g/dl (12.0-16.0)
[2023-02-10] MEDS: SODIUM CHLORIDE 0.9% 1000ML 1,000 ML IV SCH ×2 (00:20→19:34)
[2023-02-10] MEDS: PIPERACILLIN/TAZOBACTAM 4.5 GM in DEXTROSE 5% 100 ML IV SCH ×3 (03:32→19:37)
[2023-02-10 08:08] LABS: Hemoglobin 10.4 g/dl (12.0-16.0); Mean Corpuscular Hemoglobin 29.9 pg (25.0-34.0); Mean Corpuscular Hgb Conc 32.5 g/dL (32.0-36.0); Mean Platelet Volume 9.2 fL (9.4-12.4); Platelet Count 301 K/uL (130-400); RDW Coefficient of Variation 15.3 % (11.5-14.5); RDW Standard Deviation 51.3 fL (36.4-46.3); Red Blood Count 3.48 M/uL (4.20-5.40); White Blood Count 9.66 K/ul (4.8-10.8)
[2023-02-10 08:30] LABS: BUN Creatinine Ratio 11.9 (10-20); Calcium 8.3 mg/dl (8.6-10.3); Est GFR (African American) 48.3 ml/min; Est GFR (Non-African American) 41.6 ml/min; INR 1.2 (0.9-1.1); Potassium 3.6 mmol/L (3.5-5.1); Prothrombin Time 12.8 Seconds (9.0-12.0)
[2023-02-10] MEDS: METOPROLOL SUCC 50MG EXT REL TAB PO SCH ×2 (08:41→19:45)
[2023-02-10] MEDS: ADVANCED PROBIOTIC 1250 MG CAPSULE PO SCH (08:46)
--- NOTE | 2023-02-10 08:46 | Gastrointestinal Consultation ---
Date of Consultation February 10, 2023 Assessment & Plan (1) Acute GI bleeding: (2) Colitis: (3) Diverticulitis: Plan This is a 77 y/o female with h/o intermittent diarrhea, rectal bleeding, prior endoscopies ? suggestive of hemorrhoids, inflammatory changes, now admitted with BRBPR, abd discomfort, CT suggestive of sigmoid diverticulitis vs colitis. Recently started on Eliquis; has h/o DVT/PE, A-fib, recently hospitalized in December. Has not felt well since last admission. On exam, abd soft, mild TTP LLQ. HGB has been in the 10's since admit in December; now 10.4. - Will treat as diverticulitis/colitis - Agree wit IVF supportive care - IV ABX - Daily PPI - Send stool for C diff and GI pathogen panel - Asked nursing staff to monitor and document stool output - Ok for chips and sips for now - Trend H/H, transfuse PRN - Cardiology to see pt to weigh in on AC; this is being held currently - No plan for endoscopy today. Can consider endoscopy once pt improves from this acute presentation Thank you for allowing us to participate in the care of this patient. Please call with any acute changes, questions or concerns. Please see addendum below with additional recommendation from my supervising physician. Supervising Physician Co-Signing Physician Notes Agree with pe as documented. Ongoing issues with diarrhea as already reported in h and p. Imaging now suggestive of diverticulitis/colitis. Agree with further plan of care as documented. History of Present Illness Reason for Consultation: Gi bleed Requesting Physician: Sailaja Cao Attending Physician: Nikko Shea MD History of Present Illness This is a 77 year-old female with PMHx of paroxysmal A-fib, HTN, DVT/PE recently started on Eliquis and metoprolol in December 2022 during recent hospitalization. Other PMHx includes, CKD stage III, pernicious anemia, GERD and asthma. She presented to the hospital with several days of BRBPR, lower abd cramping. On arrival had HGB 11.8, HCT 36, PLT 370, WBC 8, BUN 19, Cr 1.27. CTAP w/ s igmoid colon wall thickening with adjacent inflammatory stranding and trace free pelvic fluid is suggestive of acute diverticulitis versus colitis. She was started on IVF, ABX. Reports she has not felt well since her last DC in December. Has felt fatigued, dizzy, SOB; not well. Has had a poor PO intake, nausea. Since admission has had intermittent BRBPR; she states at times "clots" - overnight. HGB today 10.4. Had some intermittent lower abd discomfort. She is thirsty; wants to drink. Last stool was approx 2 days, was formed and brown. Denies CP; having CASTILLO. No vomiting, hematemesis, melena, fever, chills. Having increased leg swelling lately. No syncope. Has had intermittent issues with diarrhea, rectal bleeding for some time, but this is more than normal. Pt with colonoscopy 2018 that was normal, had repeat scope 09/2021 for diarrhea white showed rectal and luis carlos diverticular inflammation in sigmoid, rx'd 5ASA which she could not tolerate, topical steroids which she could not administer and were not helpful. Last flex sig 03/2022 with large hemorrhoids, mild patchy colitis in the rectosigmoid. Most recently developed more diarrhea and KUB w/ mild constipation, C diff neg. She has tried Fiber and some Miralax. She was also given HC suppositories for rectal bleeding in early January. Last flex sig 2021: Findings: Large hemorrhoids were found on perianal exam. There was mild patchy granularity in the rectum. There was mild patchy luis carlos-diverticular submucosal hemorrhage in the sigmoid colon. The remainder of the colon was without evidence of colitis. The ileum was normal. Biopsies taken from proximal colon, sigmoid colon, rectum. Impression: Mild patchy colitis involving recto-sigmoid. Differential includes SCAD, prolapse change, or less likely IBD. A. Colon, proximal, biopsy: - Granulomas noted. - See comment. B. Colon, sigmoid, biopsy: - Mild chronic colitis. Mild activity. - See comment. C. Rectum, biopsy: - Chronic proctitis. Mild activity. - See comment. Comment: The biopsies from the sigmoid colon and rectum show a chronic colitis/proctitis with mild activity. Scattered non-caseating granulomas with giant cell histiocytes are noted. In addition, the proximal colon biopsy also shows scattered lamina propria granulomas but no significant colitis. No dysplasia is identified. All three biopsies were evaluated with special stains for fungal and mycobacterial organisms and these are negative. The differential diagnosis includes Crohn's disease, and infectious granulomatous colitis and sarcoidosis. Correlation with clinical findings is recommended. This case was reviewed as an intradepartmental consultation. Allergies Allergy/AdvReac Type Severity Reaction Status Date / Time Tetracyclines Allergy Severe ANAPHYLAXIS Verified 12/27/22 18:44 ciprofloxacin Allergy Intermediate "my heart Verified 12/27/22 18:44 palpates" Penicillins Allergy Mild HIVES Verified 12/27/22 18:44 Sulfa (Sulfonamide Allergy Mild ITCHING Verified 12/27/22 18:44 Antibiotics) Home Medications Medication Instructions Recorded Confirmed Type aspirin 81 mg tablet,delayed 81 mg PO 3XWK 09/19/18 02/09/23 History release cyanocobalamin (vitamin B-12) 1,000 mcg PO QAM 09/19/18 02/09/23 History 1,000 mcg tablet (Vitamin B-12) furosemide 40 mg tablet 40 mg PO QAM 09/19/18 02/09/23 History spironolactone 25 mg tablet 25 mg PO QAM 09/19/18 02/09/23 History cholecalciferol (vitamin D3) 25 25 mcg PO QAM 09/07/21 02/09/23 History mcg (1,000 unit) capsule (Vitamin D3) apixaban 5 mg (74 tabs) tablets in 5 mg PO BID #74 ea 12/28/22 02/09/23 Rx a dose pack (Eliquis) metoprolol succinate 50 mg 50 mg PO BID #60 tabs 01/01/23 02/09/23 Rx tablet,extended release 24 hr fiber 1 tab PO BID 02/09/23 02/09/23 History Patient History Medical History Brain tumor Cardiomyopathy follows with Dr. Torres Chronic kidney disease, stage 3 Deep vein thrombosis left leg after flying--was on warfarin, stopped 2016 Heart palpitations History of colon polyps Hypertension Morbid obesity with BMI of 45.0-49.9, adult Osteoarthritis Skipped heart beats Surgical History History of appendectomy History of cardiac cath 1996, no stents History of colonoscopy last 09/15/21 @ [facility] History of [place]ani[place]17 [place] [facility] [place]benign meniangi[place] History of dilatation and curettage History of esophagogastroduodenoscopy (EGD) History of tonsillectomy and adenoidectomy History of tooth extraction History of total abdominal hysterectomy and bilateral salpingo-oophorectomy Family History Other No family history of adverse response to anesthesia Social History Smoking Status: Never smoker Second Hand Exposure: No; Do You Dip or Chew Tobacco: No; Tobacco Cessation Education Requested by Patient: No Hx Alcohol Use: No Hx Substance Use: No Preferred Language: Maori Communication Ability: Effective Field Services Manager Required: No Beliefs That Will Affect Care: None Current Living Situation: Spouse and Family Current Living Situation Comment: Lives with /daughter and 2 grandkids Feels Safe at Home: Yes Safety Concerns: Feels Safe At This Time Assistive Devices: Cane Assistive Devices Comment: uses cane when walking long distance Review of Systems Review of Systems: All systems reviewed & are unremarkable except as noted in HPI & below Physical Exam Constitutional: well developed (chronically ill ); no acute distress Eyes: Sclera anicteric, no conjunctival injection ENMT: moist mucous membranes Neck: trachea midline supple Respiratory: normal respiratory effort Cardiovascular: mildly tachycardic, irregularly irregular Gastrointestinal (Abdomen): Inspection/Auscultation: abdomen not distended BS x 4 quads, soft, mild TTP LLQ, no rebound, guarding Skin: no rashes, warm and dry Neurologic: alert and oriented x 3, no obvious focal neuro deficit Psychiatric: somewhat anxious, tearful Results & Data Vital Signs (Past 12 Hours) Vital Signs Temp Pulse Pulse Resp BP BP Pulse Ox 02/10/23 07:36 37.3 C 107 H 18 98/61 L 93 02/10/23 07:36 68 02/10/23 03:55 36.9 C 101 H 16 107/64 94 02/10/23 00:15 36.9 C 104 H 18 126/78 97 02/09/23 23:57 92 H 02/09/23 22:52 36.5 C 94 H 20 121/71 97 O2 Del Method 02/10/23 07:36 Room Air 02/10/23 07:36 02/10/23 03:55 Room Air 02/10/23 00:15 Room Air 02/09/23 23:57 02/09/23 22:52 Room Air Laboratory Results 02/10/23 02/10/23 02/10/23 Range/Units 07:43 07:43 07:43 WBC 9.66 (4.8-10.8) K/ul RBC 3.48 L (4.20-5.40) M/uL Hgb 10.4 L (12.0-16.0) g/dl POC Hgb (12.0-16.0) g/dl Hct 32.0 L (37.0-47.0) % POC Hct (37-47) % MCV 92.0 (80.0-100.0) fL MCH 29.9 (25.0-34.0) pg MCHC 32.5 (32.0-36.0) g/dL RDW Std Deviation 51.3 H (36.4-46.3) fL RDW Coeff of Sg 15.3 H (11.5-14.5) % Plt Count 301 (130-400) K/uL MPV 9.2 L (9.4-12.4) fL Immature Gran % (Auto) % Neut % (Auto) % Lymph % (Auto) % Bland % (Auto) % Eos % (Auto) % Baso % (Auto) % Neut # (Auto) (1.40-6.50) K/uL Lymph # (Auto) (1.2-3.4) K/uL Bland # (Auto) (0.11-0.59) K/uL Eos # (Auto) (0-0.50) K/uL Baso # (Auto) (0-0.2) K/uL Immature Gran # (Auto) (0.01-0.20) K/uL PT 12.8 H (9.0-12.0) Seconds INR 1.2 H (0.9-1.1) APTT (21.0-31.0) Seconds PTT Ratio POC Sodium (135-144) mmol/L Sodium 136 (136-145) mmol/L POC Potassium (3.3-5.0) mmol/L Potassium 3.6 (3.5-5.1) mmol/L POC Chloride (101-112) mmol/L Chloride 101 (98-107) mmol/L Carbon Dioxide 30 (21-32) mmol/L POC Total CO2 (24-31) mmol/L Anion Gap 5 (3-11) POC Anion Gap (16-25) mmol/L POC BUN (7-18) mg/dl BUN 15 (6-23) mg/dl Creatinine 1.26 H (0.6-1.2) mg/dl POC Creatinine (0.6-1.3) mg/dl Est Cr Clr Drug Dosing 43.0 Est GFR ( Amer) 48.3 ml/min Est GFR (Non-Af Amer) 41.6 ml/min BUN/Creatinine Ratio 11.9 (10-20) Glucose 104 H (70-99(Fasting)) mg/dl POC Glucose (other) (70-99) mg/dl Lactate (0.4-2.0) mmol/L Calcium 8.3 L (8.6-10.3) mg/dl POC Ioniz Calcium Ole (1.12-1.32) mmol/l Total Bilirubin (0.2-1.0) mg/dl AST (13-39) U/L ALT (7-52) U/L Alkaline Phosphatase (34-104) U/L Troponin I High Sens (0-14) pg/ml B-Natriuretic Peptide (0-100) pg/ml Total Protein (6.0-8.3) gm/dl Albumin (3.4-5.0) gm/dl Globulin (2.5-4.0) gm/dl Albumin/Globulin Ratio (0.9-2) SARS-CoV-2, RNA, NAAT (NEGATIVE) Blood Type Antibody Screen 02/09/23 02/09/23 02/09/23 Range/Units Unknown 23:38 21:46 WBC (4.8-10.8) K/ul RBC (4.20-5.40) M/uL Hgb 11.9 L 11.8 L (12.0-16.0) g/dl POC Hgb (12.0-16.0) g/dl Hct 37.9 36.6 L (37.0-47.0) % POC Hct (37-47) % MCV (80.0-100.0) fL MCH (25.0-34.0) pg MCHC (32.0-36.0) g/dL RDW Std Deviation (36.4-46.3) fL RDW Coeff of Sg (11.5-14.5) % Plt Count (130-400) K/uL MPV (9.4-12.4) fL Immature Gran % (Auto) % Neut % (Auto) % Lymph % (Auto) % Bland % (Auto) % Eos % (Auto) % Baso % (Auto) % Neut # (Auto) (1.40-6.50) K/uL Lymph # (Auto) (1.2-3.4) K/uL Bland # (Auto) (0.11-0.59) K/uL Eos # (Auto) (0-0.50) K/uL Baso # (Auto) (0-0.2) K/uL Immature Gran # (Auto) (0.01-0.20) K/uL PT (9.0-12.0) Seconds INR (0.9-1.1) APTT (21.0-31.0) Seconds PTT Ratio POC Sodium (135-144) mmol/L Sodium (136-145) mmol/L POC Potassium (3.3-5.0) mmol/L Potassium (3.5-5.1) mmol/L POC Chloride (101-112) mmol/L Chloride (98-107) mmol/L Carbon Dioxide (21-32) mmol/L POC Total CO2 (24-31) mmol/L Anion Gap (3-11) POC Anion Gap (16-25) mmol/L POC BUN (7-18) mg/dl BUN (6-23) mg/dl Creatinine (0.6-1.2) mg/dl POC Creatinine (0.6-1.3) mg/dl Est Cr Clr Drug Dosing Est GFR ( Amer) ml/min Est GFR (Non-Af Amer) ml/min BUN/Creatinine Ratio (10-20) Glucose (70-99(Fasting)) mg/dl POC Glucose (other) (70-99) mg/dl Lactate (0.4-2.0) mmol/L Calcium (8.6-10.3) mg/dl POC Ioniz Calcium Ole (1.12-1.32) mmol/l Total Bilirubin (0.2-1.0) mg/dl AST (13-39) U/L ALT (7-52) U/L Alkaline Phosphatase (34-104) U/L Troponin I High Sens (0-14) pg/ml B-Natriuretic Peptide (0-100) pg/ml Total Protein (6.0-8.3) gm/dl Albumin (3.4-5.0) gm/dl Globulin (2.5-4.0) gm/dl Albumin/Globulin Ratio (0.9-2) SARS-CoV-2, RNA, NAAT NEGATIVE (NEGATIVE) Blood Type Antibody Screen 02/09/23 02/09/23 02/09/23 Range/Units 18:06 16:24 14:06 WBC (4.8-10.8) K/ul RBC (4.20-5.40) M/uL Hgb (12.0-16.0) g/dl POC Hgb 12.9 (12.0-16.0) g/dl Hct (37.0-47.0) % POC Hct 38 (37-47) % MCV (80.0-100.0) fL MCH (25.0-34.0) pg MCHC (32.0-36.0) g/dL RDW Std Deviation (36.4-46.3) fL RDW Coeff of Sg (11.5-14.5) % Plt Count (130-400) K/uL MPV (9.4-12.4) fL Immature Gran % (Auto) % Neut % (Auto) % Lymph % (Auto) % Bland % (Auto) % Eos % (Auto) % Baso % (Auto) % Neut # (Auto) (1.40-6.50) K/uL Lymph # (Auto) (1.2-3.4) K/uL Bland # (Auto) (0.11-0.59) K/uL Eos # (Auto) (0-0.50) K/uL Baso # (Auto) (0-0.2) K/uL Immature Gran # (Auto) (0.01-0.20) K/uL PT (9.0-12.0) Seconds INR (0.9-1.1) APTT (21.0-31.0) Seconds PTT Ratio POC Sodium 137 (135-144) mmol/L Sodium (136-145) mmol/L POC Potassium 3.2 L (3.3-5.0) mmol/L Potassium (3.5-5.1) mmol/L POC Chloride 96 L (101-112) mmol/L Chloride (98-107) mmol/L Carbon Dioxide (21-32) mmol/L POC Total CO2 30 (24-31) mmol/L Anion Gap (3-11) POC Anion Gap 15.0 L (16-25) mmol/L POC BUN 19 H (7-18) mg/dl BUN (6-23) mg/dl Creatinine (0.6-1.2) mg/dl POC Creatinine 1.4 H (0.6-1.3) mg/dl Est Cr Clr Drug Dosing Est GFR ( Amer) ml/min Est GFR (Non-Af Amer) ml/min BUN/Creatinine Ratio (10-20) Glucose (70-99(Fasting)) mg/dl POC Glucose (other) 96 (70-99) mg/dl Lactate 1.2 (0.4-2.0) mmol/L Calcium (8.6-10.3) mg/dl POC Ioniz Calcium Ole 1.12 (1.12-1.32) mmol/l Total Bilirubin (0.2-1.0) mg/dl AST (13-39) U/L ALT (7-52) U/L Alkaline Phosphatase (34-104) U/L Troponin I High Sens (0-14) pg/ml B-Natriuretic Peptide (0-100) pg/ml Total Protein (6.0-8.3) gm/dl Albumin (3.4-5.0) gm/dl Globulin (2.5-4.0) gm/dl Albumin/Globulin Ratio (0.9-2) SARS-CoV-2, RNA, NAAT (NEGATIVE) Blood Type O Positive Antibody Screen NEGATIVE 02/09/23 02/09/23 02/09/23 Range/Units 11:00 11:00 11:00 WBC (4.8-10.8) K/ul RBC (4.20-5.40) M/uL Hgb (12.0-16.0) g/dl POC Hgb (12.0-16.0) g/dl Hct (37.0-47.0) % POC Hct (37-47) % MCV (80.0-100.0) fL MCH (25.0-34.0) pg MCHC (32.0-36.0) g/dL RDW Std Deviation (36.4-46.3) fL RDW Coeff of Sg (11.5-14.5) % Plt Count (130-400) K/uL MPV (9.4-12.4) fL Immature Gran % (Auto) % Neut % (Auto) % Lymph % (Auto) % Bland % (Auto) % Eos % (Auto) % Baso % (Auto) % Neut # (Auto) (1.40-6.50) K/uL Lymph # (Auto) (1.2-3.4) K/uL Bland # (Auto) (0.11-0.59) K/uL Eos # (Auto) (0-0.50) K/uL Baso # (Auto) (0-0.2) K/uL Immature Gran # (Auto) (0.01-0.20) K/uL PT 12.5 H (9.0-12.0) Seconds INR 1.2 H (0.9-1.1) APTT 30.2 (21.0-31.0) Seconds PTT Ratio 1.1 POC Sodium (135-144) mmol/L Sodium 137 (136-145) mmol/L POC Potassium (3.3-5.0) mmol/L Potassium 3.2 L (3.5-5.1) mmol/L POC Chloride (101-112) mmol/L Chloride 99 (98-107) mmol/L Carbon Dioxide 28 (21-32) mmol/L POC Total CO2 (24-31) mmol/L Anion Gap 10 (3-11) POC Anion Gap (16-25) mmol/L POC BUN (7-18) mg/dl BUN 19 (6-23) mg/dl Creatinine 1.27 H (0.6-1.2) mg/dl POC Creatinine (0.6-1.3) mg/dl Est Cr Clr Drug Dosing Not Reportable Est GFR ( Amer) 47.8 ml/min Est GFR (Non-Af Amer) 41.2 ml/min BUN/Creatinine Ratio 15.0 (10-20) Glucose 90 (70-99(Fasting)) mg/dl POC Glucose (other) (70-99) mg/dl Lactate (0.4-2.0) mmol/L Calcium 8.9 (8.6-10.3) mg/dl POC Ioniz Calcium Ole (1.12-1.32) mmol/l Total Bilirubin 0.7 (0.2-1.0) mg/dl AST 14 (13-39) U/L ALT 7 (7-52) U/L Alkaline Phosphatase 82 (34-104) U/L Troponin I High Sens 7.6 (0-14) pg/ml B-Natriuretic Peptide 480 H (0-100) pg/ml Total Protein 6.3 (6.0-8.3) gm/dl Albumin 2.8 L (3.4-5.0) gm/dl Globulin 3.5 (2.5-4.0) gm/dl Albumin/Globulin Ratio 0.8 L (0.9-2) SARS-CoV-2, RNA, NAAT (NEGATIVE) Blood Type Antibody Screen 02/09/23 Range/Units 11:00 WBC 8.37 (4.8-10.8) K/ul RBC 3.94 L (4.20-5.40) M/uL Hgb 11.8 L (12.0-16.0) g/dl POC Hgb (12.0-16.0) g/dl Hct 36.6 L (37.0-47.0) % POC Hct (37-47) % MCV 92.9 (80.0-100.0) fL MCH 29.9 (25.0-34.0) pg MCHC 32.2 (32.0-36.0) g/dL RDW Std Deviation 52.3 H (36.4-46.3) fL RDW Coeff of Sg 15.2 H (11.5-14.5) % Plt Count 370 (130-400) K/uL MPV 9.5 (9.4-12.4) fL Immature Gran % (Auto) 0.2 % Neut % (Auto) 77.3 % Lymph % (Auto) 10.2 % Bland % (Auto) 10.5 % Eos % (Auto) 0.8 % Baso % (Auto) 1.0 % Neut # (Auto) 6.47 (1.40-6.50) K/uL Lymph # (Auto) 0.85 L (1.2-3.4) K/uL Bland # (Auto) 0.88 H (0.11-0.59) K/uL Eos # (Auto) 0.07 (0-0.50) K/uL Baso # (Auto) 0.08 (0-0.2) K/uL Immature Gran # (Auto) 0.02 (0.01-0.20) K/uL PT (9.0-12.0) Seconds INR (0.9-1.1) APTT (21.0-31.0) Seconds PTT Ratio POC Sodium (135-144) mmol/L Sodium (136-145) mmol/L POC Potassium (3.3-5.0) mmol/L Potassium (3.5-5.1) mmol/L POC Chloride (101-112) mmol/L Chloride (98-107) mmol/L Carbon Dioxide (21-32) mmol/L POC Total CO2 (24-31) mmol/L Anion Gap (3-11) POC Anion Gap (16-25) mmol/L POC BUN (7-18) mg/dl BUN (6-23) mg/dl Creatinine (0.6-1.2) mg/dl POC Creatinine (0.6-1.3) mg/dl Est Cr Clr Drug Dosing Est GFR ( Amer) ml/min Est GFR (Non-Af Amer) ml/min BUN/Creatinine Ratio (10-20) Glucose (70-99(Fasting)) mg/dl POC Glucose (other) (70-99) mg/dl Lactate (0.4-2.0) mmol/L Calcium (8.6-10.3) mg/dl POC Ioniz Calcium Ole (1.12-1.32) mmol/l Total Bilirubin (0.2-1.0) mg/dl AST (13-39) U/L ALT (7-52) U/L Alkaline Phosphatase (34-104) U/L Troponin I High Sens (0-14) pg/ml B-Natriuretic Peptide (0-100) pg/ml Total Protein (6.0-8.3) gm/dl Albumin (3.4-5.0) gm/dl Globulin (2.5-4.0) gm/dl Albumin/Globulin Ratio (0.9-2) SARS-CoV-2, RNA, NAAT (NEGATIVE) Blood Type Antibody Screen Diagnostic Findings CTAP: FINDINGS: Cardiomegaly. Clear lung bases. No pneumatosis or pneumoperitoneum. Unremarkable spleen, pancreas and adrenal glands. The gallbladder and liver are unremarkable. Cortical thinning of the kidneys. Indeterminate 7 mm hypodense lesion of the interpolar left kidney is too small to characterize. Partial distention of the urinary bladder. Hysterectomy. Atherosclerosis of the aorta without aneurysm. No lymphadenopathy. No bowel obstruction. There is wall thickening of the mid sigmoid colon with pericolonic inflammation and trace free pelvic fluid. Colonic diverticulosis. No drainable fluid collections. Mild fecal retention. Appendix is not definitively seen. Unremarkable soft tissues. No acute fracture. Mild lumbar levoscoliosis. IMPRESSION: 1. Colonic diverticulosis. Sigmoid colon wall thickening with adjacent inflammatory stranding and trace free pelvic fluid is suggestive of acute diverticulitis versus colitis. Correlation could be made with follow-up colonoscopy. 2. No bowel obstruction, pneumoperitoneum or fluid collection to suggest abscess. 3. Additional findings as above.
--- NOTE | 2023-02-10 12:18 | Cardiology Consultation ---
Date of Consultation February 10, 2023 Assessment & Plan (1) Acute GI bleeding: (2) Diverticulitis: (3) Pulmonary emboli: (4) Atrial fibrillation: (5) Dilated idiopathic cardiomyopathy: Variable degree of LV dysfunction in past. (6) LBBB (left bundle branch block): (7) Edema due to hypoalbuminemia: Plan Patient is a complex 77-year-old female with longstanding history of left bundle branch block and nonischemic cardiomyopathy, persistent atrial fibrillation on chronic anticoagulation past recurrent DVT and recent pulmonary embolus December 2022 Patient in the past has had difficulties with colitis and rectal bleeding and re presents with acute GI bleeding. Patient concern regarding a lower extremity edema likely multifactorial including hypoalbuminemia Multiple issues as listed above. Can hold anticoagulation for atrial fibrillation indications however recent DVT and pulmonary emboli suggest ongoing need/increased risk. Would consider evaluation for IVC filter. Long-term anticoagulation issues will be then addressed Chest x-ray without heart failure lower extremity edema as noted We will repeat echocardiogram now 6 weeks on rate control Treat underlying colitis. Appreciate GI involved History of Present Illness Reason for Consultation: GI bleed, chronic anticoagulation for atrial fibrillation and DVT/PE Requesting Physician: MD Shabbir Attending Physician: Nikko Shea MD History of Present Illness Patient is a complex 77-year-old female with underlying issues which include 1.Idiopathic dilated cardiomyopathy diagnosed in 1996 with moderate left dysfunction. 2.Persistent atrial fibrillation with chronic left bundle branch block. 3.Hypertension. 4.Chronic renal insufficiency. 5.DVT in March 2016, DVT/pulmonary embolus December 2022 6.Obesity. 7.Status post meningioma resection December 2017 8. Ulcerative colitis with intermittent rectal bleeding Patient with recent complex history with hospitalization late December 2022 with DVT PE complicated by recurrence of atrial fibrillation. Patient anticoagulated and rate controlled. Notes generalized malaise and GI complaints since hospital discharge including frequent diarrhea. Re presented this admission with visible hematochezia Notes poor p.o. intake/anorexia times several weeks or greater persistent weight loss weight loss greater than 60 pound over the last 2 years No current fevers chills or infections. Mild dizziness over the last month Has had difficulty with doughy edema of both lower extremities greatest in the feet CT scan abdomen on presentation diverticulitis versus colitis Chest x-ray clear Allergies Allergy/AdvReac Type Severity Reaction Status Date / Time Tetracyclines Allergy Severe ANAPHYLAXIS Verified 12/27/22 18:44 ciprofloxacin Allergy Intermediate "my heart Verified 12/27/22 18:44 palpates" Penicillins Allergy Mild HIVES Verified 12/27/22 18:44 Sulfa (Sulfonamide Allergy Mild ITCHING Verified 12/27/22 18:44 Antibiotics) Home Medications Medication Instructions Recorded Confirmed Type aspirin 81 mg tablet,delayed 81 mg PO 3XWK 09/19/18 02/09/23 History release cyanocobalamin (vitamin B-12) 1,000 mcg PO QAM 09/19/18 02/09/23 History 1,000 mcg tablet (Vitamin B-12) furosemide 40 mg tablet 40 mg PO QAM 09/19/18 02/09/23 History spironolactone 25 mg tablet 25 mg PO QAM 09/19/18 02/09/23 History cholecalciferol (vitamin D3) 25 25 mcg PO QAM 09/07/21 02/09/23 History mcg (1,000 unit) capsule (Vitamin D3) apixaban 5 mg (74 tabs) tablets in 5 mg PO BID #74 ea 12/28/22 02/09/23 Rx a dose pack (DDRdrivequLTG [employer]) metoprolol succinate 50 mg 50 mg PO BID #60 tabs 01/01/23 02/09/23 Rx tablet,extended release 24 hr fiber 1 tab PO BID 02/09/23 02/09/23 History Patient History Medical History Brain tumor Cardiomyopathy follows with Dr. Torres Chronic kidney disease, stage 3 Deep vein thrombosis left leg after flying--was on warfarin, stopped 2015 Heart palpitations History of colon polyps Hypertension Morbid obesity with BMI of 45.0-49.9, adult Osteoarthritis Skipped heart beats Surgical History History of appendectomy History of cardiac cath 1996, no stents History of colonoscopy last 09/15/21 @ [facility] History of craniotomy 12/26/17 @ [facility] [place]benign meniangioma History of dilatation and curettage History of esophagogastroduodenoscopy (EGD) History of tonsillectomy and adenoidectomy History of tooth extraction History of total abdominal hysterectomy and bilateral salpingo-oophorectomy Family History Other No family history of adverse response to anesthesia Social History Smoking Status: Never smoker Second Hand Exposure: No; Do You Dip or Chew Tobacco: No; Tobacco Cessation Education Requested by Patient: No Hx Alcohol Use: No Hx Substance Use: No Preferred Language: Armenian Communication Ability: Effective Superintendent Required: No Beliefs That Will Affect Care: None Current Living Situation: Spouse and Family Current Living Situation Comment: Lives with /daughter and 2 grandkids Feels Safe at Home: Yes Safety Concerns: Feels Safe At This Time Assistive Devices: Cane Assistive Devices Comment: uses cane when walking long distance Physical Exam Constitutional: + ill appearing; no acute distress Eyes: PERRL, conjunctivae normal, anicteric sclerae ENMT: external ear and nose normal, oropharynx normal Neck: trachea midline, no thyromegaly Respiratory: normal respiratory effort, lungs clear to auscultation Cardiovascular: Rate/Rhythm: + irregularly irregular Heart Sounds: normal S1 and normal S2; no murmur Vessels: no JVD Extremities: + edema (1+) Chest (Breasts): normal inspection/palpation of breasts Gastrointestinal (Abdomen): Percussion/Palpation: + abdomen tender and abdomen soft; no guarding Neurologic: PERRL, EOMI, accommodation nl, no face palsy, no dysarthria Psychiatric: A+Ox3, euthymic affect Results & Data Vital Signs (Past 12 Hours) Vital Signs Temp Pulse Pulse Resp BP Pulse Ox O2 Del Method 02/10/23 11:26 36.5 C 100 H 18 117/68 92 Room Air 02/10/23 07:36 37.3 C 107 H 18 98/61 L 93 Room Air 02/10/23 07:36 68 02/10/23 03:55 36.9 C 101 H 16 107/64 94 Room Air Laboratory Results Laboratory Results - last 24 hr 02/09/23 02/09/23 02/09/23 11:00 11:00 14:06 WBC RBC Hgb POC Hgb 12.9 Hct POC Hct 38 MCV MCH MCHC RDW Std Deviation RDW Coeff of Sg Plt Count MPV PT INR POC Sodium 137 Sodium 137 POC Potassium 3.2 L Potassium 3.2 L POC Chloride 96 L Chloride 99 Carbon Dioxide 28 POC Total CO2 30 Anion Gap 10 POC Anion Gap 15.0 L POC BUN 19 H BUN 19 Creatinine 1.27 H POC Creatinine 1.4 H Est Cr Clr Drug Dosing Not Reportable Est GFR ( Amer) 47.8 Est GFR (Non-Af Amer) 41.2 BUN/Creatinine Ratio 15.0 Glucose 90 POC Glucose (other) 96 Lactate Calcium 8.9 POC Ioniz Calcium Ole 1.12 Total Bilirubin 0.7 AST 14 ALT 7 Alkaline Phosphatase 82 Troponin I High Sens 7.6 B-Natriuretic Peptide 480 H Total Protein 6.3 Albumin 2.8 L Globulin 3.5 Albumin/Globulin Ratio 0.8 L SARS-CoV-2, RNA, NAAT Blood Type Antibody Screen 02/09/23 02/09/23 02/09/23 16:24 18:06 21:46 WBC RBC Hgb 11.8 L POC Hgb Hct 36.6 L POC Hct MCV MCH MCHC RDW Std Deviation RDW Coeff of Sg Plt Count MPV PT INR POC Sodium Sodium POC Potassium Potassium POC Chloride Chloride Carbon Dioxide POC Total CO2 Anion Gap POC Anion Gap POC BUN BUN Creatinine POC Creatinine Est Cr Clr Drug Dosing Est GFR ( Amer) Est GFR (Non-Af Amer) BUN/Creatinine Ratio Glucose POC Glucose (other) Lactate 1.2 Calcium POC Ioniz Calcium Ole Total Bilirubin AST ALT Alkaline Phosphatase Troponin I High Sens B-Natriuretic Peptide Total Protein Albumin Globulin Albumin/Globulin Ratio SARS-CoV-2, RNA, NAAT Blood Type O Positive Antibody Screen NEGATIVE 02/09/23 02/09/23 02/10/23 23:38 Unknown 07:43 WBC 9.66 RBC 3.48 L Hgb 11.9 L 10.4 L POC Hgb Hct 37.9 32.0 L POC Hct MCV 92.0 MCH 29.9 MCHC 32.5 RDW Std Deviation 51.3 H RDW Coeff of Sg 15.3 H Plt Count 301 MPV 9.2 L PT INR POC Sodium Sodium POC Potassium Potassium POC Chloride Chloride Carbon Dioxide POC Total CO2 Anion Gap POC Anion Gap POC BUN BUN Creatinine POC Creatinine Est Cr Clr Drug Dosing Est GFR ( Amer) Est GFR (Non-Af Amer) BUN/Creatinine Ratio Glucose POC Glucose (other) Lactate Calcium POC Ioniz Calcium Ole Total Bilirubin AST ALT Alkaline Phosphatase Troponin I High Sens B-Natriuretic Peptide Total Protein Albumin Globulin Albumin/Globulin Ratio SARS-CoV-2, RNA, NAAT NEGATIVE Blood Type Antibody Screen 02/10/23 02/10/23 07:43 07:43 WBC RBC Hgb POC Hgb Hct POC Hct MCV MCH MCHC RDW Std Deviation RDW Coeff of Sg Plt Count MPV PT 12.8 H INR 1.2 H POC Sodium Sodium 136 POC Potassium Potassium 3.6 POC Chloride Chloride 101 Carbon Dioxide 30 POC Total CO2 Anion Gap 5 POC Anion Gap POC BUN BUN 15 Creatinine 1.26 H POC Creatinine Est Cr Clr Drug Dosing 43.0 Est GFR ( Amer) 48.3 Est GFR (Non-Af Amer) 41.6 BUN/Creatinine Ratio 11.9 Glucose 104 H POC Glucose (other) Lactate Calcium 8.3 L POC Ioniz Calcium Ole Total Bilirubin AST ALT Alkaline Phosphatase Troponin I High Sens B-Natriuretic Peptide Total Protein Albumin Globulin Albumin/Globulin Ratio SARS-CoV-2, RNA, NAAT Blood Type Antibody Screen (3) Pulmonary emboli Acute cor pulmonale presence: unspecified Chronicity: unspecified Pulmonary embolism type: unspecified Qualified Code(s): I26.99 - Other pulmonary embolism without acute cor pulmonale (4) Atrial fibrillation Atrial fibrillation type: unspecified Qualified Code(s): I48.91 - Unspecified atrial fibrillation
--- NOTE | 2023-02-10 13:47 | Ultrasound Report ---
BILATERAL LOWER EXTREMITY VENOUS DOPPLER HISTORY: Acute pain and swelling of the lower leg RUle out acute DVT COMPARISON STUDY: 12/28/2022. FINDINGS: Subcutaneous edema. 5.1 x 1.2 x 1.5 cm hypoechoic focus of the medial right calf, possibly intramuscular. There is normal compressibility, flow, and augmentation within the bilateral lower ext remity deep venous systems. IMPRESSION: 1. No DVT within the right or left lower extremity. 2. 5.1 cm collection within the right calf appears stable. ACT 112: Negative or not required by law. Electronically signed by: Oleg Irizarry M.D. 02/10/2023 1:46 PM
[2023-02-10 14:08] LABS: Adenovirus F 40/41 PCR Not Detected (NotDetected); Astrovirus PCR Not Detected (NotDetected); Campylobacter PCR Not Detected (NotDetected); Cryptosporidium PCR Not Detected (NotDetected); Cyclospora cayetanensis PCR Not Detected (NotDetected); Entamoeba histolytica PCR Not Detected (NotDetected); Enteroaggregative E.coli(EAEC) Not Detected (NotDetected); Enteropathogenic E.coli (EPEC) Not Detected (NotDetected); Enterotoxigenic E.coli (ETEC) Not Detected (NotDetected); Giardia lamblia PCR Not Detected (NotDetected); Norovirus GI/GII PCR Not Detected (NotDetected); Plesiomonas shigelloides PCR Not Detected (NotDetected); Rotavirus A PCR Not Detected (NotDetected); Salmonella PCR Not Detected (NotDetected); Sapovirus PCR Not Detected (NotDetected); Shiga-like Toxin E.coli (STEC) Not Detected (NotDetected); Shigella/Enteroinvasive E.coli Not Detected (NotDetected); Vibrio cholerae PCR Not Detected (NotDetected); Vibrio species PCR Not Detected (NotDetected); Yersinia enterocolitica PCR Not Detected (NotDetected)
--- NOTE | 2023-02-10 14:51 | Hospitalist Progress Note ---
Date of Service February 10, 2023 Assessment & Plan (1) Diverticulitis: (2) Acute GI bleeding: (3) Acute blood loss anemia: (4) Bleeding hemorrhoids: Plan: Patient is a 77-year-old female with past medical history of paroxysmal A-fib, chronic DVT/PE, A-fib; started on Eliquis in December 2022. Presents with lower GI bleed with bright red blood per rectum CT abdomen pelvis reviewed personally; sigmoid colon wall thickening with adjacent inflammatory stranding and trace free pelvic fluid suggestive of acute diverticulitis versus colitis Labs reviewed; hemoglobin down trended from 11.8-10.4. GI PCR panel and C. difficile negative Bilateral venous duplex negative Discussed with GI; recommend IV antibiotic, daily PPI and monitoring of hemoglobin. Discussed with cardiology; anticoagulation can be hold off from A-fib standpoint. However, recommend evaluation for IVC filter given recent DVT and PE. Discussed with vascular surgery; no indication for IVC filter for now. Patient can be off anticoagulation. Continue Zosyn Continue IV hydration Started on clear liquid diets (5) Hypokalemia: Plan: -Potassium is 3.2 on admission, replaced with IV, patient did not tolerate p.o. supplementation due to nausea (6) HTN (hypertension): Plan: - Continue metoprolol for rate control with afib for now pending pt does not become hypotensive. Holding parameters. (7) Atrial fibrillation: Plan: -May continue metoprolol. Eliquis on hold. -Hold Lasix and spironolactone, monitor volume status closely (8) Asthma: Plan: -Stable, does not use inhalers or require supplemental O2 (9) CKD (chronic kidney disease), stage III: Plan: -BUN 19, creatinine 1.27, trend DVT PPx: - teds, scds, hold chemical anticoagulation in the setting of acute GI bleed CODE: Full code Time spent evaluating patient, direct bedside care, chart review, placing orders, interpretation of diagnostic studies, discussion with consultants, patient, and family members, as well as other required patient management activities is 60 minutes. Please note the above document was generated using voice recognition software. It may contain grammatical, syntax or spelling errors. Any formal questions or concerns about the content, text or information contained within the body of this dictation should be directly addressed to the provider for clarification Admission and Anticipated Discharge Date Admission Date: February 09, 2023 Subjective Patient seen and examined at bedside. She reports having bowel movement which are bloody. Reports lower abdominal cramping. Review of Systems Review of Systems: All systems reviewed & are unremarkable except as noted in Subjective Physical Exam Physical Exam: Constitutional: WD/WN, vitals as above, NAD, sitting up in bed, pleasant, conversing easily Respiratory: normal respiratory effort, lungs clear to auscultation, no wheeze, rales, rhonchi. Normal insp/exp effort, no accessory muscle use Cardiovascular: RRR, no murmur, no edema Vessels: no JVD or carotid bruit Chest: normal inspection of chest Abdomen: Slight tenderness present in left lower quadrant. Musculoskeletal: no cyanosis or clubbing, extremities motor strength 5/5 Skin: no rashes, warm and dry normal turgor Neurologic: PERRL, EOMI, accommodation nl, no face palsy, no dysarthria CN's II- XI intact bilaterally and moves all extremities Psychiatric: A+Ox3, euthymic affect Results & Data Results & Data Vital Signs (Past 12 Hours) Vital Signs Temp Pulse Pulse Resp BP Pulse Ox O2 Del Method 02/10/23 11:26 36.5 C 100 H 18 117/68 92 Room Air 02/10/23 07:36 37.3 C 107 H 18 98/61 L 93 Room Air 02/10/23 07:36 68 02/10/23 03:55 36.9 C 101 H 16 107/64 94 Room Air Laboratory Results Laboratory Results WBC 9.66 K/ul (4.8-10.8) 02/10/23 07:43 RBC 3.48 M/uL (4.20-5.40) L 02/10/23 07:43 Hgb 10.4 g/dl (12.0-16.0) L 02/10/23 07:43 POC Hgb 12.9 g/dl (12.0-16.0) 02/09/23 14:06 Hct 32.0 % (37.0-47.0) L 02/10/23 07:43 POC Hct 38 % (37-47) 02/09/23 14:06 MCV 92.0 fL (80.0-100.0) 02/10/23 07:43 MCH 29.9 pg (25.0-34.0) 02/10/23 07:43 MCHC 32.5 g/dL (32.0-36.0) 02/10/23 07:43 RDW Std Deviation 51.3 fL (36.4-46.3) H 02/10/23 07:43 RDW Coeff of Sg 15.3 % (11.5-14.5) H 02/10/23 07:43 Plt Count 301 K/uL (130-400) 02/10/23 07:43 MPV 9.2 fL (9.4-12.4) L 02/10/23 07:43 Immature Gran % (Auto) 0.2 % 02/09/23 11:00 Neut % (Auto) 77.3 % 02/09/23 11:00 Lymph % (Auto) 10.2 % 02/09/23 11:00 [place] % (Auto) 10.5 % 02/09/23 11:00 Eos % (Auto) 0.8 % 02/09/23 11:00 Baso % (Auto) 1.0 % 02/09/23 11:00 Neut # (Auto) 6.47 K/uL (1.40-6.50) 02/09/23 11:00 Lymph # (Auto) 0.85 K/uL (1.2-3.4) L 02/09/23 11:00 [place] # (Auto) 0.88 K/uL (0.11-0.59) H 02/09/23 11:00 Eos # (Auto) 0.07 K/uL (0-0.50) 02/09/23 11:00 Baso # (Auto) 0.08 K/uL (0-0.2) 02/09/23 11:00 Immature Gran # (Auto) 0.02 K/uL (0.01-0.20) 02/09/23 11:00 PT 12.8 Seconds (9.0-12.0) H 02/10/23 07:43 INR 1.2 (0.9-1.1) H 02/10/23 07:43 APTT 30.2 Seconds (21.0-31.0) 02/09/23 11:00 PTT Ratio 1.1 02/09/23 11:00 POC Sodium 137 mmol/L (135-144) 02/09/23 14:06 Sodium 136 mmol/L (136-145) 02/10/23 07:43 POC Potassium 3.2 mmol/L (3.3-5.0) L 02/09/23 14:06 Potassium 3.6 mmol/L (3.5-5.1) 02/10/23 07:43 POC Chloride 96 mmol/L (101-112) L 02/09/23 14:06 Chloride 101 mmol/L (98-107) 02/10/23 07:43 Carbon Dioxide 30 mmol/L (21-32) 02/10/23 07:43 POC Total CO2 30 mmol/L (24-31) 02/09/23 14:06 Anion Gap 5 (3-11) 02/10/23 07:43 POC Anion Gap 15.0 mmol/L (16-25) L 02/09/23 14:06 POC BUN 19 mg/dl (7-18) H 02/09/23 14:06 BUN 15 mg/dl (6-23) 02/10/23 07:43 Creatinine 1.26 mg/dl (0.6-1.2) H 02/10/23 07:43 POC Creatinine 1.4 mg/dl (0.6-1.3) H 02/09/23 14:06 Est Cr Clr Drug Dosing 43.0 ml/min 02/10/23 07:43 Est GFR ( Amer) 48.3 ml/min 02/10/23 07:43 Est GFR (Non-Af Amer) 41.6 ml/min 02/10/23 07:43 BUN/Creatinine Ratio 11.9 (10-20) 02/10/23 07:43 Glucose 104 mg/dl (70-99(Fasting)) H 02/10/23 07:43 POC Glucose (other) 96 mg/dl (70-99) 02/09/23 14:06 Lactate 1.2 mmol/L (0.4-2.0) 02/09/23 18:06 Calcium 8.3 mg/dl (8.6-10.3) L 02/10/23 07:43 POC Ioniz Calcium Ole 1.12 mmol/l (1.12-1.32) 02/09/23 14:06 Total Bilirubin 0.7 mg/dl (0.2-1.0) 02/09/23 11:00 AST 14 U/L (13-39) 02/09/23 11:00 ALT 7 U/L (7-52) 02/09/23 11:00 Alkaline Phosphatase 82 U/L (34-104) 02/09/23 11:00 Troponin I High Sens 7.6 pg/ml (0-14) 02/09/23 11:00 B-Natriuretic Peptide 480 pg/ml (0-100) H 02/09/23 11:00 Total Protein 6.3 gm/dl (6.0-8.3) 02/09/23 11:00 Albumin 2.8 gm/dl (3.4-5.0) L 02/09/23 11:00 Globulin 3.5 gm/dl (2.5-4.0) 02/09/23 11:00 Albumin/Globulin Ratio 0.8 (0.9-2) L 02/09/23 11:00 Stl C. cayetanensis PCR Not Detected (NotDetected) 02/10/23 11:40 Stool Rotavirus A PCR Not Detected (NotDetected) 02/10/23 11:40 Stl Adenov F 40/41 PCR Not Detected (NotDetected) 02/10/23 11:40 Stool Astrovirus (PCR) Not Detected (NotDetected) 02/10/23 11:40 Stool Campylobacter PCR Not Detected (NotDetected) 02/10/23 11:40 Stl C. diff Tox B Gene Negative Cdiff Gene (Neg) 02/10/23 11:40 Stool Cryptosporidium PCR Not Detected (NotDetected) 02/10/23 11:40 Stl E.coli Shiga Tox PCR Not Detected (NotDetected) 02/10/23 11:40 Stl Enterotoxigenic E PCR Not Detected (NotDetected) 02/10/23 11:40 Stool EPEC (PCR) Not Detected (NotDetected) 02/10/23 11:40 Stool EAEC (PCR) Not Detected (NotDetected) 02/10/23 11:40 Stl E. histolytica PCR Not Detected (NotDetected) 02/10/23 11:40 Stool Giardia Lamblia PCR Not Detected (NotDetected) 02/10/23 11:40 Stool Salmonella PCR Not Detected (NotDetected) 02/10/23 11:40 Stool Sapovirus (PCR) Not Detected (NotDetected) 02/10/23 11:40 Stl P. shigelloides PCR Not Detected (NotDetected) 02/10/23 11:40 Stl Shigella/EIEC PCR Not Detected (NotDetected) 02/10/23 11:40 St Y.enterocolitica PCR Not Detected (NotDetected) 02/10/23 11:40 Stool Vibrio (PCR) Not Detected (NotDetected) 02/10/23 11:40 Stl Vibrio cholerae PCR Not Detected (NotDetected) 02/10/23 11:40 Stl Norovirus GI/GII PCR Not Detected (NotDetected) 02/10/23 11:40 SARS-CoV-2, RNA, NAAT NEGATIVE (NEGATIVE) 02/09/23 Unknown Blood Type O Positive 02/09/23 16:24 Antibody Screen NEGATIVE 02/09/23 16:24 Impressions Abdomen/Pelvis CT 02/09/23 11:[address] WITH IV CONTRAST CT DOSE: 1195.16 mGy.cm HISTORY: Acute as abdominal pain with rectal bleeding rectal bleed, ?crohns/UC, hemorrhoids, rectal d/c TECHNIQUE: Multiaxial CT images of the abdomen and pelvis were performed following the IV administration of 95 cc of Optiray, A dose lowering technique was utilized adhering to the principles of ALARA. COMPARISON STUDY: 04/25/2016 FINDINGS: Cardiomegaly. Clear lung bases. No pneumatosis or pneumoperitoneum. Unremarkable spleen, pancreas and adrenal glands. The gallbladder and liver are unremarkable. Cortical thinning of the kidneys. Indeterminate 7 mm hypodense lesion of the interpolar left kidney is too small to characterize. Partial distention of the urinary bladder. Hysterectomy. Atherosclerosis of the aorta without aneurysm. No lymphadenopathy. No bowel obstruction. There is wall thickening of the mid sigmoid colon with pericolonic inflammation and trace free pelvic fluid. Colonic diverticulosis. No drainable fluid collections. Mild fecal retention. Appendix is not definitively seen. Unremarkable soft tissues. No acute fracture. Mild lumbar levoscoliosis. IMPRESSION: 1. Colonic diverticulosis. Sigmoid colon wall thickening with adjacent inflammatory stranding and trace free pelvic fluid is suggestive of acute diverticulitis versus colitis. Correlation could be made with follow-up colonoscopy. 2. No bowel obstruction, pneumoperitoneum or fluid collection to suggest abscess. 3. Additional findings as above. ACT 112: Negative or not required by law. The above report was generated using voice recognition software. It may contain grammatical, syntax or spelling errors. Electronically signed by: Oleg Irizarry M.D. 02/09/2023 3:18 PM Chest X-Ray 02/09/23 11:39 XR chest 1V portable CLINICAL HISTORY: dyspnea since afib dx 1 month ago COMPARISON STUDY: Chest CT December 25, 2022. FINDINGS: Lung volumes are normal. Lungs are clear. There is no pneumothorax or pleural effusion. Moderate cardiomegaly is again noted. Mediastinal contours are normal. There is no evidence for pulmonary edema. IMPRESSION: No acute cardiopulmonary findings. Cardiomegaly. ACT 112: Negative or not required by law. Electronically signed by: Marco A Noel M.D. 02/09/2023 12:12 PM Venous Doppler Study 02/10/23 11:08 BILATERAL LOWER EXTREMITY VENOUS DOPPLER HISTORY: Acute pain and swelling of the lower leg RUle out acute DVT COMPARISON STUDY: 12/28/2022. FINDINGS: Subcutaneous edema. 5.1 x 1.2 x 1.5 cm hypoechoic focus of the medial right calf, possibly intramuscular. There is normal compressibility, flow, and augmentation within the bilateral lower extremity deep venous systems. IMPRESSION: 1. No DVT within the right or left lower extremity. 2. 5.1 cm collection within the right calf appears stable. ACT 112: Negative or not required by law. Electronically signed by: Oleg Irizarry M.D. 02/10/2023 1:46 PM (7) Atrial fibrillation Atrial fibrillation type: unspecified Qualified Code(s): I48.91 - Unspecified atrial fibrillation
[2023-02-10] MEDS: PANTOprazole 40 MG in SYRINGE 0 ML IV SCH (20:59)
[2023-02-10 21:27] LABS: Basophils % (auto) 1.2 %; Eosinophils # (auto) 0.07 K/uL (0-0.50); Eosinophils % (auto) 0.8 %; Hematocrit (blood only) 35.1 % (37.0-47.0); Hemoglobin 11.1 g/dl (12.0-16.0); Immature Granulocytes # (auto) 0.05 K/uL (0.01-0.20); Immature Granulocytes % (auto) 0.6 %; Lymphocytes # (auto) 0.95 K/uL (1.2-3.4); Mean Corpuscular Hemoglobin 29.7 pg (25.0-34.0); Mean Corpuscular Hgb Conc 31.6 g/dL (32.0-36.0); Mean Corpuscular Volume 93.9 fL (80.0-100.0); Mean Platelet Volume 9.4 fL (9.4-12.4); Monocytes # (auto) 1.11 K/uL (0.11-0.59); Monocytes % (auto) 12.9 %; Neutrophils # (auto) 6.33 K/uL (1.40-6.50); Neutrophils % (auto) 73.5 %; Platelet Count 328 K/uL (130-400); RDW Coefficient of Variation 15.6 % (11.5-14.5); RDW Standard Deviation 52.7 fL (36.4-46.3); Red Blood Count 3.74 M/uL (4.20-5.40); White Blood Count 8.61 K/ul (4.8-10.8)
[2023-02-11] MEDS: PIPERACILLIN/TAZOBACTAM 4.5 GM in DEXTROSE 5% 100 ML IV SCH ×3 (03:46→20:23)
[2023-02-11] MEDS: METOPROLOL SUCC 50MG EXT REL TAB PO SCH (08:14)
[2023-02-11] MEDS: ADVANCED PROBIOTIC 1250 MG CAPSULE PO SCH (08:14)
[2023-02-11] MEDS: PANTOprazole 40 MG in SYRINGE 0 ML IV SCH ×2 (08:15→21:22)
[2023-02-11 08:27] LABS: Basophils % (auto) 1.3 %; Eosinophils # (auto) 0.14 K/uL (0-0.50); Eosinophils % (auto) 1.8 %; Hematocrit (blood only) 34.3 % (37.0-47.0); Hemoglobin 10.8 g/dl (12.0-16.0); Immature Granulocytes # (auto) 0.03 K/uL (0.01-0.20); Immature Granulocytes % (auto) 0.4 %; Lymphocytes # (auto) 0.92 K/uL (1.2-3.4); Lymphocytes % (auto) 12.1 %; Mean Corpuscular Hgb Conc 31.5 g/dL (32.0-36.0); Mean Corpuscular Volume 95.3 fL (80.0-100.0); Mean Platelet Volume 9.1 fL (9.4-12.4); Monocytes # (auto) 0.76 K/uL (0.11-0.59); Neutrophils # (auto) 5.65 K/uL (1.40-6.50); Neutrophils % (auto) 74.4 %; Platelet Count 320 K/uL (130-400); RDW Coefficient of Variation 15.3 % (11.5-14.5); RDW Standard Deviation 53.3 fL (36.4-46.3)
[2023-02-11 08:50] LABS: Albumin Globulin Ratio 0.9 (0.9-2); Albumin Level 2.6 gm/dl (3.4-5.0); BUN Creatinine Ratio 10.3 (10-20); Bilirubin,Total 1.1 mg/dl (0.2-1.0); Calcium 8.2 mg/dl (8.6-10.3); Creatinine Clr Calc Pharmacy 42.8 ml/min; Est GFR (African American) 48.3 ml/min; Est GFR (Non-African American) 41.6 ml/min; Potassium 3.4 mmol/L (3.5-5.1); Total Protein 5.6 gm/dl (6.0-8.3)
[2023-02-11] MEDS: DOCUSATE SODIUM 100 MG CAP PO SCH ×2 (10:52→20:27)
--- NOTE | 2023-02-11 12:52 | Cardiology Progress Note ---
Date of Service February 11, 2023 Assessment & Plan (1) Acute GI bleeding: (2) Persistent atrial fibrillation: (3) Dilated idiopathic cardiomyopathy: (4) LBBB (left bundle branch block): Plan Complex 77-year-old female with underlying history of idiopathic cardiomyopathy, persistent atrial fibrillation on chronic anticoagulation for arrhythmia as well as past DVT/pulmonary embolus now with recurrent lower GI bleeding. Bleeding appears to be improving on cessation of anticoagulation. Issues of concern as follows 1. Lower GI bleed improving. Anticoagulation on hold 2. Dilated idiopathic cardiomyopathy ejection fraction less than 30% with compensated heart failure. Oral dose of furosemide today resume spironolactone Near future potential need for pacer defibrillator once bleeding issues curtailed 3. Persistent atrial fibrillation with left bundle branch block: Heart rate is controlled but patient poorly tolerant of metoprolol. We will reduce metoprolol succinate to 25 mg twice per day, add digoxin 0.25 mg this morning 0.125 mg this evening then 3 days/week. Could consider Watchman procedure however anticoagulation indications remain present for recurrent DVT Admission and Anticipated Discharge Date Admission Date: February 09, 2023 Subjective Patient seen and examined, chart, medications telemetry reviewed No acute complaints. Still small amounts of blood in stools per patient. No dizziness or lightheadedness. No fevers or chills. Discussed medications in detail with chronic complaints regarding metoprolol Mild increase in lower extremity chronic edema but furosemide and spironolactone on hold since admission Review of Systems Review of Systems: All systems reviewed & are unremarkable except as noted in Subjective Physical Exam Constitutional: + obese; no acute distress Eyes: PERRL, conjunctivae normal, anicteric sclerae ENMT: external ear and nose normal, oropharynx normal Neck: trachea midline, no thyromegaly Respiratory: normal respiratory effort, lungs clear to auscultation Cardiovascular: Rate/Rhythm: + irregularly irregular Heart Sounds: normal S1 and normal S2 Vessels: no JVD Extremities: + edema Gastrointestinal (Abdomen): normal bowel sounds, soft, nontender, no hepatosplenomegaly Results & Data Vital Signs (Past 12 Hours) Vital Signs Temp Pulse Resp BP Pulse Ox O2 Del Method 02/11/23 11:31 36.4 C L 88 18 111/69 97 Room Air 02/11/23 07:45 36.6 C 99 H 18 106/67 96 Room Air 02/11/23 05:15 36.4 C L 89 16 89/63 L 96 Room Air 02/11/23 04:20 36.8 C 104 H 18 89/48 L 94 Room Air Laboratory Results Laboratory Results - last 24 hr 02/10/23 02/10/23 02/10/23 11:40 11:40 19:33 WBC 8.61 RBC 3.74 L Hgb 11.1 L Hct 35.1 L MCV 93.9 MCH 29.7 MCHC 31.6 L RDW Std Deviation 52.7 H RDW Coeff of Sg 15.6 H Plt Count 328 MPV 9.4 Immature Gran % (Auto) 0.6 Neut % (Auto) 73.5 Lymph % (Auto) 11.0 [place] % (Auto) 12.9 Eos % (Auto) 0.8 Baso % (Auto) 1.2 Neut # (Auto) 6.33 Lymph # (Auto) 0.95 L [place] # (Auto) 1.11 H Eos # (Auto) 0.07 Baso # (Auto) 0.10 Immature Gran # (Auto) 0.05 Sodium Potassium Chloride Carbon Dioxide Anion Gap BUN Creatinine Est Cr Clr Drug Dosing Est GFR ( Amer) Est GFR (Non-Af Amer) BUN/Creatinine Ratio Glucose Calcium Total Bilirubin AST ALT Alkaline Phosphatase Total Protein Albumin Globulin Albumin/Globulin Ratio Stl C. cayetanensis PCR Not Detected Stool Rotavirus A PCR Not Detected Stl Adenov F 40/41 PCR Not Detected Stool Astrovirus (PCR) Not Detected Stool Campylobacter PCR Not Detected Stl C. diff Tox B Gene Negative Cdiff Gene Stool Cryptosporidium PCR Not Detected Stl E.coli Shiga Tox PCR Not Detected Stl Enterotoxigenic E PCR Not Detected Stool EPEC (PCR) Not Detected Stool EAEC (PCR) Not Detected Stl E. histolytica PCR Not Detected Stool Giardia Lamblia PCR Not Detected Stool Salmonella PCR Not Detected Stool Sapovirus (PCR) Not Detected Stl P. shigelloides PCR Not Detected Stl Shigella/EIEC PCR Not Detected St Y.enterocolitica PCR Not Detected Stool Vibrio (PCR) Not Detected Stl Vibrio cholerae PCR Not Detected Stl Norovirus GI/GII PCR Not Detected 02/11/23 02/11/23 08:11 08:11 WBC 7.60 RBC 3.60 L Hgb 10.8 L Hct 34.3 L MCV 95.3 MCH 30.0 MCHC 31.5 L RDW Std Deviation 53.3 H RDW Coeff of Sg 15.3 H Plt Count 320 MPV 9.1 L Immature Gran % (Auto) 0.4 Neut % (Auto) 74.4 Lymph % (Auto) 12.1 [place] % (Auto) 10.0 Eos % (Auto) 1.8 Baso % (Auto) 1.3 Neut # (Auto) 5.65 Lymph # (Auto) 0.92 L [place]iken # (Auto) 0.76 H Eos # (Auto) 0.14 Baso # (Auto) 0.10 Immature Gran # (Auto) 0.03 Sodium 137 Potassium 3.4 L Chloride 104 Carbon Dioxide 26 Anion Gap 7 BUN 13 Creatinine 1.26 H Est Cr Clr Drug Dosing 42.8 Est GFR ( Amer) 48.3 Est GFR (Non-Af Amer) 41.6 BUN/Creatinine Ratio 10.3 Glucose 131 H Calcium 8.2 L Total Bilirubin 1.1 H D AST 9 L ALT 6 L Alkaline Phosphatase 75 Total Protein 5.6 L Albumin 2.6 L Globulin 3.0 Albumin/Globulin Ratio 0.9 Stl C. cayetanensis PCR Stool Rotavirus A PCR Stl Adenov F 40/41 PCR Stool Astrovirus (PCR) Stool Campylobacter PCR Stl C. diff Tox B Gene Stool Cryptosporidium PCR Stl E.coli Shiga Tox PCR Stl Enterotoxigenic E PCR Stool EPEC (PCR) Stool EAEC (PCR) Stl E. histolytica PCR Stool Giardia Lamblia PCR Stool Salmonella PCR Stool Sapovirus (PCR) Stl P. shigelloides PCR Stl Shigella/EIEC PCR St Y.enterocolitica PCR Stool Vibrio (PCR) Stl Vibrio cholerae PCR Stl Norovirus GI/GII PCR
[2023-02-11] MEDS ORDERED: DIGOXIN 0.125 MG TAB PO ONE (13:15)
[2023-02-11] MEDS ORDERED: FUROSEMIDE 40 MG TAB PO ONE (13:15)
[2023-02-11] MEDS ORDERED: POTASSIUM CHLORIDE 20 MEQ/15 ML UDC PO ONE (13:15)
[2023-02-11] MEDS: SPIRONOLACTONE 25 MG TAB PO SCH (13:34)
--- NOTE | 2023-02-11 13:38 | Hospitalist Progress Note ---
Date of Service February 11, 2023 Assessment & Plan (1) Diverticulitis: (2) Acute GI bleeding: (3) Acute blood loss anemia: (4) Bleeding hemorrhoids: Plan: Patient is a 77-year-old female with past medical history of paroxysmal A-fib, chronic DVT/PE, A-fib; started on Eliquis in December 2022. Presents with lower GI bleed with bright red blood per rectum CT abdomen pelvis reviewed personally; sigmoid colon wall thickening with adjacent inflammatory stranding and trace free pelvic fluid suggestive of acute diverticulitis versus colitis Labs reviewed; hemoglobin down trended from 11.8-10.4; stable. GI PCR panel and C. difficile negative Bilateral venous duplex negative Discussed with GI; recommend IV antibiotic, daily PPI and monitoring of hemoglobin. Discussed with cardiology; anticoagulation can be hold off from A-fib standpoint. However, recommend evaluation for IVC filter given recent DVT and PE. Metoprolol dose decreased to 25 mg once daily and digoxin added. Discussed with Dr. Reyes from vascular surgery; no indication for IVC filter for now. Patient can be off anticoagulation for now. Continue Zosyn Stop IV fluids Monitor for bleed Advance diet as tolerated (5) Hypokalemia: Plan: Repleted (6) HTN (hypertension): Plan: - Metoprolol dose decreased as per cardiology Digoxin added (7) Atrial fibrillation: Plan: -May continue metoprolol. Eliquis on hold. -Hold Lasix and spironolactone, monitor volume status closely (8) Asthma: Plan: -Stable, does not use inhalers or require supplemental O2 (9) CKD (chronic kidney disease), stage III: Plan: -Creatinine at baseline. DVT PPx: - teds, scds, hold chemical anticoagulation in the setting of acute GI bleed CODE: Full code Discussed with at bedside. Answered questions/queries. Time spent evaluating patient, direct bedside care, chart review, placing orders, interpretation of diagnostic studies, discussion with consultants, tiffanie chritsiansen, and family members, as well as other required patient management activities is 60 minutes. Please note the above document was generated using voice recognition software. It may contain grammatical, syntax or spelling errors. Any formal questions or concerns about the content, text or information contained within the body of this dictation should be directly addressed to the provider for clarification Admission and Anticipated Discharge Date Admission Date: February 09, 2023 Subjective Patient seen and examined at bedside. She is comfortably sitting up on the chair; not in distress. Reportedly straining for a bowel movement and reports blood on tissue paper on wiping. Review of Systems Review of Systems: All systems reviewed & are unremarkable except as noted in Subjective Physical Exam Physical Exam: Constitutional: WD/WN, vitals as above, NAD, sitting up in bed, pleasant, conve rsing easily Respiratory: normal respiratory effort, lungs clear to auscultation, no wheeze, rales, rhonchi. Normal insp/exp effort, no accessory muscle use Cardiovascular: RRR, no murmur, no edema Vessels: no JVD or carotid bruit Chest: normal inspection of chest Abdomen: Slight tenderness present in left lower quadrant. Musculoskeletal: no cyanosis or clubbing, extremities motor strength 5/5 Skin: no rashes, warm and dry normal turgor Neurologic: PERRL, EOMI, accommodation nl, no face palsy, no dysarthria CN's II- XI intact bilaterally and moves all extremities Psychiatric: A+Ox3, euthymic affect Results & Data Results & Data Vital Signs (Past 12 Hours) Vital Signs Temp Pulse Resp BP Pulse Ox O2 Del Method 02/11/23 11:31 36.4 C L 88 18 111/69 97 Room Air 02/11/23 07:45 36.6 C 99 H 18 106/67 96 Room Air 02/11/23 05:15 36.4 C L 89 16 89/63 L 96 Room Air 02/11/23 04:20 36.8 C 104 H 18 89/48 L 94 Room Air Laboratory Results Laboratory Results WBC 7.60 K/ul (4.8-10.8) 02/11/23 08:11 RBC 3.60 M/uL (4.20-5.40) L 02/11/23 08:11 Hgb 10.8 g/dl (12.0-16.0) L 02/11/23 08:11 POC Hgb 12.9 g/dl (12.0-16.0) 02/09/23 14:06 Hct 34.3 % (37.0-47.0) L 02/11/23 08:11 POC Hct 38 % (37-47) 02/09/23 14:06 MCV 95.3 fL (80.0-100.0) 02/11/23 08:11 MCH 30.0 pg (25.0-34.0) 02/11/23 08:11 MCHC 31.5 g/dL (32.0-36.0) L 02/11/23 08:11 RDW Std Deviation 53.3 fL (36.4-46.3) H 02/11/23 08:11 RDW Coeff of Sg 15.3 % (11.5-14.5) H 02/11/23 08:11 Plt Count 320 K/uL (130-400) 02/11/23 08:11 MPV 9.1 fL (9.4-12.4) L 02/11/23 08:11 Immature Gran % (Auto) 0.4 % 02/11/23 08:11 Neut % (Auto) 74.4 % 02/11/23 08:11 Lymph % (Auto) 12.1 % 02/11/23 08:11 [place] % (Auto) 10.0 % 02/11/23 08:11 Eos % (Auto) 1.8 % 02/11/23 08:11 Baso % (Auto) 1.3 % 02/11/23 08:11 Neut # (Auto) 5.65 K/uL (1.40-6.50) 02/11/23 08:11 Lymph # (Auto) 0.92 K/uL (1.2-3.4) L 02/11/23 08:11 [place] # (Auto) 0.76 K/uL (0.11-0.59) H 02/11/23 08:11 Eos # (Auto) 0.14 K/uL (0-0.50) 02/11/23 08:11 Baso # (Auto) 0.10 K/uL (0-0.2) 02/11/23 08:11 Immature Gran # (Auto) 0.03 K/uL (0.01-0.20) 02/11/23 08:11 PT 12.8 Seconds (9.0-12.0) H 02/10/23 07:43 INR 1.2 (0.9-1.1) H 02/10/23 07:43 APTT 30.2 Seconds (21.0-31.0) 02/09/23 11:00 PTT Ratio 1.1 02/09/23 11:00 POC Sodium 137 mmol/L (135-144) 02/09/23 14:06 Sodium 137 mmol/L (136-145) 02/11/23 08:11 POC Potassium 3.2 mmol/L (3.3-5.0) L 02/09/23 14:06 Potassium 3.4 mmol/L (3.5-5.1) L 02/11/23 08:11 POC Chloride 96 mmol/L (101-112) L 02/09/23 14:06 Chloride 104 mmol/L (98-107) 02/11/23 08:11 Carbon Dioxide 26 mmol/L (21-32) 02/11/23 08:11 POC Total CO2 30 mmol/L (24-31) 02/09/23 14:06 Anion Gap 7 (3-11) 02/11/23 08:11 POC Anion Gap 15.0 mmol/L (16-25) L 02/09/23 14:06 POC BUN 19 mg/dl (7-18) H 02/09/23 14:06 BUN 13 mg/dl (6-23) 02/11/23 08:11 Creatinine 1.26 mg/dl (0.6-1.2) H 02/11/23 08:11 POC Creatinine 1.4 mg/dl (0.6-1.3) H 02/09/23 14:06 Est Cr Clr Drug Dosing 42.8 ml/min 02/11/23 08:11 Est GFR ( Amer) 48.3 ml/min 02/11/23 08:11 Est GFR (Non-Af Amer) 41.6 ml/min 02/11/23 08:11 BUN/Creatinine Ratio 10.3 (10-20) 02/11/23 08:11 Glucose 131 mg/dl (70-99(Fasting)) H 02/11/23 08:11 POC Glucose (other) 96 mg/dl (70-99) 02/09/23 14:06 Lactate 1.2 mmol/L (0.4-2.0) 02/09/23 18:06 Calcium 8.2 mg/dl (8.6-10.3) L 02/11/23 08:11 POC Ioniz Calcium Ole 1.12 mmol/l (1.12-1.32) 02/09/23 14:06 Total Bilirubin 1.1 mg/dl (0.2-1.0) H D 02/11/23 08:11 AST 9 U/L (13-39) L 02/11/23 08:11 ALT 6 U/L (7-52) L 02/11/23 08:11 Alkaline Phosphatase 75 U/L (34-104) 02/11/23 08:11 Troponin I High Sens 7.6 pg/ml (0-14) 02/09/23 11:00 B-Natriuretic Peptide 480 pg/ml (0-100) H 02/09/23 11:00 Total Protein 5.6 gm/dl (6.0-8.3) L 02/11/23 08:11 Albumin 2.6 gm/dl (3.4-5.0) L 02/11/23 08:11 Globulin 3.0 gm/dl (2.5-4.0) 02/11/23 08:11 Albumin/Globulin Ratio 0.9 (0.9-2) 02/11/23 08:11 Stl C. cayetanensis PCR Not Detected (NotDetected) 02/10/23 11:40 Stool Rotavirus A PCR Not Detected (NotDetected) 02/10/23 11:40 Stl Adenov F PCR Not Detected (NotDetected) 02/10/23 11:40 Stool Astrovirus (PCR) Not Detected (NotDetected) 02/10/23 11:40 Stool Campylobacter PCR Not Detected (NotDetected) 02/10/23 11:40 Stl C. diff Tox B Gene Negative Cdiff Gene (Neg) 02/10/23 11:40 Stool Cryptosporidium PCR Not Detected (NotDetected) 02/10/23 11:40 Stl E.coli Shiga Tox PCR Not Detected (NotDetected) 02/10/23 11:40 Stl Enterotoxigenic E PCR Not Detected (NotDetected) 02/10/23 11:40 Stool EPEC (PCR) Not Detected (NotDetected) 02/10/23 11:40 Stool EAEC (PCR) Not Detected (NotDetected) 02/10/23 11:40 Stl E. histolytica PCR Not Detected (NotDetected) 02/10/23 11:40 Stool Giardia Lamblia PCR Not Detected (NotDetected) 02/10/23 11:40 Stool Salmonella PCR Not Detected (NotDetected) 02/10/23 11:40 Stool Sapovirus (PCR) Not Detected (NotDetected) 02/10/23 11:40 Stl P. shigelloides PCR Not Detected (NotDetected) 02/10/23 11:40 Stl Shigella/EIEC PCR Not Detected (NotDetected) 02/10/23 11:40 St Y.enterocolitica PCR Not Detected (NotDetected) 02/10/23 11:40 Stool Vibrio (PCR) Not Detected (NotDetected) 02/10/23 11:40 Stl Vibrio cholerae PCR Not Detected (NotDetected) 02/10/23 11:40 Stl Norovirus GI/GII PCR Not Detected (NotDetected) 02/10/23 11:40 SARS-CoV-2, RNA, NAAT NEGATIVE (NEGATIVE) 02/09/23 Unknown Blood Type O Positive 02/09/23 16:24 Antibody Screen NEGATIVE 02/09/23 16:24 Impressions Abdomen/Pelvis CT 02/09/23 11:[address] WITH IV CONTRAST CT DOSE: 1195.16 mGy.cm HISTORY: Acute as abdominal pain with rectal bleeding rectal bleed, ?crohns/UC, hemorrhoids, rectal d/c TECHNIQUE: Multiaxial CT images of the abdomen and pelvis were performed following the IV administration of 95 cc of Optiray, A dose lowering technique was utilized adhering to the principles of ALARA. COMPARISON STUDY: 04/25/2016 FINDINGS: Cardiomegaly. Clear lung bases. No pneumatosis or pneumoperitoneum. Unremarkable spleen, pancreas and adrenal glands. The gallbladder and liver are unremarkable. Cortical thinning of the kidneys. Indeterminate 7 mm hypodense lesion of the interpolar left kidney is too small to characterize. Partial distention of the urinary bladder. Hysterectomy. Atherosclerosis of the aorta without aneurysm. No lymphadenopathy. No bowel obstruction. There is wall thickening of the mid sigmoid colon with pericolonic inflammation and trace free pelvic fluid. Colonic diverticulosis. No drainable fluid collections. Mild fecal retention. Appendix is not definitively seen. Unremarkable soft tissues. No acute fracture. Mild lumbar levoscoliosis. IMPRESSION: 1. Colonic diverticulosis. Sigmoid colon wall thickening with adjacent inflammatory stranding and trace free pelvic fluid is suggestive of acute diverticulitis versus colitis. Correlation could be made with follow-up colonoscopy. 2. No bowel obstruction, pneumoperitoneum or fluid collection to suggest abscess. 3. Additional findings as above. ACT 112: Negative or not required by law. The above report was generated using voice recognition software. It may contain grammatical, syntax or spelling errors. Electronically signed by: Oleg Irizarry M.D. 02/09/2023 3:18 PM Chest X-Ray 02/09/23 11:39 XR chest 1V portable CLINICAL HISTORY: dyspnea since afib dx 1 month ago COMPARISON STUDY: Chest CT December 25, 2022. FINDINGS: Lung volumes are normal. Lungs are clear. There is no pneumothorax or pleural effusion. Moderate cardiomegaly is again noted. Mediastinal contours are normal. There is no evidence for pulmonary edema. IMPRESSION: No acute cardiopulmonary findings. Cardiomegaly. ACT 112: Negative or not required by law. Electronically signed by: Marco A Noel M.D. 02/09/2023 12:12 PM Venous Doppler Study 02/10/23 11:08 BILATERAL LOWER EXTREMITY VENOUS DOPPLER HISTORY: Acute pain and swelling of the lower leg RUle out acute DVT COMPARISON STUDY: 12/28/2022. FINDINGS: Subcutaneous edema. 5.1 x 1.2 x 1.5 cm hypoechoic focus of the medial right calf, possibly intramuscular. There is normal compressibility, flow, and augmentation within the bilateral lower extremity deep venous systems. IMPRESSION: 1. No DVT within the right or left lower extremity. 2. 5.1 cm collection within the right calf appears stable. ACT 112: Negative or not required by law. Electronically signed by: Oleg Irizarry M.D. 02/10/2023 1:46 PM (7) Atrial fibrillation Atrial fibrillation type: unspecified Qualified Code(s): I48.91 - Unspecified atrial fibrillation
[2023-02-11] MEDS: DIGOXIN 0.125 MG/2.5 ML UDP PO SCH (15:51)
[2023-02-11] MEDS ORDERED: POTASSIUM CHLORIDE CRTAB 20 MEQ TABCR PO STA (16:21)
[2023-02-11] MEDS ORDERED: DICYCLOMINE HCL 10 MG CAP PO PRN (17:18)
[2023-02-11] MEDS: LOPERAMIDE HCL 2 MG CAP PO PRN (17:41)
[2023-02-11] MEDS: LACTATED RINGER'S 1,000 ML IV SCH (17:41)
[2023-02-11] MEDS: POTASSIUM CHLORIDE / WTR 10 MEQ/100 ML PLCT IV SCH ×4 (18:06→22:39)
[2023-02-11] MEDS: METOPROLOL SUCC 25MG EXT REL TAB PO SCH (20:26)
[2023-02-11] MEDS: NYSTATIN CR 15 GM TUBE EXT SCH (21:22)
--- NOTE | 2023-02-11 21:58 | Electrocardiogram Report ---
Test Reason : Blood Pressure : / mmHG Vent. Rate : 086 BPM Atrial Rate : 000 BPM P-R Int : 000 ms QRS Dur : 150 ms QT Int : 428 ms P-R-T Axes : 000 -71 100 degrees QTc Int : 512 ms Atrial fibrillation with premature ventricular or aberrantly conducted complexes Left axis deviation Left bundle branch block Abnormal ECG When compared with ECG of 31-DEC-2022 04:29, No significant change was found Confirmed by Bert Conner ([id number]) on 02/11/2023 9:58:04 PM Referred By: Michelle Jimenez Confirmed By:Bert Conner
--- NOTE | 2023-02-11 22:38 | Electrocardiogram Report ---
Test Reason : Blood Pressure : / mmHG Vent. Rate : 095 BPM Atrial Rate : 000 BPM P-R Int : 000 ms QRS Dur : 154 ms QT Int : 416 ms P-R-T Axes : 000 -56 107 degrees QTc Int : 522 ms Atrial fibrillation Left bundle branch block Abnormal ECG When compared with ECG of 09-FEB-2023 11:09, Premature ventricular complexes are no longer Present Confirmed by Bert Conner ([id number]) on 02/11/2023 10:38:05 PM Referred By: Michelle Jimenez Confirmed By:Bert Conner
[2023-02-12] MEDS: PIPERACILLIN/TAZOBACTAM 4.5 GM in DEXTROSE 5% 100 ML IV SCH ×3 (02:30→20:15)
[2023-02-12] MEDS: LOPERAMIDE HCL 2 MG CAP PO PRN ×2 (05:50→22:40)
[2023-02-12] MEDS: LACTATED RINGER'S 1,000 ML IV SCH (05:55)
[2023-02-12 07:42] LABS: Basophils # (auto) 0.06 K/uL (0-0.2); Basophils % (auto) 0.8 %; Eosinophils # (auto) 0.12 K/uL (0-0.50); Eosinophils % (auto) 1.6 %; Hematocrit (blood only) 30.6 % (37.0-47.0); Hemoglobin 9.7 g/dl (12.0-16.0); Immature Granulocytes # (auto) 0.03 K/uL (0.01-0.20); Immature Granulocytes % (auto) 0.4 %; Mean Corpuscular Hemoglobin 29.8 pg (25.0-34.0); Mean Corpuscular Hgb Conc 31.7 g/dL (32.0-36.0); Mean Corpuscular Volume 93.9 fL (80.0-100.0); Mean Platelet Volume 9.2 fL (9.4-12.4); Monocytes # (auto) 0.96 K/uL (0.11-0.59); Monocytes % (auto) 13.2 %; Neutrophils # (auto) 5.32 K/uL (1.40-6.50); Platelet Count 264 K/uL (130-400); RDW Coefficient of Variation 15.4 % (11.5-14.5); Red Blood Count 3.26 M/uL (4.20-5.40); White Blood Count 7.29 K/ul (4.8-10.8)
[2023-02-12 07:51] LABS: Albumin Globulin Ratio 0.9 (0.9-2); Albumin Level 2.4 gm/dl (3.4-5.0); BUN Creatinine Ratio 8.4 (10-20); Calcium 8.1 mg/dl (8.6-10.3); Creatinine Clr Calc Pharmacy 37.5 ml/min; Est GFR (African American) 41.4 ml/min; Est GFR (Non-African American) 35.7 ml/min; Globulin 2.7 gm/dl (2.5-4.0); Total Protein 5.1 gm/dl (6.0-8.3)
[2023-02-12] MEDS: DOCUSATE SODIUM 100 MG CAP PO SCH ×2 (08:46→20:22)
[2023-02-12] MEDS: ADVANCED PROBIOTIC 1250 MG CAPSULE PO SCH (08:48)
[2023-02-12] MEDS: PANTOprazole 40 MG in SYRINGE 0 ML IV SCH ×2 (08:49→21:25)
[2023-02-12] MEDS: METOPROLOL SUCC 25MG EXT REL TAB PO SCH ×2 (08:49→20:22)
[2023-02-12] MEDS: SPIRONOLACTONE 25 MG TAB PO SCH ×2 (08:49→16:39)
[2023-02-12] MEDS: NYSTATIN CR 15 GM TUBE EXT SCH ×2 (08:49→20:23)
--- NOTE | 2023-02-12 11:25 | Hospitalist Progress Note ---
Date of Service February 12, 2023 Assessment & Plan (1) Diverticulitis: (2) Acute GI bleeding: (3) Acute blood loss anemia: (4) Bleeding hemorrhoids: Plan: Patient is a 77-year-old female with past medical history of paroxysmal A-fib, chronic DVT/PE, A-fib; started on Eliquis in December 2022. Presents with lower GI bleed with bright red blood per rectum CT abdomen pelvis reviewed personally; sigmoid colon wall thickening with adjacent inflammatory stranding and trace free pelvic fluid suggestive of acute diverticulitis versus colitis Labs reviewed; hemoglobin down trended from 11.8-10.4; stable. GI PCR panel and C. difficile negative Bilateral venous duplex negative Discussed with GI; recommend IV antibiotic, daily PPI and monitoring of hemoglobin. Discussed with cardiology; anticoagulation can be hold off from A-fib standpoint. However, recommend evaluation for IVC filter given recent DVT and PE. Metoprolol dose decreased to 25 mg once daily and digoxin added. Spironolactone dose to be increased. Discussed with Dr. Reyes from vascular surgery; no indication for IVC filter for now. Patient can be off anticoagulation for now. Continue Zosyn Monitor for bleed Advance diet as tolerated Repeat C. difficile sent Will start on heparin subcu for DVT prophylaxis. (5) Hypokalemia: Plan: Repleted (6) HTN (hypertension): Plan: - Metoprolol dose decreased as per cardiology Digoxin added Also on metoprolol. (7) Atrial fibrillation: Plan: -May continue metoprolol. Eliquis on hold. -Hold Lasix and spironolactone, monitor volume status closely (8) Asthma: Plan: -Stable, does not use inhalers or require supplemental O2 (9) CKD (chronic kidney disease), stage III: Plan: -Creatinine at baseline. DVT PPx: -Heparin subcu restarted CODE: Full code Time spent evaluating patient, direct bedside care, chart review, placing orders, interpretation of diagnostic studies, discussion with consultants, laura ent, and family members, as well as other required patient management activities is 60 minutes. Please note the above document was generated using voice recognition software. It may contain grammatical, syntax or spelling errors. Any formal questions or concerns about the content, text or information contained within the body of this dictation should be directly addressed to the provider for clarification Admission and Anticipated Discharge Date Admission Date: February 09, 2023 Subjective Patient seen and examined at bedside. She is sitting up on the bed; not in any distress. Reports that she had multiple bowel movements today. No bleeding noted with the bowel movements. Review of Systems Review of Systems: All systems reviewed & are unremarkable except as noted in Subjective Physical Exam Physical Exam: Constitutional: WD/WN, vitals as above, NAD, sitting up in bed, pleasant, con versing easily Respiratory: normal respiratory effort, lungs clear to auscultation, no wheeze, rales, rhonchi. Normal insp/exp effort, no accessory muscle use Cardiovascular: RRR, no murmur, no edema Vessels: no JVD or carotid bruit Chest: normal inspection of chest Abdomen: Slight tenderness present in left lower quadrant. Musculoskeletal: no cyanosis or clubbing, extremities motor strength 5/5 Skin: no rashes, warm and dry normal turgor Neurologic: PERRL, EOMI, accommodation nl, no face palsy, no dysarthria CN's II- XI intact bilaterally and moves all extremities Psychiatric: A+Ox3, euthymic affect Results & Data Results & Data Vital Signs (Past 12 Hours) Vital Signs Temp Pulse Pulse Resp BP Pulse Ox O2 Del Method 02/12/23 08:14 36.4 C L 97 H 19 111/68 97 Room Air 02/12/23 03:07 36.6 C 85 20 106/67 97 Room Air Laboratory Results Laboratory Results WBC 7.29 K/ul (4.8-10.8) 02/12/23 07:08 RBC 3.26 M/uL (4.20-5.40) L 02/12/23 07:08 Hgb 9.7 g/dl (12.0-16.0) L 02/12/23 07:08 POC Hgb 12.9 g/dl (12.0-16.0) 02/09/23 14:06 Hct 30.6 % (37.0-47.0) L 02/12/23 07:08 POC Hct 38 % (37-47) 02/09/23 14:06 MCV 93.9 fL (80.0-100.0) 02/12/23 07:08 MCH 29.8 pg (25.0-34.0) 02/12/23 07:08 MCHC 31.7 g/dL (32.0-36.0) L 02/12/23 07:08 RDW Std Deviation 53.0 fL (36.4-46.3) H 02/12/23 07:08 RDW Coeff of Sg 15.4 % (11.5-14.5) H 02/12/23 07:08 Plt Count 264 K/uL (130-400) 02/12/23 07:08 MPV 9.2 fL (9.4-12.4) L 02/12/23 07:08 Immature Gran % (Auto) 0.4 % 02/12/23 07:08 Neut % (Auto) 73.0 % 02/12/23 07:08 Lymph % (Auto) 11.0 % 02/12/23 07:08 [place] % (Auto) 13.2 % 02/12/23 07:08 Eos % (Auto) 1.6 % 02/12/23 07:08 Baso % (Auto) 0.8 % 02/12/23 07:08 Neut # (Auto) 5.32 K/uL (1.40-6.50) 02/12/23 07:08 Lymph # (Auto) 0.80 K/uL (1.2-3.4) L 02/12/23 07:08 [place] # (Auto) 0.96 K/uL (0.11-0.59) H 02/12/23 07:08 Eos # (Auto) 0.12 K/uL (0-0.50) 02/12/23 07:08 Baso # (Auto) 0.06 K/uL (0-0.2) 02/12/23 07:08 Immature Gran # (Auto) 0.03 K/uL (0.01-0.20) 02/12/23 07:08 PT 12.8 Seconds (9.0-12.0) H 02/10/23 07:43 INR 1.2 (0.9-1.1) H 02/10/23 07:43 APTT 30.2 Seconds (21.0-31.0) 02/09/23 11:00 PTT Ratio 1.1 02/09/23 11:00 POC Sodium 137 mmol/L (135-144) 02/09/23 14:06 Sodium 138 mmol/L (136-145) 02/12/23 07:08 POC Potassium 3.2 mmol/L (3.3-5.0) L 02/09/23 14:06 Potassium 4.0 mmol/L (3.5-5.1) 02/12/23 07:08 POC Chloride 96 mmol/L (101-112) L 02/09/23 14:06 Chloride 104 mmol/L (98-107) 02/12/23 07:08 Carbon Dioxide 29 mmol/L (21-32) 02/12/23 07:08 POC Total CO2 30 mmol/L (24-31) 02/09/23 14:06 Anion Gap 5 (3-11) 02/12/23 07:08 POC Anion Gap 15.0 mmol/L (16-25) L 02/09/23 14:06 POC BUN 19 mg/dl (7-18) H 02/09/23 14:06 BUN 12 mg/dl (6-23) 02/12/23 07:08 Creatinine 1.43 mg/dl (0.6-1.2) H 02/12/23 07:08 POC Creatinine 1.4 mg/dl (0.6-1.3) H 02/09/23 14:06 Est Cr Clr Drug Dosing 37.5 ml/min 02/12/23 07:08 Est GFR ( Amer) 41.4 ml/min 02/12/23 07:08 Est GFR (Non-Af Amer) 35.7 ml/min 02/12/23 07:08 BUN/Creatinine Ratio 8.4 (10-20) L 02/12/23 07:08 Glucose 91 mg/dl (70-99(Fasting)) 02/12/23 07:08 POC Glucose (other) 96 mg/dl (70-99) 02/09/23 14:06 Lactate 1.2 mmol/L (0.4-2.0) 02/09/23 18:06 Calcium 8.1 mg/dl (8.6-10.3) L 02/12/23 07:08 POC Ioniz Calcium Ole 1.12 mmol/l (1.12-1.32) 02/09/23 14:06 Total Bilirubin 1.0 mg/dl (0.2-1.0) 02/12/23 07:08 AST 8 U/L (13-39) L 02/12/23 07:08 ALT 6 U/L (7-52) L 02/12/23 07:08 Alkaline Phosphatase 64 U/L (34-104) 02/12/23 07:08 Troponin I High Sens 7.6 pg/ml (0-14) 02/09/23 11:00 B-Natriuretic Peptide 480 pg/ml (0-100) H 02/09/23 11:00 Total Protein 5.1 gm/dl (6.0-8.3) L 02/12/23 07:08 Albumin 2.4 gm/dl (3.4-5.0) L 02/12/23 07:08 Globulin 2.7 gm/dl (2.5-4.0) 02/12/23 07:08 Albumin/Globulin Ratio 0.9 (0.9-2) 02/12/23 07:08 Stl C. cayetanensis PCR Not Detected (NotDetected) 02/10/23 11:40 Stool Rotavirus A PCR Not Detected (NotDetected) 02/10/23 11:40 Stl Adenov F 40/41 PCR Not Detected (NotDetected) 02/10/23 11:40 Stool Astrovirus (PCR) Not Detected (NotDetected) 02/10/23 11:40 Stool Campylobacter PCR Not Detected (NotDetected) 02/10/23 11:40 Stl C. diff Tox B Gene Negative Cdiff Gene (Neg) 02/10/23 11:40 Stool Cryptosporidium PCR Not Detected (NotDetected) 02/10/23 11:40 Stl E.coli Shiga Tox PCR Not Detected (NotDetected) 02/10/23 11:40 Stl Enterotoxigenic E PCR Not Detected (NotDetected) 02/10/23 11:40 Stool EPEC (PCR) Not Detected (NotDetected) 02/10/23 11:40 Stool EAEC (PCR) Not Detected (NotDetected) 02/10/23 11:40 Stl E. histolytica PCR Not Detected (NotDetected) 02/10/23 11:40 Stool Giardia Lamblia PCR Not Detected (NotDetected) 02/10/23 11:40 Stool Salmonella PCR Not Detected (NotDetected) 02/10/23 11:40 Stool Sapovirus (PCR) Not Detected (NotDetected) 02/10/23 11:40 Stl P. shigelloides PCR Not Detected (NotDetected) 02/10/23 11:40 Stl Shigella/EIEC PCR Not Detected (NotDetected) 02/10/23 11:40 St Y.enterocolitica PCR Not Detected (NotDetected) 02/10/23 11:40 Stool Vibrio (PCR) Not Detected (NotDetected) 02/10/23 11:40 Stl Vibrio cholerae PCR Not Detected (NotDetected) 02/10/23 11:40 Stl Norovirus GI/GII PCR Not Detected (NotDetected) 02/10/23 11:40 SARS-CoV-2, RNA, NAAT NEGATIVE (NEGATIVE) 02/09/23 Unknown Blood Type O Positive 02/09/23 16:24 Antibody Screen NEGATIVE 02/09/23 16:24 Impressions Abdomen/Pelvis CT 02/09/23 11:[address] WITH IV CONTRAST CT DOSE: 1195.16 mGy.cm HISTORY: Acute as abdominal pain with rectal bleeding rectal bleed, ?crohns/UC, hemorrhoids, rectal d/c TECHNIQUE: Multiaxial CT images of the abdomen and pelvis were performed following the IV administration of 95 cc of Optiray, A dose lowering technique was utilized adhering to the principles of ALARA. COMPARISON STUDY: 04/25/2016 FINDINGS: Cardiomegaly. Clear lung bases. No pneumatosis or pneumoperitoneum. Unremarkable spleen, pancreas and adrenal glands. The gallbladder and liver are unremarkable. Cortical thinning of the kidneys. Indeterminate 7 mm hypodense lesion of the interpolar left kidney is too small to characterize. Partial distention of the urinary bladder. Hysterectomy. Atherosclerosis of the aorta without aneurysm. No lymphadenopathy. No bowel obstruction. There is wall thickening of the mid sigmoid colon with pericolonic inflammation and trace free pelvic fluid. Colonic diverticulosis. No drainable fluid collections. Mild fecal retention. Appendix is not definitively seen. Unremarkable soft tissues. No acute fracture. Mild lumbar levoscoliosis. IMPRESSION: 1. Colonic diverticulosis. Sigmoid colon wall thickening with adjacent inflammatory stranding and trace free pelvic fluid is suggestive of acute diverticulitis versus colitis. Correlation could be made with follow-up colonoscopy. 2. No bowel obstruction, pneumoperitoneum or fluid collection to suggest abscess. 3. Additional findings as above. ACT 112: Negative or not required by law. The above report was generated using voice recognition software. It may contain grammatical, syntax or spelling errors. Electronically signed by: Oleg Irizarry M.D. 02/09/2023 3:18 PM Chest X-Ray 02/09/23 11:39 XR chest 1V portable CLINICAL HISTORY: dyspnea since afib dx 1 month ago COMPARISON STUDY: Chest CT December 25, 2022. FINDINGS: Lung volumes are normal. Lungs are clear. There is no pneumothorax or pleural effusion. Moderate cardiomegaly is again noted. Mediastinal contours are normal. There is no evidence for pulmonary edema. IMPRESSION: No acute cardiopulmonary findings. Cardiomegaly. ACT 112: Negative or not required by law. Electronically signed by: Marco A Noel M.D. 02/09/2023 12:12 PM Venous Doppler Study 02/10/23 11:08 BILATERAL LOWER EXTREMITY VENOUS DOPPLER HISTORY: Acute pain and swelling of the lower leg RUle out acute DVT COMPARISON STUDY: 12/28/2022. FINDINGS: Subcutaneous edema. 5.1 x 1.2 x 1.5 cm hypoechoic focus of the medial right calf, possibly intramuscular. There is normal compressibility, flow, and augmentation within the bilateral lower extremity deep venous systems. IMPRESSION: 1. No DVT within the right or left lower extremity. 2. 5.1 cm collection within the right calf appears stable. ACT 112: Negative or not required by law. Electronically signed by: Oleg Irizarry M.D. 02/10/2023 1:46 PM (7) Atrial fibrillation Atrial fibrillation type: unspecified Qualified Code(s): I48.91 - Unspecified atrial fibrillation
--- NOTE | 2023-02-12 12:21 | Cardiology Progress Note ---
Date of Service February 12, 2023 Assessment & Plan (1) Acute GI bleeding: (2) Persistent atrial fibrillation: (3) Dilated idiopathic cardiomyopathy: (4) LBBB (left bundle branch block): Plan Complex 77-year-old female with underlying history of idiopathic cardiomyopathy, persistent atrial fibrillation on chronic anticoagulation for arrhythmia as well as past DVT/pulmonary embolus now with recurrent lower GI bleeding. Bleeding appears to be improving on cessation of anticoagulation. Issues of concern as follows 1. Lower GI bleed improving. Anticoagulation on hold 2. Dilated idiopathic cardiomyopathy ejection fraction less than 30% with compensated heart failure. Oral dose of furosemide today resume spironolactone Near future potential need for pacer defibrillator for resynchronization therapy given broad left bundle branch block. Arrangements being made for EP appointment post discharge 3. Persistent atrial fibrillation with left bundle branch block: Heart rate is controlled but patient poorly tolerant of metoprolol. We will reduce metoprolol succinate to 25 mg twice per day, add digoxin 0.25 mg this morning 0.125 mg this evening then 3 days/week. Could consider Watchman procedure however anticoagulation indications remain present for recurrent DVT 4. Lower extremity edema multifactorial including hypoalbuminemia. Will increase spironolactone to 25 mg twice per day given edema as well as difficulties taking oral potassium Admission and Anticipated Discharge Date Admission Date: February 09, 2023 Subjective Patient was seen and examined, chart, medications, telemetry reviewed Complains of diarrhea and nausea this morning. Heart rates better controlled but patient leery of digoxin No overt bleeding Chronic lower extremity edema Review of Systems Review of Systems: All systems reviewed & are unremarkable except as noted in Subjective Physical Exam Constitutional: + ill appearing and + obese; no acute distress Eyes: PERRL, conjunctivae normal, anicteric sclerae ENMT: external ear and nose normal, oropharynx normal Neck: trachea midline, no thyromegaly Respiratory: normal respiratory effort, lungs clear to auscultation Cardiovascular: Rate/Rhythm: + irregularly irregular Heart Sounds: normal S1 and normal S2; no murmur Vessels: no JVD Extremities: + edema Chest (Breasts): normal inspection/palpation of breasts Gastrointestinal (Abdomen): normal bowel sounds, soft, nontender, no hepatosplenomegaly Percussion/Palpation: + abdomen tender and abdomen soft; no guarding Neurologic: PERRL, EOMI, accommodation nl, no face palsy, no dysarthria Psychiatric: A+Ox3, euthymic affect Results & Data Vital Signs (Past 12 Hours) Vital Signs Temp Pulse Pulse Resp BP Pulse Ox O2 Del Method 02/12/23 11:47 36.4 C L 88 18 109/69 96 Room Air 02/12/23 08:14 36.4 C L 97 H 19 111/68 97 Room Air 02/12/23 03:07 36.6 C 85 20 106/67 97 Room Air Laboratory Results Laboratory Results - last 24 hr 02/12/23 02/12/23 07:08 07:08 WBC 7.29 RBC 3.26 L Hgb 9.7 L Hct 30.6 L MCV 93.9 MCH 29.8 MCHC 31.7 L RDW Std Deviation 53.0 H RDW Coeff of Sg 15.4 H Plt Count 264 MPV 9.2 L Immature Gran % (Auto) 0.4 Neut % (Auto) 73.0 Lymph % (Auto) 11.0 [place] % (Auto) 13.2 Eos % (Auto) 1.6 Baso % (Auto) 0.8 Neut # (Auto) 5.32 Lymph # (Auto) 0.80 L [place] # (Auto) 0.96 H Eos # (Auto) 0.12 Baso # (Auto) 0.06 Immature Gran # (Auto) 0.03 Sodium 138 Potassium 4.0 Chloride 104 Carbon Dioxide 29 Anion Gap 5 BUN 12 Creatinine 1.43 H Est Cr Clr Drug Dosing 37.5 Est GFR ( Amer) 41.4 Est GFR (Non-Af Amer) 35.7 BUN/Creatinine Ratio 8.4 L Glucose 91 Calcium 8.1 L Total Bilirubin 1.0 AST 8 L ALT 6 L Alkaline Phosphatase 64 Total Protein 5.1 L Albumin 2.4 L Globulin 2.7 Albumin/Globulin Ratio 0.9
[2023-02-12] MEDS: HEPARIN SOD 5,000 UNIT/0.5 ML VIAL SQ SCH ×3 (14:10→21:25)
[2023-02-12] MEDS: DIGOXIN 0.125 MG/2.5 ML UDP PO SCH (16:40)
[2023-02-13] MEDS: PIPERACILLIN/TAZOBACTAM 4.5 GM in DEXTROSE 5% 100 ML IV SCH ×2 (03:08→16:54)
[2023-02-13] MEDS: HEPARIN SOD 5,000 UNIT/0.5 ML VIAL SQ SCH ×3 (05:53→19:36)
[2023-02-13] MEDS: LOPERAMIDE HCL 2 MG CAP PO PRN ×4 (06:02→22:13)
[2023-02-13 07:21] LABS: Basophils # (auto) 0.08 K/uL (0-0.2); Basophils % (auto) 1.2 %; Eosinophils # (auto) 0.15 K/uL (0-0.50); Eosinophils % (auto) 2.3 %; Hematocrit (blood only) 28.8 % (37.0-47.0); Hemoglobin 9.2 g/dl (12.0-16.0); Immature Granulocytes # (auto) 0.02 K/uL (0.01-0.20); Immature Granulocytes % (auto) 0.3 %; Lymphocytes # (auto) 0.85 K/uL (1.2-3.4); Lymphocytes % (auto) 13.2 %; Mean Corpuscular Hemoglobin 29.7 pg (25.0-34.0); Mean Corpuscular Hgb Conc 31.9 g/dL (32.0-36.0); Mean Corpuscular Volume 92.9 fL (80.0-100.0); Mean Platelet Volume 9.2 fL (9.4-12.4); Monocytes # (auto) 0.92 K/uL (0.11-0.59); Monocytes % (auto) 14.3 %; Neutrophils % (auto) 68.7 %; Platelet Count 255 K/uL (130-400); RDW Coefficient of Variation 15.1 % (11.5-14.5); RDW Standard Deviation 51.9 fL (36.4-46.3); White Blood Count 6.42 K/ul (4.8-10.8)
[2023-02-13 07:46] LABS: BUN Creatinine Ratio 6.9 (10-20); Calcium 7.9 mg/dl (8.6-10.3); Creatinine Clr Calc Pharmacy 37.2 ml/min; Est GFR (African American) 40.7 ml/min; Est GFR (Non-African American) 35.1 ml/min; Potassium 3.3 mmol/L (3.5-5.1)
[2023-02-13] MEDS: DOCUSATE SODIUM 100 MG CAP PO SCH ×3 (07:48→19:44)
[2023-02-13] MEDS: ADVANCED PROBIOTIC 1250 MG CAPSULE PO SCH (07:48)
[2023-02-13] MEDS: NYSTATIN CR 15 GM TUBE EXT SCH ×2 (07:49→19:37)
[2023-02-13] MEDS: METOPROLOL SUCC 25MG EXT REL TAB PO SCH ×3 (07:49→19:43)
[2023-02-13] MEDS: PANTOprazole 40 MG in SYRINGE 0 ML IV SCH (07:50)
[2023-02-13] MEDS: SPIRONOLACTONE 25 MG TAB PO SCH ×2 (07:50→16:56)
[2023-02-13] MEDS ORDERED: cefTRIAXone SODIUM 2,000 MG in DEXTROSE 5% 50 ML IV SCH (09:00)
[2023-02-13] MEDS: metroNIDAZOLE 500 MG TAB PO SCH ×2 (09:25→09:31)
[2023-02-13] MEDS: PANTOprazole 40 MG TAB PO SCH ×2 (09:26→19:37)
--- NOTE | 2023-02-13 10:41 | Gastroenterology Progress Note ---
Date of Service February 13, 2023 Assessment & Plan (1) Acute GI bleeding: Plan: 77 year old female with history of intermittent diarrhea, rectal bleeding, prior endoscopies ? suggestive of hemorrhoids, inflammatory changes, now admitted with BRBPR, abd discomfort, CT suggestive of sigmoid diverticulitis vs colitis. Improved on ABX. however, now reports acute on chronic diarrhea. - Check stool for c.diff - Can continue ABX as doing Thank you for allowing us to participate in the care of this patient. Please call with any acute changes, questions or concerns. Please see addendum below with additional recommendation from my supervising physician. (2) Colitis: (3) Diverticulitis: Admission and Anticipated Discharge Date Admission Date: February 09, 2023 Supervising Physician Co-Signing Physician Notes Attending attestation I have seen, examined this patient, and agree with the findings and above by our mid-level provider FANY Wei, with the following additions: Patient with diarrhea that is concerning for overflow vs colitis Stool studies to r/o infection such as c-diff If no c-diff trial of Uceris Will need follow up flex sig possibly by Dr. Lubna RAPP asked to re-evaluate Chronic diarrhea. Worsening Notes that has watery, small volume stools followed by days of large volume evacuation w/ straining Abd pain and rectal bleeding resolved. Tolerating PO intake No nausea, vomiting. Review of Systems Review of Systems: All systems reviewed & are unremarkable except as noted in HPI & below Physical Exam Constitutional: WD/WN, vitals as above Respiratory: normal respiratory effort, lungs clear to auscultation Cardiovascular: Rate/Rhythm: regular rate and regular rhythm Gastrointestinal (Abdomen): normal bowel sounds, soft, nontender, no hepatosplenomegaly Skin: no rashes, warm and dry Results & Data Vital Signs (Past 12 Hours) Vital Signs Temp Pulse Resp BP BP Pulse Ox O2 Del Method 02/13/23 07:18 36.6 C 76 17 108/64 99 Room Air 02/13/23 03:13 36.5 C 93 H 17 126/69 94 Room Air 02/12/23 22:47 36.3 C L 94 H 17 105/66 98 Room Air Laboratory Results 02/13/23 02/13/23 02/12/23 Range/Units 06:58 06:58 Unknown WBC 6.42 (4.8-10.8) K/ul RBC 3.10 L (4.20-5.40) M/uL Hgb 9.2 L (12.0-16.0) g/dl Hct 28.8 L (37.0-47.0) % MCV 92.9 (80.0-100.0) fL MCH 29.7 (25.0-34.0) pg MCHC 31.9 L (32.0-36.0) g/dL RDW Std Deviation 51.9 H (36.4-46.3) fL RDW Coeff of Sg 15.1 H (11.5-14.5) % Plt Count 255 (130-400) K/uL MPV 9.2 L (9.4-12.4) fL Immature Gran % (Auto) 0.3 % Neut % (Auto) 68.7 % Lymph % (Auto) 13.2 % [place] % (Auto) 14.3 % Eos % (Auto) 2.3 % Baso % (Auto) 1.2 % Neut # (Auto) 4.40 (1.40-6.50) K/uL Lymph # (Auto) 0.85 L (1.2-3.4) K/uL [place] # (Auto) 0.92 H (0.11-0.59) K/uL Eos # (Auto) 0.15 (0-0.50) K/uL Baso # (Auto) 0.08 (0-0.2) K/uL Immature Gran # (Auto) 0.02 (0.01-0.20) K/uL Sodium 136 (136-145) mmol/L Potassium 3.3 L (3.5-5.1) mmol/L Chloride 104 (98-107) mmol/L Carbon Dioxide 27 (21-32) mmol/L Anion Gap 5 (3-11) BUN 10 (6-23) mg/dl Creatinine 1.45 H (0.6-1.2) mg/dl Est Cr Clr Drug Dosing 37.2 ml/min Est GFR ( Amer) 40.7 ml/min Est GFR (Non-Af Amer) 35.1 ml/min BUN/Creatinine Ratio 6.9 L (10-20) Glucose 97 (70-99(Fasting)) mg/dl Calcium 7.9 L (8.6-10.3) mg/dl Stl C. diff Tox B Gene Negative Cdiff Gene (Neg)
[2023-02-13] MEDS ORDERED: PIPERACILLIN/TAZOBACTAM 4.5 GM in DEXTROSE 5% 100 ML IV ONE (11:30)
--- NOTE | 2023-02-13 13:32 | Hospitalist Progress Note ---
Date of Service February 13, 2023 Assessment & Plan (1) Diverticulitis: (2) Acute GI bleeding: (3) Acute blood loss anemia: (4) Bleeding hemorrhoids: Plan: Patient is a 77-year-old female with past medical history of paroxysmal A-fib, chronic DVT/PE, A-fib; started on Eliquis in December 2022. Presents with lower GI bleed with bright red blood per rectum CT abdomen pelvis reviewed personally; sigmoid colon wall thickening with adjacent inflammatory stranding and trace free pelvic fluid suggestive of acute diverticulitis versus colitis Labs reviewed; hemoglobin down trended from 11.8-9.2. GI PCR panel and C. difficile negative Bilateral venous duplex negative Discussed with GI; recommend IV antibiotic, daily PPI and monitoring of hemoglobin. Discussed with cardiology; anticoagulation can be hold off from A-fib standpoint. However, recommend evaluation for IVC filter given recent DVT and PE. Metoprolol dose decreased to 25 mg once daily and digoxin added. Spironolactone dose increased. Discussed with Dr. Reyes from vascular surgery; no indication for IVC filter for now. Patient can be off anticoagulation for now. Continue Zosyn Monitor for bleed Advance diet as tolerated on heparin subcu for DVT prophylaxis. (5) Hypokalemia: Plan: Repleted (6) HTN (hypertension): Plan: - Metoprolol dose decreased as per cardiology Digoxin added Also on spironolactone (7) Atrial fibrillation: Plan: -May continue metoprolol. Eliquis on hold. (8) Asthma: Plan: -Stable, does not use inhalers or require supplemental O2 (9) CKD (chronic kidney disease), stage III: Plan: -Creatinine at baseline. DVT PPx: -Heparin subcu CODE: Full code Time spent evaluating patient, direct bedside care, chart review, placing orders, interpretation of diagnostic studies, discussion with consultants, patient, and family members, as well as other required patient management activities is 60 minutes. Please note the above document was generated using voice recognition software. It may contain grammatical, syntax or spelling errors. Any formal questions or concerns about the content, text or information contained within the body of this dictation should be directly addressed to the provider for clarification Admission and Anticipated Discharge Date Admission Date: February 09, 2023 Subjective Reports multiple bowel movements last night. Reports dizziness as well. Reports that there is no blood loss Review of Systems Review of Systems: All systems reviewed & are unremarkable except as noted in Subjective Physical Exam Physical Exam: Constitutional: WD/WN, vitals as above, NAD, sitting up in bed, pleasant, conversing easily Respiratory: normal respiratory effort, lungs clear to auscultation, no wheeze, rales, rhonchi. Normal insp/exp effort, no accessory muscle use Cardiovascular: Irregular, no murmur, no edema Vessels: no JVD or carotid bruit Chest: normal inspection of chest Abdomen: Slight tenderness present in left lower quadrant. Musculoskeletal: no cyanosis or clubbing, extremities motor strength 5/5. Bilateral leg edema present Skin: no rashes, warm and dry normal turgor Neurologic: PERRL, EOMI, accommodation nl, no face palsy, no dysarthria CN's II- XI intact bilaterally and moves all extremities Psychiatric: A+Ox3, euthymic affect Results & Data Results & Data Vital Signs (Past 12 Hours) Vital Signs Temp Pulse Resp BP BP Pulse Ox O2 Del Method 02/13/23 10:59 36.5 C 81 18 97/62 L 98 Room Air 02/13/23 07:18 36.6 C 76 17 108/64 99 Room Air 02/13/23 03:13 36.5 C 93 H 17 126/69 94 Room Air Laboratory Results Laboratory Results WBC 6.42 K/ul (4.8-10.8) 02/13/23 06:58 RBC 3.10 M/uL (4.20-5.40) L 02/13/23 06:58 Hgb 9.2 g/dl (12.0-16.0) L 02/13/23 06:58 POC Hgb 12.9 g/dl (12.0-16.0) 02/09/23 14:06 Hct 28.8 % (37.0-47.0) L 02/13/23 06:58 POC Hct 38 % (37-47) 02/09/23 14:06 MCV 92.9 fL (80.0-100.0) 02/13/23 06:58 MCH 29.7 pg (25.0-34.0) 02/13/23 06:58 MCHC 31.9 g/dL (32.0-36.0) L 02/13/23 06:58 RDW Std Deviation 51.9 fL (36.4-46.3) H 02/13/23 06:58 RDW Coeff of Sg 15.1 % (11.5-14.5) H 02/13/23 06:58 Plt Count 255 K/uL (130-400) 02/13/23 06:58 MPV 9.2 fL (9.4-12.4) L 02/13/23 06:58 Immature Gran % (Auto) 0.3 % 02/13/23 06:58 Neut % (Auto) 68.7 % 02/13/23 06:58 Lymph % (Auto) 13.2 % 02/13/23 06:58 Haines % (Auto) 14.3 % 02/13/23 06:58 Eos % (Auto) 2.3 % 02/13/23 06:58 Baso % (Auto) 1.2 % 02/13/23 06:58 Neut # (Auto) 4.40 K/uL (1.40-6.50) 02/13/23 06:58 Lymph # (Auto) 0.85 K/uL (1.2-3.4) L 02/13/23 06:58 Haines # (Auto) 0.92 K/uL (0.11-0.59) H 02/13/23 06:58 Eos # (Auto) 0.15 K/uL (0-0.50) 02/13/23 06:58 Baso # (Auto) 0.08 K/uL (0-0.2) 02/13/23 06:58 Immature Gran # (Auto) 0.02 K/uL (0.01-0.20) 02/13/23 06:58 PT 12.8 Seconds (9.0-12.0) H 02/10/23 07:43 INR 1.2 (0.9-1.1) H 02/10/23 07:43 APTT 30.2 Seconds (21.0-31.0) 02/09/23 11:00 PTT Ratio 1.1 02/09/23 11:00 POC Sodium 137 mmol/L (135-144) 02/09/23 14:06 Sodium 136 mmol/L (136-145) 02/13/23 06:58 POC Potassium 3.2 mmol/L (3.3-5.0) L 02/09/23 14:06 Potassium 3.3 mmol/L (3.5-5.1) L 02/13/23 06:58 POC Chloride 96 mmol/L (101-112) L 02/09/23 14:06 Chloride 104 mmol/L (98-107) 02/13/23 06:58 Carbon Dioxide 27 mmol/L (21-32) 02/13/23 06:58 POC Total CO2 30 mmol/L (24-31) 02/09/23 14:06 Anion Gap 5 (3-11) 02/13/23 06:58 POC Anion Gap 15.0 mmol/L (16-25) L 02/09/23 14:06 POC BUN 19 mg/dl (7-18) H 02/09/23 14:06 BUN 10 mg/dl (6-23) 02/13/23 06:58 Creatinine 1.45 mg/dl (0.6-1.2) H 02/13/23 06:58 POC Creatinine 1.4 mg/dl (0.6-1.3) H 02/09/23 14:06 Est Cr Clr Drug Dosing 37.2 ml/min 02/13/23 06:58 Est GFR ( Amer) 40.7 ml/min 02/13/23 06:58 Est GFR (Non-Af Amer) 35.1 ml/min 02/13/23 06:58 BUN/Creatinine Ratio 6.9 (10-20) L 02/13/23 06:58 Glucose 97 mg/dl (70-99(Fasting)) 02/13/23 06:58 POC Glucose (other) 96 mg/dl (70-99) 02/09/23 14:06 Lactate 1.2 mmol/L (0.4-2.0) 02/09/23 18:06 Calcium 7.9 mg/dl (8.6-10.3) L 02/13/23 06:58 POC Ioniz Calcium Ole 1.12 mmol/l (1.12-1.32) 02/09/23 14:06 Total Bilirubin 1.0 mg/dl (0.2-1.0) 02/12/23 07:08 AST 8 U/L (13-39) L 02/12/23 07:08 ALT 6 U/L (7-52) L 02/12/23 07:08 Alkaline Phosphatase 64 U/L (34-104) 02/12/23 07:08 Troponin I High Sens 7.6 pg/ml (0-14) 02/09/23 11:00 B-Natriuretic Peptide 480 pg/ml (0-100) H 02/09/23 11:00 Total Protein 5.1 gm/dl (6.0-8.3) L 02/12/23 07:08 Albumin 2.4 gm/dl (3.4-5.0) L 02/12/23 07:08 Globulin 2.7 gm/dl (2.5-4.0) 02/12/23 07:08 Albumin/Globulin Ratio 0.9 (0.9-2) 02/12/23 07:08 Stl C. cayetanensis PCR Not Detected (NotDetected) 02/10/23 11:40 Stool Rotavirus A PCR Not Detected (NotDetected) 02/10/23 11:40 Stl Adenov F / PCR Not Detected (NotDetected) 02/10/23 11:40 Stool Astrovirus (PCR) Not Detected (NotDetected) 02/10/23 11:40 Stool Campylobacter PCR Not Detected (NotDetected) 02/10/23 11:40 Stl C. diff Tox B Gene Negative Cdiff Gene (Neg) 02/12/23 Unknown Stool Cryptosporidium PCR Not Detected (NotDetected) 02/10/23 11:40 Stl E.coli Shiga Tox PCR Not Detected (NotDetected) 02/10/23 11:40 Stl Enterotoxigenic E PCR Not Detected (NotDetected) 02/10/23 11:40 Stool EPEC (PCR) Not Detected (NotDetected) 02/10/23 11:40 Stool EAEC (PCR) Not Detected (NotDetected) 02/10/23 11:40 Stl E. histolytica PCR Not Detected (NotDetected) 02/10/23 11:40 Stool Giardia Lamblia PCR Not Detected (NotDetected) 02/10/23 11:40 Stool Salmonella PCR Not Detected (NotDetected) 02/10/23 11:40 Stool Sapovirus (PCR) Not Detected (NotDetected) 02/10/23 11:40 Stl P. shigelloides PCR Not Detected (NotDetected) 02/10/23 11:40 Stl Shigella/EIEC PCR Not Detected (NotDetected) 02/10/23 11:40 St Y.enterocolitica PCR Not Detected (NotDetected) 02/10/23 11:40 Stool Vibrio (PCR) Not Detected (NotDetected) 02/10/23 11:40 Stl Vibrio cholerae PCR Not Detected (NotDetected) 02/10/23 11:40 Stl Norovirus GI/GII PCR Not Detected (NotDetected) 02/10/23 11:40 SARS-CoV-2, RNA, NAAT NEGATIVE (NEGATIVE) 02/09/23 Unknown Blood Type O Positive 02/09/23 16:24 Antibody Screen NEGATIVE 02/09/23 16:24 Impressions Abdomen/Pelvis CT 02/09/23 11:[address] WITH IV CONTRAST CT DOSE: 1195.16 mGy.cm HISTORY: Acute as abdominal pain with rectal bleeding rectal bleed, ?crohns/UC, hemorrhoids, rectal d/c TECHNIQUE: Multiaxial CT images of the abdomen and pelvis were performed following the IV administration of 95 cc of Optiray, A dose lowering technique was utilized adhering to the principles of ALARA. COMPARISON STUDY: 04/25/2016 FINDINGS: Cardiomegaly. Clear lung bases. No pneumatosis or pneumoperitoneum. Unremarkable spleen, pancreas and adrenal glands. The gallbladder and liver are unremarkable. Cortical thinning of the kidneys. Indeterminate 7 mm hypodense lesion of the interpolar left kidney is too small to characterize. Partial distention of the urinary bladder. Hysterectomy. Atherosclerosis of the aorta without aneurysm. No lymphadenopathy. No bowel obstruction. There is wall thickening of the mid sigmoid colon with pericolonic inflammation and trace free pelvic fluid. Colonic diverticulosis. No drainable fluid collections. Mild fecal retention. Appendix is not definitively seen. Unremarkable soft tissues. No acute fracture. Mild lumbar levoscoliosis. IMPRESSION: 1. Colonic diverticulosis. Sigmoid colon wall thickening with adjacent inflammatory stranding and trace free pelvic fluid is suggestive of acute diverticulitis versus colitis. Correlation could be made with follow-up colonosc opy. 2. No bowel obstruction, pneumoperitoneum or fluid collection to suggest abscess. 3. Additional findings as above. ACT 112: Negative or not required by law. The above report was generated using voice recognition software. It may contain grammatical, syntax or spelling errors. Electronically signed by: Oleg Irizarry M.D. 02/09/2023 3:18 PM Chest X-Ray 02/09/23 11:39 XR chest 1V portable CLINICAL HISTORY: dyspnea since afib dx 1 month ago COMPARISON STUDY: Chest CT December 25, 2022. FINDINGS: Lung volumes are normal. Lungs are clear. There is no pneumothorax or pleural effusion. Moderate cardiomegaly is again noted. Mediastinal contours are normal. There is no evidence for pulmonary edema. IMPRESSION: No acute cardiopulmonary findings. Cardiomegaly. ACT 112: Negative or not required by law. Electronically signed by: Marco A Noel M.D. 02/09/2023 12:12 PM Venous Doppler Study 02/10/23 11:08 BILATERAL LOWER EXTREMITY VENOUS DOPPLER HISTORY: Acute pain and swelling of the lower leg RUle out acute DVT COMPARISON STUDY: 12/28/2022. FINDINGS: Subcutaneous edema. 5.1 x 1.2 x 1.5 cm hypoechoic focus of the medial right calf, possibly intramuscular. There is normal compressibility, flow, and augmentation within the bilateral lower extremity deep venous systems. IMPRESSION: 1. No DVT within the right or left lower extremity. 2. 5.1 cm collection within the right calf appears stable. ACT 112: Negative or not required by law. Electronically signed by: Oleg Irizarry M.D. 02/10/2023 1:46 PM (7) Atrial fibrillation Atrial fibrillation type: unspecified Qualified Code(s): I48.91 - Unspecified atrial fibrillation
--- NOTE | 2023-02-13 16:18 | Cardiology Progress Note ---
Date of Service February 13, 2023 Assessment & Plan (1) Acute GI bleeding: (2) Persistent atrial fibrillation: (3) Dilated idiopathic cardiomyopathy: (4) LBBB (left bundle branch block): Plan 77-year-old female with underlying history of idiopathic cardiomyopathy, persistent atrial fibrillation on chronic anticoagulation for arrhythmia as well as past DVT/pulmonary embolus now with recurrent lower GI bleeding. Bleeding appears to be improving on cessation of anticoagulation. Issues of concern as follows 1. Lower GI bleed improving. Anticoagulation on hold 2. Dilated idiopathic cardiomyopathy ejection fraction less than 30% with compensated heart failure. Potassium 3.3 mmol/ liter this am for which patient has received IV potassium chloride since she is unable to take oral potassium chloride (chronic issue), and she is on spironolactone 25 mg BID. Plan to hold further furosemide at present. Repeat BMP in am. Near future potential need for pacer defibrillator for resynchronization therapy given broad left bundle branch block. Arrangements being made for EP appointment post discharge 3. Persistent atrial fibrillation with left bundle branch block: Heart rate is controlled but patient poorly tolerant of metoprolol and therefore metoprolol dose reduced to 25 mg BID, and digoxin added. 4. Lower extremity edema multifactorial including hypoalbuminemia. As noted, spironolactone increased to 25 mg twice per day given edema as well as difficulties taking oral potassium . DVT prophylaxis: SQ heparin Admission and Anticipated Discharge Date Admission Date: February 09, 2023 Subjective Patient seen in cardiology follow up. Notes worsening chronic LE edema. Furosemide is on hold due to diarrhea and low potassium. Telemetry reveals A-fib in the 60s to 70s with occasional PVCs and left bundle branch block. Physical Exam Constitutional: + obese; no acute distress Eyes: PERRL, conjunctivae normal, anicteric sclerae ENMT: external ear and nose normal, oropharynx normal Neck: trachea midline, no thyromegaly Respiratory: normal respiratory effort, lungs clear to auscultation Cardiovascular: Rate/Rhythm: + irregularly irregular Heart Sounds: normal S1 and normal S2; no murmur Vessels: no JVD Extremities: + edema Chest (Breasts): normal inspection/palpation of breasts Gastrointestinal (Abdomen): normal bowel sounds, soft, nontender, no hepatosplenomegaly Percussion/Palpation: + abdomen tender and abdomen soft; no guarding Neurologic: PERRL, EOMI, accommodation nl, no face palsy, no dysarthria Psychiatric: A+Ox3, euthymic affect Results & Data Vital Signs (Past 12 Hours) Vital Signs Temp Pulse Resp BP BP Pulse Ox O2 Del Method 02/13/23 10:59 36.5 C 81 18 97/62 L 98 Room Air 02/13/23 07:18 36.6 C 76 17 108/64 99 Room Air
[2023-02-13] MEDS: POTASSIUM CHLORIDE / WTR 10 MEQ/100 ML PLCT IV SCH ×4 (16:54→21:00)
[2023-02-13] MEDS: DIGOXIN 0.125 MG/2.5 ML UDP PO SCH (16:55)
[2023-02-14] MEDS: PIPERACILLIN/TAZOBACTAM 4.5 GM in DEXTROSE 5% 100 ML IV SCH ×4 (02:01→23:48)
[2023-02-14] MEDS: HEPARIN SOD 5,000 UNIT/0.5 ML VIAL SQ SCH ×3 (06:11→20:13)
[2023-02-14 06:35] LABS: Basophils # (auto) 0.08 K/uL (0-0.2); Basophils % (auto) 1.2 %; Eosinophils # (auto) 0.16 K/uL (0-0.50); Eosinophils % (auto) 2.4 %; Hematocrit (blood only) 30.5 % (37.0-47.0); Hemoglobin 9.6 g/dl (12.0-16.0); Immature Granulocytes # (auto) 0.04 K/uL (0.01-0.20); Immature Granulocytes % (auto) 0.6 %; Lymphocytes # (auto) 1.22 K/uL (1.2-3.4); Lymphocytes % (auto) 18.6 %; Mean Corpuscular Hemoglobin 29.9 pg (25.0-34.0); Mean Corpuscular Hgb Conc 31.5 g/dL (32.0-36.0); Mean Platelet Volume 9.2 fL (9.4-12.4); Monocytes # (auto) 0.97 K/uL (0.11-0.59); Monocytes % (auto) 14.8 %; Neutrophils # (auto) 4.08 K/uL (1.40-6.50); Neutrophils % (auto) 62.4 %; Platelet Count 299 K/uL (130-400); RDW Standard Deviation 52.4 fL (36.4-46.3); Red Blood Count 3.21 M/uL (4.20-5.40); White Blood Count 6.55 K/ul (4.8-10.8)
[2023-02-14 06:57] LABS: Albumin Globulin Ratio 0.8 (0.9-2); Albumin Level 2.3 gm/dl (3.4-5.0); Bilirubin,Total 0.5 mg/dl (0.2-1.0); Calcium 8.2 mg/dl (8.6-10.3); Creatinine Clr Calc Pharmacy 36.2 ml/min; Est GFR (African American) 39.4 ml/min; Globulin 2.8 gm/dl (2.5-4.0); Potassium 3.7 mmol/L (3.5-5.1); Total Protein 5.1 gm/dl (6.0-8.3)
[2023-02-14] MEDS: LOPERAMIDE HCL 2 MG CAP PO PRN (07:48)
[2023-02-14] MEDS: DOCUSATE SODIUM 100 MG CAP PO SCH ×2 (07:53→20:12)
[2023-02-14] MEDS: ADVANCED PROBIOTIC 1250 MG CAPSULE PO SCH (07:54)
[2023-02-14] MEDS: METOPROLOL SUCC 25MG EXT REL TAB PO SCH ×3 (07:56→20:12)
[2023-02-14] MEDS: NYSTATIN CR 15 GM TUBE EXT SCH ×2 (07:57→20:13)
[2023-02-14] MEDS: PANTOprazole 40 MG TAB PO SCH ×2 (08:56→20:13)
[2023-02-14] MEDS: SPIRONOLACTONE 25 MG TAB PO SCH ×2 (08:56→16:44)
--- NOTE | 2023-02-14 08:59 | Gastroenterology Progress Note ---
Date of Service February 14, 2023 Assessment & Plan (1) Acute GI bleeding: Plan: 77 year old female with history of intermittent diarrhea, rectal bleeding, prior endoscopies ? suggestive of hemorrhoids, inflammatory changes, now admitted with BRBPR, abd discomfort, CT suggestive of sigmoid diverticulitis vs colitis. Improved on ABX. w/ persistent diarrhea, stool for c.diff negative this weekend. - Trial of Uceris - Can keep NPO aftermidnight in event endoscopic evaluation is warranted - Can continue ABX as doing Thank you for allowing us to participate in the care of this patient. Please call with any acute changes, questions or concerns. Please see addendum below with additional recommendation from my supervising physician. (2) Colitis: (3) Diverticulitis: Admission and Anticipated Discharge Date Admission Date: February 09, 2023 Supervising Physician Co-Signing Physician Notes Attending attestation I have seen, examined this patient, and agree with the findings and above by our mid-level provider FANY Wei, with the following additions: Given prior ? granulomatous areas on bx, will start entocort Tentatively plan for flex sig tomorrow Subjective Pt was seen and evaluated, chart reviewed. No abd pain, nausea, vomiting Persistent diarrhea. No black or bloody stools. No fever, chills, CP, SOB. Review of Systems Review of Systems: All systems reviewed & are unremarkable except as noted in HPI & below Physical Exam Constitutional: WD/WN, vitals as above Respiratory: normal respiratory effort, lungs clear to auscultation Cardiovascular: Rate/Rhythm: regular rate and regular rhythm Gastrointestinal (Abdomen): normal bowel sounds, soft, nontender, no hepatosplenomegaly Skin: no rashes, warm and dry Results & Data Vital Signs (Past 12 Hours) Vital Signs Temp Pulse Pulse Resp BP Pulse Ox O2 Del Method 02/14/23 07:41 36.5 C 85 16 99/56 L 98 Room Air 02/14/23 07:18 75 02/14/23 02:53 36.5 C 84 16 114/58 L 96 Room Air 02/14/23 00:00 Room Air 02/13/23 22:01 36.4 C L 79 18 105/64 95 Room Air Laboratory Results 02/14/23 02/14/23 Range/Units 05:52 05:52 WBC 6.55 (4.8-10.8) K/ul RBC 3.21 L (4.20-5.40) M/uL Hgb 9.6 L (12.0-16.0) g/dl Hct 30.5 L (37.0-47.0) % MCV 95.0 (80.0-100.0) fL MCH 29.9 (25.0-34.0) pg MCHC 31.5 L (32.0-36.0) g/dL RDW Std Deviation 52.4 H (36.4-46.3) fL RDW Coeff of Sg 15.0 H (11.5-14.5) % Plt Count 299 (130-400) K/uL MPV 9.2 L (9.4-12.4) fL Immature Gran % (Auto) 0.6 % Neut % (Auto) 62.4 % Lymph % (Auto) 18.6 % Kleberg % (Auto) 14.8 % Eos % (Auto) 2.4 % Baso % (Auto) 1.2 % Neut # (Auto) 4.08 (1.40-6.50) K/uL Lymph # (Auto) 1.22 (1.2-3.4) K/uL Kleberg # (Auto) 0.97 H (0.11-0.59) K/uL Eos # (Auto) 0.16 (0-0.50) K/uL Baso # (Auto) 0.08 (0-0.2) K/uL Immature Gran # (Auto) 0.04 (0.01-0.20) K/uL Sodium 135 L (136-145) mmol/L Potassium 3.7 (3.5-5.1) mmol/L Chloride 104 (98-107) mmol/L Carbon Dioxide 26 (21-32) mmol/L Anion Gap 5 (3-11) BUN 9 (6-23) mg/dl Creatinine 1.49 H (0.6-1.2) mg/dl Est Cr Clr Drug Dosing 36.2 ml/min Est GFR ( Amer) 39.4 ml/min Est GFR (Non-Af Amer) 34.0 ml/min BUN/Creatinine Ratio 6.0 L (10-20) Glucose 89 (70-99(Fasting)) mg/dl Calcium 8.2 L (8.6-10.3) mg/dl Total Bilirubin 0.5 D (0.2-1.0) mg/dl AST 7 L (13-39) U/L ALT 6 L (7-52) U/L Alkaline Phosphatase 62 (34-104) U/L Total Protein 5.1 L (6.0-8.3) gm/dl Albumin 2.3 L (3.4-5.0) gm/dl Globulin 2.8 (2.5-4.0) gm/dl Albumin/Globulin Ratio 0.8 L (0.9-2)
[2023-02-14] MEDS: BUDESONIDE EC 3 MG CAP PO SCH (10:14)
--- NOTE | 2023-02-14 12:43 | Hospitalist Progress Note ---
Date of Service February 14, 2023 Assessment & Plan (1) Diverticulitis: (2) Acute GI bleeding: (3) Acute blood loss anemia: (4) Bleeding hemorrhoids: Plan: Patient is a 77-year-old female with past medical history of paroxysmal A-fib, chronic DVT/PE, A-fib; started on Eliquis in December 2022. Presents with lower GI bleed with bright red blood per rectum CT abdomen pelvis reviewed personally; sigmoid colon wall thickening with adjacent inflammatory stranding and trace free pelvic fluid suggestive of acute diverticulitis versus colitis Labs reviewed; hemoglobin down trended from 11.8-9.6. GI PCR panel and C. difficile negative Bilateral venous duplex negative Discussed with GI; recommend trial of budesonide. Flexible sigmoidoscopy tomorrow AM. N.p.o. from midnight. Also recommend to continue antibiotic. Discussed with cardiology; anticoagulation can be hold off from A-fib standpoint. However, recommend evaluation for IVC filter given recent DVT and PE. Metoprolol dose decreased to 25 mg once daily and digoxin added. Spironolactone dose increased. Discussed with Dr. Reyes from vascular surgery; no indication for IVC filter for now. Patient can be off anticoagulation for now. Continue Zosyn Monitor for bleed Advance diet as tolerated on heparin subcu for DVT prophylaxis. (5) Hypokalemia: Plan: Repleted (6) HTN (hypertension): Plan: - Metoprolol dose decreased as per cardiology Digoxin added Also on spironolactone (7) Atrial fibrillation: Plan: -May continue metoprolol. Eliquis on hold. (8) Asthma: Plan: -Stable, does not use inhalers or require supplemental O2 (9) CKD (chronic kidney disease), stage III: Plan: -Creatinine at baseline. DVT PPx: -Heparin subcu CODE: Full code Time spent evaluating patient, direct bedside care, chart review, placing orders, interpretation of diagnostic studies, discussion with consultants, patient, and family members, as well as other required patient management activities is 60 minutes. Please note the above document was generated using voice recognition software. It may contain grammatical, syntax or spelling errors. Any formal questions or concerns about the content, text or information contained within the body of this dictation should be directly addressed to the provider for clarification Admission and Anticipated Discharge Date Admission Date: February 09, 2023 Subjective Patient seen and examined at bedside. She reports that she continues to have diarrhea overnight. Does not report dizziness today. Afebrile and saturating well on room air. Review of Systems Review of Systems: All systems reviewed & are unremarkable except as noted in Subjective Physical Exam Physical Exam: Constitutional: WD/WN, vitals as above, NAD, sitting up in bed, pleasant, conversing easily Respiratory: normal respiratory effort, lungs clear to auscultation, no wheeze, rales, rhonchi. Normal insp/exp effort, no accessory muscle use Cardiovascular: Irregular, no murmur, no edema Vessels: no JVD or carotid bruit Chest: normal inspection of chest Abdomen: Slight tenderness present in left lower quadrant. Musculoskeletal: no cyanosis or clubbing, extremities motor strength 5/5. Bilateral leg edema present Skin: no rashes, warm and dry normal turgor Neurologic: PERRL, EOMI, accommodation nl, no face palsy, no dysarthria CN's II- XI intact bilaterally and moves all extremities Psychiatric: A+Ox3, euthymic affect Results & Data Results & Data Vital Signs (Past 12 Hours) Vital Signs Temp Pulse Pulse Resp BP Pulse Ox O2 Del Method 02/14/23 11:39 36.3 C L 69 16 96/61 L 96 Room Air 02/14/23 09:01 120/87 02/14/23 07:41 36.5 C 85 16 99/56 L 98 Room Air 02/14/23 07:18 75 02/14/23 02:53 36.5 C 84 16 114/58 L 96 Room Air Laboratory Results Laboratory Results WBC 6.55 K/ul (4.8-10.8) 02/14/23 05:52 RBC 3.21 M/uL (4.20-5.40) L 02/14/23 05:52 Hgb 9.6 g/dl (12.0-16.0) L 02/14/23 05:52 POC Hgb 12.9 g/dl (12.0-16.0) 02/09/23 14:06 Hct 30.5 % (37.0-47.0) L 02/14/23 05:52 POC Hct 38 % (37-47) 02/09/23 14:06 MCV 95.0 fL (80.0-100.0) 02/14/23 05:52 MCH 29.9 pg (25.0-34.0) 02/14/23 05:52 MCHC 31.5 g/dL (32.0-36.0) L 02/14/23 05:52 RDW Std Deviation 52.4 fL (36.4-46.3) H 02/14/23 05:52 RDW Coeff of Sg 15.0 % (11.5-14.5) H 02/14/23 05:52 Plt Count 299 K/uL (130-400) 02/14/23 05:52 MPV 9.2 fL (9.4-12.4) L 02/14/23 05:52 Immature Gran % (Auto) 0.6 % 02/14/23 05:52 Neut % (Auto) 62.4 % 02/14/23 05:52 Lymph % (Auto) 18.6 % 02/14/23 05:52 [place] % (Auto) 14.8 % 02/14/23 05:52 Eos % (Auto) 2.4 % 02/14/23 05:52 Baso % (Auto) 1.2 % 02/14/23 05:52 Neut # (Auto) 4.08 K/uL (1.40-6.50) 02/14/23 05:52 Lymph # (Auto) 1.22 K/uL (1.2-3.4) 02/14/23 05:52 [place] # (Auto) 0.97 K/uL (0.11-0.59) H 02/14/23 05:52 Eos # (Auto) 0.16 K/uL (0-0.50) 02/14/23 05:52 Baso # (Auto) 0.08 K/uL (0-0.2) 02/14/23 05:52 Immature Gran # (Auto) 0.04 K/uL (0.01-0.20) 02/14/23 05:52 PT 12.8 Seconds (9.0-12.0) H 02/10/23 07:43 INR 1.2 (0.9-1.1) H 02/10/23 07:43 APTT 30.2 Seconds (21.0-31.0) 02/09/23 11:00 PTT Ratio 1.1 02/09/23 11:00 POC Sodium 137 mmol/L (135-144) 02/09/23 14:06 Sodium 135 mmol/L (136-145) L 02/14/23 05:52 POC Potassium 3.2 mmol/L (3.3-5.0) L 02/09/23 14:06 Potassium 3.7 mmol/L (3.5-5.1) 02/14/23 05:52 POC Chloride 96 mmol/L (101-112) L 02/09/23 14:06 Chloride 104 mmol/L (98-107) 02/14/23 05:52 Carbon Dioxide 26 mmol/L (21-32) 02/14/23 05:52 POC Total CO2 30 mmol/L (24-31) 02/09/23 14:06 Anion Gap 5 (3-11) 02/14/23 05:52 POC Anion Gap 15.0 mmol/L (16-25) L 02/09/23 14:06 POC BUN 19 mg/dl (7-18) H 02/09/23 14:06 BUN 9 mg/dl (6-23) 02/14/23 05:52 Creatinine 1.49 mg/dl (0.6-1.2) H 02/14/23 05:52 POC Creatinine 1.4 mg/dl (0.6-1.3) H 02/09/23 14:06 Est Cr Clr Drug Dosing 36.2 ml/min 02/14/23 05:52 Est GFR ( Amer) 39.4 ml/min 02/14/23 05:52 Est GFR (Non-Af Amer) 34.0 ml/min 02/14/23 05:52 BUN/Creatinine Ratio 6.0 (10-20) L 02/14/23 05:52 Glucose 89 mg/dl (70-99(Fasting)) 02/14/23 05:52 POC Glucose (other) 96 mg/dl (70-99) 02/09/23 14:06 Lactate 1.2 mmol/L (0.4-2.0) 02/09/23 18:06 Calcium 8.2 mg/dl (8.6-10.3) L 02/14/23 05:52 POC Ioniz Calcium Ole 1.12 mmol/l (1.12-1.32) 02/09/23 14:06 Total Bilirubin 0.5 mg/dl (0.2-1.0) D 02/14/23 05:52 AST 7 U/L (13-39) L 02/14/23 05:52 ALT 6 U/L (7-52) L 02/14/23 05:52 Alkaline Phosphatase 62 U/L (34-104) 02/14/23 05:52 Troponin I High Sens 7.6 pg/ml (0-14) 02/09/23 11:00 B-Natriuretic Peptide 480 pg/ml (0-100) H 02/09/23 11:00 Total Protein 5.1 gm/dl (6.0-8.3) L 02/14/23 05:52 Albumin 2.3 gm/dl (3.4-5.0) L 02/14/23 05:52 Globulin 2.8 gm/dl (2.5-4.0) 02/14/23 05:52 Albumin/Globulin Ratio 0.8 (0.9-2) L 02/14/23 05:52 Stl C. cayetanensis PCR Not Detected (NotDetected) 02/10/23 11:40 Stool Rotavirus A PCR Not Detected (NotDetected) 02/10/23 11:40 Stl Adenov F PCR Not Detected (NotDetected) 02/10/23 11:40 Stool Astrovirus (PCR) Not Detected (NotDetected) 02/10/23 11:40 Stool Campylobacter PCR Not Detected (NotDetected) 02/10/23 11:40 Stl C. diff Tox B Gene Negative Cdiff Gene (Neg) 02/12/23 Unknown Stool Cryptosporidium PCR Not Detected (NotDetected) 02/10/23 11:40 Stl E.coli Shiga Tox PCR Not Detected (NotDetected) 02/10/23 11:40 Stl Enterotoxigenic E PCR Not Detected (NotDetected) 02/10/23 11:40 Stool EPEC (PCR) Not Detected (NotDetected) 02/10/23 11:40 Stool EAEC (PCR) Not Detected (NotDetected) 02/10/23 11:40 Stl E. histolytica PCR Not Detected (NotDetected) 02/10/23 11:40 Stool Giardia Lamblia PCR Not Detected (NotDetected) 02/10/23 11:40 Stool Salmonella PCR Not Detected (NotDetected) 02/10/23 11:40 Stool Sapovirus (PCR) Not Detected (NotDetected) 02/10/23 11:40 Stl P. shigelloides PCR Not Detected (NotDetected) 02/10/23 11:40 Stl Shigella/EIEC PCR Not Detected (NotDetected) 02/10/23 11:40 St Y.enterocolitica PCR Not Detected (NotDetected) 02/10/23 11:40 Stool Vibrio (PCR) Not Detected (NotDetected) 02/10/23 11:40 Stl Vibrio cholerae PCR Not Detected (NotDetected) 02/10/23 11:40 Stl Norovirus GI/GII PCR Not Detected (NotDetected) 02/10/23 11:40 SARS-CoV-2, RNA, NAAT NEGATIVE (NEGATIVE) 02/09/23 Unknown Blood Type O Positive 02/09/23 16:24 Antibody Screen NEGATIVE 02/09/23 16:24 Impressions Abdomen/Pelvis CT 02/09/23 11:[address] WITH IV CONTRAST CT DOSE: 1195.16 mGy.cm HISTORY: Acute as abdominal pain with rectal bleeding rectal bleed, ?crohns/UC, hemorrhoids, rectal d/c TECHNIQUE: Multiaxial CT images of the abdomen and pelvis were performed following the IV administration of 95 cc of Optiray, A dose lowering technique was utilized adhering to the principles of ALARA. COMPARISON STUDY: 04/25/2016 FINDINGS: Cardiomegaly. Clear lung bases. No pneumatosis or pneumoperitoneum. Unremarkable spleen, pancreas and adrenal glands. The gallbladder and liver are unremarkable. Cortical thinning of the kidneys. Indeterminate 7 mm hypodense lesion of the interpolar left kidney is too small to characterize. Partial distention of the urinary bladder. Hysterectomy. Atherosclerosis of the aorta without aneurysm. No lymphadenopathy. No bowel obstruction. There is wall thickening of the mid sigmoid colon with pericolonic inflammation and trace free pelvic fluid. Colonic diverticulosis. No drainable fluid collections. Mild fecal retention. Appendix is not definitively seen. Unremarkable soft tissues. No acute fracture. Mild lumbar levoscoliosis. IMPRESSION: 1. Colonic diverticulosis. Sigmoid colon wall thickening with adjacent inflammatory stranding and trace free pelvic fluid is suggestive of acute diverticulitis versus colitis. Correlation could be made with follow-up colonoscopy. 2. No bowel obstruction, pneumoperitoneum or fluid collection to suggest abscess. 3. Additional findings as above. ACT 112: Negative or not required by law. The above report was generated using voice recognition software. It may contain grammatical, syntax or spelling errors. Electronically signed by: Oleg Irizarry M.D. 02/09/2023 3:18 PM Chest X-Ray 02/09/23 11:39 XR chest 1V portable CLINICAL HISTORY: dyspnea since afib dx 1 month ago COMPARISON STUDY: Chest CT December 25, 2022. FINDINGS: Lung volumes are normal. Lungs are clear. There is no pneumothorax or pleural effusion. Moderate cardiomegaly is again noted. Mediastinal contours are normal. There is no evidence for pulmonary edema. IMPRESSION: No acute cardiopulmonary findings. Cardiomegaly. ACT 112: Negative or not required by law. Electronically signed by: Marco A Noel M.D. 02/09/2023 12:12 PM Venous Doppler Study 02/10/23 11:08 BILATERAL LOWER EXTREMITY VENOUS DOPPLER HISTORY: Acute pain and swelling of the lower leg RUle out acute DVT COMPARISON STUDY: 12/28/2022. FINDINGS: Subcutaneous edema. 5.1 x 1.2 x 1.5 cm hypoechoic focus of the medial right calf, possibly intramuscular. There is normal compressibility, flow, and augmentation within the bilateral lower extremity deep venous systems. IMPRESSION: 1. No DVT within the right or left lower extremity. 2. 5.1 cm collection within the right calf appears stable. ACT 112: Negative or not required by law. Electronically signed by: Oleg Irizarry M.D. 02/10/2023 1:46 PM (7) Atrial fibrillation Atrial fibrillation type: unspecified Qualified Code(s): I48.91 - Unspecified atrial fibrillation
[2023-02-14] MEDS ORDERED: POTASSIUM CHLORIDE 20 MEQ/15 ML UDC PO STA (16:21)
[2023-02-14] MEDS ORDERED: FUROSEMIDE INJ 20 MG/2 ML VIAL IV ONE (16:22)
--- NOTE | 2023-02-14 16:28 | Cardiology Progress Note ---
Date of Service February 14, 2023 Assessment & Plan (1) Acute GI bleeding: (2) Persistent atrial fibrillation: (3) Dilated idiopathic cardiomyopathy: (4) LBBB (left bundle branch block): Plan 77-year-old female with underlying history of idiopathic cardiomyopathy, persistent atrial fibrillation on chronic anticoagulation for arrhythmia as well as past DVT/pulmonary embolus now with recurrent lower GI bleeding. Bleeding appears to be improving on cessation of anticoagulation. 1. Lower GI bleed improving. Anticoagulation on hold 2. Dilated idiopathic cardiomyopathy ejection fraction less than 30% with compensated heart failure. Potassium improved to 3.7 mmol/L today after receiving IV potassium chloride replacement on 02/13/2023. Patient states that she has not tolerated taking oral potassium supplements because of the size of the pill. Unable to tolerate potassium elixir due to the taste in the past. After further discussion, she was willing to proceed with another trial of potassium elixir. We will increase her spironolactone to 50 mg every morning and 25 mg at 1700. Furosemide 20 mg x 1 dose today. Lower extremity edema likely multifactorial due to chronic underlying issues, as well as receiving IV therapy including IV Zosyn during this hospital stay. Patient stable from a cardiac perspective for flexible sigmoidoscopy as planned tomorrow. DVT prophylaxis: SQ heparin Admission and Anticipated Discharge Date Admission Date: February 09, 2023 Subjective Patient seen in cardiology follow-up. Diarrhea mildly improved, bleeding improved. She is concerned about painful swollen legs. Telemetry reveals rate controlled atrial fibrillation 70s with occasional PVCs, and chronic left bundle branch block. Physical Exam Constitutional: + obese; no acute distress Eyes: PERRL, conjunctivae normal, anicteric sclerae ENMT: external ear and nose normal, oropharynx normal Neck: trachea midline, no thyromegaly Respiratory: normal respiratory effort, lungs clear to auscultation Cardiovascular: Rate/Rhythm: + irregularly irregular Heart Sounds: normal S1 and normal S2; no murmur Vessels: no JVD Extremities: + edema (1+ bilateral lower extremity edema, no erythema) Chest (Breasts): normal inspection/palpation of breasts Gastrointestinal (Abdomen): normal bowel sounds, soft, nontender, no hepatosplenomegaly Percussion/Palpation: + abdomen tender and abdomen soft; no guarding Neurologic: PERRL, EOMI, accommodation nl, no face palsy, no dysarthria Psychiatric: A+Ox3, euthymic affect Results & Data Vital Signs (Past 12 Hours) Vital Signs Temp Pulse Pulse Resp BP Pulse Ox O2 Del Method 02/14/23 15:27 36.4 C L 79 18 105/57 L 98 Room Air 02/14/23 11:39 36.3 C L 69 16 96/61 L 96 Room Air 02/14/23 09:01 120/87 02/14/23 07:41 36.5 C 85 16 99/56 L 98 Room Air 02/14/23 07:18 77 Laboratory Results Cardiac Enzymes 02/14/23 Range/Units 05:52 AST 7 L (13-39) U/L CBC 02/14/23 Range/Units 05:52 WBC 6.55 (4.8-10.8) K/ul RBC 3.21 L (4.20-5.40) M/uL Hgb 9.6 L (12.0-16.0) g/dl Hct 30.5 L (37.0-47.0) % Plt Count 299 (130-400) K/uL Neut # (Auto) 4.08 (1.40-6.50) K/uL Lymph # (Auto) 1.22 (1.2-3.4) K/uL [place] # (Auto) 0.97 H (0.11-0.59) K/uL Eos # (Auto) 0.16 (0-0.50) K/uL Baso # (Auto) 0.08 (0-0.2) K/uL Comprehensive Metabolic Panel 02/14/23 Range/Units 05:52 Sodium 135 L (136-145) mmol/L Potassium 3.7 (3.5-5.1) mmol/L Chloride 104 (98-107) mmol/L Carbon Dioxide 26 (21-32) mmol/L BUN 9 (6-23) mg/dl Creatinine 1.49 H (0.6-1.2) mg/dl Glucose 89 (70-99(Fasting)) mg/dl Calcium 8.2 L (8.6-10.3) mg/dl AST 7 L (13-39) U/L ALT 6 L (7-52) U/L Alkaline Phosphatase 62 (34-104) U/L Total Protein 5.1 L (6.0-8.3) gm/dl Albumin 2.3 L (3.4-5.0) gm/dl Intake and Output 02/14/23 02/14/23 02/14/23 06:59 14:59 22:59 Intake Total 240 / 1310 120 / 120 Output Total Balance 240 / 1306 120 / 119 - 119 Intake: IV 240 / 950 120 / 120 Piperacillin/Tazobactam 4.5 gm 240 / 240 120 / 120 In Dextrose 5% 100 ml @ 30 mls/ hr IV Q8H [facility] Rx#:[id number] Output: # Bowel Movements Other: Other Intake Source sips Weight 102.4 kg
[2023-02-14] MEDS: DIGOXIN 0.125 MG/2.5 ML UDP PO SCH (16:45)
[2023-02-15] MEDS: HEPARIN SOD 5,000 UNIT/0.5 ML VIAL SQ SCH ×3 (05:00→21:00)
[2023-02-15 06:05] LABS: Basophils # (auto) 0.06 K/uL (0-0.2); Basophils % (auto) 1.1 %; Eosinophils # (auto) 0.05 K/uL (0-0.50); Eosinophils % (auto) 0.9 %; Hematocrit (blood only) 31.4 % (37.0-47.0); Immature Granulocytes # (auto) 0.05 K/uL (0.01-0.20); Immature Granulocytes % (auto) 0.9 %; Lymphocytes # (auto) 0.75 K/uL (1.2-3.4); Lymphocytes % (auto) 13.4 %; Mean Corpuscular Hemoglobin 29.7 pg (25.0-34.0); Mean Corpuscular Hgb Conc 31.8 g/dL (32.0-36.0); Mean Corpuscular Volume 93.2 fL (80.0-100.0); Mean Platelet Volume 9.2 fL (9.4-12.4); Monocytes # (auto) 0.75 K/uL (0.11-0.59); Monocytes % (auto) 13.4 %; Neutrophils # (auto) 3.94 K/uL (1.40-6.50); Neutrophils % (auto) 70.3 %; Platelet Count 303 K/uL (130-400); RDW Coefficient of Variation 14.6 % (11.5-14.5); RDW Standard Deviation 50.1 fL (36.4-46.3); Red Blood Count 3.37 M/uL (4.20-5.40)
[2023-02-15 06:24] LABS: Calcium 8.4 mg/dl (8.6-10.3); Creatinine Clr Calc Pharmacy 34.5 ml/min; Est GFR (Non-African American) 31.9 ml/min; Potassium 3.6 mmol/L (3.5-5.1)
[2023-02-15] MEDS: PIPERACILLIN/TAZOBACTAM 4.5 GM in DEXTROSE 5% 100 ML IV SCH ×2 (08:10→08:13)
[2023-02-15] MEDS: NYSTATIN CR 15 GM TUBE EXT SCH ×2 (08:11→20:44)
--- NOTE | 2023-02-15 09:30 | Gastroenterology Progress Note ---
Date of Service February 15, 2023 Assessment & Plan (1) Acute GI bleeding: Plan: 77 year old female with history of intermittent diarrhea, rectal bleeding, prior endoscopies ? suggestive of hemorrhoids, inflammatory changes, now admitted with BRBPR, abd discomfort, CT suggestive of sigmoid diverticulitis vs colitis. Improved on ABX. w/ persistent diarrhea, stool for c.diff negative this weekend. - NPO - Flex Sig today - Stop ABX We appreciate assistance in the management of any serological abnormality and corrections to include: hemoglobin >7, INR <2, platelets >50,000, potassium levels >3.5 but <5.3, and sodium levels within 5 points of the reference range prior to endoscopic evaluation. Thank you for allowing us to participate in the care of this patient. Please call with any acute changes, questions or concerns. Please see addendum below with additional recommendation from my supervising physician. (2) Colitis: (3) Diverticulitis: Admission and Anticipated Discharge Date Admission Date: February 09, 2023 Supervising Physician Co-Signing Physician Notes Attending attestation I have seen, examined this patient, and agree with the findings and above by our mid-level provider FANY Wei, with the following additions: - patient with hx of ? granulomas in sigmoid colon - Recent hematochezia and ? sigmoid diverticulitis, no pain, diarrhea improved - Will do limited flex sig with biopsies Subjective Persistent diarrhea despite trial of steroids No abd pain but urgency and cramping. No black or bloody stools Review of Systems Review of Systems: All systems reviewed & are unremarkable except as noted in HPI & below Physical Exam Constitutional: WD/WN, vitals as above Respiratory: normal respiratory effort, lungs clear to auscultation Chest (Breasts): normal inspection/palpation of breasts Gastrointestinal (Abdomen): normal bowel sounds, soft, nontender, no hepatosplenomegaly Skin: no rashes, warm and dry Results & Data Vital Signs (Past 12 Hours) Vital Signs Temp Pulse Pulse Resp BP BP Pulse Ox 02/15/23 08:10 36.3 C L 79 16 111/72 98 02/15/23 03:03 36.4 C L 73 18 107/57 L 98 02/15/23 00:00 81 02/14/23 23:20 36.4 C L 75 18 102/56 L 99 O2 Del Method 02/15/23 08:10 Room Air 02/15/23 03:03 Room Air 02/15/23 00:00 02/14/23 23:20 Room Air Laboratory Results 02/15/23 02/15/23 Range/Units 05:36 05:36 WBC 5.60 (4.8-10.8) K/ul RBC 3.37 L (4.20-5.40) M/uL Hgb 10.0 L (12.0-16.0) g/dl Hct 31.4 L (37.0-47.0) % MCV 93.2 (80.0-100.0) fL MCH 29.7 (25.0-34.0) pg MCHC 31.8 L (32.0-36.0) g/dL RDW Std Deviation 50.1 H (36.4-46.3) fL RDW Coeff of Sg 14.6 H (11.5-14.5) % Plt Count 303 (130-400) K/uL MPV 9.2 L (9.4-12.4) fL Immature Gran % (Auto) 0.9 % Neut % (Auto) 70.3 % Lymph % (Auto) 13.4 % [place] % (Auto) 13.4 % Eos % (Auto) 0.9 % Baso % (Auto) 1.1 % Neut # (Auto) 3.94 (1.40-6.50) K/uL Lymph # (Auto) 0.75 L (1.2-3.4) K/uL [place] # (Auto) 0.75 H (0.11-0.59) K/uL Eos # (Auto) 0.05 (0-0.50) K/uL Baso # (Auto) 0.06 (0-0.2) K/uL Immature Gran # (Auto) 0.05 (0.01-0.20) K/uL Sodium 137 (136-145) mmol/L Potassium 3.6 (3.5-5.1) mmol/L Chloride 105 (98-107) mmol/L Carbon Dioxide 26 (21-32) mmol/L Anion Gap 6 (3-11) BUN 11 (6-23) mg/dl Creatinine 1.57 H (0.6-1.2) mg/dl Est Cr Clr Drug Dosing 34.5 ml/min Est GFR ( Amer) 37.0 ml/min Est GFR (Non-Af Amer) 31.9 ml/min BUN/Creatinine Ratio 7.0 L (10-20) Glucose 99 (70-99(Fasting)) mg/dl Calcium 8.4 L (8.6-10.3) mg/dl
[2023-02-15] MEDS: PANTOprazole 40 MG TAB PO SCH ×2 (09:34→20:44)
[2023-02-15] MEDS: SPIRONOLACTONE 25 MG TAB PO SCH ×2 (09:34→16:49)
[2023-02-15] MEDS: DOCUSATE SODIUM 100 MG CAP PO SCH ×2 (09:34→20:43)
[2023-02-15] MEDS: METOPROLOL SUCC 25MG EXT REL TAB PO SCH ×2 (09:34→20:44)
[2023-02-15] MEDS: BUDESONIDE EC 3 MG CAP PO SCH ×2 (09:34→16:48)
--- NOTE | 2023-02-15 09:35 | Anesthesiology Consultation ---
Date of Service February 15, 2023 Assessment & Plan Consults Requested medical & cardiac Pulmonary History Surgery Operation Date: 02/15/23 16:30 Proposed Procedures p Flexible Sigmoidoscopy Dr Carlson - Estuardo Carlson MD Height/Weight Height: 5 ft 1.5 in Weight: 102.8 kg Allergies Allergy/AdvReac Type Severity Reaction Status Date / Time Tetracyclines Allergy Severe ANAPHYLAXIS Verified 12/27/22 18:44 ciprofloxacin Allergy Intermediate "my heart Verified 12/27/22 18:44 palpates" Penicillins Allergy Mild HIVES Verified 12/27/22 18:44 Sulfa (Sulfonamide Allergy Mild ITCHING Verified 12/27/22 18:44 Antibiotics) Medications Home Medications Medication Instructions Recorded Confirmed Last Taken aspirin 81 mg tablet,delayed 81 mg PO 3XWK 09/19/18 02/09/23 02/08/23 release cyanocobalamin (vitamin B-12) 1,000 mcg PO QAM 09/19/18 02/09/23 02/08/23 1,000 mcg tablet (Vitamin B-12) furosemide 40 mg tablet 40 mg PO QAM 09/19/18 02/09/23 02/08/23 spironolactone 25 mg tablet 25 mg PO QAM 09/19/18 02/09/23 02/08/23 cholecalciferol (vitamin D3) 25 25 mcg PO QAM 09/07/21 02/09/23 02/08/23 mcg (1,000 unit) capsule (Vitamin D3) apixaban 5 mg (74 tabs) tablets in 5 mg PO BID #74 ea 12/28/22 02/09/23 02/08/23 23:00 a dose pack (Eliquis) metoprolol succinate 50 mg 50 mg PO BID #60 tabs 01/01/23 02/09/23 02/08/23 tablet,extended release 24 hr fiber 1 tab PO BID 02/09/23 02/09/23 Unknown Active Medications Generic Name Dose Route Start Last Admin Trade Name Freq PRN Reason Stop Dose Admin Budesonide 9 mg 02/14/23 09:15 02/15/23 09:34 Budesonide Ec 3 Mg Cap PO 03/16/23 09:14 Not Given QAM [facility] Digoxin 0.125 mg 02/11/23 16:00 02/14/23 16:45 Digoxin 0.125 Mg/2.5 Ml Udp PO 03/13/23 15:59 0.125 mg DAILY@1600 SHAKEEL Administration Docusate Sodium 100 mg 02/11/23 10:15 02/15/23 09:34 Docusate Sodium 100 Mg Cap PO 03/13/23 10:14 Not Given BID SHAKEEL Heparin Sodium (Porcine) 5,000 units 02/12/23 14:00 02/15/23 05:00 Heparin Sod 5,000 Unit/0.5 Ml Vial SQ 03/14/23 13:59 Not Given Q8 SHAKEEL Piperacillin Sod/Tazobactam 120 mls @ 30 mls/hr 02/13/23 16:00 02/15/23 08:13 Sod 4.5 gm/ Dextrose IV 02/17/23 15:59 Not Given Q8H [facility] Protocol Lactobacillus Acidophilus 2 cap 02/10/23 09:00 02/14/23 07:54 Advanced Probiotic 1250 Mg Capsule PO 03/12/23 08:59 2 cap DAILY SHAKEEL Administration Metoprolol Succinate 25 mg 02/11/23 21:00 02/15/23 09:34 Metoprolol Succ 25mg Ext Rel Tab PO 03/13/23 20:59 Not Given BID SHAKEEL Nystatin 1 appln 02/11/23 21:00 02/15/23 08:11 Nystatin Cr 15 Gm Tube EXT 03/13/23 20:59 1 appln Q12 SHAKEEL Administration Ondansetron HCl 4 mg 02/09/23 20:02 02/12/23 09:07 Ondansetron Inj 2 Mg/Ml 2 Ml Vial IV 03/11/23 20:01 4 mg Q4H PRN Administration Nausea And Vomiting Pantoprazole Sodium 40 mg 02/13/23 09:00 02/15/23 09:34 Pantoprazole 40 Mg Tab PO 03/15/23 08:59 Not Given BID SHAKEEL Spironolactone 50 mg 02/15/23 09:00 02/15/23 09:34 Spironolactone 25 Mg Tab PO 03/17/23 08:59 Not Given QAM SHAKEEL Spironolactone 25 mg 02/14/23 17:00 02/14/23 16:44 Spironolactone 25 Mg Tab PO 03/16/23 16:59 25 mg DAILY@1700 SHAKEEL Administration NPO Date Last Intake of Fluids: 02/14/23 Time Last Intake of Fluids: 20:00 Date Last Intake of Solids: 02/14/23 Time Last Intake of Solids: 17:00 Past Medical History Medical History Brain tumor Cardiomyopathy follows with Dr. Torres Chronic kidney disease, stage 3 Deep vein thrombosis left leg after flying--was on warfarin, stopped 2016 Heart palpitations History of colon polyps Hypertension Morbid obesity with BMI of 45.0-49.9, adult Osteoarthritis Skipped heart beats Past Family History Family History Other No family history of adverse response to anesthesia Past Surgical History Surgical History History of appendectomy History of cardiac cath 1996, no stents History of colonoscopy last 09/15/21 @ [facility] History of [place] 12/26/17 @ [facility] [place] [facility] [place]benign meniangioma History of dilatation and curettage History of esophagogastroduodenoscopy (EGD) History of tonsillectomy and adenoidectomy History of tooth extraction History of total abdominal hysterectomy and bilateral salpingo-oophorectomy Social History Smoking Status: Never smoker Do You Dip or Chew Tobacco: No Hx Alcohol Use: No Hx Substance Use: No substance use type: does not use Physical Exam Vital Signs Last Vital Signs Temp 36.2 C L 02/15/23 09:27 Pulse 92 H 02/15/23 09:27 Resp 18 02/15/23 09:27 BP 110/63 02/15/23 09:27 Pulse Ox 98 02/15/23 09:27 O2 Del Method Room Air 02/15/23 09:27 Testing Laboratory Results 02/15/23 05:36 02/15/23 05:36 PT 12.8 Seconds (9.0-12.0) H 02/10/23 07:43 INR 1.2 (0.9-1.1) H 02/10/23 07:43 APTT 30.2 Seconds (21.0-31.0) 02/09/23 11:00 Blood Type O Positive 02/09/23 16:24 Antibody Screen NEGATIVE 02/09/23 16:24 02/09/23 18:06 Aerobic Blood Culture - Final Blood No growth in Aerobic bottle after 5 days. Anaerobic Blood Culture - Final No growth in Anaerobic bottle after 5 days. 02/09/23 18:06 Aerobic Blood Culture - Final Blood No growth in Aerobic bottle after 5 days. Anaerobic Blood Culture - Final No growth in Anaerobic bottle after 5 days.
[2023-02-15] MEDS ORDERED: LIDOCAINE 2% 2 ML VIAL/AMP(20MG/ML) INFIL ONE (10:24)
[2023-02-15] MEDS ORDERED: PROPOFOL IV EMULSION 10 MG/ML 20 ML VIAL IV ONE (10:24)
--- NOTE | 2023-02-15 10:30 | GI REPORT ---
Patient Name: Laurie Turcios Procedure Date: 02/15/2023 10:01 AM Date of : 1945 Admit Type: Inpatient Age: 77 Gender: Female Attending MD: Estuardo Carlson MD, Procedure: Flexible Sigmoidoscopy Providers: Estuardo Carlson MD Referring MD: Michelle Jimenez Indications: Clinically significant diarrhea of unexplained origin, Prior history of granulomas in the sigmoid colon Medicines: Propofol per Anesthesia Complications: No immediate complications. Estimated blood loss: None. Estimated Blood Loss: Estimated blood loss: none. Procedure: Pre-Anesthesia Assessment: - Pre-Anesthesia Assessment: - Prior to the procedure, a History and Physical was performed, and patient medications, allergies and sensitivities were reviewed. The patient's tolerance of previous anesthesia was reviewed. Please see [facility] [employer] for complete details. - The risks and benefits of the procedure and the sedation options and risks were discussed with the patient. All questions were answered and informed consent was obtained. - Patient identification and proposed procedure were verified prior to the procedure by the physician and the nurse. The procedure was verified in the pre-procedure area in the procedure room. After obtaining informed consent, the endoscope was passed carefully and meticuously under direct vision and only advanced when the lumen was clearly identified, C02 insuflation was utilized throughout the entirity of the procedure. Throughout the procedure, the patient's blood pressure, pulse, and oxygen saturations were monitored continuously. After obtaining informed consent, the endoscope was passed under direct vision. Throughout the procedure, the patient's blood pressure, pulse, and oxygen saturations were monitored continuously. The Colonoscope was introduced through the anus and advanced to the sigmoid colon. The flexible sigmoidoscopy was accomplished without difficulty. The patient tolerated the procedure well. The quality of the bowel preparation was good. Findings: Small-mouthed diverticula were found in the sigmoid colon. A localized area of moderately congested, erythematous and inflamed mucosa was found in the sigmoid colon. Biopsies were taken with a cold forceps for histology. The pathology specimen was placed into Bottle [Bottle Label]. Impression: - Diverticulosis in the sigmoid colon. - Congested, erythematous and inflamed mucosa in the sigmoid colon. Biopsied. Recommendation: - Continue entocort at 9 mg daily, hold antibiotics, can attempt ASA with asacol, preferably Lialda. Previously had lightheadedness with ASA medication - Advance diet as tolerated. Estuardo Carlson MD 02/15/2023 10:30:05 AM This report has been signed electronically. Note Initiated On: 02/15/2023 10:01 AM Number of Addenda: 0 I attest to the content of the Intraoperative Record and orders documented therein, exceptions below {[id number]}
--- NOTE | 2023-02-15 10:34 | Hospitalist Progress Note ---
Date of Service February 15, 2023 Assessment & Plan (1) Diverticulitis: (2) Acute GI bleeding: (3) Acute blood loss anemia: (4) Bleeding hemorrhoids: Plan: Patient is a 77-year-old female with past medical history of paroxysmal A-fib, chronic DVT/PE, A-fib; started on Eliquis in December 2022. Presents with lower GI bleed with bright red blood per rectum CT abdomen pelvis reviewed personally; sigmoid colon wall thickening with adjacent inflammatory stranding and trace free pelvic fluid suggestive of acute diverticulitis versus colitis Labs reviewed; hemoglobin down trended from 11.8-10. GI PCR panel and C. difficile negative Bilateral venous duplex negative Discussed with GI; recommend trial of budesonide. Flexible sigmoidoscopy today. stop antibiotics Discussed with cardiology; anticoagulation can be hold off from A-fib standpoint. However, recommend evaluation for IVC filter given recent DVT and PE. Metoprolol dose decreased to 25 mg once daily and digoxin added. Spironolactone dose increased. Discussed with Dr. Reyes from vascular surgery(on February); no indication for IVC filter for now. Patient can be off anticoagulation for now. Monitor for bleed on heparin subcu for DVT prophylaxis. (5) Hypokalemia: Plan: Repleted (6) HTN (hypertension): Plan: - Metoprolol dose decreased as per cardiology Digoxin added Also on spironolactone (7) Atrial fibrillation: Plan: -May continue metoprolol. Eliquis stopped. patient doesn't want to be anticoagulation with Eliquis. cardiology to discuss regarding alternatives. (8) Asthma: Plan: -Stable, does not use inhalers or require supplemental O2 (9) CKD (chronic kidney disease), stage III: Plan: -Creatinine at baseline. DVT PPx: -Heparin subcu CODE: Full code Time spent evaluating patient, direct bedside care, chart review, placing orders, interpretation of diagnostic studies, discussion with consultants, patient, and family members, as well as other required patient management activities is 60 minutes. Please note the above document was generated using voice recognition software. It may contain grammatical, syntax or spelling errors. Any formal questions or concerns about the content, text or information contained within the body of this dictation should be directly addressed to the provider for clarification Admission and Anticipated Discharge Date Admission Date: February 09, 2023 Subjective Patient seen and examined at bedside. Comfortable; reports continued diarrhea. Review of Systems Review of Systems: All systems reviewed & are unremarkable except as noted in Subjective Physical Exam Physical Exam: Constitutional: WD/WN, vitals as above, NAD, sitting up in bed, pleasant, conversing easily Respiratory: normal respiratory effort, lungs clear to auscultation, no wheeze, rales, rhonchi. Normal insp/exp effort, no accessory muscle use Cardiovascular: Irregular, no murmur, no edema Vessels: no JVD or carotid bruit Chest: normal inspection of chest Abdomen: Slight tenderness present in left lower quadrant. Musculoskeletal: no cyanosis or clubbing, extremities motor strength 5/5. Bilateral leg edema present Skin: no rashes, warm and dry normal turgor Neurologic: PERRL, EOMI, accommodation nl, no face palsy, no dysarthria CN's II- XI intact bilaterally and moves all extremities Psychiatric: A+Ox3, euthymic affect Results & Data Results & Data Vital Signs (Past 12 Hours) Vital Signs Temp Pulse Pulse Resp BP BP Pulse Ox 02/15/23 09:27 36.2 C L 92 H 18 110/63 98 02/15/23 08:10 36.3 C L 79 16 111/72 98 02/15/23 03:03 36.4 C L 73 18 107/57 L 98 02/15/23 00:00 81 02/14/23 23:20 36.4 C L 75 18 102/56 L 99 O2 Del Method 02/15/23 09:27 Room Air 02/15/23 08:10 Room Air 02/15/23 03:03 Room Air 02/15/23 00:00 02/14/23 23:20 Room Air Laboratory Results Laboratory Results WBC 5.60 K/ul (4.8-10.8) 02/15/23 05:36 RBC 3.37 M/uL (4.20-5.40) L 02/15/23 05:36 Hgb 10.0 g/dl (12.0-16.0) L 02/15/23 05:36 POC Hgb 12.9 g/dl (12.0-16.0) 02/09/23 14:06 Hct 31.4 % (37.0-47.0) L 02/15/23 05:36 POC Hct 38 % (37-47) 02/09/23 14:06 MCV 93.2 fL (80.0-100.0) 02/15/23 05:36 MCH 29.7 pg (25.0-34.0) 02/15/23 05:36 MCHC 31.8 g/dL (32.0-36.0) L 02/15/23 05:36 RDW Std Deviation 50.1 fL (36.4-46.3) H 02/15/23 05:36 RDW Coeff of Sg 14.6 % (11.5-14.5) H 02/15/23 05:36 Plt Count 303 K/uL (130-400) 02/15/23 05:36 MPV 9.2 fL (9.4-12.4) L 02/15/23 05:36 Immature Gran % (Auto) 0.9 % 02/15/23 05:36 Neut % (Auto) 70.3 % 02/15/23 05:36 Lymph % (Auto) 13.4 % 02/15/23 05:36 Wilson % (Auto) 13.4 % 02/15/23 05:36 Eos % (Auto) 0.9 % 02/15/23 05:36 Baso % (Auto) 1.1 % 02/15/23 05:36 Neut # (Auto) 3.94 K/uL (1.40-6.50) 02/15/23 05:36 Lymph # (Auto) 0.75 K/uL (1.2-3.4) L 02/15/23 05:36 Wilson # (Auto) 0.75 K/uL (0.11-0.59) H 02/15/23 05:36 Eos # (Auto) 0.05 K/uL (0-0.50) 02/15/23 05:36 Baso # (Auto) 0.06 K/uL (0-0.2) 02/15/23 05:36 Immature Gran # (Auto) 0.05 K/uL (0.01-0.20) 02/15/23 05:36 PT 12.8 Seconds (9.0-12.0) H 02/10/23 07:43 INR 1.2 (0.9-1.1) H 02/10/23 07:43 APTT 30.2 Seconds (21.0-31.0) 02/09/23 11:00 PTT Ratio 1.1 02/09/23 11:00 POC Sodium 137 mmol/L (135-144) 02/09/23 14:06 Sodium 137 mmol/L (136-145) 02/15/23 05:36 POC Potassium 3.2 mmol/L (3.3-5.0) L 02/09/23 14:06 Potassium 3.6 mmol/L (3.5-5.1) 02/15/23 05:36 POC Chloride 96 mmol/L (101-112) L 02/09/23 14:06 Chloride 105 mmol/L (98-107) 02/15/23 05:36 Carbon Dioxide 26 mmol/L (21-32) 02/15/23 05:36 POC Total CO2 30 mmol/L (24-31) 02/09/23 14:06 Anion Gap 6 (3-11) 02/15/23 05:36 POC Anion Gap 15.0 mmol/L (16-25) L 02/09/23 14:06 POC BUN 19 mg/dl (7-18) H 02/09/23 14:06 BUN 11 mg/dl (6-23) 02/15/23 05:36 Creatinine 1.57 mg/dl (0.6-1.2) H 02/15/23 05:36 POC Creatinine 1.4 mg/dl (0.6-1.3) H 02/09/23 14:06 Est Cr Clr Drug Dosing 34.5 ml/min 02/15/23 05:36 Est GFR ( Amer) 37.0 ml/min 02/15/23 05:36 Est GFR (Non-Af Amer) 31.9 ml/min 02/15/23 05:36 BUN/Creatinine Ratio 7.0 (10-20) L 02/15/23 05:36 Glucose 99 mg/dl (70-99(Fasting)) 02/15/23 05:36 POC Glucose (other) 96 mg/dl (70-99) 02/09/23 14:06 Lactate 1.2 mmol/L (0.4-2.0) 02/09/23 18:06 Calcium 8.4 mg/dl (8.6-10.3) L 02/15/23 05:36 POC Ioniz Calcium Ole 1.12 mmol/l (1.12-1.32) 02/09/23 14:06 Total Bilirubin 0.5 mg/dl (0.2-1.0) D 02/14/23 05:52 AST 7 U/L (13-39) L 02/14/23 05:52 ALT 6 U/L (7-52) L 02/14/23 05:52 Alkaline Phosphatase 62 U/L (34-104) 02/14/23 05:52 Troponin I High Sens 7.6 pg/ml (0-14) 02/09/23 11:00 B-Natriuretic Peptide 480 pg/ml (0-100) H 02/09/23 11:00 Total Protein 5.1 gm/dl (6.0-8.3) L 02/14/23 05:52 Albumin 2.3 gm/dl (3.4-5.0) L 02/14/23 05:52 Globulin 2.8 gm/dl (2.5-4.0) 02/14/23 05:52 Albumin/Globulin Ratio 0.8 (0.9-2) L 02/14/23 05:52 Stl C. cayetanensis PCR Not Detected (NotDetected) 02/10/23 11:40 Stool Rotavirus A PCR Not Detected (NotDetected) 02/10/23 11:40 Stl Adenov F PCR Not Detected (NotDetected) 02/10/23 11:40 Stool Astrovirus (PCR) Not Detected (NotDetected) 02/10/23 11:40 Stool Campylobacter PCR Not Detected (NotDetected) 02/10/23 11:40 Stl C. diff Tox B Gene Negative Cdiff Gene (Neg) 02/12/23 Unknown Stool Cryptosporidium PCR Not Detected (NotDetected) 02/10/23 11:40 Stl E.coli Shiga Tox PCR Not Detected (NotDetected) 02/10/23 11:40 Stl Enterotoxigenic E PCR Not Detected (NotDetected) 02/10/23 11:40 Stool EPEC (PCR) Not Detected (NotDetected) 02/10/23 11:40 Stool EAEC (PCR) Not Detected (NotDetected) 02/10/23 11:40 Stl E. histolytica PCR Not Detected (NotDetected) 02/10/23 11:40 Stool Giardia Lamblia PCR Not Detected (NotDetected) 02/10/23 11:40 Stool Salmonella PCR Not Detected (NotDetected) 02/10/23 11:40 Stool Sapovirus (PCR) Not Detected (NotDetected) 02/10/23 11:40 Stl P. shigelloides PCR Not Detected (NotDetected) 02/10/23 11:40 Stl Shigella/EIEC PCR Not Detected (NotDetected) 02/10/23 11:40 St Y.enterocolitica PCR Not Detected (NotDetected) 02/10/23 11:40 Stool Vibrio (PCR) Not Detected (NotDetected) 02/10/23 11:40 Stl Vibrio cholerae PCR Not Detected (NotDetected) 02/10/23 11:40 Stl Norovirus GI/GII PCR Not Detected (NotDetected) 02/10/23 11:40 SARS-CoV-2, RNA, NAAT NEGATIVE (NEGATIVE) 02/09/23 Unknown Blood Type O Positive 02/09/23 16:24 Antibody Screen NEGATIVE 02/09/23 16:24 Impressions Abdomen/Pelvis CT 02/09/23 11:[address] WITH IV CONTRAST CT DOSE: 1195.16 mGy.cm HISTORY: Acute as abdominal pain with rectal bleeding rectal bleed, ?crohns/UC, hemorrhoids, rectal d/c TECHNIQUE: Multiaxial CT images of the abdomen and pelvis were performed following the IV administration of 95 cc of Optiray, A dose lowering technique was utilized adhering to the principles of ALARA. COMPARISON STUDY: 04/25/2016 FINDINGS: Cardiomegaly. Clear lung bases. No pneumatosis or pneumoperitoneum. Unremarkable spleen, pancreas and adrenal glands. The gallbladder and liver are unremarkable. Cortical thinning of the kidneys. Indeterminate 7 mm hypodense lesion of the interpolar left kidney is too small to characterize. Partial distention of the urinary bladder. Hysterectomy. Atherosclerosis of the aorta without aneurysm. No lymphadenopathy. No bowel obstruction. There is wall thickening of the mid sigmoid colon with pericolonic inflammation and trace free pelvic fluid. Colonic diverticulosis. No drainable fluid collections. Mild fecal retention. Appendix is not definitively seen. Unremarkable soft tissues. No acute fracture. Mild lumbar levoscoliosis. IMPRESSION: 1. Colonic diverticulosis. Sigmoid colon wall thickening with adjacent inflammatory stranding and trace free pelvic fluid is suggestive of acute diverticulitis versus colitis. Correlation could be made with follow-up colonoscopy. 2. No bowel obstruction, pneumoperitoneum or fluid collection to suggest abscess. 3. Additional findings as above. ACT 112: Negative or not required by law. The above report was generated using voice recognition software. It may contain grammatical, syntax or spelling errors. Electronically signed by: Oleg Irizarry M.D. 02/09/2023 3:18 PM Chest X-Ray 02/09/23 11:39 XR chest 1V portable CLINICAL HISTORY: dyspnea since afib dx 1 month ago COMPARISON STUDY: Chest CT December 25, 2022. FINDINGS: Lung volumes are normal. Lungs are clear. There is no pneumothorax or pleural effusion. Moderate cardiomegaly is again noted. Mediastinal contours are normal. There is no evidence for pulmonary edema. IMPRESSION: No acute cardiopulmonary findings. Cardiomegaly. ACT 112: Negative or not required by law. Electronically signed by: Marco A Noel M.D. 02/09/2023 12:12 PM Venous Doppler Study 02/10/23 11:08 BILATERAL LOWER EXTREMITY VENOUS DOPPLER HISTORY: Acute pain and swelling of the lower leg RUle out acute DVT COMPARISON STUDY: 12/28/2022. FINDINGS: Subcutaneous edema. 5.1 x 1.2 x 1.5 cm hypoechoic focus of the medial right calf, possibly intramuscular. There is normal compressibility, flow, and augmentation within the bilateral lower extremity deep venous systems. IMPRESSION: 1. No DVT within the right or left lower extremity. 2. 5.1 cm collection within the right calf appears stable. ACT 112: Negative or not required by law. Electronically signed by: Oleg Irizarry M.D. 02/10/2023 1:46 PM (7) Atrial fibrillation Atrial fibrillation type: unspecified Qualified Code(s): I48.91 - Unspecified atrial fibrillation
--- NOTE | 2023-02-15 14:43 | Anesthesiology Progress Note ---
Date of Service February 15, 2023 Anesthesia Post Procedure Vital Signs Vital Signs: Temp Pulse Pulse Resp BP BP Pulse Ox 02/15/23 12:00 36.2 C L 80 16 119/44 L 96 02/15/23 10:59 77 20 110/78 100 02/15/23 10:44 69 18 103/43 L 97 02/15/23 10:29 78 16 100/39 L 97 02/15/23 09:27 36.2 C L 92 H 18 110/63 98 02/15/23 08:10 36.3 C L 79 16 111/72 98 02/15/23 03:03 36.4 C L 73 18 107/57 L 98 02/15/23 00:00 81 02/14/23 23:20 36.4 C L 75 18 102/56 L 99 02/14/23 19:06 36.4 C L 78 18 97/51 L 96 02/14/23 17:00 72 02/14/23 15:27 36.4 C L 79 18 105/57 L 98 O2 Del Method 02/15/23 12:00 Room Air 02/15/23 10:59 Room Air 02/15/23 10:44 Room Air 02/15/23 10:29 Room Air 02/15/23 09:27 Room Air 02/15/23 08:10 Room Air 02/15/23 03:03 Room Air 02/15/23 00:00 02/14/23 23:20 Room Air 02/14/23 19:06 Room Air 02/14/23 17:00 02/14/23 15:27 Room Air Transfer of Care Handoff Completed per policy Notes Mental Status: alert / awake / arousable and participated in evaluation Nausea / Vomiting: adequately controlled Pain: adequately controlled Airway Patency, RR, SpO2: stable & adequate BP & HR: stable & adequate Hydration State: stable & adequate Anesthetic Complications: no major complications apparent and Pt Satisfied with anesthetic care
[2023-02-15] MEDS ORDERED: POTASSIUM CHLORIDE 20 MEQ/15 ML UDC PO STA (15:18)
[2023-02-15] MEDS: ADVANCED PROBIOTIC 1250 MG CAPSULE PO SCH (15:20)
[2023-02-15] MEDS: DIGOXIN 0.125 MG/2.5 ML UDP PO SCH (16:50)
--- NOTE | 2023-02-15 17:14 | Cardiology Progress Note ---
Date of Service February 15, 2023 Assessment & Plan (1) Acute GI bleeding: (2) Persistent atrial fibrillation: (3) Dilated idiopathic cardiomyopathy: (4) LBBB (left bundle branch block): Plan 77-year-old female with underlying history of idiopathic cardiomyopathy, persistent atrial fibrillation on chronic anticoagulation for arrhythmia as well as past DVT/pulmonary embolus now with recurrent lower GI bleeding. Bleeding appears to be improving on cessation of anticoagulation. 1. Lower GI bleed improving. Anticoagulation on hold 2. Dilated idiopathic cardiomyopathy ejection fraction less than 30% with compensated heart failure. Another dose of potassium elixer 20 meq ordered this am. Will likely give another dose of IV furosemide tomorrow. Continue metoprolol and digoxin. Continue spironolactone 50 mg in am, 25 mg daily at 1700. Discussed benefits and risks of anticoagulation and medication options. Will likely resume Eliquis at discharge. DVT prophylaxis: SQ heparin Admission and Anticipated Discharge Date Admission Date: February 09, 2023 Subjective Patient seen in cardiology follow up. Denies CP, SOB, ongoing mild LE edema. Received 20 mg IV furosemide yesterday, however, her IV site infiltrated so it is unclear how much effect the medication had. Flexible sigmoidoscopy revealed diverticulosis and mild colitis. Physical Exam Constitutional: well developed; no acute distress Respiratory: normal respiratory effort, lungs clear to auscultation Cardiovascular: Rate/Rhythm: + irregularly irregular Heart Sounds: normal S1 and normal S2; no murmur Extremities: + edema (1+ LE and pedal edema ) Gastrointestinal (Abdomen): normal bowel sounds, soft, nontender, no hepatosplenomegaly Neurologic: PERRL, EOMI, accommodation nl, no face palsy, no dysarthria Results & Data Vital Signs (Past 12 Hours) Vital Signs Temp Pulse Resp BP Pulse Ox O2 Del Method 02/15/23 15:49 36.3 C L 63 16 140/69 95 Room Air 02/15/23 12:00 36.2 C L 80 16 119/44 L 96 Room Air 02/15/23 10:59 77 20 110/78 100 Room Air 02/15/23 10:44 69 18 103/43 L 97 Room Air 02/15/23 10:29 78 16 100/39 L 97 Room Air 02/15/23 09:27 36.2 C L 92 H 18 110/63 98 Room Air 02/15/23 08:10 36.3 C L 79 16 111/72 98 Room Air Laboratory Results CBC 02/15/23 Range/Units 05:36 WBC 5.60 (4.8-10.8) K/ul RBC 3.37 L (4.20-5.40) M/uL Hgb 10.0 L (12.0-16.0) g/dl Hct 31.4 L (37.0-47.0) % Plt Count 303 (130-400) K/uL Neut # (Auto) 3.94 (1.40-6.50) K/uL Lymph # (Auto) 0.75 L (1.2-3.4) K/uL [place] # (Auto) 0.75 H (0.11-0.59) K/uL Eos # (Auto) 0.05 (0-0.50) K/uL Baso # (Auto) 0.06 (0-0.2) K/uL Comprehensive Metabolic Panel 02/15/23 Range/Units 05:36 Sodium 137 (136-145) mmol/L Potassium 3.6 (3.5-5.1) mmol/L Chloride 105 (98-107) mmol/L Carbon Dioxide 26 (21-32) mmol/L BUN 11 (6-23) mg/dl Creatinine 1.57 H (0.6-1.2) mg/dl Glucose 99 (70-99(Fasting)) mg/dl Calcium 8.4 L (8.6-10.3) mg/dl Intake and Output 02/15/23 02/15/23 02/15/23 06:59 14:59 22:59 Intake Total 220 / 560 Output Total / 3 / 3 Balance 218 / 557 - -3 Intake: IV 120 / 360 Piperacillin/Tazobactam 4.5 gm 120 / 360 In Dextrose 5% 100 ml @ 30 mls/ hr IV [facility] Rx#:[id number] Oral 100 / 200 Output: # Bowel Movements 2 / 3 3 / 3 Other: # Unmeasured Voids 2 2 Weight 102.8 kg 102.8 kg Weight Measurement Method Standing Scale Patient Weight 02/16/23 06:59 Weight 102.8 kg
[2023-02-16] MEDS: HEPARIN SOD 5,000 UNIT/0.5 ML VIAL SQ SCH (06:09)
[2023-02-16 07:13] LABS: Basophils # (auto) 0.01 K/uL (0-0.2); Basophils % (auto) 0.2 %; Eosinophils # (auto) 0.02 K/uL (0-0.50); Eosinophils % (auto) 0.3 %; Hematocrit (blood only) 31.2 % (37.0-47.0); Hemoglobin 9.9 g/dl (12.0-16.0); Immature Granulocytes # (auto) 0.07 K/uL (0.01-0.20); Immature Granulocytes % (auto) 1.2 %; Lymphocytes # (auto) 0.69 K/uL (1.2-3.4); Lymphocytes % (auto) 11.5 %; Mean Corpuscular Hemoglobin 29.9 pg (25.0-34.0); Mean Corpuscular Hgb Conc 31.7 g/dL (32.0-36.0); Mean Corpuscular Volume 94.3 fL (80.0-100.0); Mean Platelet Volume 9.2 fL (9.4-12.4); Monocytes # (auto) 0.51 K/uL (0.11-0.59); Monocytes % (auto) 8.5 %; Neutrophils # (auto) 4.71 K/uL (1.40-6.50); Neutrophils % (auto) 78.3 %; Platelet Count 335 K/uL (130-400); RDW Coefficient of Variation 15.6 % (11.5-14.5); RDW Standard Deviation 54.3 fL (36.4-46.3); Red Blood Count 3.31 M/uL (4.20-5.40); White Blood Count 6.01 K/ul (4.8-10.8)
[2023-02-16 07:34] LABS: Anion Gap 4 (3-11); BUN Creatinine Ratio 8.3 (10-20); Blood Urea Nitrogen 11 mg/dl (6-23); Calcium 8.6 mg/dl (8.6-10.3); Carbon Dioxide 27 mmol/L (21-32); Chloride 106 mmol/L (98-107); Creatinine Clr Calc Pharmacy 40.8 ml/min; Est GFR (African American) 45.2 ml/min; Glucose 99 mg/dl (70-99(Fasting)); Sodium 137 mmol/L (136-145)
[2023-02-16] MEDS: SPIRONOLACTONE 25 MG TAB PO SCH ×2 (08:35→16:53)
[2023-02-16] MEDS: ADVANCED PROBIOTIC 1250 MG CAPSULE PO SCH (08:36)
[2023-02-16] MEDS: BUDESONIDE EC 3 MG CAP PO SCH (08:36)
[2023-02-16] MEDS: DOCUSATE SODIUM 100 MG CAP PO SCH ×3 (08:36→21:38)
[2023-02-16] MEDS: PANTOprazole 40 MG TAB PO SCH ×2 (08:36→21:36)
[2023-02-16] MEDS: METOPROLOL SUCC 25MG EXT REL TAB PO SCH ×2 (08:37→21:36)
[2023-02-16] MEDS: NYSTATIN CR 15 GM TUBE EXT SCH ×2 (08:40→21:36)
[2023-02-16] MEDS ORDERED: POTASSIUM CHLORIDE 20 MEQ/15 ML UDC PO STA (09:36)
[2023-02-16] MEDS ORDERED: FUROSEMIDE INJ 20 MG/2 ML VIAL IV ONE ×2 (09:36→16:29)
--- NOTE | 2023-02-16 09:43 | Cardiology Progress Note ---
Date of Service February 16, 2023 Assessment & Plan (1) Acute GI bleeding: (2) Persistent atrial fibrillation: (3) Dilated idiopathic cardiomyopathy: (4) LBBB (left bundle branch block): Plan 77-year-old female with underlying history of idiopathic cardiomyopathy, persistent atrial fibrillation on chronic anticoagulation for arrhythmia as well as past DVT/pulmonary embolus now with recurrent lower GI bleeding. Bleeding appears to be improving on cessation of anticoagulation. 1. Lower GI bleed improving. Anticoagulation on hold thus far during admission, Hbg stable, 9.9 g/dl. 2. Dilated idiopathic cardiomyopathy ejection fraction less than 30% with compensated heart failure. Resume Eliquis at dose of 2.5 mg BID. Continue reduced dose of metoprolol with addition of digoxin this admission. Discharge on spironolactone 75 mg daily and furosemide 40 mg PO daily. Has EP follow up , RE consideration of cardiac resynchronization device. DVT prophylaxis: change to Eliquis. -if feeling well this afternoon and tolerates Eliquis, consider discharge. Admission and Anticipated Discharge Date Admission Date: February 09, 2023 Subjective Patient seen in follow up. She denies chest discomfort or shortness of breath. Has LE edema. Physical Exam Constitutional: well developed and + obese; no acute distress Eyes: PERRL, conjunctivae normal, anicteric sclerae ENMT: external ear and nose normal, oropharynx normal Neck: trachea midline, no thyromegaly Respiratory: normal respiratory effort, lungs clear to auscultation Cardiovascular: Rate/Rhythm: + irregularly irregular Heart Sounds: normal S1 and normal S2; no murmur Vessels: no JVD Extremities: + edema (1+ LE and pedal edema ) Chest (Breasts): normal inspection/palpation of breasts Gastrointestinal (Abdomen): normal bowel sounds, soft, nontender, no hepatosplenomegaly Percussion/Palpation: + abdomen tender and abdomen soft; no guarding Neurologic: PERRL, EOMI, accommodation nl, no face palsy, no dysarthria Psychiatric: A+Ox3, euthymic affect Results & Data Vital Signs (Past 12 Hours) Vital Signs Temp Pulse Resp BP Pulse Ox O2 Del Method 02/16/23 08:01 36.4 C L 55 L 16 116/67 95 Room Air 02/16/23 03:26 36.3 C L 83 18 129/61 97 Room Air 02/15/23 23:25 36.4 C L 77 18 106/58 L 96 Room Air Laboratory Results CBC 02/16/23 Range/Units 05:53 WBC 6.01 (4.8-10.8) K/ul RBC 3.31 L (4.20-5.40) M/uL Hgb 9.9 L (12.0-16.0) g/dl Hct 31.2 L (37.0-47.0) % Plt Count 335 (130-400) K/uL Neut # (Auto) 4.71 (1.40-6.50) K/uL Lymph # (Auto) 0.69 L (1.2-3.4) K/uL [place] # (Auto) 0.51 (0.11-0.59) K/uL Eos # (Auto) 0.02 (0-0.50) K/uL Baso # (Auto) 0.01 (0-0.2) K/uL Comprehensive Metabolic Panel 02/16/23 02/16/23 Range/Units 05:53 08:20 Sodium 137 (136-145) mmol/L Potassium TNP 3.9 Chloride 106 (98-107) mmol/L Carbon Dioxide 27 (21-32) mmol/L BUN 11 (6-23) mg/dl Creatinine 1.33 H (0.6-1.2) mg/dl Glucose 99 (70-99(Fasting)) mg/dl Calcium 8.6 (8.6-10.3) mg/dl Intake and Output 02/15/23 02/16/23 02/16/23 22:59 06:59 14:59 Intake Total 120 / 120 Output Total 3 / 3 Balance 117 / 117 Intake: Oral 120 / 120 Output: # Bowel Movements 3 / 3 Other: # Unmeasured Voids 2 2 Weight 103.3 kg Weight Measurement Method Standing Scale
--- NOTE | 2023-02-16 10:00 | Gastroenterology Progress Note ---
Date of Service February 16, 2023 Assessment & Plan (1) Colitis: (2) Acute GI bleeding: (3) Diverticulitis: Plan: 77 year old female with history of intermittent diarrhea, rectal bleeding, prior endoscopies ? suggestive of hemorrhoids, inflammatory changes, now admitted with BRBPR, abd discomfort, CT suggestive of sigmoid diverticulitis vs colitis. Improved on ABX. She was having persistent diarrhea, stool cx 02/10 and Cdiff 02/12 negative. Flex sig 02/15/2023 showed sigmoid diverticula; congested, erythematous and inflamed mucosa in sigmoid colon, bx pending. She was started to Entecort yesterday, and symptomatically noticed that stools are starting to have a bit of form, denies abd pain, n/v, rectal bleeding. Blood ct and VS stable. - F/U path report. - Diet as tolerated - Continue Entecort 9mg daily - Will consider 5-ASA start (was previous on Lialda and Rowasa; intolerant to Lialda, states she was light headed after 1 pill) - Will follow along Admission and Anticipated Discharge Date Admission Date: February 09, 2023 Supervising Physician Co-Signing Physician Notes Attending attestation I have seen, examined this patient, and agree with the findings and above by our mid-level provider FANY Pro, with the following additions: Ok with anticoagulation Awaiting pathology Would continue budesonide at 9mg daily for at least 2 months, then review biopsies taken yesterday. If any granulomas, then needs ASA therapy and then repeat full colonoscopy in 2-3 months Diarrhea is slowing, appears overall better pathology will help determine SCAD vs IBD , FANY, with the following additions: Subjective Pt woke up twice last night w small amt of loose stools. Noticed that there is slight form to stools now. This AM did have large amt of loose stools. Denies abd pain, n/v, rectal bleeding Review of Systems Review of Systems: All systems reviewed & are unremarkable except as noted in HPI & below Physical Exam Constitutional: WD/WN, vitals as above well groomed, cooperative and comfortable Eyes: PERRL, conjunctivae normal, anicteric sclerae ENMT: external ear and nose normal, oropharynx normal Respiratory: normal respiratory effort, lungs clear to auscultation Cardiovascular: HR irregular, no murmur, no gallops Gastrointestinal (Abdomen): normal bowel sounds, soft, nontender, no hepatosplenomegaly Skin: no rashes, warm and dry no jaundice Neurologic: Motor/Sensory: no asterixis Psychiatric: A+Ox3, euthymic affect Lymphatic: + lymphedema (Bilateral LE edema ) Results & Data Vital Signs (Past 12 Hours) Vital Signs Temp Pulse Resp BP Pulse Ox O2 Del Method 02/16/23 08:01 36.4 C L 55 L 16 116/67 95 Room Air 02/16/23 03:26 36.3 C L 83 18 129/61 97 Room Air 02/15/23 23:25 36.4 C L 77 18 106/58 L 96 Room Air
[2023-02-16] MEDS: APIXABAN 2.5 MG TAB PO SCH ×2 (11:11→21:35)
--- NOTE | 2023-02-16 16:16 | Hospitalist Progress Note ---
Date of Service February 16, 2023 Assessment & Plan (1) Diverticulitis: (2) Acute GI bleeding: (3) Acute blood loss anemia: (4) Bleeding hemorrhoids: Plan: per Dr. Shea's notes with addendum: Patient is a 77-year-old female with past medical history of paroxysmal A-fib, chronic DVT/PE, A-fib; started on Eliquis in December 2022. Presents with lower GI bleed with bright red blood per rectum CT abdomen pelvis reviewed personally; sigmoid colon wall thickening with adjacent inflammatory stranding and trace free pelvic fluid suggestive of acute diverticulitis versus colitis Labs reviewed; hemoglobin down trended from 11.8-10. GI PCR panel and C. difficile negative Bilateral venous duplex negative Discussed with GI; recommend trial of budesonide. Flexible sigmoidoscopy today. stop antibiotics Discussed with cardiology; anticoagulation can be hold off from A-fib standpoint. However, recommend evaluation for IVC filter given recent DVT and PE. Metoprolol dose decreased to 25 mg once daily and digoxin added. Spironolactone dose increased. Discussed with Dr. Reyes from vascular surgery(on February); no indication for IVC filter for now. Patient can be off anticoagulation for now. Monitor for bleed on heparin subcu for DVT prophylaxis. 6/15 Hg stable Biopsy from sigmoidoscopy pending Eliquis restarted, monitor (5) Hypokalemia: Plan: Repleted (6) HTN (hypertension): Plan: - Metoprolol dose decreased as per cardiology Digoxin added Also on spironolactone Dilated Cardiomyopathy EF <30% Lasix 20mg IV today monitor closely (7) Atrial fibrillation: Plan: -May continue metoprolol. Eliquis restarted (8) Asthma: Plan: -Stable, does not use inhalers or require supplemental O2 (9) CKD (chronic kidney disease), stage III: Plan: -Creatinine at baseline. DVT PPx: Eliquis CODE: Full code Disposition pending Admission and Anticipated Discharge Date Admission Date: February 09, 2023 Subjective ff up for lower gi bleed, etc seen resting in bed reports having lower leg discomfort secondary to leg swelling no chest pain, dyspnea, palpitations, dizziness no other symptoms Review of Systems Review of Systems: all noted and negative except for above Physical Exam Physical Exam: General- oriented x 3, not in distress, speaks in sentences with no effort or accessory muscle use Eyes- anicteric Neck- no JVD Lungs- clear breath sounds bilaterally, no rales/wheezes Heart- normal rate, regular rhythm; no murmurs Abdomen- normal bowel sounds, nondistended, soft, nontender Extremities- gr 2 lower extremity edema, no calf tenderness Neuro- alert, oriented x 3; no gross focal neurologic deficits Skin- warm & dry Results & Data Results & Data Vital Signs (Past 12 Hours) Vital Signs Temp Pulse Resp BP Pulse Ox O2 Del Method 02/16/23 15:22 36.3 C L 71 16 125/73 96 Room Air 02/16/23 12:07 36.4 C L 53 L 16 121/64 95 Room Air 02/16/23 08:01 36.4 C L 55 L 16 116/67 95 Room Air all noted and reviewed including below (7) Atrial fibrillation Atrial fibrillation type: unspecified Qualified Code(s): I48.91 - Unspecified atrial fibrillation
[2023-02-16] MEDS: DIGOXIN 0.125 MG/2.5 ML UDP PO SCH (16:57)
[2023-02-16] MEDS: FUROSEMIDE 40 MG TAB PO SCH (18:41)
[2023-02-17] MEDS: METOPROLOL SUCC 25MG EXT REL TAB PO SCH (09:17)
[2023-02-17] MEDS: APIXABAN 2.5 MG TAB PO SCH (09:17)
[2023-02-17] MEDS: PANTOprazole 40 MG TAB PO SCH (09:17)
[2023-02-17] MEDS: SPIRONOLACTONE 25 MG TAB PO SCH ×2 (09:17→16:53)
[2023-02-17] MEDS: ADVANCED PROBIOTIC 1250 MG CAPSULE PO SCH (09:18)
[2023-02-17] MEDS: NYSTATIN CR 15 GM TUBE EXT SCH (09:18)
[2023-02-17] MEDS: FUROSEMIDE 40 MG TAB PO SCH (09:18)
[2023-02-17] MEDS: DOCUSATE SODIUM 100 MG CAP PO SCH (09:18)
[2023-02-17] MEDS: BUDESONIDE EC 3 MG CAP PO SCH (09:18)
[2023-02-17 09:31] LABS: Hematocrit (blood only) 34.4 % (37.0-47.0); Hemoglobin 10.7 g/dl (12.0-16.0); Mean Corpuscular Hemoglobin 30.1 pg (25.0-34.0); Mean Corpuscular Hgb Conc 31.1 g/dL (32.0-36.0); Mean Corpuscular Volume 96.6 fL (80.0-100.0); Mean Platelet Volume 9.2 fL (9.4-12.4); Nucleated RBC # (auto) 0.02 K/uL (0-0.12); Nucleated RBC % (auto) 0.3 %; Platelet Count 386 K/uL (130-400); RDW Coefficient of Variation 15.8 % (11.5-14.5); RDW Standard Deviation 55.7 fL (36.4-46.3); Red Blood Count 3.56 M/uL (4.20-5.40); White Blood Count 7.66 K/ul (4.8-10.8)
--- NOTE | 2023-02-17 09:31 | Gastroenterology Progress Note ---
Date of Service February 17, 2023 Assessment & Plan (1) Colitis: (2) Acute GI bleeding: (3) Diverticulitis: Plan: 77 year old female with history of intermittent diarrhea, rectal bleeding, prior endoscopies ? suggestive of hemorrhoids, inflammatory changes, now admitted with BRBPR, abd discomfort, CT suggestive of sigmoid diverticulitis vs colitis. Improved on ABX. She was having persistent diarrhea, stool cx 02/10 and Cdiff 02/12 negative. Flex sig 02/15/2023 showed sigmoid diverticula; congested, erythematous and inflamed mucosa in sigmoid colon, bx pending. She was started to Entecort yesterday, and symptomatically noticed that stools are starting to have a bit of form, denies abd pain, n/v, rectal bleeding. Blood ct and VS stable. - Pathology reviewed - Diet as tolerated - Continue Budesonide 9mg daily w/ slow taper - Will consider 5-ASA start (was previous on Lialda and Rowasa; intolerant to Lialda, states she was light headed after 1 pill) - Will follow along - Will need OP follow up with her established GI team Thank you for allowing us to participate in the care of this patient. Please call with any acute changes, questions or concerns. Please see addendum below with additional recommendation from my supervising physician. Admission and Anticipated Discharge Date Admission Date: February 09, 2023 Supervising Physician Co-Signing Physician Notes Attending attestation I have seen, examined this patient, and agree with the findings and above by our mid-level provider FANY Wei, with the following additions: Ok with anticoagulation Pathology c/w with granulomas ? Crohn's vs SCAD Would continue budesonide at 9mg daily for at least 2 months, then review biopsies taken yesterday. Start low dose ASA Diarrhea is slowing, appears overall better Ok for D/C Subjective Pt was seen and evaluated, chart reviewed. Feeling better Stool is more formed, less loose as well Bx 2022: - Mild to focally moderate, acute and chronic inflammation of the lamina propria with 2 small noncaseating granulomas are seen. - Glandular architecture is very focally distorted on only one of the fragments of tissue submitted in this case. - Please note that I favor the small noncaseating granulomas as representing granulomatous inflammation from ruptured crypts rather than representing inflammatory bowel disease or an infectious agent. - See comment. Review of Systems Review of Systems: All systems reviewed & are unremarkable except as noted in HPI & below Physical Exam Constitutional: WD/WN, vitals as above Respiratory: normal respiratory effort, lungs clear to auscultation Cardiovascular: Rate/Rhythm: regular rate and regular rhythm Gastrointestinal (Abdomen): normal bowel sounds, soft, nontender, no hepatosplenomegaly Skin: no rashes, warm and dry Results & Data Vital Signs (Past 12 Hours) Vital Signs Temp Pulse Pulse Resp BP Pulse Ox O2 Del Method 02/17/23 07:25 36.4 C L 76 18 94/55 L 96 Room Air 02/17/23 04:00 36.5 C 81 18 112/62 96 Room Air 02/16/23 23:00 36.5 C 76 19 107/64 100 Room Air 02/16/23 23:09 72 Laboratory Results 02/17/23 02/17/23 Range/Units 08:51 08:51 WBC Pending RBC Pending Hgb Pending Hct Pending MCV Pending MCH Pending MCHC Pending Plt Count Pending Sodium Pending Potassium Pending Chloride Pending Carbon Dioxide Pending Anion Gap Pending BUN Pending Creatinine Pending Est Cr Clr Drug Dosing Pending Est GFR ( Amer) Pending Est GFR (Non-Af Amer) Pending BUN/Creatinine Ratio Pending Glucose Pending Calcium Pending
[2023-02-17 09:45] LABS: BUN Creatinine Ratio 8.2 (10-20); Calcium 8.9 mg/dl (8.6-10.3); Est GFR (African American) 36.4 ml/min; Est GFR (Non-African American) 31.4 ml/min
--- NOTE | 2023-02-17 12:38 | Cardiology Progress Note ---
Date of Service February 17, 2023 Assessment & Plan (1) Acute GI bleeding: (2) Persistent atrial fibrillation: (3) Dilated idiopathic cardiomyopathy: (4) LBBB (left bundle branch block): Plan 77-year-old female with underlying history of idiopathic cardiomyopathy, persistent atrial fibrillation on chronic anticoagulation for arrhythmia as well as past DVT/pulmonary embolus now with recurrent lower GI bleeding. Bleeding appears to be improving on cessation of anticoagulation. 1. Lower GI bleed improving. Anticoagulation on hold thus far during admission, Hbg stable, 9.9 g/dl. 2. Dilated idiopathic cardiomyopathy ejection fraction less than 30% with compensated heart failure. Stable for discharge from cardiology perspective on the following medications: Eliquis at dose of 2.5 mg BID. Continue reduced dose of metoprolol (metoprolol succinate to 25 mg twice daily) with addition of digoxin 0.125 mg daily this admission. Discharge on spironolactone 75 mg daily and furosemide 40 mg PO daily. Potassium elixir 20 mill equivalents mix with orange juice daily Has EP follow up , RE consideration of cardiac resynchronization device. Admission and Anticipated Discharge Date Admission Date: February 09, 2023 Subjective Patient seen in cardiology follow-up. Overall feels well. Diarrhea improved. No bleeding per rectum. Notes lower extremity edema. Telemetry reveals atrial fibrillation with left bundle branch block morphology in the 70s with frequent PVCs. Physical Exam Constitutional: well developed and + obese; no acute distress Eyes: PERRL, conjunctivae normal, anicteric sclerae ENMT: external ear and nose normal, oropharynx normal Neck: trachea midline, no thyromegaly Respiratory: normal respiratory effort, lungs clear to auscultation Cardiovascular: Rate/Rhythm: + irregularly irregular Heart Sounds: normal S1 and normal S2; no murmur Vessels: no JVD Extremities: + edema (1+ LE and pedal edema ) Chest (Breasts): normal inspection/palpation of breasts Gastrointestinal (Abdomen): normal bowel sounds, soft, nontender, no hepatosplenomegaly Percussion/Palpation: + abdomen tender and abdomen soft; no guarding Neurologic: PERRL, EOMI, accommodation nl, no face palsy, no dysarthria Psychiatric: A+Ox3, euthymic affect Results & Data Vital Signs (Past 12 Hours) Vital Signs Temp Pulse Pulse Resp BP Pulse Ox O2 Del Method 02/17/23 11:59 36.4 C L 60 18 127/69 98 Room Air 02/17/23 09:59 69 02/17/23 07:25 36.4 C L 76 18 94/55 L 96 Room Air 02/17/23 04:00 36.5 C 81 18 112/62 96 Room Air
[2023-02-17] MEDS ORDERED: MESALAMINE 800 MG TABCR PO ONE (13:35)
--- NOTE | 2023-02-17 16:41 | Hospitalist Progress Note ---
Date of Service February 17, 2023 Assessment & Plan (1) Diverticulitis: (2) Acute GI bleeding: (3) Acute blood loss anemia: (4) Bleeding hemorrhoids: Plan: per Dr. Shea's notes with addendum: Patient is a 77-year-old female with past medical history of paroxysmal A-fib, chronic DVT/PE, A-fib; started on Eliquis in December 2022. Presents with lower GI bleed with bright red blood per rectum CT abdomen pelvis reviewed personally; sigmoid colon wall thickening with adjacent inflammatory stranding and trace free pelvic fluid suggestive of acute diverticulitis versus colitis Labs reviewed; hemoglobin down trended from 11.8-10. GI PCR panel and C. difficile negative Bilateral venous duplex negative Discussed with GI; recommend trial of budesonide. Flexible sigmoidoscopy . stop antibiotics Discussed with cardiology; anticoagulation can be hold off from A-fib standpoint. However, recommend evaluation for IVC filter given recent DVT and PE. Metoprolol dose decreased to 25 mg once daily and digoxin added. Spironolactone dose increased. Discussed with Dr. Reyes from vascular surgery(on February); no indication for IVC filter for now. Patient can be off anticoagulation for now. 6/16 Hg remained stable around 10 s/p Flex Sig: Impression: - Diverticulosis in the sigmoid colon. - Congested, erythematous and inflamed mucosa in the sigmoid colon. Biopsied. Recommendation: - Continue entocort at 9 mg daily, hold antibiotics, can attempt ASA with asacol, preferably Lialda. Previously had lightheadedness with ASA medication - Advance diet as tolerated. Biopsy from sigmoidoscopy: Colon, sigmoid (biopsy): - Mild to focally moderate, acute and chronic inflammation of the lamina propria with 2 small noncaseating granulomas are seen. - Glandular architecture is very focally distorted on only one of the fragments of tissue submitted in this case. - Please note that I favor the small noncaseating granulomas as representing granulomatous inflammation from ruptured crypts rather than representing inflammatory bowel disease or an infectious agent. discussed with GI recommendation: Ok with anticoagulation Pathology c/w with granulomas ? Crohn's vs SCAD Would continue budesonide at 9mg daily for at least 2 months, then review biopsies taken yesterday. Start low dose ASA follow up with GI Clinic in 2 weeks (5) Hypokalemia: Plan: Repleted (6) HTN (hypertension): Plan: Dilated Cardiomyopathy EF <30% - Metoprolol dose decreased as per cardiology, now 25mg BID Digoxin 0.125mg added Also on spironolactone- increased to 75mg daily continue Lasix 40mg daily ff up with Cardiology clinic in 2 weeks (7) Atrial fibrillation: Plan: -May continue metoprolol. Eliquis restarted but dose lowered to 2.5mg po BID no recurrence of GI bleed since Eliquis restarted (8) Asthma: Plan: -Stable, does not use inhalers or require supplemental O2 (9) CKD (chronic kidney disease), stage III: Plan: -Creatinine at baseline. DVT PPx: Eliquis CODE: Full code Disposition d/c home with home health ff up with PCP in 1 week [employer], GI clinic in 2 weeks Admission and Anticipated Discharge Date Admission Date: February 09, 2023 Subjective ff up for lower gi bleed, etc seen resting in chair, comfortable states she feels better today no leg pain no GI bleed, (+) BMs, formed, brown no chest pain, dyspnea, palpitations, dizziness no other new symptoms Review of Systems Review of Systems: all noted and negative except for above Physical Exam Physical Exam: General- oriented x 3, not in distress, speaks in sentences with no effort or accessory muscle use Eyes- anicteric Neck- no JVD Lungs- clear breath sounds bilaterally, no rales/wheezes Heart- normal rate, regular rhythm; no murmurs Abdomen- normal bowel sounds, nondistended, soft, no tenderness Extremities- grade 1lower leg edema, no calf tenderness Neuro- alert, oriented x 3; no gross focal neurologic deficits Skin- warm & dry+ Results & Data Results & Data Vital Signs (Past 12 Hours) Vital Signs Temp Pulse Pulse Resp BP Pulse Ox O2 Del Method 02/17/23 12:37 98 02/17/23 11:59 36.4 C L 60 18 127/69 98 Room Air 02/17/23 09:59 69 02/17/23 07:25 36.4 C L 76 18 94/55 L 96 Room Air all noted and reviewed including below (7) Atrial fibrillation Atrial fibrillation type: unspecified Qualified Code(s): I48.91 - Unspecified atrial fibrillation
--- NOTE | 2023-02-17 16:42 | Discharge Summary ---
Discharge Summary Date of Service February 17, 2023 Notes For Next Care Provider Medication Changes From Visit BUDESONIDE, MESALAMINE- for possible inflammatory bowel disease DIGOXIN - for atrial fibrillation POTASSIUM SUPPLEMENT DECREASE METOPROLOL TO 25MG TWICE A DAY. INCREASE SPIRONOLACTONE TO 75MG DAILY. Admission HPI Per Admitting Provider This is a 77-year-old female with PMHx of paroxysmal A-fib, HTN, chronic DVT and PE recently started on Eliquis and metoprolol in December 2022 during recent hospitalization. Other PMHx includes, CKD stage III, pernicious anemia, GERD and asthma. Patient reports that she has not really felt herself since initiation of these medications from her last hospital stay. Approximately 2 days ago she noticed worsening dyspnea on exertion, and started having bright red blood per rectum whenever she goes from a sitting to standing position whenever she is laying down on her side. She also notes struggling with intermittent diarrhea over the past 1 year. She does follow with GI as an outpatient recently saw provider for chronic diarrhea within the past month. At that time C. difficile was checked and was negative, patient was instructed to augment her water intake, possible need to add MiraLAX to her daily regimen, and possible future colonoscopy/EGD. Pt reports one week ago she had BRBPR with having a bowel movement and was m ostly on toilet paper and tinged the bowl pink. Then Monday night she felt worsening lower abdominal cramping and had to use the restroom and states it was pouring out of her. She feels sensation of having a bowel movement nearly constantly, as well as intermittent nausea. Reports yesterday everything was normal, no blood, and then this morning she got up and had similar episode where she had soaked a towel she kept between her legs with blood. Pt also states she chronically has a hoarse voice, and sometimes feels like food gets stuck in her esophagus. She is nauseated daily, and has had poor po intake since last hospital stay. Patient last took her medications yesterday including her Eliquis and metoprolol. Patient notes that she has felt worse since being started on these medications, specifically has complaints of lightheadedness and dizziness after she takes her metoprolol. She is questioning if her dose can be reduced at all. Patient is incredibly frustrated and is tearful intermittently throughout my visit with her. She is tired of feeling like past, and feels that she has not had the help she needs. Her daughter and are present at bedside and are supportive. Admission Exam Per Admitting Provider General: awake, alert, no apparent distress, obese Head: Normocephalic, atraumatic ENT: PERRL, EOMI, no pharyngeal exudate, mucous membranes moist Chest: Clear throughout except for few inspiratory wheezes on room air, no rales or rhonchi Cardiac:irregularly irregular, rate controlled, no murmur, no JVD, normal peripheral pulses, good capillary refill Abdominal: NABS x 4 quadrants, soft, nondistended, nontender to palpation, no rebound or guarding Extremities: Normal inspection upper extremities, + lymphedema of BLE, + ecchymotic lesions over the left lower leg (reports from bumping into things at home),2+ peripheral edema, no erythema, calfs nontender to palpation Psych: Depressed and anxious mood and affect, tearful at times Neuro: AAO x 3, strength intact bilaterally and rated 5/5, no motor deficits, speech is clear, no peripheral sensory deficits Principal Dx & Hospital Course #1 = Principal Diagnosis (1) Diverticulitis: (2) Acute GI bleeding: (3) Acute blood loss anemia: (4) Bleeding hemorrhoids: per Dr. Shea's notes with addendum: Patient is a 77-year-old female with past medical history of paroxysmal A-fib, chronic DVT/PE, A-fib; started on Eliquis in December 2022. Presents with lower GI bleed with bright red blood per rectum CT abdomen pelvis reviewed personally; sigmoid colon wall thickening with adjacent inflammatory stranding and trace free pelvic fluid suggestive of acute diverticulitis versus colitis Labs reviewed; hemoglobin down trended from 11.8-10. GI PCR panel and C. difficile negative Bilateral venous duplex negative Discussed with GI; recommend trial of budesonide. Flexible sigmoidoscopy . stop antibiotics Discussed with cardiology; anticoagulation can be hold off from A-fib standpoint. However, recommend evaluation for IVC filter given recent DVT and PE. Metoprolol dose decreased to 25 mg once daily and digoxin added. Spironolactone dose increased. Discussed with Dr. Reyes from vascular surgery(on February); no indication for IVC filter for now. Patient can be off anticoagulation for now. 6/16 Hg remained stable around 10 s/p Flex Sig: Impression: - Diverticulosis in the sigmoid colon. - Congested, erythematous and inflamed mucosa in the sigmoid colon. Biopsied. Recommendation: - Continue entocort at 9 mg daily, hold antibiotics, can attempt ASA with asacol, preferably Lialda. Previously had lightheadedness with ASA medication - Advance diet as tolerated. Biopsy from sigmoidoscopy: Colon, sigmoid (biopsy): - Mild to focally moderate, acute and chronic inflammation of the lamina propria with 2 small noncaseating granulomas are seen. - Glandular architecture is very focally distorted on only one of the fragments of tissue submitted in this case. - Please note that I favor the small noncaseating granulomas as representing granulomatous inflammation from ruptured crypts rather than representing inflammatory bowel disease or an infectious agent. discussed with GI recommendation: Ok with anticoagulation Pathology c/w with granulomas ? Crohn's vs SCAD Would continue budesonide at 9mg daily for at least 2 months, then review biopsies taken yesterday. Start low dose ASA follow up with GI Clinic in 2 weeks (5) Hypokalemia: Repleted (6) Abnormal finding on CT scan: Indeterminate 7 mm hypodense lesion of the interpolar left kidney is too small to characterize Further work up, management, and ff up as outpatient (7) HTN (hypertension): Dilated Cardiomyopathy EF <30% - Metoprolol dose decreased as per cardiology, now 25mg BID Digoxin 0.125mg added Also on spironolactone- increased to 75mg daily continue Lasix 40mg daily ff up with Cardiology clinic in 2 weeks (8) Atrial fibrillation: -May continue metoprolol. Eliquis restarted but dose lowered to 2.5mg po BID no recurrence of GI bleed since Eliquis restarted (9) Asthma: -Stable, does not use inhalers or require supplemental O2 (10) CKD (chronic kidney disease), stage III: -Creatinine at baseline. DVT PPx: Eliquis CODE: Full code Disposition d/c home with home health ff up with PCP in 1 week [employer], GI clinic in 2 weeks Discharge Exam General- oriented x 3, not in distress, speaks in sentences with no effort or accessory muscle use Eyes- anicteric Neck- no JVD Lungs- clear breath sounds bilaterally, no rales/wheezes Heart- normal rate, regular rhythm; no murmurs Abdomen- normal bowel sounds, nondistended, soft, no tenderness Extremities- grade 1lower leg edema, no calf tenderness Neuro- alert, oriented x 3; no gross focal neurologic deficits Skin- warm & dry+ Updated Medication List Medication Instructions Recorded Confirmed Type aspirin 81 mg tablet,delayed 81 mg PO [id number] 09/19/18 02/09/23 History release cyanocobalamin (vitamin B-12) 1,000 mcg PO QAM 09/19/18 02/09/23 History 1,000 mcg tablet (Vitamin B-12) furosemide 40 mg tablet 40 mg PO QAM 09/19/18 02/09/23 History spironolactone 25 mg tablet 25 mg PO QAM 09/19/18 02/09/23 History cholecalciferol (vitamin D3) 25 25 mcg PO QAM 09/07/21 02/09/23 History mcg (1,000 unit) capsule (Vitamin D3) apixaban 5 mg (74 tabs) tablets in 5 mg PO BID #74 ea 12/28/22 02/09/23 Rx a dose pack (Eliquis) metoprolol succinate 50 mg 50 mg PO BID #60 tabs 01/01/23 02/09/23 Rx tablet,extended release 24 hr fiber 1 tab PO BID 02/09/23 02/09/23 History apixaban 2.5 mg tablet (Eliquis) 2.5 mg PO BID 30 days #60 tabs 02/17/23 Rx budesonide 3 mg 9 mg PO QAM 30 days #90 ea 02/17/23 Rx capsule,delayed,extended release digoxin 50 mcg/mL (0.05 mg/mL) 0.125 mg (2.5 mL) PO DAILY@1600 30 02/17/23 Rx oral solution days #60 mL docusate sodium 100 mg capsule 100 mg PO BID 10 days #20 caps 02/17/23 Rx mesalamine 800 mg tablet,delayed 800 mg PO BID 30 days #60 tabs 02/17/23 Rx release metoprolol succinate 25 mg 25 mg PO BID 30 days #60 tabs 02/17/23 Rx tablet,extended release 24 hr potassium chloride 20 mEq/15 mL 20 meq (15 mL) PO QAM 30 days #450 02/17/23 Rx oral liquid mL spironolactone 25 mg tablet 75 mg PO QAM 30 days #90 tabs 02/17/23 Rx Hospital Stay Data Consultations 02/09/23 16:21 ED Decision to Admit Stat 02/09/23 16:32 Consult Gastroenterology Routine 02/09/23 17:30 Consult Cardiology Routine 02/10/23 11:08 Consult Vascular Surgery Routine Procedures Performed Operation Date: 02/15/23 16:30 Actual Procedures p Flexible Sigmoidoscopy Biopsy - Estuardo Carlson MD Diagnostic Imagining Performed 02/09/23 11:39 CT Abd and Pelvis [CT abd pelvis IV con only] Stat FINDINGS: Cardiomegaly. Clear lung bases. No pneumatosis or pneumoperitoneum. Unremarkable spleen, pancreas and adrenal glands. The gallbladder and liver are unremarkable. Cortical thinning of the kidneys. Indeterminate 7 mm hypodense lesion of the interpolar left kidney is too small to characterize. Partial distention of the urinary bladder. Hysterectomy. Atherosclerosis of the aorta without aneurysm. No lymphadenopathy. No bowel obstruction. There is wall thickening of the mid sigmoid colon with pericolonic inflammation and trace free pelvic fluid. Colonic diverticulosis. No drainable fluid collections. Mild fecal retention. Appendix is not definitively seen. Unremarkable soft tissues. No acute fracture. Mild lumbar levoscoliosis. IMPRESSION: 1. Colonic diverticulosis. Sigmoid colon wall thickening with adjacent inflammatory stranding and trace free pelvic fluid is suggestive of acute diverticulitis versus colitis. Correlation could be made with follow-up colonoscopy. 2. No bowel obstruction, pneumoperitoneum or fluid collection to suggest abscess. 3. Additional findings as above. ACT 112: Negative or not required by law. The above report was generated using voice recognition software. It may contain grammatical, syntax or spelling errors. Electronically signed by: Oleg Irizarry M.D. 02/09/2023 3:18 PM 02/10/23 11:08 US venous duplex leg [US venous doppler LE BI] Routine FINDINGS: Subcutaneous edema. 5.1 x 1.2 x 1.5 cm hypoechoic focus of the medial right calf, possibly intramuscular. There is normal compressibility, flow, and augmentation within the bilateral lower extremity deep venous systems. IMPRESSION: 1. No DVT within the right or left lower extremity. 2. 5.1 cm collection within the right calf appears stable. ACT 112: Negative or not required by law. Pending Results Patient Have Any Pending Studies at Discharge: No Discharge Instructions Given to Patient (Per Discharging Provider) PLEASE REFER TO YOUR NEW MEDICATION LIST AND FOLLOW INSTRUCTIONS CAREFULLY. YOUR NEW MEDICATIONS INCLUDE: BUDESONIDE, MESALAMINE- for possible inflammatory bowel disease DIGOXIN - for atrial fibrillation POTASSIUM SUPPLEMENT DECREASE METOPROLOL TO 25MG TWICE A DAY. INCREASE SPIRONOLACTONE TO 75MG DAILY. PLEASE CALL YOUR PRIMARY CARE PHYSICIAN OR RETURN TO THE ER IF WITH WORSENING OF SYMPTOMS, INCLUDING LEG SWELLING, SHORTNESS OF BREATH, CHEST PAIN, PALPITATIONS, BLOOD IN THE STOOL, ABDOMINAL PAIN, NAUSEA/VOMITING, FEVER/CHILLS, ETC FOLLOW UP WITH PRIMARY CARE PHYSICIAN OUTLINED ABOVE. FOLLOW UP WITH P[facility] OUTLINED ABOVE. FOLLOW UP WITH CARDIOLOGY CLINIC IN 2 WEEKS. Total Time Total Time Spent Total Time Spent (In Minutes): > 30 minutes
[2023-02-17] MEDS: DIGOXIN 0.125 MG/2.5 ML UDP PO SCH (16:53)
[2023-02-17] MEDS ORDERED: MESALAMINE 800 MG TABCR PO SCH (21:00)
[2023-02-18] MEDS ORDERED: POTASSIUM CHLORIDE 20 MEQ/15 ML UDC PO SCH (09:00)
== END 2023-02-17 18:25 | disposition home health service (06) | DRG 378 ==
LOC: ED 10:33 → 2S 16:32 → SUATTDRO 16:32 → 2S 19:19 → 2N 02-13 15:02 → 2W 02-13 15:04